=== PATIENT | female | born 1960 | race Caucasian/White ===

== ENCOUNTER 2017-12-14 13:51 | Emergency (ER) | payer BC, SELFPAY ==
--- NOTE | 2017-12-14 14:30 | XR_ITS ---
XR wrist RT min 3V, XR hand RT min 3V Ordering Physician: Zeus Gagnon Patient Age: 57 years: Female HISTORY: ITS.REASON: FALLhand and wrist pain TECHNIQUE: 3 views right wrist 3 views right hand COMPARISON :Right hand from June 2014 RIGHT WRIST 3 view: ====== No fracture nor dislocation. The distal radius appears intact. Distal ulna. Small tess of calcification along ulnar aspect of ulnar styloid.Most likely dystrophic minor calcification. The patient has a old healed fracture at the proximal fourth metacarpal. since 2013 at this site. Degenerative arthritic changes at first carpal metacarpal joint. Narrowing, sclerosis. Early hypertrophic features. There is also some dystrophic calcification along with a few modest sesamoids about this joint . These question early may be slight evident be more evident than previous study. RIGHT HAND 3 view======== Right hand is intact no fracture. No dislocation. Again the arthritic changes at first carpal-metacarpal joint noted. Narrowing sclerosis with scattered sesamoids about this area. Good healing at the proximal fourth metacarpal from the 2014 fracture. The fingers appear intact with only borderline narrowing at the DIP joints. IMPRESSION: ==== No acute fracture at right wrist or hand Old healed fracture with minor deformity proximal fourth metacarpal. Arthritic changes at first carpal-metacarpal joint.
[2017-12-14 14:44] VITALS: BP 136/67; PULSE 77; RESP 20; TEMP 36.2; O2SAT 97; BMI 22.9
--- NOTE | 2017-12-14 15:00 | HMH.EDUTC ---
[facility] [place] Clinical Impression: Right wrist sprain Qualifiers: Encounter type: initial encounter Qualified Code(s): S63.501A - Unspecified sprain of right wrist, initial encounter Disposition: Home, Self-Care Condition on Discharge: Good Instructions: How to Use a Sling, DI for Wrist Sprain, How To Perform RICE (Rest, Ice, Compress, Elevate), How to Take Care of Your Splint Additional Instructions: * Rest * ice 15-20 mins 3-4 times a day * splint and sling for support and swelling. until you follow up. Be sure not too tight but not too loose either by checking fingers like we discussed. * Elevate as discussed as much as possible to help reduce swelling and therefore, pain * Ibuprofen every 6 hours as needed for pain and inflammation. If you need something more, you can take tylenol every 4 hours as needed as long as your primary care provider has told you it is ok to take both. Referrals: Ryanne Reyna APRN [Primary Care Provider] - (Immediately for new or worsening symptoms that might indicate splint too tight like we discussed. Otherwise THURSDAY AT 10:45 IN [facility]S OFFICE) Time of Disposition: 15:58 Medical Decision Making Vital Signs: 12/14/17 14:44 12/14/17 15:58 Temperature 97.1 F L 98 F Temperature Source Temporal Artery Scan Pulse Rate 76 Pulse Rate [Right Radial] 77 Respiratory Rate 20 20 Blood Pressure 130/76 Blood Pressure [Right Arm] 136/67 Blood Pressure Mean [Right Arm] 90 Blood Pressure Source [Right Arm] Automatic Cuff Blood Pressure Position [Right Arm] Sitting 02 Sat by Pulse Oximetry 97 Oxygen Delivery Method Room Air - Radiology Data #1 Image(s): Wrist, Hand Image Reviewed: Yes I reviewed the patient's radiology image w/the ED provider Preliminary Findings: Normal/NAD Rvwd w/ MANASA Lerma. No acute findings. Multiple sesmoid bones. - Physician Consults Physician Consulted: Katie Reyna APRN Time: 15:30 Reason -: Pt condition Comment/Response: 1530 Called but with a pt, will return call. 1556: Katie returned call. Discussed HPI, xrays, exam and splinting. Would like to see pt in office at 10:45 before referring to ortho. - [place] Inquiry Pt receiving controlled substance: No [facility] [place] - General Stated complaint: fell 12/13/17 hurt right hand Time Seen by Provider: 12/14/17 15:00 Mode of Arrival: Family Vehicle Source of Information: Patient Limitations: No Limitations Description of Symptoms (Recalled from Triage Doc. by RN): PT STATES SHE FELL ON RIGHT HAND/WRIST YESTERDAY. HEENT Symptoms (Recalled from RN notes): No Resp Symptoms (Recalled from RN notes): No Skin Symptoms (Recalled from RN notes): No MS Symptoms (Recalled from RN notes): Yes (RIGHT HAND/WRIST PAIN) Functional Status (Recalled from RN notes): NA - History of Present Illness Provider Complaint: c/o right hand and wrist pain s/p fall yesterday. While trying to hand up a shower curtain, fell into the shower. isn't sure how she caught herself. Pain with wrist ROM primarily but some pain with movement of fingers as well. Ibuprofen hasn't helped. Hasn't taken or tried anything else. Denies N/T. No pain radiating into forearm. - Related Data Home Medications Medication Instructions Recorded Confirmed Aspirin [Aspir 81] 81 mg PO DAILY 12/14/17 12/14/17 Atorvastatin Calcium [Atorvastatin 40 mg PO DAILY 12/14/17 12/14/17 40mg Tab] Dorzolamide HCl/Timolol Maleat 0 ml OP DAILY 12/14/17 12/14/17 [Cosopt Ophth Soln 10mL Bottle] Latanoprost [Xalatan] 2.5 ml OP DAILY 12/14/17 12/14/17 Loteprednol Etabonate [Lotemax] 5 ml OP DAILY 12/14/17 12/14/17 Allergies Allergy/AdvReac Type Severity Reaction Status Date / Time No Known Allergies Allergy Verified 12/14/17 14:14 - Worker's Comp Is this a Worker's Comp case?: No [facility] History I have reviewed the patient's past medical history: Yes ([place], glaucoma) Medical History: Denies:: Diabetes Mellitus Type
[2017-12-14 15:58] VITALS: BP 130/76; PULSE 76; RESP 20; TEMP 36.6; O2SAT 99
== END 2017-12-14 15:59 | disposition home or self-care (01) ==
PROVIDERS: Emergency Provider Nurse Practitioner Family; Family Provider Nurse Practitioner Family; PCP Nurse Practitioner Family
DX: S63.501A Unspecified sprain of right wrist, initial encounter (principal); W01.0XXA Fall on same level from slipping, tripping and stumbling without subsequent striking against object, initial encounter; Y93.E9 Activity, other interior property and clothing maintenance; Y92.002 Bathroom of unspecified non-institutional (private) residence as the place of occurrence of the external cause; Z79.82 Long term (current) use of aspirin; Z79.899 Other long term (current) drug therapy
CPT/HCPCS: 73110; 73130; 99202

== ENCOUNTER → 2018-06-07 08:41 | Outpatient (CLI) | payer BC, SELFPAY ==
--- NOTE | 2018-06-07 08:45 | MM_ITS ---
MM Dig screening mamm BI w/CAD CAD Screening COMPARISON: Digital mammograms with CAD 04/30/2016 and 07/29/2010 INDICATION: There is no personal or family history of breast cancer TECHNIQUE: Standard CC and MLO images were obtained. R2 CAD reviewed. FINDINGS: Scattered fibro glandular densities are seen throughout both breasts. There is a possible developing asymmetric density central portion of the right breast best seen on the cc view. Suggest patient return for spot compression MLO and CC views of the area marked on the film and ultrasound may be necessary as well There is a mole marker right breast. There are no suspicious microcalcifications. IMPRESSION: Fibrofatty parenchyma with possible asymmetric density right breast BI-RADS Category: 0 Need Additional Imaging Evaluation RECOMMENDED FOLLOW-UP: IMM - IMMEDIATE FOLLOW-UP RECOMMENDED (A letter has been sent to the patient regarding results of the study.)
== END ==
PROVIDERS: Family Provider Nurse Practitioner Family; PCP Nurse Practitioner Family; Visit Provider Nurse Practitioner Family
DX: Z12.31 Encounter for screening mammogram for malignant neoplasm of breast (principal)
CPT/HCPCS: 77067

== ENCOUNTER → 2018-06-29 09:15 | Outpatient (CLI) | payer BC, SELFPAY ==
--- NOTE | 2018-06-29 09:18 | MM_ITS ---
MM Dig mamm DX unilat RT CAD, US breast RT complete INDICATION: Follow-up abnormal mammogram ORDERING PHYSICIAN: Ryanne Reyna PATIENT AGE: 58 years COMPARISON: 06/07/2018, 04/30/2016 TECHNIQUE: Problem-solving views of the right breast along with right breast ultrasound FINDINGS: There is average fibroglandular tissue. There is asymmetric density in the medial aspect of the right breast is less apparent on the spot compression views and not readily apparent on the rolled views. There was some asymmetry here dating back to 04/30/2016 likely due to asymmetric fibroglandular tissue. No malignant appearing mass or malignant appearing microcalcification evident. Right breast ultrasound: No suspicious nodules. No cyst or solid lesions evident. IMPRESSION: Probably benign findings. Asymmetric density in the upper and inner aspect of the right wrist probably related to overlapping fibroglandular tissue. Recommend 6 month mammographic follow-up BI-RADS Category: 3 Probably Benign Finding Short Term Follow-up RECOMMENDED FOLLOW-UP: 6M - 6 MONTH FOLLOW-UP (A letter has been sent to the patient regarding results of the study.)
== END ==
PROVIDERS: PCP Nurse Practitioner Family; Visit Provider Nurse Practitioner Family
DX: R92.8 Other abnormal and inconclusive findings on diagnostic imaging of breast (principal)
CPT/HCPCS: 76641; 77065

== ENCOUNTER → 2019-03-11 13:32 | Outpatient (CLI) | payer BC, SELFPAY ==
--- NOTE | 2019-03-11 13:40 | MM_ITS ---
MM Dig mamm DX unilat RT CAD Ordering Physician: Emanuel Purvis MD Patient Age: 58 years Female COMPARISON: July, bilateral mammogram studies. Right breast ultrasound June 2018 INDICATION: Asymmetric density right breast. Follow-up TECHNIQUE: 1. Right Diagnostic Mammogram:Full CC and MLO view Along with CC and MLO and 90 degrees spot views along 2. Right Breast Ultrasound.: Entire breast surgery including axillary survey. Findings: DIAGNOSTIC RIGHT MAMMOGRAM WITH SPOT VIEWS: The density superior right breast again seen but seems to compress out on the lateral 90 degree spot view & dissipates on the initial cc view. . Also note that old studies from 2009 and August 2016 demonstrated a similar area of density However would again recommend 6 month follow-up to further confirm stability and to resume annual schedule. ========= RIGHT BREAST ULTRASOUND including axillary survey No focal areas of concern are identified;. Technologist stated there was particular attention to the superior breast and 12:00 region/(cc) .No cyst nor solid nodule evident Axillary survey. Scattered benign appearing nodes ......... IMPRESSION: ... 1. Right Diagnostic Mammogram:-No Significant Change. The asymmetric density at the 12 o'clock position right breast again noted but seems to compress out; and seems to be fairly stable compared to old studies from 2009 2015 2. Right Breast Ultrasound:. Unremarkable. No areas of concern Patient may resume annual schedule Bilateral mammogram 6-8 months recommended for follow-up & to resume annual scheduled BI-RADS Category: 2 stable appearing Benign Finding(s) RECOMMENDED FOLLOW-UP: 6M -8 MONTH FOLLOW-UP Bilateral mammogram 6-8 months recommended for follow-up & to resume annual scheduled A letter has been sent to the patient regarding results of the study.)
--- NOTE | 2019-03-11 13:41 | US_ITS ---
US breast RT complete INDICATION: Abnormal mammogram ORDERING PHYSICIAN: Emanuel Purvis MD PATIENT AGE: 58 years COMPARISON: 03/11/2019 TECHNIQUE: Right breast ultrasound performed along with axilla FINDINGS: [place]ch[place] fibroglandular tissue. No discrete mass. No cystic or solid lesions IMPRESSION: Negative BI-RADS Category: 2 Benign Finding(s) RECOMMENDED FOLLOW-UP: 6M - 6 MONTH FOLLOW-UP (A letter has been sent to the patient regarding results of the study.)
== END ==
PROVIDERS: PCP Internal Medicine Adolescent Medicine; Visit Provider Internal Medicine Adolescent Medicine
DX: R92.8 Other abnormal and inconclusive findings on diagnostic imaging of breast (principal)
CPT/HCPCS: 76641; 77065

== ENCOUNTER 2019-04-06 11:48 | Emergency (ER) | payer BC, SELFPAY ==
[2019-04-06 11:57] VITALS: BP 169/76; PULSE 80; RESP 18; TEMP 36.6; O2SAT 99; BMI 24.2
--- NOTE | 2019-04-06 11:57 | XR_ITS ---
XR foot RT min 3V HISTORY: Pain following injury ITS.REASON: PAIN] ORDERING PHYSICIAN: Analy Leon APRN PATIENT AGE: 58 years COMPARISON: None FINDINGS: There are mild osteoarthritic changes at the first MTP joint with a small well-circumscribed calcific density medial to the distal aspect of the first metatarsal. No fracture or dislocation. IMPRESSION: No acute finding
--- NOTE | 2019-04-06 11:57 | XR_ITS ---
XR ankle RT min 3V HISTORY: Right lower ankle pain after injury ITS.REASON: PAIN ORDERING PHYSICIAN: Analy Leon APRN PATIENT AGE: 58 years Comparison: None FINDINGS: No fracture or dislocation. No lytic or blastic change. There is normal mineralization.. The joint spaces are well-preserved. No significant degenerative/arthritic changes. No erosive changes evident. There is a prominent calcaneal spur at 8 mm. IMPRESSION: No acute finding
[2019-04-06 11:59] VITALS: BP 169/76; PULSE 80; RESP 18; TEMP 36.6; O2SAT 99; BMI 25.0
--- NOTE | 2019-04-06 12:03 | PC.NURSE ---
NOTIFIED RAD OF XRAY
--- NOTE | 2019-04-06 12:32 | HMH.EDUTC ---
[facility] [place] Clinical Impression: Ankle sprain Qualifiers: Encounter type: initial encounter Involved ligament of ankle: other ligament Laterality: right Qualified Code(s): S93.491A - Sprain of other ligament of right ankle, initial encounter Foot sprain Qualifiers: Encounter type: initial encounter Laterality: right Qualified Code(s): S93.601A - Unspecified sprain of right foot, initial encounter Disposition: Home, Self-Care Condition on Discharge: Good Instructions: How to Use a Walking Boot, How to Use Crutches, How To Perform RICE (Rest, Ice, Compress, Elevate) Additional Instructions: *RICE, Rest the extremity, Ice 15-20 minutes 3-4 times daily, Compress- wear the mckay wrap as discussed as much as possible to help reduce swelling and pain, Elevate the extremity when at rest *Mckay wrap/walking boot is for support and help control swelling, use it except in the shower. Be sure that is not to tight but not to loose either *Elevate when resting *Ibuprofen every 6-8 hours as needed for pain an inflammation. If need something more can take Tylenol in between doses of Ibuprofen to help Immediately follow up with your family doctor for new or worsening of symptoms, or no noticeable improvement over the next 3-[address] Canseco office and make appointment Inform them you was seen in [facility] and recommended follow up with Dr Canseco Return if needed Straight to ER if any life threatening symptoms Call back to [facility] later today for official reading of your xray results Referrals: Ryanne Reyna APRN [Primary Care Provider] - As needed Jessica Canseco DPM [Staff Physician] - As needed (Call and make appointment) Time of Disposition: 12:42 Medical Decision Making - [place]ville Inquiry Pt receiving controlled substance: No [place] was queried for this patient: No Vital Signs: 04/06/19 11:57 04/06/19 11:59 Temperature 98 F 98 F Temperature Source Oral Oral Pulse Rate [Right Apical] 80 80 Respiratory Rate 18 18 Blood Pressure [Right Arm] 169/76 H 169/76 H Blood Pressure Mean [Right Arm] 107 107 02 Sat by Pulse Oximetry 99 99 Oxygen Delivery Method Room Air Orders (Tests/Meds): ORDERS Category Date Time Status XR ankle RT min 3V Stat Exams 04/06/19 11:57 Taken XR foot RT min 3V Stat Exams 04/06/19 11:57 Taken - Radiology Data #1 Image(s): Ankle, Foot/Toes Image Reviewed: Yes I reviewed the patient's radiology image Ankle- no acute finding Foot - Heel spur noted no acute fracture WIll place in walking boot and have patient follow up with Dr Canseco [facility] [place] HPI - General Stated complaint: AO [id number] Right ankle/foot Time Seen by Provider: 04/06/19 12:33 Mode of Arrival: Wheelchair Source of Information: Patient Limitations: No Limitations Description of Symptoms (Recalled from Triage Doc. by RN): PT C/O RT ANKLE PAIN AFTER TRIPPING WHILE GETTING IN TRUCK. PT DENIES HITTING HEAD OR ANY OTHER INJURIES. HEENT Symptoms (Recalled from RN notes): No Resp Symptoms (Recalled from RN notes): No Skin Symptoms (Recalled from RN notes): No MS Symptoms (Recalled from RN notes): Yes (RT ANKLE AND FOOT PAIN) Functional Status (Recalled from RN notes): N/A - History of Present Illness Provider Complaint: Patient states that last night she was getting into her truck when she tripped and ever since she has been having pain in her right ankle and foot State that pain is worse in the top of the foot and wraps around her ankle and shoots down into her foot State that she has been hopping around but pain is worse when she puts weight on it. Patient reports being hearing impaired but able to understand and read lips - Related Data Home Medications Medication Instructions Recorded Confirmed Aspirin [Aspir 81] 81 mg PO DAILY 12/14/17 12/14/17 Atorvastatin Calcium [Atorvastatin 40 mg PO DAILY 12/14/17 12/14/17 40mg Tab] Dorzolamide HCl/Timolol Maleat 0 ml OP DAILY 12/14/17 12/14/17 [Cosopt Ophth Soln 10mL Bottle]
--- NOTE | 2019-04-06 12:36 | ED_ITS ---
[facility] [place] Clinical Impression: Ankle sprain Qualifiers: Encounter type: initial encounter Involved ligament of ankle: other ligament Laterality: right Qualified Code(s): S93.491A - Sprain of other ligament of right ankle, initial encounter Foot sprain Qualifiers: Encounter type: initial encounter Laterality: right Qualified Code(s): S93.601A - Unspecified sprain of right foot, initial encounter Disposition: Home, Self-Care Condition on Discharge: Good Instructions: How to Use a Walking Boot, How to Use Crutches, How To Perform RICE (Rest, Ice, Compress, Elevate) Additional Instructions: *RICE, Rest the extremity, Ice 15-20 minutes 3-4 times daily, Compress- wear the mckay wrap as discussed as much as possible to help reduce swelling and pain, Elevate the extremity when at rest *Mckay wrap/walking boot is for support and help control swelling, use it except in the shower. Be sure that is not to tight but not to loose either *Elevate when resting *Ibuprofen every 6-8 hours as needed for pain an inflammation. If need something more can take Tylenol in between doses of Ibuprofen to help Immediately follow up with your family doctor for new or worsening of symptoms, or no noticeable improvement over the next 3-[address] Canseco office and make appointment Inform them you was seen in [facility] and recommended follow up with Dr Canseco Return if needed Straight to ER if any life threatening symptoms Call back to [facility] later today for official reading of your xray results Referrals: Ryanne Reyna APRN [Primary Care Provider] - As needed Jessica Canseco DPM [Staff Physician] - As needed (Call and make appointment) Time of Disposition: 12:42 Medical Decision Making - [place]ville Inquiry Pt receiving controlled substance: No [place] was queried for this patient: No Vital Signs: 04/06/19 11:57 04/06/19 11:59 Temperature 98 F 98 F Temperature Source Oral Oral Pulse Rate [Right Apical] 80 80 Respiratory Rate 18 18 Blood Pressure [Right Arm] 169/76 H 169/76 H Blood Pressure Mean [Right Arm] 107 107 02 Sat by Pulse Oximetry 99 99 Oxygen Delivery Method Room Air Orders (Tests/Meds): ORDERS Category Date Time Status XR ankle RT min 3V Stat Exams 04/06/19 11:57 Taken XR foot RT min 3V Stat Exams 04/06/19 11:57 Taken - Radiology Data #1 Image(s): Ankle, Foot/Toes Image Reviewed: Yes I reviewed the patient's radiology image Ankle- no acute finding Foot - Heel spur noted no acute fracture WIll place in walking boot and have patient follow up with Dr Canseco [facility] [place] HPI - General Stated complaint: AO [id number] Right ankle/foot Time Seen by Provider: 04/06/19 12:33 Mode of Arrival: Wheelchair Source of Information: Patient Limitations: No Limitations Description of Symptoms (Recalled from Triage Doc. by RN): PT C/O RT ANKLE PAIN AFTER TRIPPING WHILE GETTING IN TRUCK. PT DENIES HITTING HEAD OR ANY OTHER INJURIES. HEENT Symptoms (Recalled from RN notes): No Resp Symptoms (Recalled from RN notes): No Skin Symptoms (Recalled from RN notes): No MS Symptoms (Recalled from RN notes): Yes (RT ANKLE AND FOOT PAIN) Functional Status (Recalled from RN notes): N/A - History of Present Illness Provider Complaint: Patient states that last night she was getting into her truck when she tripped and ever since she has been having pain in her right ankle and
[2019-04-06 12:55] VITALS: BP 169/76; PULSE 80; RESP 18; TEMP 36.6; O2SAT 99
== END 2019-04-06 12:56 | disposition home or self-care (01) ==
PROVIDERS: Emergency Provider Nurse Practitioner; PCP Nurse Practitioner Family
DX: S93.491A Sprain of other ligament of right ankle, initial encounter (principal); S93.601A Unspecified sprain of right foot, initial encounter; W17.89XA Other fall from one level to another, initial encounter
CPT/HCPCS: 29515; 73610; 73630; 99202

== ENCOUNTER → 2020-05-17 09:39 | Outpatient (CLI) | payer BC, SELFPAY ==
[2020-05-17 11:12] LABS: Basophils # 0.1 K/mm3 (0-0.2); Basophils % 0.9 % (0.1-2.0); Eosinophils # 0.4 K/mm3 (0.0-0.4); Hematocrit 44.1 % (37.0-47.0); Hemoglobin 15.4 g/dL (12.2-16.2); Lymphocytes # 2.5 K/mm3 (0.7-4.5); Lymphocytes % 37.4 % (10-50); Mean Corpuscular HGB Conc 34.9 g/dL (31.8-35.4); Mean Corpuscular Hemoglobin 30.3 pg (27.0-31.2); Mean Corpuscular Volume 86.8 fl (81-99); Mean Platelet Volume 8.4 fl (7.4-10.4); Monocytes # 0.3 K/mm3 (0.1-1.0); Monocytes % 4.7 % (1.7-9.3); Neutrophils # 3.4 K/mm3 (1.8-7.8); Platelet Count 213 K/mm3 (142-424); Red Blood Count 5.08 M/mm3 (4.20-5.40); Red Cell Distribution Width 14.1 % (11.5-17.5); White Blood Count 6.6 K/mm3 (4.8-10.8)
[2020-05-17 12:33] LABS: Chol/HDL Ratio 4.1 (1-3.5); Cholesterol 188 mg/dl (140-200); HDL Cholesterol 46 mg/dl (40-60); Triglycerides 222 mg/dl (30-150); VLDL Cholesterol 44 mg/dL (0-40)
[2020-05-17 12:50] LABS: Anion Gap 16.1 mEq/L (5-15); Aspartate Amino Transferase 29 U/L (14-36); Bilirubin,Total 1.1 mg/dl (0.2-1.3); Blood Urea Nitrogen 10 mg/dl (7-17); Calcium 9.3 mg/dl (8.4-10.2); Carbon Dioxide 26 mmol/L (22.0-30.0); Chloride 104 mmol/L (98-107); Estimated Glomerular Filt Rate 127 ml/min (>60); GFR (African American) 153 ML/MIN (>60); Glucose 99 mg/dl (74-100); Potassium 4.1 mmoL/L (3.5-5.1); Sodium 142 mmol/L (136-145); Total Protein,Serum 7.2 g/dl (6.3-8.2)
[2020-05-17 12:51] LABS: Albumin Level 4.5 g/dl (3.5-5.0); Albumin/Globulin Ratio 1.7 (1.1-1.8); Alkaline Phosphatase 70 U/L (38-126); Globulin 2.7 g/dL (1.3-3.2)
[2020-05-18 18:02] LABS: RA Latex Turbid. 11.7 IU/mL (0.0-13.9)
== END ==
PROVIDERS: Visit Provider Nurse Practitioner Family
DX: Z01.419 Encounter for gynecological examination (general) (routine) without abnormal findings (principal); E78.5 Hyperlipidemia, unspecified; M12.9 Arthropathy, unspecified; Z86.2 Personal history of diseases of the blood and blood-forming organs and certain disorders involving the immune mechanism
CPT/HCPCS: 36415; 80053; 80061; 85025; 86431

== ENCOUNTER → 2020-05-24 10:19 | Outpatient (CLI) | payer BC, SELFPAY ==
--- NOTE | 2020-05-24 10:22 | MM_ITS ---
PROCEDURE: MM DIG SCREENING MAMM BI W/CAD Digital Breast Tomosynthesis Included CLINICAL INDICATION: SCREENING There is no personal or family history of breast cancer. COMPARISON: MG SCBI MM Dig screening mamm BI w/CAD from 06/07/2018 MG DXRT MM Dig mamm DX unilat RT CAD from 06/29/2018 MG DIG MAMM-DX UNI-RT from 03/11/2019 TECHNIQUE: Standard CC and MLO images and 3D Tomosynthesis was obtained. R2 CAD reviewed. FINDINGS: Scattered diffuse fibroglandular densities are seen throughout both breasts and the findings are bilateral and symmetrical. The asymmetric density superior right breast seen on recent studies is less prominent on today's study. There is a stable tiny nodular density near the axillary tail left breast. IMPRESSION: Fibrofatty parenchyma with no suspicious lesions seen BI-RAD Category: 1 Negative FOLLOW-UP: 1YR 1 Year Follow-up (A letter has been sent to the patient regarding results of the study.) Dictated Dr. Jair Rivera MD 05/25/2020 13:39 Dr. Jair Whittaker MD in [place] 05/25/2020 13:39
== END ==
PROVIDERS: PCP Nurse Practitioner Family; Visit Provider Nurse Practitioner Family
DX: Z12.31 Encounter for screening mammogram for malignant neoplasm of breast (principal)
CPT/HCPCS: 77063; 77067

== ENCOUNTER → 2021-08-15 10:04 | Outpatient (CLI) | payer BC, SELFPAY ==
[2021-08-15 11:07] LABS: Basophils # 0.1 K/mm3 (0-0.2); Basophils % 1.3 % (0.1-2.0); Eosinophils # 0.3 K/mm3 (0.0-0.4); Eosinophils % 3.8 % (0.1-12.0); Hematocrit 44.6 % (37.0-47.0); Hemoglobin 14.9 g/dL (12.2-16.2); Lymphocytes # 2.6 K/mm3 (0.7-4.5); Lymphocytes % 35.9 % (10-50); Mean Corpuscular HGB Conc 33.3 g/dL (31.8-35.4); Mean Corpuscular Volume 87.2 fl (81-99); Monocytes # 0.5 K/mm3 (0.1-1.0); Monocytes % 6.2 % (1.7-9.3); Neutrophils # 3.9 K/mm3 (1.8-7.8); Neutrophils % 52.9 % (37.0-80.0); Platelet Count 222 K/mm3 (142-424); Red Blood Count 5.12 M/mm3 (4.20-5.40); White Blood Count 7.3 K/mm3 (4.8-10.8)
[2021-08-15 11:40] LABS: Alanine Aminotransferase 29 U/L (12-78); Albumin Level 4.4 g/dl (3.5-5.0); Albumin/Globulin Ratio 1.5 (1.1-1.8); Alkaline Phosphatase 68 U/L (38-126); Anion Gap 14.1 mEq/L (5-15); Aspartate Amino Transferase 40 U/L (14-36); Bilirubin,Total 1.4 mg/dl (0.2-1.3); Blood Urea Nitrogen 9 mg/dl (7-17); Calcium 9.4 mg/dl (8.4-10.2); Carbon Dioxide 26 mmol/L (22.0-30.0); Chloride 105 mmol/L (98-107); Chol/HDL Ratio 4.3 (1-3.5); Cholesterol 195 mg/dl (140-200); Estimated Glomerular Filt Rate 126 ml/min (>60); GFR (African American) 152 ML/MIN (>60); Globulin 2.9 g/dL (1.3-3.2); Glucose 106 mg/dl (74-100); HDL Cholesterol 45 mg/dl (40-60); Potassium 5.1 mmoL/L (3.5-5.1); Sodium 140 mmol/L (136-145); Total Protein,Serum 7.3 g/dl (6.3-8.2); Triglycerides 257 mg/dl (30-150); VLDL Cholesterol 51 mg/dL (0-40)
[2021-08-15 11:51] LABS: Direct LDL Cholesterol 103.69 mg/dL (100-129)
== END ==
PROVIDERS: Visit Provider Nurse Practitioner Family
DX: E78.5 Hyperlipidemia, unspecified (principal); Z86.2 Personal history of diseases of the blood and blood-forming organs and certain disorders involving the immune mechanism
CPT/HCPCS: 36415; 80053; 80061; 85025

== ENCOUNTER 2022-12-05 07:20 | Observation (INO) | payer BC, SELFPAY ==
[2022-12-05] VITALS (13 sets, daily range): BP systolic 127–218; BP diastolic 61–92; PULSE 81–100; RESP 16–20; TEMP 36.1–37.3; O2SAT 96–98; BMI 25.6; BMI 25.3
--- NOTE | 2022-12-05 08:01 | HMH.EDGENADL ---
Discharge Plan Disposition Patient Disposition: Admitted As Inpatient Condition: Good Prescriptions Prescriptions: New Eliquis 5 mg tablet 5 mg PO BID 97 Days Qty: 201 0RF Rx Instructions: Please take 10 mg twice daily for 7 days followed by 5 mg twice daily for 3 months quantity sufficient. No Action latanoprost [Xalatan] 2.5 ML drops 2.5 ml ophthalmic (eye) DAILY atorvastatin 40 MG tablet 40 mg PO DAILY aspirin [Aspir-81] 81 MG tablet,delayed release (DR/EC) 81 mg PO DAILY dorzolamide-timolol 10 ML drops 0 ml ophthalmic (eye) DAILY loteprednol etabonate [Lotemax] 5 ML drops,suspension 5 ml ophthalmic (eye) DAILY Referrals Follow up/Referrals: Ryanne Reyna APRN [Primary Care Provider] - See instructions Clinical Impressions Clinical Impression: DVT (deep venous thrombosis) Discharge ED Provider: Sam (ED)[facility] Adult HPI General Chief complaint: PAIN Stated complaint: pain in Lt leg, swollen Time Seen by Provider: 12/05/22 08:02 Mode of Arrival: Ambulatory Source of Information: Patient Limitations: No Limitations Description of Symptoms (Recalled from ER Triage Doc. by RN): Presents via POV d/t LLE pain/edema that started Thu. Denies hx of DVT. +asa 81mg. History of Present Illness HPI narrative: Patient is a 62-year-old female with a history of remote uterine cancer that was cured by hysterectomy presents today with left lower extremity swelling that is nontraumatic in nature. States this been ongoing for 3 days. She did have a fall earlier this month but denies any specific injury to her left lower extremity. Swelling has been circumferential and asymmetric in relation to her contralateral leg. She denies any coolness or decree sensation or motor function of the left lower extremity. Denies any history of DVT or PTE. Is not on anticoagulation. Does not have any ongoing or active cancer to her knowledge. Has not had any prolonged immobilizations. Pain is mild at the moment. Patient denies any chest pain or shortness of breath. Related Data Home Medications Medication Instructions Recorded Confirmed aspirin 81 mg tablet,delayed 81 mg PO DAILY Heart disease 12/14/17 12/14/17 release (Aspir-) atorvastatin 40 mg tablet 40 mg PO DAILY Cholesterol 12/14/17 12/14/17 dorzolamide 22.3 mg-timolol 6.8 0 ml ophthalmic (eye) DAILY EYES 12/14/17 12/14/17 mg/mL eye drops latanoprost 0.005 % eye drops 2.5 ml ophthalmic (eye) DAILY EYES 12/14/17 12/14/17 (Xalatan) loteprednol etabonate 0.5 % eye 5 ml ophthalmic (eye) DAILY EYES 12/14/17 12/14/17 drops,suspension (Lotemax) Previous Rx's Medication Instructions Recorded apixaban 5 mg tablet (Eliquis) 5 mg PO BID 97 days #201 tabs 12/05/22 Allergies Allergy/AdvReac Type Severity Reaction Status Date / Time No Known Allergies Allergy Verified 12/14/17 14:14 [facility] Disclaimer: The information contained in this section may have been updated after the patient was seen, as this information can be updated by other users. Social History Smoking Status: Never smoker alcohol intake: never current occupational status: unemployed Travel in the last 8 weeks: None ROS Obtained: Yes All systems reviewed & no additional complaints except as documented Physical Exam General General appearance: alert and in no apparent distress Head Head exam: atraumatic and normocephalic Eye Eye exam: Present normal appearance, PERRL and EOMI ENT ENT exam: Present normal exam and normal oropharynx Respiratory Respiratory exam: Present normal lung sounds bilaterally; Absent respiratory distress, wheezes or stridor Cardiovascular Cardiovascular exam: Present regular rate; Absent tachycardia or irregular rhythm Abdominal Exam Abdominal exam: Present soft; Absent distention, tenderness or guarding Extremities Exam Extremities exam: Present other (Left lower extremity is circumferentia
--- NOTE | 2022-12-05 08:07 | CA_ITS ---
FINAL REPORT CLINICAL HISTORY: LLE swelling, REDNESS LLE,PT FELL 2/1 AND BROKE LT ARM,PT ON ASA,HX UTERINE CA FINDINGS: DUPLEX VENOUS SONOGRAPHY OF THE LEFT LOWER EXTREMITY Multiple transverse and longitudinal scans were performed of the femoropopliteal deep venous system, with augmentation and compression maneuvers. There is thrombus within the femoral, popliteal and proximal calf veins. The common femoral vein is patent. IMPRESSION: Extensive left lower extremity DVT. These results were reported to the patient's nurse by the instrument technologist. Reviewed, Interpreted and Dictated by Saida Godwin MD Transcribed by Delilah Lino Authenticated and [facility]
[2022-12-05 08:18] LABS: Chloride 108 mmol/L (98-107)
[2022-12-05 08:19] LABS: Sodium 141 mmol/L (136-145)
[2022-12-05 08:21] LABS: Alanine Aminotransferase 31 U/L (12-78); Alkaline Phosphatase 100 U/L (38-126); Aspartate Amino Transferase 36 U/L (14-36); Bilirubin,Total 1.8 mg/dl (0.2-1.3); Blood Urea Nitrogen 14 mg/dl (7-17); Creatinine Clearance Estimated 65 mL/min (50-200); Estimated Glomerular Filt Rate 102 ml/min (>60); GFR (African American) 123 ML/MIN (>60)
[2022-12-05 08:22] LABS: Albumin Level 4.7 g/dl (3.5-5.0); Albumin/Globulin Ratio 1.5 (1.1-1.8); Calcium 8.9 mg/dl (8.4-10.2); Carbon Dioxide 23 mmol/L (22.0-30.0); Globulin 3.2 g/dL (1.3-3.2); Glucose 126 mg/dl (74-100); Total Protein,Serum 7.9 g/dl (6.3-8.2)
[2022-12-05 08:25] LABS: Activated Partial Thrombo Time 28.6 seconds (22.8-30.6); INR 1.23 (0.9-1.1); Prothrombin Time 13.1 seconds (10.1-12.5)
[2022-12-05 08:28] LABS: Basophils # 0.1 K/mm3 (0-0.2); Eosinophils # 0.2 K/mm3 (0.0-0.4); Eosinophils % 2.3 % (0.1-12.0); Hematocrit 39.8 % (37.0-47.0); Hemoglobin 13.6 g/dL (12.2-16.2); Lymphocytes # 1.9 K/mm3 (0.7-4.5); Lymphocytes % 19.9 % (10-50); Mean Corpuscular HGB Conc 34.1 g/dL (31.8-35.4); Mean Corpuscular Hemoglobin 28.7 pg (27.0-31.2); Mean Corpuscular Volume 84.3 fl (81-99); Monocytes # 0.6 K/mm3 (0.1-1.0); Monocytes % 6.1 % (1.7-9.3); Neutrophils # 6.7 K/mm3 (1.8-7.8); Neutrophils % 70.7 % (37.0-80.0); Platelet Count 62 K/mm3 (142-424); Red Blood Count 4.72 M/mm3 (4.20-5.40); Red Cell Distribution Width 14.6 % (11.5-17.5); White Blood Count 9.4 K/mm3 (4.8-10.8)
--- NOTE | 2022-12-05 08:30 | PC.NURSE ---
welder tech in room for doppler studies
[2022-12-05 08:34] LABS: D-Dimer > 8.10 ug/mL (0.0-0.5)
--- NOTE | 2022-12-05 09:07 | PC.NURSE ---
Pt updated on plan of care. Awaiting Ultrasound results. No complaints at this time.
--- NOTE | 2022-12-05 11:06 | PC.NURSE ---
spoke with neptali from [facility] for admission
[2022-12-05 11:14] LABS: Coronavirus 19, PCR Not Detected (NotDetected); Influenza A, PCR Not Detected (NotDetected); Influenza B, PCR Not Detected (NotDetected)
--- NOTE | 2022-12-05 11:30 | HMH.PHAINT1 ---
Pharmacy Intervention Comments: MEDICATION RECONCILIATION COMPLETED ON PATIENT USING EXTERNAL FILL HISTORY FROM PHARMACY AND PRESCRIPTION THAT WAS SENT BY ED. -ROCHELLE RAMIREZD
--- NOTE | 2022-12-05 11:55 | PC.NURSE ---
Report called to MARYURI Marsh. #[id number]
--- NOTE | 2022-12-05 12:19 | PC.NURSE ---
arrived to floor by wheelchair from ED
--- NOTE | 2022-12-05 12:20 | PC.NURSE ---
PT BEING TRANSPORTED TO FOR ADMISSION
--- NOTE | 2022-12-05 13:15 | CT_ITS ---
FINAL REPORT TECHNIQUE: Thin section axial images were obtained through the abdomen after intravenous contrast. Reconstruction images were obtained from the axial data. Exam was performed using dose reduction techniques. CLINICAL HISTORY: Extensive LLE DVT, Low Platelets, Hx Uterine CA, spleen values 62,000, liver b/c INR 1.23, liver test normal FINDINGS: There is a subcentimeter hypoechoic lesion in the left lobe of the liver which may be a cyst. The liver is otherwise homogeneous. The gallbladder is present. The spleen, adrenal glands, and pancreas are unremarkable. There are bilateral renal cysts. Largest cyst in the upper pole of the left kidney measures 8.3 cm. Abdominal GI tract is without acute abnormality. There is no abdominal lymphadenopathy or ascites. The patient is status post hysterectomy. The appendix is not visualized but there are no secondary signs to suggest appendicitis. There is no pelvic lymphadenopathy or ascites. No acute osseous abnormalities identified. IMPRESSION: Hepatic and renal cysts as detailed above. Reviewed, Interpreted and Dictated by Saida Godwin MD Transcribed by Blanquita Schmitt Authenticated and [facility]
--- NOTE | 2022-12-05 13:15 | CT_ITS ---
FINAL REPORT TECHNIQUE: Axial imaging of the chest is obtained after the administration of contrast. 3-D MIP reformatted images were also obtained and reviewed per PE protocol. CLINICAL HISTORY: Extensive Left DVT, Low Platelets, Hx Uterine CA, spleen values 62,000, liver b/c INR 1.23, liver test normal FINDINGS: There is a filling defect in the right main pulmonary artery and right lower lobe pulmonary artery consistent with pulmonary embolus. There is no pulmonary embolus on the left. There is no evidence of right heart strain. There is no aortic dissection or intimal flap. There is no mediastinal, hilar, or axillary lymphadenopathy. There is a 5 mm left lower lobe nodule well seen on image number 33. There is a 6 mm right lower lobe nodule well seen on image number 34. There is no pleural or pericardial effusion. There is no acute osseous abnormality. IMPRESSION: Pulmonary emboli in the right main and right lower lobe pulmonary arteries. No evidence of right heart strain. Bilateral subcentimeter pulmonary nodules. Recommend chest CT follow-up in 3 months. Reviewed, Interpreted and Dictated by Saida Godwin MD Transcribed by Blanquita Schmitt Authenticated and [facility]
--- NOTE | 2022-12-05 13:23 | EXP.HP ---
History of Present Illness *Admission Date: 12/05/22 *Reason for visit:: Chief complaint: Left lower extremity pain *History of present illness: This is a 62-year-old female that presents to [facility] emergency department with left lower extremity pain and swelling. She is accompanied by her . Her past medical history is significant for glaucoma and uterine cancer diagnosed in 2015 status post hysterectomy. Over the last 3 days she has identified increasing pain to the calf area of her left lower extremity with associated edema but no associated erythema. She has identified no acute dyspnea, hemoptysis or loss of ambulation. She denies easy bruising, gross hematuria, melena or hematochezia. She reports that on November 19 she was outside with her dogs and slipped on the ice and broke her left arm. [facility] and conservative care was recommended. She has been taking 800 mg of ibuprofen daily for the last 2 weeks. She reports decreased daily activity with her left upper extremity fracture. She reports that prior to her left arm history fracture she was very active with her dogs and responsibilities at home. She identified no weakness, easy fatigability, jaundice or generalized symptomatology. She reports no history of splenomegaly or routine hnmd-wuy-wquixpe use of Pepcid or H2 blockers. She reports a hysterectomy in 2014 for precancerous lesions to her cervix. Subsequent follow-up identified no further concerns. She reports her last annual blood work was 2 years ago which she characterizes as normal. In the ED her lab evaluation identified an INR of 1.2, elevated D-dimer 8.1, CBC with a normal white blood cell count 9.4, hemoglobin 13.6, hematocrit 39.8 and platelet count 62,000. Her electrolytes and glucose were within normal limits. Her LFTs including AST, ALT and alk phos were normal. Her total bilirubin was 1.8. In 2020 her bilirubin was 1.4. A left lower extremity Doppler identified an extensive left DVT. [facility] Medical History (Updated 12/05/22 @ 13:52 by Hector Yeager MD) Glaucoma History of uterine cancer Hyperlipidemia Left humeral fracture Uses cochlear implant Surgical History (Updated 12/05/22 @ 13:47 by Hector Yeager MD) Cochlear implant in place Corneal transplant status History of appendectomy History of hysterectomy Family History (Updated 12/05/22 @ 13:47 by Hector Yeager MD) Mother Heart attack Coronary artery disease Father Motor vehicle accident Other Family history of myocardial infarction Stroke Social History Smoking Status: Never smoker alcohol intake: never current occupational status: unemployed Travel in the last 8 weeks: None [place]/hinduism: Sabianist Review of Systems Review of Systems Review of systems:: pertinent systems reviewed and negative unless documented below Constitutional Constitutional: Denies lethargy *Cardiovascular Cardiovascular: Denies chest pain, Denies chest pain at rest, Denies chest pain with activity, Reports claudication, Denies dyspnea, Denies dyspnea on exertion, Denies orthopnea, Denies palpitations, Denies paroxysmal nocturnal dyspnea and Denies rapid heart rate *Respiratory Respiratory: Denies dyspnea, Denies dyspnea on exertion and Denies hemoptysis Endocrine Endocrine: Denies palpitations Meds Home Medications and Allergies Home Medications Medication Instructions Recorded Confirmed Type dorzolamide 22.3 mg-timolol 6.8 1 drp ophthalmic (eye) BID 12/14/17 12/05/22 History mg/mL eye drops ELEVATED EYE PRESSURE latanoprost 0.005 % eye drops 1 drp ophthalmic (eye) HS ELEVATED 12/14/17 12/05/22 History (Xalatan) EYE PRESSURE loteprednol etabonate 0.5 % eye 1 drp ophthalmic (eye) QID EYE 12/14/17 12/05/22 History drops,suspension (Lotemax) INFLAMMATION apixaban 5 mg
--- NOTE | 2022-12-05 18:02 | PC.NURSE ---
Patient ate late lunch and did not feel like eating much for dinner. Notified of snack options.
[2022-12-06] VITALS: PULSE 90
[2022-12-06 04:00] VITALS: BP 151/76; PULSE 70; PULSE 80; RESP 18; TEMP 36.8; O2SAT 98; BMI 27.1
--- NOTE | 2022-12-06 06:07 | PC.NURSE ---
Pt. aox 4 with assist to the restroom times one related to poor vision.
[2022-12-06 07:56] VITALS: BP 142/63; PULSE 87; RESP 18; TEMP 36.6; O2SAT 100
[2022-12-06 08:00] VITALS: PULSE 87; O2SAT 97
--- NOTE | 2022-12-06 08:40 | EXP.DC.SUM ---
General Admission date:: 12/05/22 Discharge date: 12/06/22 HPI HPI HPI: This is a 62-year-old female that presents to [facility] emergency department with left lower extremity pain and swelling. She is accompanied by her . Her past medical history is significant for glaucoma and uterine cancer diagnosed in 2015 status post hysterectomy. Over the last 3 days she has identified increasing pain to the calf area of her left lower extremity with associated edema but no associated erythema. She has identified no acute dyspnea, hemoptysis or loss of ambulation. She denies easy bruising, gross hematuria, melena or hematochezia. She reports that on November 19 she was outside with her dogs and slipped on the ice and broke her left arm. She went to see Dr. Sameer Chang at [facility] for her left humeral fracture and conservative care was recommended. She has been taking 800 mg of ibuprofen daily for the last 2 weeks. She reports decreased daily activity with her left upper extremity fracture. She reports that prior to her left arm history fracture she was very active with her dogs and responsibilities at home. She identified no weakness, easy fatigability, jaundice or generalized symptomatology. She reports no history of splenomegaly or routine ukal-vbu-scpuwyw use of Pepcid or H2 blockers. She reports a hysterectomy in 2014 for precancerous lesions to her cervix. Subsequent follow-up identified no further concerns. She reports her last annual blood work was 2 years ago which she characterizes as normal. In the ED her lab evaluation identified an INR of 1.2, elevated D-dimer 8.1, CBC with a normal white blood cell count 9.4, hemoglobin 13.6, hematocrit 39.8 and platelet count 62,000. Her electrolytes and glucose were within normal limits. Her LFTs including AST, ALT and alk phos were normal. Her total bilirubin was 1.8. In 2020 her bilirubin was 1.4. A left lower extremity Doppler identified an extensive left DVT. Hospital Course Hospital Course Hospital Course: This is a 62-year-old female that presents to [facility] emergency department with left lower extremity concerns and identified extensive left lower extremity DVT with subsegmental right lung PEs. No identified heart strain on CT.? Her ED evaluation was concerning for thrombocytopenia and elevated INR.? Problems addressed are as follows: Extensive left lower extremity DVT Right pulmonary artery PE Most likely provoked by decreased level of activity with LUE fracture. No prior history of DVT or clotting disorder. Initiated on Eliquis 10 mg orally twice a day. Plan to complete 10 mg twice daily for 7 days and transition to 5 mg twice daily thereafter to complete 3 months of therapy. CTA of chest obtained showing PEs on right side. No right heart strain on CT of chest. Stable on room air during hospitalization. Patient would benefit from echocardiogram as an outpatient if develops any worsening respiratory symptoms. Hemodynamically stable throughout admission. Given clinical stability, plan to discharge home with close follow-up with her PCP in 3 days for further management and evaluation. Thrombocytopenia Likely secondary to NSAID therapy versus consumption from clot formation. Improving on day of discharge after initiating treatment for thrombosis. Would benefit from repeat labs at follow-up to assess for normalization. Elevated total bilirubin Most likely Gilbert's with past history of mildly elevated total bilirubin. Differential diagnosis broad however including Wilfred's, alpha-1 antitrypsin deficiency, thyroid disorder, or hepatitis. Labs obtained that are send outs including GGT, hepatitis panel, iron studies, ceruloplasmin, alpha-1 anti-trypsin. Still pending at time of discharge. Recommend follow-up as an outpatient. Liver enzymes normal on repeat labs. Iron studies show iron deficiency. Will defer iron supplementation to PCP. Me
--- NOTE | 2022-12-06 08:55 | PC.NURSE ---
pt refused lab work this am. pt was educated on reasoning for lab work to monitor effectiveness of treatment and voiced her understanding.
[2022-12-06 11:31] LABS: Basophils # 0.1 K/mm3 (0-0.2); Basophils % 0.8 % (0.1-2.0); Eosinophils # 0.2 K/mm3 (0.0-0.4); Eosinophils % 3.3 % (0.1-12.0); Hematocrit 34.8 % (37.0-47.0); Hemoglobin 12.1 g/dL (12.2-16.2); Lymphocytes # 1.7 K/mm3 (0.7-4.5); Lymphocytes % 24.4 % (10-50); Mean Corpuscular HGB Conc 34.7 g/dL (31.8-35.4); Mean Corpuscular Hemoglobin 29.4 pg (27.0-31.2); Mean Corpuscular Volume 84.8 fl (81-99); Monocytes # 0.4 K/mm3 (0.1-1.0); Monocytes % 4.8 % (1.7-9.3); Neutrophils # 4.8 K/mm3 (1.8-7.8); Neutrophils % 66.7 % (37.0-80.0); Platelet Count 79 K/mm3 (142-424); Red Blood Count 4.11 M/mm3 (4.20-5.40); Red Cell Distribution Width 14.8 % (11.5-17.5); White Blood Count 7.1 K/mm3 (4.8-10.8)
[2022-12-06 12:28] LABS: Gamma Glutamyl Transpeptidase 29 U/L (12-43); Lactate Dehydrogenase 258 U/L (313-618)
[2022-12-06 12:58] LABS: Thyroid Stimulating Hormone 3.53 uIU/mL (0.465-4.68)
[2022-12-06 13:15] LABS: Chloride 112 mmol/L (98-107); Potassium 4.1 mmoL/L (3.5-5.1); Sodium 142 mmol/L (136-145)
[2022-12-06 13:18] LABS: Alanine Aminotransferase 23 U/L (12-78); Albumin Level 4.1 g/dl (3.5-5.0); Albumin/Globulin Ratio 1.6 (1.1-1.8); Alkaline Phosphatase 80 U/L (38-126); Anion Gap 12.1 mEq/L (5-15); Aspartate Amino Transferase 30 U/L (14-36); Bilirubin,Total 1.4 mg/dl (0.2-1.3); Blood Urea Nitrogen 10 mg/dl (7-17); Calcium 8.2 mg/dl (8.4-10.2); Carbon Dioxide 22 mmol/L (22.0-30.0); Creatinine Clearance Estimated 69 mL/min (50-200); Estimated Glomerular Filt Rate 102 ml/min (>60); GFR (African American) 123 ML/MIN (>60); Globulin 2.6 g/dL (1.3-3.2); Glucose 117 mg/dl (74-100); Iron 51 ug/dL (37-170); Total Protein,Serum 6.7 g/dl (6.3-8.2)
[2022-12-06 13:24] LABS: INR 1.28 (0.9-1.1); Prothrombin Time 13.6 seconds (10.1-12.5)
[2022-12-06 13:27] LABS: Total Iron Binding Capacity 373 ug/dL (265-497)
[2022-12-06 13:53] LABS: Ferritin 76.8 ng/ml (11.1-264)
[2022-12-07 12:09] LABS: Alpha-1-Antitrypsin 207 mg/dL (101-187); Ceruloplasmin 29.6 mg/dL (19.0-39.0)
[2022-12-07 16:51] LABS: Hep A Ab, IgM NEGATIVE; Hepatitis B Core Antibody IgM NEGATIVE; Hepatitis B Surface Antigen NEGATIVE; Hepatitis C Antibody NON REACTIVE
--- NOTE | 2022-12-08 14:47 | CARE MANAGER ---
Spoke with patient's . He states she is doing better. She came to ER yesterday as had a period of confusion. Nothing revealed on CT. She has follow up appointment tomorrow. Denies questions or concerns. MARYURI Stringer
== END 2022-12-06 13:16 | disposition home or self-care (01) ==
LOC: ER 10:42 → 2ND 11:24
PROVIDERS: Student in an Organized Health Care Education/Training Program; Admitting Provider Family Medicine; Emergency Provider Emergency Medicine; PCP Nurse Practitioner Family; Visit Provider Family Medicine
DX: D69.6 Thrombocytopenia, unspecified (principal); I82.412 Acute embolism and thrombosis of left femoral vein; I82.432 Acute embolism and thrombosis of left popliteal vein; I82.462 Acute embolism and thrombosis of left calf muscular vein; R17 Unspecified jaundice; I26.94 Multiple subsegmental thrombotic pulmonary emboli without acute cor pulmonale
CPT/HCPCS: 36415; 71275; 74177; 80053; 80074; 82103; 82390; 82728; 82977; 83540; 83550; 83615; 84443; 85025; 85378; 85610; 85730; 93971; 99285; C9803; G0378; Q9967; U0003; U0005

== ENCOUNTER 2022-12-07 20:50 | Emergency (ER) | payer BC, SELFPAY ==
[2022-12-07 20:53] VITALS: BP 156/86; PULSE 69; RESP 17; TEMP 36.9; O2SAT 98; BMI 25.3
--- NOTE | 2022-12-07 21:05 | CT_ITS ---
PROCEDURE INFORMATION: Exam: CTA Head With Contrast, Arteriography Exam date and time: 12/07/2022 9:35 PM Age: 62 years old Clinical indication: Stroke-like symptoms; Altered mental status/memory loss; Additional info: Possible stroke/tia TECHNIQUE: Imaging protocol: Computed tomographic angiography of the head with contrast. Exam focused on the arteries. 3D rendering (Not supervised by radiologist): MIP and/or 3D reconstructed images were created by the technologist. Radiation optimization: All CT scans at this facility use at least one of these dose optimization techniques: automated exposure control; mA and/or kV adjustment per patient size (includes targeted exams where dose is matched to clinical indication); or iterative reconstruction. Contrast material: ISOVUE; Contrast volume: 75 ml; Contrast route: INTRAVENOUS (IV); Other protocol: This patient has received 5 known CTs and 0 known cardiac nuclear medicine studies in the 12 months prior to the current study. COMPARISON: CT HEAD/BRAIN WO CON 12/07/2022 9:18 PM FINDINGS: ANTERIOR CIRCULATION: Right internal carotid artery: Intracranial segment is patent with no significant stenosis. No aneurysm. Right middle cerebral artery: No occlusion or significant stenosis. No aneurysm. Right anterior cerebral artery: No occlusion or significant stenosis. No aneurysm. Left internal carotid artery: Intracranial segment is patent with no significant stenosis. No aneurysm. Left middle cerebral artery: No occlusion or significant stenosis. No aneurysm. Left anterior cerebral artery: No occlusion or significant stenosis. No aneurysm. POSTERIOR CIRCULATION: Right vertebral artery: No occlusion or significant stenosis. No aneurysm. Left vertebral artery: No occlusion or significant stenosis. No aneurysm. Basilar artery: No occlusion or significant stenosis. No aneurysm. Right posterior cerebral artery: No occlusion or significant stenosis. No aneurysm. Left posterior cerebral artery: No occlusion or significant stenosis. No aneurysm. Brain: No definite mass, mass effect, or midline shift. Cerebral ventricles: There is mild ventriculomegaly. Bones/joints: Unremarkable. No acute fracture. Soft tissues: Unremarkable. IMPRESSION: 1. No large vessel stenosis or occlusion. 2. Mild ventriculomegaly which could represent normal pressure hydrocephalus in the appropriate setting.
--- NOTE | 2022-12-07 21:05 | CT_ITS ---
PROCEDURE INFORMATION: Exam: CTA Chest With Contrast Exam date and time: 12/07/2022 9:50 PM Age: 62 years old Clinical indication: Pain; Chest pressure; Additional info: Possible stroke/tia TECHNIQUE: Imaging protocol: Computed tomographic angiography of the chest with contrast. 3D rendering (Not supervised by radiologist): MIP and/or 3D reconstructed images were created by the technologist. Radiation optimization: All CT scans at this facility use at least one of these dose optimization techniques: automated exposure control; mA and/or kV adjustment per patient size (includes targeted exams where dose is matched to clinical indication); or iterative reconstruction. Contrast material: ISOVUE; Contrast volume: 70 ml; Contrast route: INTRAVENOUS (IV); Other protocol: This patient has received 5 known CTs and 0 known cardiac nuclear medicine studies in the 12 months prior to the current study. COMPARISON: CT ANGIO CHEST PE PROTOCOL 12/05/2022 2:10 PM FINDINGS: Pulmonary arteries: Suboptimal study due to extensive respiratory/cardiac motion and streak artifact from patient's arm within the scanning field. Unchanged occlusive and subocclusive filling defects within the segmental/subsegmental pulmonary arteries of predominately the RIGHT lower lobe. Aorta: Atherosclerotic disease of the aorta without aortic aneurysm or dissection. Lungs: Dependent atelectasis in the lung bases, groundglass opacities, scarring and peribronchial thickening with narrowing of the distal airways. No evidence of consolidation or central obstructive endobronchial mass or abnormality. Pleural spaces: Small LEFT pleural effusion without evidence of pneumothorax. Heart: Marked cardiomegaly with dilatation of all cardiac chambers without pericardial effusion. Moderate/severe coronary arterial calcification. Lymph nodes: No bulky mediastinal or hilar lymph node enlargement. Bones/joints: Osteopenia with chronic degenerative changes in the visualized spine and shoulder joint(s). Acute comminuted, mildly displaced LEFT proximal humeral shaft, neck and greater tuberosity fracture. Adjacent soft tissue swelling/hematoma. Soft tissues: Mild wall thickening of the thoracic esophagus suggestive of esophagitis/reflux. IMPRESSION: 1. POSITIVE study for acute pulmonary thromboembolism with unchanged clot burden. 2. Acute comminuted, displaced proximal LEFT humeral fracture similar to prior study. 3. Nonspecific cardiopulmonary changes as described with small LEFT pleural effusion. 4. Coronary arterial calcification suggestive of CAD. 5. Other nonemergent/incidental findings as described. COMMENTS: Suboptimal study due to extensive streak artifact from patient's arms within the scanning field and due to motion artifact.
--- NOTE | 2022-12-07 21:05 | CT_ITS ---
PROCEDURE INFORMATION: Exam: CTA Neck With Contrast Exam date and time: 12/07/2022 9:35 PM Age: 62 years old Clinical indication: Stroke-like symptoms; Altered mental status/memory loss; Additional info: Possible stroke/tia TECHNIQUE: Imaging protocol: Computed tomographic angiography of the neck with contrast. 3D rendering (Not supervised by radiologist): MIP and/or 3D reconstructed images were created by the technologist. Radiation optimization: All CT scans at this facility use at least one of these dose optimization techniques: automated exposure control; mA and/or kV adjustment per patient size (includes targeted exams where dose is matched to clinical indication); or iterative reconstruction. Contrast material: ISOVUE; Contrast volume: 75 ml; Contrast route: INTRAVENOUS (IV); Other protocol: This patient has received 5 known CTs and 0 known cardiac nuclear medicine studies in the 12 months prior to the current study. COMPARISON: CT ANGIO CHEST PE PROTOCOL 12/05/2022 2:10 PM FINDINGS: Right common carotid artery: No stenosis. No dissection or occlusion. Right internal carotid artery: There is mild soft and calcified plaque seen along the proximal right internal carotid artery which causes stenosis measuring less than 50%. Right external carotid artery: No occlusion or stenosis of the origin. Left common carotid artery: There is mild to moderate plaque at the left carotid bulb and bifurcation. Left internal carotid artery: There is stenosis at the origin of the left internal carotid artery measuring less than 50%. The remainder of the left internal carotid artery is patent. Left external carotid artery: No occlusion or stenosis of the origin. Right vertebral artery: No stenosis. No dissection or occlusion. Left vertebral artery: No stenosis. No dissection or occlusion. Soft tissues: Normal. No significant soft tissue swelling. 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 IMPRESSION: 1. Mild stenosis of the proximal right internal carotid artery. 2. Mild stenosis at the origin of the left internal carotid artery. REFERENCES: NASCET CRITERIA. The degree of stenosis in the cervical segment of the internal carotid artery is based on NASCET criteria. Normal is no stenosis. Mild is less than 50% stenosis. Moderate is 50-69% stenosis. Severe is 70% to 99% stenosis. Total occlusion is no detectable patent lumen.
--- NOTE | 2022-12-07 21:05 | CT_ITS ---
PROCEDURE INFORMATION: Exam: CT Head Without Contrast Exam date and time: 12/07/2022 9:18 PM Age: 62 years old Clinical indication: Stroke-like symptoms; Altered mental status/memory loss; Additional info: Possible stroke/tia TECHNIQUE: Imaging protocol: Computed tomography of the head without contrast. Radiation optimization: All CT scans at this facility use at least one of these dose optimization techniques: automated exposure control; mA and/or kV adjustment per patient size (includes targeted exams where dose is matched to clinical indication); or iterative reconstruction. Other protocol: This patient has received 2 known CTs and 0 known cardiac nuclear medicine studies in the 12 months prior to the current study. Other technique: STROKE PROTOCOL was implemented. COMPARISON: No relevant prior studies available. FINDINGS: Brain: Chronic microvascular ischemic disease without acute intraparenchymal hemorrhage and no obvious acute ischemic stroke. No intra-or extra-axial fluid collection, no supra-or infratentorial mass, no mass effect or midline shift. Cerebral ventricles: Ventriculomegaly with mildly dilated/prominent sulci and basal cisterns suspicious for chronic communicating/normal pressure hydrocephalus. Paranasal sinuses: No significant mucoperiosteal thickening in the visualized paranasal sinuses. Mastoid air cells: Bilateral mastoidectomy with effusion in mastoid air cells. Bones/joints: Visualized skull bones are grossly normal. Soft tissues: Extensive streak artifact from bilateral bone anchored hearing aid implant (Baha implant). IMPRESSION: 1. Chronic microvascular disease and generalized atrophy without acute intracranial abnormality. 2. No evidence of acute hemorrhage, mass lesion or obvious acute ischemic infarction. ASSESSMENT: ASPECTS ([place] Stroke Program Early CT Score) is 10.
--- NOTE | 2022-12-07 21:08 | PC.NURSE ---
rad notified of CT order
[2022-12-07 21:10] LABS: POC Glucose,Bedside 119 (70-110)
[2022-12-07 21:12] LABS: Microscopic, Urine URINE MICROSCOPIC (MICROSCOPIC)
--- NOTE | 2022-12-07 21:13 | PC.NURSE ---
pt tot CT
[2022-12-07 21:16] LABS: Appearance,Urine CLEAR (Clear); Bilirubin,Urine Negative (Negative); Blood, Urine 1+ (Negative); Color,Urine YELLOW (Yellow); Glucose,Urine (UA) Negative (Negative); Ketones,Urine Negative (Negative); Leukocyte Esterase,Urine 3+ (Negative); Nitrate,Urine Negative (Negative); PH,Urine 6.5 (5.0-8.5); Protein,Urine TRACE (Negative); Urobilinogen,Urine 0.2 EU/dl (0.2)
[2022-12-07 21:19] LABS: Basophils # 0.1 K/mm3 (0-0.2); Basophils % 0.8 % (0.1-2.0); Eosinophils # 0.3 K/mm3 (0.0-0.4); Eosinophils % 2.9 % (0.1-12.0); Hematocrit 38.8 % (37.0-47.0); Hemoglobin 13.4 g/dL (12.2-16.2); Lymphocytes # 2.4 K/mm3 (0.7-4.5); Lymphocytes % 22.7 % (10-50); Mean Corpuscular HGB Conc 34.4 g/dL (31.8-35.4); Mean Corpuscular Hemoglobin 29.1 pg (27.0-31.2); Mean Corpuscular Volume 84.4 fl (81-99); Mean Platelet Volume 8.3 fl (7.4-10.4); Monocytes # 0.5 K/mm3 (0.1-1.0); Monocytes % 4.3 % (1.7-9.3); Neutrophils # 7.4 K/mm3 (1.8-7.8); Neutrophils % 69.3 % (37.0-80.0); Platelet Count 118 K/mm3 (142-424); Red Cell Distribution Width 14.8 % (11.5-17.5); White Blood Count 10.6 K/mm3 (4.8-10.8)
[2022-12-07 21:20] LABS: Chloride 106 mmol/L (98-107); Potassium 3.7 mmoL/L (3.5-5.1); Sodium 143 mmol/L (136-145)
[2022-12-07 21:20] LABS: Bacteria,Urine 1+ /lpf; RBC,Urine Occasional #/hpf (0-3); WBC,Urine 20-50 #/hpf (0-3)
[2022-12-07 21:23] LABS: Anion Gap 13.7 mEq/L (5-15); Blood Urea Nitrogen 13 mg/dl (7-17); Calcium 9.1 mg/dl (8.4-10.2); Carbon Dioxide 27 mmol/L (22.0-30.0); Creatinine Clearance Estimated 65 mL/min (50-200); Estimated Glomerular Filt Rate 85 ml/min (>60); GFR (African American) 103 ML/MIN (>60); Glucose 121 mg/dl (74-100)
[2022-12-07 21:26] LABS: Activated Partial Thrombo Time 31.5 seconds (22.8-30.6); INR 1.23 (0.9-1.1); Prothrombin Time 13.1 seconds (10.1-12.5)
[2022-12-07 21:35] LABS: Troponin I 0.05 ng/ml (0.00-0.034)
--- NOTE | 2022-12-07 21:53 | PC.NURSE ---
MARY VALENTIN spoke with CLYDE at this time, report received via fax machine
--- NOTE | 2022-12-07 22:00 | PC.NURSE ---
Patient back from CT
--- NOTE | 2022-12-07 22:03 | HMH.EDNEU ---
Discharge Plan Disposition Patient Disposition: Home, Self-Care Chief Complaint: Neuro Symptoms/Deficit Prescriptions Prescriptions: No Action pantoprazole 40 mg tablet,delayed release (DR/EC) 40 mg PO DAILY Eliquis 5 mg tablet 5 mg PO BID Rx Instructions: Please take 10 mg twice daily for 7 days followed by 5 mg twice daily for 3 months quantity sufficient. latanoprost [Xalatan] 2.5 ML drops 1 drp ophthalmic (eye) HS dorzolamide-timolol 10 ML drops 1 drp ophthalmic (eye) BID loteprednol etabonate [Lotemax] 5 ML drops,suspension 1 drp ophthalmic (eye) QID Referrals Follow up/Referrals: Ryanne Reyna APRN [Primary Care Provider] - See instructions Clinical Impressions Clinical Impression: Brain TIA, Pulmonary embolism Discharge ED Provider: Sam (ED),Omkar Hale Neuro HPI General Chief Complaint: Neuro Symptoms/Deficit Stated Complaint: has been disorientated today,nausea Time Seen by Provider: 12/07/22 22:04 Mode of Arrival: Wheelchair Source of Information: Patient, Spouse and Medical Record Limitations: No Limitations Description of Symptoms (Recalled from ER Triage Doc. by RN): 62 F presents with for possible stroke. reports at 2044 his had a sudden onset of confusion. She had been her baseline up until then. She was unsure why she was in an arm sling, what the day was, and wasn't aware they had eaten dinner. Patient arrives NAD. VSS. NIH 0. Attending notified of stroke alert. History of Present Illness HPI Narrative: pt with acute episode of confusion for about 45 min and no loc or chest pain - recent dx of dvt/pul emboli after fx lt humerus - has been on eliquis - pt at baseline now Onset (ago): hour(s) History of same: No Severity: moderate Context: sudden onset On Anticoagulants: Yes Related Data Home Medications Medication Instructions Recorded Confirmed dorzolamide 22.3 mg-timolol 6.8 1 drp ophthalmic (eye) BID 12/14/17 12/07/22 mg/mL eye drops ELEVATED EYE PRESSURE latanoprost 0.005 % eye drops 1 drp ophthalmic (eye) HS ELEVATED 12/14/17 12/07/22 (Xalatan) EYE PRESSURE loteprednol etabonate 0.5 % eye 1 drp ophthalmic (eye) QID EYE 12/14/17 12/07/22 drops,suspension (Lotemax) INFLAMMATION apixaban 5 mg tablet (Eliquis) 5 mg PO BID Blood thinner 12/07/22 12/07/22 pantoprazole 40 mg tablet,delayed 40 mg PO DAILY GERD 12/07/22 12/07/22 release Allergies Allergy/AdvReac Type Severity Reaction Status Date / Time No Known Allergies Allergy Verified 12/14/17 14:14 Stroke Alert/NIH Score LOC Stroke Alert: Yes Stroke Alert date: 12/07/22 Stroke Alert time of activation: 20:53 Location of Alert: Emergency Department Level of Consciousness: Alert LOC Questions: Answers both correctly LOC Commands: Obeys both correctly Facial/Visual Best Gaze: Normal (at baseline ) Visual: No visual loss Facial Palsy: Normal Motor Motor Response, Left Arm: No drift/Amputation/Fused Motor Response, Right Arm: No drift/Amputation/Fused Motor Response, Left Leg: No drift/Amputation/Fused Motor Response, Right Leg: No drift/Amputation/Fused Sensory/Language Limb Ataxia: Absent Sensory: Normal Best Language: No aphasia Dysarthria: Normal speech, Intubated or Barrier present NIH Score Stroke Risk Score: 0 PFSH PFSH Disclaimer: The information contained in this section may have been updated after the patient was seen, as this information can be updated by other users. Medical History (Updated 12/08/22 @ 00:24 by Omkar Vargas MD (ED)) Glaucoma History of uterine cancer Hyperlipidemia Left humeral fracture Uses cochlear implant Surgical History (Updated 12/05/22 @ 13:47 by Hector Yeager MD) Cochlear implant in place Corneal transplant status History of appendectomy History of hysterectomy Family History (Updated 12/05/22 @ 13:47 by Hector Yeager MD) Mother Heart attack Coronary artery disease Father Mot
--- NOTE | 2022-12-07 22:25 | PC.NURSE ---
speaking with CLYDE
[2022-12-07 22:30] VITALS: BP 175/93; PULSE 105; RESP 16; O2SAT 98
--- NOTE | 2022-12-07 22:37 | PC.NURSE ---
Rounded on patient, no needs at this time.
--- NOTE | 2022-12-07 22:42 | PC.NURSE ---
MARY VALENTIN speaking with dixon
[2022-12-07 23:00] VITALS: BP 191/87; PULSE 103; RESP 16; O2SAT 98
[2022-12-07 23:30] VITALS: BP 174/87; PULSE 99; RESP 16; O2SAT 98
--- NOTE | 2022-12-07 23:56 | PC.NURSE ---
Rounded on patient; patient's daughter was upset. Asked what they were waiting on. Informed patient and daughter I would ask the nurse.
--- NOTE | 2022-12-07 23:57 | PC.NURSE ---
Sam speaking to MD Rebecca at this time
[2022-12-08] VITALS: BP 167/89; PULSE 103; O2SAT 97
--- NOTE | 2022-12-08 00:05 | PC.NURSE ---
on room with patient at this time.
--- NOTE | 2022-12-08 00:06 | PC.NURSE ---
Rounded on patient. Patient helped with needs at this time.
[2022-12-08 00:29] VITALS: BP 167/89; PULSE 99; RESP 18; TEMP 36.6; O2SAT 98
== END 2022-12-08 00:37 | disposition home or self-care (01) ==
PROVIDERS: Emergency Provider Emergency Medicine; PCP Nurse Practitioner Family
DX: G45.9 Transient cerebral ischemic attack, unspecified (principal); I26.99 Other pulmonary embolism without acute cor pulmonale; E78.5 Hyperlipidemia, unspecified; H40.9 Unspecified glaucoma; Z90.49 Acquired absence of other specified parts of digestive tract; Z90.710 Acquired absence of both cervix and uterus; Z82.3 Family history of stroke; Z82.49 Family history of ischemic heart disease and other diseases of the circulatory system
CPT/HCPCS: 70450; 70496; 70498; 71275; 80048; 81001; 82962; 84484; 85025; 85610; 85730; 87086; 99285; Q9967

== ENCOUNTER 2022-12-10 08:28 | Emergency (ER) | payer BC, SELFPAY ==
--- NOTE | 2022-12-10 08:27 | ECG_ITS ---
APPROVED REPORT Exam: Resting ECG HR:78 bpm ECG Measurements Heart Rate 78 AXES NH 195 P 48 QRSd 101 QRS 28 QT 379 T 66 QTc 412 Conclusion SINUS RHYTHM NORMAL ECG UNCONFIRMED REPORT Electronically signed by : Emanuel Purvis MD 12/10/2022 14:12:29
[2022-12-10 08:29] VITALS: BP 161/91; PULSE 85; RESP 16; TEMP 36.8; O2SAT 96; BMI 25.2
[2022-12-10 08:48] LABS: Basophils # 0.1 K/mm3 (0-0.2); Basophils % 0.9 % (0.1-2.0); Eosinophils # 0.4 K/mm3 (0.0-0.4); Eosinophils % 5.2 % (0.1-12.0); Hematocrit 37.2 % (37.0-47.0); Hemoglobin 12.6 g/dL (12.2-16.2); Lymphocytes # 1.7 K/mm3 (0.7-4.5); Lymphocytes % 20.4 % (10-50); Mean Corpuscular HGB Conc 33.8 g/dL (31.8-35.4); Mean Corpuscular Hemoglobin 28.7 pg (27.0-31.2); Mean Corpuscular Volume 84.8 fl (81-99); Mean Platelet Volume 8.7 fl (7.4-10.4); Monocytes # 0.5 K/mm3 (0.1-1.0); Monocytes % 5.6 % (1.7-9.3); Neutrophils # 5.6 K/mm3 (1.8-7.8); Platelet Count 122 K/mm3 (142-424); Red Blood Count 4.39 M/mm3 (4.20-5.40); Red Cell Distribution Width 14.7 % (11.5-17.5); White Blood Count 8.2 K/mm3 (4.8-10.8)
[2022-12-10 08:53] LABS: Chloride 108 mmol/L (98-107); Sodium 140 mmol/L (136-145)
[2022-12-10 08:56] LABS: Alanine Aminotransferase 25 U/L (12-78); Albumin Level 4.3 g/dl (3.5-5.0); Albumin/Globulin Ratio 1.4 (1.1-1.8); Alkaline Phosphatase 98 U/L (38-126); Aspartate Amino Transferase 29 U/L (14-36); Bilirubin,Total 1.6 mg/dl (0.2-1.3); Blood Urea Nitrogen 13 mg/dl (7-17); Carbon Dioxide 24 mmol/L (22.0-30.0); Creatinine Clearance Estimated 64 mL/min (50-200); Estimated Glomerular Filt Rate 102 ml/min (>60); GFR (African American) 123 ML/MIN (>60); Total Protein,Serum 7.3 g/dl (6.3-8.2)
[2022-12-10 08:57] LABS: Calcium 8.7 mg/dl (8.4-10.2); Glucose 115 mg/dl (74-100)
[2022-12-10 09:00] VITALS: BP 139/65; PULSE 81; RESP 16; O2SAT 98
[2022-12-10 09:09] LABS: Troponin I 0.04 ng/ml (0.00-0.034)
[2022-12-10 09:30] VITALS: BP 144/72; PULSE 79; RESP 15; O2SAT 97
--- NOTE | 2022-12-10 09:49 | HMH.EDGENADL ---
Discharge Plan Disposition Patient Disposition: Home, Self-Care Condition: Good Prescriptions Prescriptions: No Action pantoprazole 40 mg tablet,delayed release (DR/EC) 40 mg PO DAILY Eliquis 5 mg tablet 5 mg PO BID Rx Instructions: Please take 10 mg twice daily for 7 days followed by 5 mg twice daily for 3 months quantity sufficient. latanoprost [Xalatan] 2.5 ML drops 1 drp ophthalmic (eye) HS dorzolamide-timolol 10 ML drops 1 drp ophthalmic (eye) BID loteprednol etabonate [Lotemax] 5 ML drops,suspension 1 drp ophthalmic (eye) QID Activity Restrictions/Add. Instructions Additional Instructions/Restrictions: Continue all current treatment. Follow-up with Dr. Purvis in his office. Return to the emergency room if coughing large amounts of blood or worsening shortness of breath. Clinical Impressions Clinical Impression: Hemoptysis, Pulmonary embolism Instructions Patient Instructions: DI for Pulmonary Embolism, DI for Hemoptysis Discharge ED Provider: Xavi England General Adult [facility] General Chief complaint: Shortness of Breath/Dyspnea Stated complaint: chest pain Time Seen by Provider: 12/10/22 09:49 Mode of Arrival: Ambulatory Source of Information: Patient Limitations: No Limitations Description of Symptoms (Recalled from ER Triage Doc. by RN): Pt reports has productive cough this morning when woke up that was blood tinge. Pt reports only one episode of this. Pt also reports SOA this morning upon waking up. Pt is currently on blood thinners r/t PE and DVT. NO distress noted. History of Present Illness HPI narrative: Patient complains of dyspnea and hemoptysis. States that she woke up this morning and had a sensation of dyspnea. She says that she felt like there was something in her chest that she needed to clear out and when she coughed she got a tiny amount of blood on Kleenex. She brings in with her. There is a small stain of blood 1 cm x 0.5 cm on the Kleenex without clot present. She was diagnosed with pulmonary embolism on 12/05/2022 and has been on Eliquis. She was also seen in this emergency department on 12/07/2022 for TIA. She had a CTA of her chest at that time which showed no change in her clot burden. She Followed up with Dr. Purvis in the office yesterday and states that an MRI and an echocardiogram were ordered and she was started on a low-dose blood pressure medication. Related Data Home Medications Medication Instructions Recorded Confirmed dorzolamide 22.3 mg-timolol 6.8 1 drp ophthalmic (eye) BID 12/14/17 12/07/22 mg/mL eye drops ELEVATED EYE PRESSURE latanoprost 0.005 % eye drops 1 drp ophthalmic (eye) HS ELEVATED 12/14/17 12/07/22 (Xalatan) EYE PRESSURE loteprednol etabonate 0.5 % eye 1 drp ophthalmic (eye) QID EYE 12/14/17 12/07/22 drops,suspension (Lotemax) INFLAMMATION apixaban 5 mg tablet (Eliquis) 5 mg PO BID Blood thinner 12/07/22 12/10/22 pantoprazole 40 mg tablet,delayed 40 mg PO DAILY GERD 12/07/22 12/07/22 release Allergies Allergy/AdvReac Type Severity Reaction Status Date / Time No Known Allergies Allergy Verified 12/14/17 14:14 [facility] Disclaimer: The information contained in this section may have been updated after the patient was seen, as this information can be updated by other users. Medical History (Updated 12/10/22 @ 11:02 by Xavi England MD) Glaucoma History of uterine cancer Hyperlipidemia Left humeral fracture Uses cochlear implant Surgical History (Updated 12/05/22 @ 13:47 by Hector Yeager MD) Cochlear implant in place Corneal transplant status History of appendectomy History of hysterectomy Family History (Updated 12/05/22 @ 13:47 by Hector Yeager MD) Mother Heart attack Coronary artery disease Father Motor vehicle accident Other Family history of myocardial infarction Stroke Social History Smoking Status
--- NOTE | 2022-12-10 09:54 | XR_ITS ---
FINAL REPORT CLINICAL HISTORY: soa HX OF BLOOD CLOTS IN LUNGS AND LEGS COUGHING UP BLOOD THIS MORNING COMPARISON: none FINDINGS: A single portable view of the chest was obtained. The heart size and pulmonary vascularity are within normal limits. The mediastinum is within normal limits. There are mild left lung base opacities which may represent atelectasis or pneumonia. The right lung is clear. The bony thorax is intact. IMPRESSION: Mild left lung base opacities. Reviewed, Interpreted and Dictated by Edward Verde III, MD Transcribed by Ailyn Che Authenticated and [facility]
--- NOTE | 2022-12-10 09:57 | PC.NURSE ---
MARY VALENTIN at
[2022-12-10 10:00] VITALS: BP 147/72; PULSE 74; O2SAT 98
[2022-12-10 10:31] VITALS: BP 130/67; PULSE 63; O2SAT 98
--- NOTE | 2022-12-10 10:38 | PC.NURSE ---
waiting technical solutions consultant back from dr. stephen
--- NOTE | 2022-12-10 10:52 | PC.NURSE ---
MARY VALENTIN speaking with Dr. Purvis
--- NOTE | 2022-12-10 10:55 | PC.NURSE ---
checked on pt at this time, pt states no needs
--- NOTE | 2022-12-10 10:58 | PC.NURSE ---
ER at discussing POC with pt
[2022-12-10 11:41] VITALS: BP 146/70; PULSE 72; RESP 17; TEMP 36.8; O2SAT 98
== END 2022-12-10 11:43 | disposition home or self-care (01) ==
PROVIDERS: Emergency Provider Emergency Medicine; PCP Internal Medicine Adolescent Medicine
DX: I26.99 Other pulmonary embolism without acute cor pulmonale (principal); R04.2 Hemoptysis; Z86.711 Personal history of pulmonary embolism; Z86.718 Personal history of other venous thrombosis and embolism; Z79.01 Long term (current) use of anticoagulants; H40.9 Unspecified glaucoma; E78.5 Hyperlipidemia, unspecified; Z85.42 Personal history of malignant neoplasm of other parts of uterus; Z90.49 Acquired absence of other specified parts of digestive tract; Z90.710 Acquired absence of both cervix and uterus; Z82.3 Family history of stroke; Z82.49 Family history of ischemic heart disease and other diseases of the circulatory system
CPT/HCPCS: 71045; 80053; 84484; 85025; 93005; 99285

== ENCOUNTER 2023-05-13 13:33 | Observation (INO) | payer BC, SELFPAY ==
[2023-05-13] VITALS (17 sets, daily range): BP systolic 106–145; BP diastolic 52–85; PULSE 54–66; RESP 15–20; TEMP 36.5–36.9; O2SAT 96–100; BMI 24.3
--- NOTE | 2023-05-13 13:40 | IR_ITS ---
APPROVED REPORT Patient Location: Inpatient Avionics Systems Engineer: YURI Sharma RT (R) PROCEDURES Left heart catheterization Left ventriculogram Selective coronary angiogram INDICATION Aborted ST elevation myocardial infarction, Coronary artery disease Informed consent was obtained prior to the procedure. COMPLICATIONS NONE Estimated Blood Loss: LESS THAN 10 ML TECHNIQUE One percent lidocaine used to anesthetize the right anterior aspect of the wrist. The right radial artery was accessed via the Seldinger technique. A 6 Wolof sheath was placed in the right radial artery. 150 mg magnesium sulfate, 800 mcg of nitroglycerin, 1mg Lidocaine and 5000 U Heparin were given through the arterial sheath. The papa catheter was also used to perform left heart catheterization, left ventriculogram and selective coronary angiogram. At the end of the procedure the sheath was removed good hemostasis was achieved using Traclet band, patient was transferred to the postop holding area in stable condition. ANGIOGRAPHIC RESULTS The left main artery Has distal heavily calcified eccentric 90% stenosis The left anterior descending artery Has an ostial proximal concentric 80% stenosis with mid vessel 30% stenosis The circumflex artery Is dominant and has a critical highly calcified eccentric 90% stenosis with diffuse mid vessel 30% stenoses and an additional mid vessel concentric 60 to 70% stenosis which is proximal to 2 obtuse marginal arteries The right coronary artery Is probably codominant and has mid vessel 40% stenosis with a distal calcified 60 and 70% stenosis The AHUMADA ventriculogram reveals Normal 65% The left ventricular end-diastolic pressure 10 mmHg IMPRESSION Severe to critical distal left main disease Three-vessel coronary artery disease as described above Normal ejection fraction Normal left ventricular end-diastolic pressure PLAN 1. Discontinue P2 Y12 inhibitors 2. Continue aspirin 81 mg daily 3. Start high intensity statin preoperatively 4. I have already made contact with [facility] CT surgery and arrangements are being made to transfer patient to [facility] for CABG 5. Start heparin and continue IV drip until CABG occurs Electronically signed by : Juan Hensley MD 05/13/2023 17:28:14
--- NOTE | 2023-05-13 13:40 | PC.NURSE ---
arrived by stretcher from [facility]
--- NOTE | 2023-05-13 14:06 | ECG_ITS ---
APPROVED REPORT Exam: Resting ECG HR:59 bpm ECG Measurements Heart Rate 59 AXES NM 193 P 38 QRSd 104 QRS -10 QT 418 T 35 QTc 418 Conclusion SINUS BRADYCARDIA BORDERLINE ECG UNCONFIRMED REPORT Electronically signed by : Emanuel Purvis MD 05/13/2023 20:44:01
--- NOTE | 2023-05-13 14:21 | EXP.HP ---
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 She was having this test done at the [facility] today, when during the test she began to have significant chest pain with arm radiation, test was stopped but preliminary EKG readings were concerning and she was transferred to the ER there. Troponin levels there were equivocal, but given her abnormal stress test it was recommended that she be transferred to Center where invasive cardiology was available. She was transferred here today. On exam currently she denies pain, is feeling good, no dyspnea or pain or abdominal complaints. [facility] Disclaimer: The information contained in this section may have been updated after the patient was seen, as this information can be updated by other users. Medical History (Updated 05/13/23 @ 14:23 by Emanuel Purvis MD) Glaucoma History of uterine cancer Hyperlipidemia Left humeral fracture Uses cochlear implant Surgical History Cochlear implant in place Corneal transplant status History of appendectomy History of hysterectomy Family History Father Motor vehicle accident Father Coronary artery disease Mother Heart attack Mother Family history of myocardial infarction Stroke Social History (Updated 05/13/23 @ 14:05 by Anita Dodge RN) Smoking Status: Never smoker alcohol intake: never current occupational status: unemployed Travel in the last 8 weeks: None [place]ew: Che[place]ism Review of Systems Review of Systems Review of systems:: pertinent systems reviewed and negative unless documented below Meds Home Medications and Allergies Home Medications Medication Instructions Recorded Confirmed Type dorzolamide 22.3 mg-timolol 6.8 1 drp ophthalmic (eye) BID 12/14/17 12/07/22 History mg/mL eye drops ELEVATED EYE PRESSURE latanoprost 0.005 % eye drops 1 drp ophthalmic (eye) HS ELEVATED 12/14/17 12/07/22 History (Xalatan) EYE PRESSURE loteprednol etabonate 0.5 % eye 1 drp ophthalmic (eye) QID EYE 12/14/17 12/07/22 History drops,suspension (Lotemax) INFLAMMATION aspirin 81 mg chewable tablet 81 mg PO DAILY preventative 05/13/23 05/13/23 History lisinopril 5 mg tablet 5 mg PO DAILY bp 05/13/23 05/13/23 History nitroglycerin 0.4 mg sublingual 0.4 mg sublingual NEEDED PRN 05/13/23 05/13/23 History tablet Chest Pain New Prescriptions to Start Prescriptions: Allergies Allergy/AdvReac Type Severity Reaction Status Date / Time No Known Allergies Allergy Verified 05/13/23 14:07 Exam Data for Last 24 hours Vital signs and Labs for Last 24 Hours: Temp Pulse Resp BP Pulse Ox O2 Del Method 97.7 F 65 18 134/85 96 Room Air 05/13/23 14:00 05/13/23 14:00 05/13/23 14:00 05/13/23 14:00 05/13/23 14:00 05/13/23 14:00 I & O for Last 24 hours: Intake & Output 05/11/23 05/12/23 05/13/23 05/14/23 11:59 11:59 11:59 11:59 Weight 146 lb 4 oz Constitutional Constitutional: no acute distress and cooperative *Routine HEENT Exam Head: Present normocephalic Eye: Present other ENT: Present mucous membranes moist Comments: Corneal changes to both eyes *Routine Neck Exam Neck: Present supple and trachea midline; Absent lymphadenopathy *Routine Respiratory Exam Respiratory: Present CTA bilaterally, normal respiratory effort and symmetric chest movement; Absent respiratory distress or wheezes *Routine Cardiovascular Exam Cardiovascular: Present RRR; Absent murmur *Routine Abdominal Exam Abdominal: Present soft and normoactive bowel sounds; Absen
[2023-05-13 14:26] LABS: Basophils # 0.1 K/mm3 (0-0.2); Basophils % 0.8 % (0.1-2.0); Eosinophils # 0.3 K/mm3 (0.0-0.4); Eosinophils % 3.8 % (0.1-12.0); Hematocrit 40.2 % (37.0-47.0); Hemoglobin 13.5 g/dL (12.2-16.2); Lymphocytes # 2.6 K/mm3 (0.7-4.5); Lymphocytes % 35.1 % (10-50); Mean Corpuscular HGB Conc 33.6 g/dL (31.8-35.4); Mean Corpuscular Hemoglobin 28.7 pg (27.0-31.2); Mean Corpuscular Volume 85.4 fl (81-99); Mean Platelet Volume 8.1 fl (7.4-10.4); Monocytes # 0.3 K/mm3 (0.1-1.0); Monocytes % 3.8 % (1.7-9.3); Neutrophils # 4.2 K/mm3 (1.8-7.8); Neutrophils % 56.4 % (37.0-80.0); Platelet Count 233 K/mm3 (142-424); Red Blood Count 4.71 M/mm3 (4.20-5.40); Red Cell Distribution Width 13.9 % (11.5-17.5); White Blood Count 7.4 K/mm3 (4.8-10.8)
[2023-05-13 14:33] LABS: Chloride 104 mmol/L (98-107); Potassium 3.6 mmoL/L (3.5-5.1); Sodium 140 mmol/L (136-145)
[2023-05-13 14:36] LABS: Anion Gap 10.6 mEq/L (5-15); Blood Urea Nitrogen 16 mg/dl (7-17); Calcium 9.3 mg/dl (8.4-10.2); Carbon Dioxide 29 mmol/L (22.0-30.0); Creatinine Clearance Estimated 62 mL/min (50-200); Estimated Glomerular Filt Rate 102 ml/min (>60); GFR (African American) 123 ML/MIN (>60); Glucose 88 mg/dl (74-100)
[2023-05-13 14:37] LABS: Magnesium 1.8 mg/dl (1.6-2.3)
[2023-05-13 14:39] LABS: Chol/HDL Ratio 3.5 (1-3.5); Cholesterol 156 mg/dl (140-200); HDL Cholesterol 44 mg/dl (40-60); Triglycerides 140 mg/dl (30-150); VLDL Cholesterol 28 mg/dL (0-40)
--- NOTE | 2023-05-13 14:42 | CA_ITS ---
APPROVED REPORT EXAM: Comprehensive 2D, Doppler, and color-flow Echocardiogram Medical Reception Specialist: [place] Ross RVT Ht: 5 ft 5 in Wt: 146lbs BSA: 1.73 BP: 134/85 mmHg Indications: ANGINA,ABN STRESS TEST,HLD,SOA TDS-LIMITED WINDOWS 2D Dimensions LVOT 1.94 cm (M/F) 1.5-2.5 LA Volume 28.60 mL LA Volume Index 16.53 mL/m2 (M/F) 16-34 M-Mode Dimensions RVDd 3.05 cm (0.9-2.6) LA Diam 3.31 cm (1.9-4.0) LVDd 4.18 cm (3.5-5.7) Ao Diam 2.65 cm (2.0-3.7) LVDs 2.89 cm (3.5-5.7) IVSd 0.91 cm (0.6-1.1) PWd 0.62 cm (0.6-1.1) EF (Teich) 58.90% FS 30.90% EDV (Teich) 77.70 mL TAPSE 2.46 (<1.7) ESV (Teich) 31.90 mL LV Diastology E Decel Time 150.00 (160-240 msec) E/A Ratio 1.7 MED E' 7.10 (< 7 cm/sec) E'/MED E' Ratio 11.37 (>14) LAT E' 11.50 (<10 cm/sec) E/LAT E' Ratio 7.02 (>14) Aortic Valve AO Peak GR. 1.90 mmHg Mitral Valve MV E Max Gary. 81.00 (40-130 cm/s) MV A Velocity 49.00 (40-130 cm/s) E/A Ratio 1.64 MV Decel. Time 150.00 (160-240 ms) MV PHT 44.00 ms Pulmonary Valve PV Peak Velocity 82.00 (50-150 cm/s) Tricuspid Valve TR P. Velocity 262.00 cm/s RAP Estimate 10.00 mmHg RVSP 37.40 mmHg Left Ventricle The left ventricle is normal size. The left ventricular systolic function is normal. The left ventricular ejection fraction is within the normal range. There is normal left ventricular wall thickness. There is normal LV segmental wall motion. There is septal flattening suggestive of increased RV pressure. The left ventricular diastolic function is normal. LVEF is 60%. Right Ventricle Right ventricle is moderately dilated. The right ventricular systolic function is normal. Atria The left atrium size is normal. The right atrium size is normal. There is no Doppler evidence of interatrial shunt. Aortic Valve The aortic valve is mildly thickened. There is no aortic valvular stenosis. No aortic regurgitation is present. Mitral Valve The mitral valve is normal in structure. There is mild mitral regurgitation. Tricuspid Valve The tricuspid valve leaflets are thin and pliable. Mild tricuspid regurgitation. RVSP= 30-35 mmHg. Pulmonic Valve The pulmonary valve is normal in structure. Trace pulmonic regurgitation. Great Vessels The aortic root is normal in size. Pericardium There is no pericardial effusion. Conclusion Normal biventricular systolic function. Moderately dilated RV. Septal flattening suggestive of increased RV pressure No significant valvular disease. Elevated RVSP 30-35 mmHg. Electronically signed by : Soraida Bellamy, 05/13/2023 17:26:07
[2023-05-13 14:46] LABS: NT Pro Brain Natriuretic Pep. 141 pg/mL (0-125)
[2023-05-13 14:51] LABS: Direct LDL Cholesterol 82.24 mg/dL (100-129)
--- NOTE | 2023-05-13 14:52 | EXP.CARD.CON ---
History of Present Illness History of Present Illness Consult date: 05/13/23 Requesting physician: Emanuel Purvis Consult reason: chest pain Chief complaint: chest pain History of present illness: This is a 62-year-old white female who was admitted to the hospital for unstable angina and an abnormal stress test. The patient reports a history of hyperlipidemia, hypertension, history of a TIA and a history of a DVT and pulmonary embolism earlier this year. The patient reports that she has been having chest pain with exertion. She states the pain is in the center of her chest. She states that she is really unable to describe the pain it just hurts. It radiates to the bilateral arms and causes numbness. She states that this occurs with any exertion. It improves with rest. It is associated with shortness of breath, nausea and at times diaphoresis as well. She states that she has had episodes where she feels like she is going to pass out with the chest pain but she never has had a syncopal episode. The patient was set up for a nuclear stress test by her primary care provider. She was at [facility] today having the nuclear stress test completed. After the Lexiscan infusion during recovery the patient had EKG changes that show diffuse ST depression and some ST elevation in aVR. Dr. Padilla, who is the flat knitter helper for [facility] was notified and the patient was sent to the emergency department. Once the patient got to the emergency department at [facility] her EKG normalized. She had a positive high-sensitivity troponin at [facility] and was transferred here to [facility]. The patient states that her chest pain has resolved at this time. She denies any lower extremity edema. She denies any fever, chills, vomiting, diarrhea, PND or orthopnea. [facility] Disclaimer: The information contained in this section may have been updated after the patient was seen, as this information can be updated by other users. Medical History (Updated 05/13/23 @ 14:59 by Suze Ron APRN) Abnormal cardiovascular stress test Brain TIA Deep vein thrombosis, lower left extremity Glaucoma History of uterine cancer Hyperlipidemia Hypertension Left humeral fracture Pulmonary embolism Unstable angina Uses cochlear implant Surgical History Cochlear implant in place Corneal transplant status History of appendectomy History of hysterectomy Family History Mother Heart attack Coronary artery disease Father Motor vehicle accident Other Family history of myocardial infarction Stroke Social History (Updated 05/13/23 @ 14:05 by Anita Dodge RN) Smoking Status: Never smoker alcohol intake: never current occupational status: unemployed Travel in the last 8 weeks: None [place]/mormon: Mosque Review of Systems Review of Systems Review of systems:: pertinent systems reviewed and negative unless documented below Constitutional Constitutional: Reports system reviewed and no additional complaints, except as documented Eyes Eyes: Reports system reviewed and no additional complaints, except as documented ENT Ears, Nose, Mouth, and Throat: Reports system reviewed and no additional complaints, except as documented *Cardiovascular Cardiovascular: Reports system reviewed and no additional complaints, except as documented, Reports chest pain, Reports chest pain with activity, Reports diaphoresis, Reports dyspnea, Reports dyspnea on exertion and Reports radiating jaw, neck or arm pain *Respiratory Respiratory: Reports system reviewed and no additional complaints, except as documented, Reports dyspnea and Reports dyspnea on exertion *Gastrointestinal Gastrointestinal: Reports system reviewed and no additional complaints, except as documented and Reports nausea *Genitourinary Genitourinary: Re
--- NOTE | 2023-05-13 15:04 | HMH.PHAINT1 ---
Pharmacy Intervention Comments: Patient's home medications reviewed and verified with patient and external pharmacy. -Darshan Wood, Pharm Student
[2023-05-13 15:05] LABS: Troponin I 0.02 ng/ml (0.00-0.034)
[2023-05-13 15:11] LABS: Thyroid Stimulating Hormone 0.95 uIU/mL (0.465-4.68)
[2023-05-13 15:14] LABS: Free T4 (Free Thyroxine) 1.27 ng/dl (0.78-2.19)
[2023-05-13 15:23] LABS: PTT Heparin (inpatient only) 36.7 Seconds (23.6-34.0)
--- NOTE | 2023-05-13 15:53 | PC.NURSE ---
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
--- NOTE | 2023-05-13 18:01 | PC.NURSE ---
SPOKE WITH [facility]. 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 SHE STATED TO START PT ON 20ML AND CHECK PTT AT MIDNIGHT.
--- NOTE | 2023-05-13 20:25 | PC.NURSE ---
Radial compression band removed after successful titration of air. NAD
[2023-05-14] VITALS: PULSE 50
[2023-05-14 00:25] VITALS: BP 113/69; PULSE 60; RESP 15; TEMP 36.9; O2SAT 98
[2023-05-14 01:09] LABS: PTT Heparin (inpatient only) 108.6 Seconds (23.6-34.0)
--- NOTE | 2023-05-14 01:26 | PC.NURSE ---
Spoke to Rajesh for updated aPTT of 106.8. Changing Heparin gtt to 16mL/hr or 800u/hr
[2023-05-14 04:00] VITALS: BP 135/60; PULSE 60; RESP 18; TEMP 36.6; O2SAT 98; BMI 25.2
[2023-05-14 06:30] LABS: Basophils % 0.6 % (0.1-2.0); Eosinophils # 0.3 K/mm3 (0.0-0.4); Hematocrit 36.8 % (37.0-47.0); Hemoglobin 12.5 g/dL (12.2-16.2); Lymphocytes # 2.6 K/mm3 (0.7-4.5); Lymphocytes % 38.3 % (10-50); Mean Corpuscular Volume 85.2 fl (81-99); Mean Platelet Volume 7.8 fl (7.4-10.4); Monocytes # 0.4 K/mm3 (0.1-1.0); Monocytes % 6.1 % (1.7-9.3); Neutrophils # 3.4 K/mm3 (1.8-7.8); Neutrophils % 49.9 % (37.0-80.0); Platelet Count 218 K/mm3 (142-424); Red Blood Count 4.33 M/mm3 (4.20-5.40); Red Cell Distribution Width 13.8 % (11.5-17.5); White Blood Count 6.7 K/mm3 (4.8-10.8)
[2023-05-14 06:34] LABS: Anion Gap 9.7 mEq/L (5-15); Blood Urea Nitrogen 14 mg/dl (7-17); Calcium 8.2 mg/dl (8.4-10.2); Carbon Dioxide 26 mmol/L (22.0-30.0); Chloride 109 mmol/L (98-107); Chol/HDL Ratio 3.3 (1-3.5); Cholesterol 127 mg/dl (140-200); Creatinine Clearance Estimated 64 mL/min (50-200); Estimated Glomerular Filt Rate 102 ml/min (>60); GFR (African American) 123 ML/MIN (>60); Glucose 101 mg/dl (74-100); HDL Cholesterol 39 mg/dl (40-60); Potassium 3.7 mmoL/L (3.5-5.1); Sodium 141 mmol/L (136-145); Triglycerides 113 mg/dl (30-150); VLDL Cholesterol 23 mg/dL (0-40)
[2023-05-14 06:57] LABS: PTT Heparin (inpatient only) 65.7 Seconds (23.6-34.0)
[2023-05-14 06:58] LABS: Direct LDL Cholesterol 65.68 mg/dL (100-129)
--- NOTE | 2023-05-14 07:18 | EXP.DC.SUM ---
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 She was having this test done at the [facility] today, when during the test she began to have significant chest pain with arm radiation, test was stopped but preliminary EKG readings were concerning and she was transferred to the ER there. Troponin levels there were equivocal, but given her abnormal stress test it was recommended that she be transferred to Center where invasive cardiology was available. She was transferred here today. On exam currently she denies pain, is feeling good, no dyspnea or pain or abdominal complaints. Hospital Course Hospital Course Hospital Course: Patient was admitted. Significant abnormalities of stress test from outside hospital noted. patient taken to [facility]. Catheterization showed critical disease as noted in the copied note from cardiology in the following narrative: [address] [facility] [address] [place] [address] Interventional Radiology Rpt Signed Patient: Giovana Iglesias MR#: [id number] : 1960 Acct:[id number] Age/Sex: 62 / F ADM Date: 05/13/23 Loc: I- Attending Dr: Emanuel Purvis MD Ordering Physician: Juan Hensley MD Date of Service: 05/13/23 Procedure(s): CL lhc w ventricle Accession Number(s): [id number] cc: Emanuel Purvis MD; Juan Hensley MD~ APPROVED REPORT Patient Location: Inpatient Ultra Sound Technician: YURI Sharma RT (R) PROCEDURES Left heart catheterization Left ventriculogram Selective coronary angiogram INDICATION Aborted ST elevation myocardial infarction, Coronary artery disease Informed consent was obtained prior to the procedure. COMPLICATIONS NONE Estimated Blood Loss: LESS THAN 10 ML TECHNIQUE One percent lidocaine used to anesthetize the right anterior aspect of the wrist. The right radial artery was accessed via the Seldinger technique. A 6 [place] sheath was placed in the right radial artery. 150 mg magnesium sulfate, 800 mcg of nitroglycerin, 1mg Lidocaine and 5000 U Heparin were given through the arterial sheath. The papa catheter was also used to perform left heart catheterization, left ventriculogram and selective coronary angiogram. At the end of the procedure the sheath was removed good hemostasis was achieved using Traclet band, patient was transferred to the postop holding area in stable condition. ANGIOGRAPHIC RESULTS The left main artery Has distal heavily calcified eccentric 90% stenosis The left anterior descending artery Has an ostial proximal concentric 80% stenosis with mid vessel 30% stenosis The circumflex artery Is dominant and has a critical highly calcified eccentric 90% stenosis with diffuse mid vessel 30% stenoses and an additional mid vessel concentric 60 to 70% stenosis which is proximal to 2 obtuse marginal arteries The right coronary artery Is probably codominant and has mid vessel 40% stenosis with a distal calcified 60 and 70% stenosis The AHUMADA ventriculogram reveals Normal 65% The left ventricular end-diastolic pressure 10 mmHg IMPRESSION Severe to critical distal left main disease Three-vessel coronary artery disease as described above Normal ejection fraction Normal left ventricular end-diastolic pressure PLAN 1. Discontinue P2 Y12 inhibitors 2. Continue aspirin 81 mg daily 3. Start high intensity statin preoperatively 4. I have already made contact with [facility] CT surgery and arrangements are being made to [facility] 5. Start heparin and contin
[2023-05-14 07:29] LABS: Alanine Aminotransferase 21 U/L (12-78); Albumin Level 3.7 g/dl (3.5-5.0); Alkaline Phosphatase 66 U/L (38-126); Aspartate Amino Transferase 25 U/L (14-36); Bilirubin,Indirect 1.2 mg/dL (0.0-0.9); Bilirubin,Total 1.2 mg/dl (0.2-1.3); Bilirubin,Unconjugated 1.4 mg/dL (0.0-1.1); Total Protein,Serum 6.1 g/dl (6.3-8.2)
[2023-05-14 08:00] VITALS: BP 133/66; PULSE 60; PULSE 67; RESP 18; TEMP 36.6; O2SAT 98; O2SAT 99
--- NOTE | 2023-05-14 08:05 | HMH.PHAHEP ---
[facility] Pharmacy Heparin Dosing Demographic Data Admission date:: 05/13/23 Date: 05/14/23 Time: 08:05 Allergies Allergy/AdvReac Type Severity Reaction Status Date / Time No Known Allergies Allergy Verified 05/13/23 14:07 Height: 1.65 m Weight: 68.577 kg Indication Medication therapy:: Heparin Current Indications:: MEDIUM (PER CINDA NOTE) - UNSTABLE ANGINA/AWAITING CABG AT Current Active Problems (Updated 05/18/23 @ 00:00 by Background Dabill) Hyperlipidemia (Acute) Hypertension (Acute) Brain TIA (Acute) Unstable angina (Acute) Abnormal cardiovascular stress test (Acute) CVA?: Yes Bleeding problem?: No Kidney disease?: No VT?: Yes Additional History:: HYPERLIPIDEMIA, HYPERTENSION, DVT/PE, TIA Desired PTT range:: 50-75 seconds Labs Anticoagulation Lab Results:: 05/13/23 05/14/23 14:17 06:11 Hgb 13.5 12.5 Hct 40.2 36.8 L Plt Count 233 218 Monitoring Dose Monitor 1: Date: 05/13/23 Time: 18:05 PTT Result:: 36.7 SECONDS Infusion Rate:: CINDA ECARE INITIATED HEPARIN DRIP AT 1000 UNITS/HOUR = 20 ML/HOUR, PATIENT RECEIVED TWO BOLUSES OF HEPARIN IN THE WEBSITE DESIGNER (3000 UNITS AND 5000 UNITS) Dose Monitor 2: Date: 05/14/23 Time: 00:00 PTT Result:: 108.6 SECONDS Infusion Rate:: DECREASED HEPARIN DRIP TO 800 UNITS/HOUR = 16 ML/HOUR Dose Monitor 3: Date: 05/14/23 Time: 06:00 PTT Result:: 65.7 SECONDS Infusion Rate:: CONTINUED CURRENT HEPARIN DRIP RATE OF 800 UNITS/HOUR = 16 ML/HOUR Comment:: PLATELET COUNT THIS MORNING 218K Dose Monitor 4: Date: 05/14/23 Time: 12:00 PTT Result:: 55.2 SECONDS Infusion Rate:: INCREASED HEPARIN DRIP TO 850 UNITS/HOUR = 17 ML/HOUR Dose Monitor 5: Date: 05/14/23 Time: 18:00 PTT Result:: 64.1 SECONDS Infusion Rate:: CONTINUED CURRENT RATE OF 850 UNITS/HOUR = 17 ML/HOUR Comment:: PATIENT TRANSFERRED TO . Core Measures Is INR > or = 2 at discharge?: No Most Recent Labs:: Laboratory Results - last 24 hr 05/13/23 14:17: WBC 7.4, RBC 4.71, Hgb 13.5, Hct 40.2, MCV 85.4, MCH 28.7, MCHC 33.6, RDW 13.9, Plt Count 233, MPV 8.1, Neut % (Auto) 56.4, Lymph % (Auto) 35.1, [place] % (Auto) 3.8, Eos % (Auto) 3.8, Baso % (Auto) 0.8, Neut # (Auto) 4.2, Lymph # (Auto) 2.6, [place] # (Auto) 0.3, Eos # (Auto) 0.3, Baso # (Auto) 0.1, APTT 36.7 H, Sodium 140, Potassium 3.6, Chloride 104, Carbon Dioxide 29, Anion Gap 10.6, BUN 16, Creatinine 0.60, Estimated Creat Clear 62, Estimated GFR 102, Est GFR ( Amer) 123, Glucose 88, Calcium 9.3, Magnesium 1.8, Troponin I 0.02, NT-Pro-B Natriuret Pep 141 H, Triglycerides 140, Cholesterol 156, LDL Cholesterol Direct 82.24 L, VLDL Cholesterol 28, HDL Cholesterol 44, Cholesterol/HDL Ratio 3.5, TSH 0.95, Free T4 1.27 05/14/23 00:20: APTT 108.6 H* 05/14/23 05:52: APTT 65.7 H* 05/14/23 06:11: WBC 6.7, RBC 4.33, Hgb 12.5, Hct 36.8 L, MCV 85.2, MCH 29.0, MCHC 34.0, RDW 13.8, Plt Count 218, MPV 7.8, Neut % (Auto) 49.9, Lymph % (Auto) 38.3, [place] % (Auto) 6.1, Eos % (Auto) 5.0, Baso % (Auto) 0.6, Neut # (Auto) 3.4, Lymph # (Auto) 2.6, [place] # (Auto) 0.4, Eos # (Auto) 0.3, Baso # (Auto) 0.0, Sodium 141, Potassium 3.7, Chloride 109 H, Carbon Dioxide 26, Anion Gap 9.7, BUN 14, Creatinine 0.60, Estimated Creat Clear 64, Estimated GFR 102, Est GFR ( Amer) 123, Glucose 101 H, Calcium 8.2 L, Total Bilirubin 1.2, Direct Bilirubin 0.0, Conjugated Bilirubin 0.0, Indirect Bilirubin 1.2 H, Unconjugated Bilirubin 1.4 H, AST 25, ALT 21, Alkaline Phosphatase 66, Total Protein 6.1 L, Albumin 3.7, Triglycerides 113, Cholesterol 127 L, LDL Cholesterol Direct 65.68 L, VLDL Cholesterol 23, HDL Cholesterol 39 L, Cholesterol/HDL Ratio 3.3 If INR was < than 2.0 why was therapy stopped?: PATIENT TRANSFERRED TO [facility] Were Heparin and Warfarin started on the same day?: No If not, why?: PATIENT TRANSFERRED TO
--- NOTE | 2023-05-14 11:49 | EXP.CARD.PN ---
Subjective Subjective Date: 05/14/23 Time: 08:40 Principal diagnosis: [place], CAD Interval history: This is a 62-year-old white female who was admitted to the hospital with unstable angina and an abnormal stress test. The patient had a stress test at [facility] yesterday and following her nuclear stress test postinfusion she had EKG changes with diffuse ST depression and ST elevation in aVR. The patient was evaluated in [facility] emergency department and had an abnormal high-sensitivity troponin. The patient was transferred here to [facility]. She was taken to the [facility] yesterday secondary to her unstable angina and abnormal EKG. The patient was found to have severe left main disease and three-vessel coronary artery disease. The patient will be transferred to [facility] to undergo coronary artery bypass grafting. Plavix has been stopped and she is now on a heparin drip. This morning she denies any chest pain or pressure. She denies any shortness of breath or edema. She denies any fever, chills, nausea, vomiting, diarrhea, PND or orthopnea. She states that her chest pain is typically just with exertion. She has not been exerting herself since she has been in the hospital. Left heart cath shows: The left main artery Has distal heavily calcified eccentric 90% stenosis The left anterior descending artery Has an ostial proximal concentric 80% stenosis with mid vessel 30% stenosis The circumflex artery Is dominant and has a critical highly calcified eccentric 90% stenosis with diffuse mid vessel 30% stenoses and an additional mid vessel concentric 60 to 70% stenosis which is proximal to 2 obtuse marginal arteries The right coronary artery Is probably codominant and has mid vessel 40% stenosis with a distal calcified 60 and 70% stenosis The AHUMADA ventriculogram reveals Normal 65% The left ventricular end-diastolic pressure 10 mmHg IMPRESSION Severe to critical distal left main disease Three-vessel coronary artery disease as described above Normal ejection fraction Normal left ventricular end-diastolic pressure PLAN 1. Discontinue P2 Y12 inhibitors 2. Continue aspirin 81 mg daily 3. Start high intensity statin preoperatively 4. I have already made contact with [facility] CT surgery and arrangements are being made to transfer patient to [facility] for CABG 5. Start heparin and continue IV drip until CABG occurs Exam Data for Last 24 hours Vital signs and Labs for Last 24 Hours: Temp Pulse Resp BP Pulse Ox O2 Del Method O2 Flow Rate 97.8 F 67 18 133/66 98 Room Air 98 05/14/23 08:00 05/14/23 08:00 05/14/23 08:00 05/14/23 08:00 05/14/23 08:00 05/14/23 09:42 05/14/23 08:41 Laboratory Results - last 24 hr 05/13/23 14:17: WBC 7.4, RBC 4.71, Hgb 13.5, Hct 40.2, MCV 85.4, MCH 28.7, MCHC 33.6, RDW 13.9, Plt Count 233, MPV 8.1, Neut % (Auto) 56.4, Lymph % (Auto) 35.1, [place] % (Auto) 3.8, Eos % (Auto) 3.8, Baso % (Auto) 0.8, Neut # (Auto) 4.2, Lymph # (Auto) 2.6, [place] # (Auto) 0.3, Eos # (Auto) 0.3, Baso # (Auto) 0.1, APTT 36.7 H, Sodium 140, Potassium 3.6, Chloride 104, Carbon Dioxide 29, Anion Gap 10.6, BUN 16, Creatinine 0.60, Estimated Creat Clear 62, Estimated GFR 102, Est GFR ( Amer) 123, Glucose 88, Calcium 9.3, Magnesium 1.8, Troponin I 0.02, NT-Pro-B Natriuret Pep 141 H, Triglycerides 140, Cholesterol 156, LDL Cholesterol Direct 82.24 L, VLDL Cholesterol 28, HDL Cholesterol 44, Cholesterol/HDL Ratio 3.5, TSH 0.95, Free T4 1.27 05/14/23 00:20: APTT 108.6 H* 05/14/23 05:52: APTT 65.7 H* 05/14/23 06:11: WBC 6.7, RBC 4.33, Hgb 12.5, Hct 36.8 L, MCV 85.2, MCH 29.0, MCHC 34.0, RDW 13.8, Plt Count 218, MPV 7.8, Neut % (Auto) 49.9, Lymph % (Auto) 38.3, [place] % (Auto) 6.1, Eos % (Auto) 5.0, Baso % (Auto) 0.6, Neut # (Auto) 3.4, Lymph # (Auto) 2.6, [place] # (Auto) 0.4, Eos # (Auto) 0.3, Baso # (Auto) 0.0, Sodium 141, Potassium 3.7, Chloride 109 H, Car
[2023-05-14 12:00] VITALS: BP 138/62; PULSE 60; PULSE 61; RESP 16; TEMP 36.7; O2SAT 98
[2023-05-14 12:36] LABS: PTT Heparin (inpatient only) 55.2 Seconds (23.6-34.0)
--- NOTE | 2023-05-14 13:07 | PC.NURSE ---
Pharmacy called about pt's INR of 55.2. Told to leave heparin right where its at.
--- NOTE | 2023-05-14 13:16 | PC.NURSE ---
Pharmacy called back and said to change the 16 ml/hr heparin gtt to 17 ml/hr. Changed with [facility].
[2023-05-14 16:00] VITALS: BP 135/62; PULSE 60; PULSE 61; RESP 18; TEMP 36.6; O2SAT 99
--- NOTE | 2023-05-14 18:07 | PC.NURSE ---
[facility] called and no answer.
--- NOTE | 2023-05-14 18:16 | PC.NURSE ---
Report called to Semaj Gutierres RN at [facility].
[2023-05-14 18:18] LABS: PTT Heparin (inpatient only) 64.1 Seconds (23.6-34.0)
--- NOTE | 2023-05-14 19:23 | PC.NURSE ---
pt left floor with ems at this time
== END 2023-05-14 19:23 | disposition short-term general hospital (02) ==
PROVIDERS: Internal Medicine; Nurse Practitioner Family; Admitting Provider Internal Medicine Adolescent Medicine; PCP Internal Medicine Adolescent Medicine; Visit Provider Internal Medicine Adolescent Medicine
DX: I25.110 Atherosclerotic heart disease of native coronary artery with unstable angina pectoris (principal); I82.402 Acute embolism and thrombosis of unspecified deep veins of left lower extremity; I10 Essential (primary) hypertension; E78.5 Hyperlipidemia, unspecified; I21.3 ST elevation (STEMI) myocardial infarction of unspecified site
CPT/HCPCS: 80048; 80061; 80076; 83735; 83880; 84439; 84443; 84484; 85025; 85730; 93005; 93306; 93458; 99152; C1725; C1769; G0378; J1644; Q9967

== ENCOUNTER → 2023-10-15 11:45 | Outpatient (CLI) | payer BC, SELFPAY ==
[2023-10-15 12:03] LABS: Basophils # 0.1 K/mm3 (0-0.2); Basophils % 0.7 % (0.1-2.0); Eosinophils # 0.4 K/mm3 (0.0-0.4); Eosinophils % 4.6 % (0.1-12.0); Hematocrit 40.3 % (37.0-47.0); Hemoglobin 14.2 g/dL (12.2-16.2); Lymphocytes # 2.3 K/mm3 (0.7-4.5); Lymphocytes % 29.6 % (10-50); Mean Corpuscular HGB Conc 35.2 g/dL (31.8-35.4); Mean Corpuscular Volume 85.2 fl (81-99); Mean Platelet Volume 7.8 fl (7.4-10.4); Monocytes # 0.4 K/mm3 (0.1-1.0); Monocytes % 4.9 % (1.7-9.3); Neutrophils # 4.6 K/mm3 (1.8-7.8); Neutrophils % 60.2 % (37.0-80.0); Platelet Count 260 K/mm3 (142-424); Red Blood Count 4.73 M/mm3 (4.20-5.40); Red Cell Distribution Width 15.3 % (11.5-17.5); White Blood Count 7.6 K/mm3 (4.8-10.8)
[2023-10-15 12:55] LABS: Chloride 106 mmol/L (98-107); Sodium 140 mmol/L (136-145)
[2023-10-15 12:56] LABS: Potassium 4.6 mmoL/L (3.5-5.1)
[2023-10-15 12:58] LABS: Alanine Aminotransferase 26 U/L (12-78); Albumin Level 4.6 g/dl (3.5-5.0); Alkaline Phosphatase 67 U/L (38-126); Anion Gap 13.6 mEq/L (5-15); Aspartate Amino Transferase 33 U/L (14-36); Bilirubin,Indirect 1.2 mg/dL (0.0-0.9); Bilirubin,Total 1.2 mg/dl (0.2-1.3); Bilirubin,Unconjugated 1.2 mg/dL (0.0-1.1); Blood Urea Nitrogen 12 mg/dl (7-17); Calcium 9.3 mg/dl (8.4-10.2); Carbon Dioxide 25 mmol/L (22.0-30.0); Cholesterol 166 mg/dl (140-200); Estimated Glomerular Filt Rate 85 ml/min (>60); GFR (African American) 103 ML/MIN (>60); Glucose 84 mg/dl (74-100); Total Protein,Serum 7.4 g/dl (6.3-8.2); Triglycerides 224 mg/dl (30-150); VLDL Cholesterol 45 mg/dL (0-40)
[2023-10-15 12:59] LABS: Chol/HDL Ratio 3.8 (1-3.5); HDL Cholesterol 44 mg/dl (40-60); Magnesium 1.8 mg/dl (1.6-2.3)
[2023-10-15 13:09] LABS: Direct LDL Cholesterol 86.48 mg/dL (100-129)
[2023-10-15 13:29] LABS: Thyroid Stimulating Hormone 2.23 uIU/mL (0.465-4.68)
[2023-10-15 14:24] LABS: Free T4 (Free Thyroxine) 1.05 ng/dl (0.78-2.19)
== END ==
LOC: LAB 11:46
PROVIDERS: PCP Internal Medicine Adolescent Medicine; Visit Provider Internal Medicine
DX: E78.5 Hyperlipidemia, unspecified (principal); I11.9 Hypertensive heart disease without heart failure; I25.10 Atherosclerotic heart disease of native coronary artery without angina pectoris; R94.31 Abnormal electrocardiogram [ECG] [EKG]; Z95.1 Presence of aortocoronary bypass graft
CPT/HCPCS: 36415; 80048; 80061; 80076; 83735; 84439; 84443; 85025

== ENCOUNTER 2024-04-11 07:56 | Outpatient (CLI) | payer BC, SELFPAY ==
--- NOTE | 2024-04-11 08:00 | MM_ITS ---
PROCEDURE INFORMATION: Exam: MG Bilateral Screening 3D Mammography Exam date and time: 04/11/2024 8:06 AM Age: 63 years old Clinical indication: Screening examination; Family history of breast cancer in daughter; Daughter's age: 40 years. TECHNIQUE: Imaging protocol: Bilateral Screening tomosynthesis and 2D mammography including computer-aided detection (CAD) when performed. COMPARISON: 1. MG MM DIG SCREENING MAMM BI W/CAD 05/24/2020 10:38 AM 2. MG DIG MAMM-DX UNI-RT 03/11/2019 1:54 PM 3. MG DXRT MM Dig mamm DX unilat RT CAD 06/29/2018 9:41 AM 4. MG SCBI MM Dig screening mamm BI w/CAD 06/07/2018 9:01 AM FINDINGS: MAMMOGRAPHY: Breast composition: The breasts are heterogeneously dense, which may obscure small masses. Mass: No suspicious mass. Architectural distortion: None. Calcifications: No suspicious calcifications. Asymmetric density: No developing asymmetry. Skin thickening: None. Axillary adenopathy: None. IMPRESSION: No mammographic evidence of malignancy. Annual screening is recommended unless otherwise clinically indicated. ASSESSMENT: BI-RADS Category 1: Negative
--- NOTE | 2024-04-11 08:01 | XR_ITS ---
FINAL REPORT TECHNIQUE: Bone densitometry calculations of the lumbar spine and left hip were obtained. CLINICAL HISTORY: POST MENOPAUSAL FINDINGS: Using L1-4, the bone mineral density of the spine is 0.90 g/cm2, corresponding to T-score of -1.3. Using the left hip, the bone mineral density of the femoral neck is 0.5 g/cm2, corresponding to a T-score of -3.5. Using the right hip, the bone mineral density of the femoral neck is 0.6 g/cm2, corresponding to a T-score of -2.7. NOTE: T-score: Standard deviation compared with peak bone mass of young adult mean. *Following the recommendations of the International Society of Bone densitometry, classification of hip BMD is based on the lower of two T-scores; total hip or femoral neck. IMPRESSION: Diminished bone mineral density of the lumbar spine consistent with osteopenia. Osteoporosis of the hips. Reviewed, Interpreted and Dictated by Archie Bynum MD Transcribed by Yuko Hollis Authenticated and . [facility]
== END 2024-04-11 23:59 | disposition home or self-care (01) ==
LOC: RAD 07:57
PROVIDERS: PCP Internal Medicine Adolescent Medicine; Visit Provider Nurse Practitioner Family
DX: Z12.31 Encounter for screening mammogram for malignant neoplasm of breast (principal); Z78.0 Asymptomatic menopausal state
CPT/HCPCS: 77063; 77067; 77080

== ENCOUNTER 2024-11-23 07:46 | Emergency (ER) | payer BC, SELFPAY ==
--- NOTE | 2024-11-23 07:56 | ECG_ITS ---
APPROVED REPORT Exam: Resting ECG HR:66 bpm ECG Measurements Heart Rate 66 AXES QRSd 100 QRS 54 QT 401 T 70 QTc 414 Conclusion Normal sinus rhythm. No acute STEMI. Normal intervals. Electronically signed by : OSCAR FARRIS, 11/23/2024 13:27:02
[2024-11-23 08:01] VITALS: BP 157/75; PULSE 70; RESP 21; O2SAT 98
--- NOTE | 2024-11-23 08:03 | XR_ITS ---
FINAL REPORT CLINICAL HISTORY: fall, head injury, pain FINDINGS: Left hand Three views were obtained. There are moderate hypertrophic changes of osteoarthritis of the DIP, PIP, and basilar joints. There are oblique, mildly displaced fractures of the distal fourth and fifth metacarpals. There is no definite intra-articular extension. IMPRESSION: Fractures as above. Reviewed, Interpreted and Dictated by Jovanny Darnell MD Transcribed by Blanquita Schmitt Authenticated and [facility]
--- NOTE | 2024-11-23 08:03 | CT_ITS ---
FINAL REPORT TECHNIQUE: Axial images were obtained of the cervical spine by computed tomography. Coronal and sagittal reconstruction process performed. This study was performed with techniques to keep radiation doses as low as reasonably achievable (ALARA). Individualized dose reduction techniques using automated exposure control or adjustment of mA and/or kV according to the patient''s size were employed. 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 There are moderate hypertrophic changes of degenerative disc disease of C2-3 with associated left facet hypertrophy and high-grade left neuroforaminal narrowing. There is marked facet hypertrophy in the mid and lower cervical spine. No acute fracture is identified. IMPRESSION: Can notable anomalies of C3 and C4. Degenerative disc disease without acute bony abnormality. Reviewed, Interpreted and Dictated by Jovanny Darnell MD Transcribed by Blanquita Schmitt Authenticated and [facility]
--- NOTE | 2024-11-23 08:03 | CT_ITS ---
FINAL REPORT TECHNIQUE: Axial CT images were performed through the head. Coronal reformatted images were submitted. This study was performed with techniques to keep radiation doses as low as reasonably achievable (ALARA). Individualized dose reduction techniques using automated exposure control or adjustment of mA and/or kV according to the patient's size were employed. CLINICAL HISTORY: fall, head injury, pain FINDINGS: There is streak artifact from bilateral cochlear implants. There is abnormal decreased attenuation in the deep white matter of the left parietal lobe, probably due to encephalomalacia. The ventricles are normal in size. There is no evidence of hemorrhage. There is no mass or edema identified. There is no abnormal extra-axial fluid seen. The sinuses are well aerated. There is soft tissue swelling in the right periorbital region. Small subcutaneous hematoma is identified measuring 1.1 cm. IMPRESSION: Soft tissue swelling in the right periorbital region with small hematoma. No acute fracture identified. No acute intracranial abnormality. Reviewed, Interpreted and Dictated by Jovanny Darnell MD Transcribed by Blanquita Schmitt Authenticated and [facility]
--- NOTE | 2024-11-23 08:03 | XR_ITS ---
FINAL REPORT CLINICAL HISTORY: fall, head injury, pain FINDINGS: Left wrist Three views were obtained. There is moderate narrowing of the radiocarpal joint space. There are moderate hypertrophic changes of the basilar joint. There are oblique, mildly displaced fractures of the distal fourth and fifth metacarpals. There is no definite intra-articular extension. IMPRESSION: Fractures as above. Reviewed, Interpreted and Dictated by Jovanny Darnell MD Transcribed by Blanquita Schmitt Authenticated and [facility]
[2024-11-23 08:04] VITALS: BP 149/56; PULSE 65; RESP 14; TEMP 36.7; O2SAT 99; BMI 23.3
--- NOTE | 2024-11-23 08:05 | HMH.EDGENADL ---
Discharge Plan Disposition Patient Disposition: Home, Self-Care Prescriptions Prescriptions: New hydrocodone-acetaminophen 5-325 mg tablet 1 tab PO Q8H PRN (Reason: pain) Qty: 10 0RF No Action metoprolol tartrate 25 mg tablet 12.5 mg PO BID Qty: 180 3RF alendronate 70 mg tablet 70 mg PO QWEEK Qty: 12 3RF valsartan 80 mg tablet 80 mg PO DAILY Qty: 90 3RF nitroglycerin 0.4 mg tablet, sublingual 0.4 mg sublingual Q5MINP MDD 1.2mg PRN (Reason: Chest Pain) aspirin 81 mg tablet,chewable 81 mg PO HS latanoprost [Xalatan] 2.5 ML drops 1 drp ophthalmic (eye) HS dorzolamide-timolol 10 ML drops 1 drp ophthalmic (eye) BID loteprednol etabonate [Lotemax] 5 ML drops,suspension 1 drp Eye-Left DAILY Referrals Follow up/Referrals: Yg Wilde DO [Staff Physician] - See instructions Emanuel Purvis MD [Primary Care Provider] - See instructions Activity Restrictions/Add. Instructions Additional Instructions/Restrictions: You were evaluated in the emergency department today. You were found to have fractures of the fourth and fifth metacarpals of your left hand. You also do have some degeneration noted in your cervical spine but no obvious acute fracture. Please keep your splint on, clean, and dry. Do not submerge under any water. Keep your hand elevated to help reduce pain and swelling. Take Tylenol and ibuprofen every 4-6 hours as needed for pain. Alternatively, I have prescribed you with some narcotic pain medications if you have severe breakthrough pain. Expect that the hematoma to your forehead may settle and cause bruising or black eye. Follow-up closely with your primary care provider for reassessment. Return to the emergency department for new or worsening symptoms. Clinical Impressions Clinical Impression: Fracture, metacarpal shaft, Fall, Traumatic hematoma of forehead, Cervical spine degeneration Instructions Patient Instructions: DI for a Hand Fracture, DI for Hematoma (Bruise), DI for Closed Head Injury, How to Take Care of Your Splint Print Language Print Language: Cape Verdean Discharge ED Provider: Traci Saavedra General Adult HPI General Chief complaint: Fall Stated complaint: AO Fall 10/23 0645 hit head left arm pain Time Seen by Provider: 11/23/24 07:55 History of Present Illness HPI narrative: This patient is a 64-year-old female with a history of CAD status post CABG, CVA, DVT and PE not on anticoagulation presenting to the emergency department for evaluation with concern for fall with head injury. 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 Her believes that she lost consciousness briefly. She currently complains of head pain on the right side of her head where she hit her forehead on the ground, neck pain, and left hand pain mostly around her ring finger. She was well prior to the fall with no other concerns noted. No numbness, tingling, or other issues. Related Data Home Medications ?Medication ?Instructions ?Recorded ?Confirmed dorzolamide 22.3 mg-timolol 6.8 1 drp ophthalmic (eye) BID 12/14/17 11/23/24 mg/mL eye drops ELEVATED EYE PRESSURE latanoprost 0.005 % eye drops 1 drp ophthalmic (eye) HS ELEVATED 12/14/17 11/23/24 (Xalatan) EYE PRESSURE loteprednol etabonate 0.5 % eye 1 drp Eye-Left DAILY EYE 12/14/17 11/23/24 drops,suspension (Lotemax) INFLAMMATION aspirin 81 mg chewable tablet 81 mg PO Heart Health 05/13/23 11/23/24 nitroglycerin 0.4 mg sublingual 0.4 mg sublingual Q5MINP PRN Chest 05/13/23 11/23/24 tablet Pain Previous Rx's ?Medication ?Instructions ?Recorded metoprolol tartrate 25 mg tablet 12.5 mg (1/2 x 25 mg) PO BID #180 04/18/24 tabs alendronate 70 mg tablet 70 mg PO QWEEK #12 tabs 11/22/24 valsartan 80 mg tablet 80 mg PO DAILY #90 tabs 11/22/24 hydrocodone 5 mg-acetaminophen 325 1 tab PO Q8H PRN pain #10 tabs 11/23/24 mg tablet Allergies Allergy/AdvReac Type Severity Reaction Status Date / Time No Known Allergies Allergy Verified 11/23/24 08:21 [facility] Disclaimer: The information contained in this section may have been updated after the patient was seen, as this information can be updated by other users. Medical History Bradycardia CVA (cerebral vascular accident) Osteoporosis Coronary artery disease Hypertension Abnormal cardiovascular stress test Unstable angina Pulmonary embolism Brain TIA Hyperlipidemia History of uterine cancer Left humeral fracture Deep vein thrombosis, lower left extremity Glaucoma Uses cochlear implant Surgical History S/P CABG x 3 Corneal transplant status History of appendectomy Cochlear implant in place History of hysterectomy Family History Mother Heart attack Coronary artery disease Father Motor vehicle accident Other Family history of myocardial infarction Stroke Social History Smoking Status: Never smoker alcohol intake: never current occupational status: unemployed Travel in the last 8 weeks: None aust[place]/evangelical: Bahai Have you lived/traveled outside US in past 30 days?: No Contact w/someone who lives/traveled outside US past 30 days?: No Exposure to someone with infectious disease in past 14 days?: No Do you have a fever (greater than 100.4 F or 38 C)?: No Have you tested positive for COVID-19: No Exposed to someone with COVID-19 in past 14 days?: No Do you have a sore throat?: No Do you have a cough?: No Do you have any weakness?: No Do you have any diarrhea?: No Are you experiencing any unusual bleeding?: No Do you have any muscle aches/pain?: No Do you have any abdominal pain?: No Are you experiencing loss of taste or smell?: No Other Medical History Have you received the Flu Vaccine for this season: No Have you received the Pneumonia Vaccine: No ROS Obtained: Yes All systems reviewed & no additional complaints except as documented Physical Exam General General appearance: alert and in no apparent distress Head Head exam: normocephalic Expanded Head Exam Head exam physical: Present hematoma Head image: 1. Traumatic hematoma Eye Eye exam: Present normal appearance, PERRL and EOMI ENT ENT exam: Present normal exam, normal oropharynx, mucous membranes moist and normal external ear exam Neck Neck exam: Present full ROM, trachea midline and tenderness (R paraspinal TTP, no significant midline TTP) Chest Chest inspection: Present normal inspection and symmetric chest wall rise; Absent tenderness Respiratory Respiratory exam: Present normal lung sounds bilaterally; Absent respiratory distress, wheezes, stridor or accessory muscle use Cardiovascular Cardiovascular exam: Present regular rate and normal rhythm Abdominal Exam Abdominal exam: Present soft; Absent distention, tenderness or guarding Extremities Exam Extremities exam: Present tenderness and normal capillary refill; Absent edema Expanded Upper Extremity Exam Left: Hand L/R back image: 1. TTP, no obvious stepoff/deformity. neurovascularly intact distally Back Exam Back exam: Present normal inspection and full ROM; Absent tenderness Neurological Exam Neurological exam: Present alert, oriented X3, CN II-XII intact and normal gait; Absent motor sensory deficit Psychiatric Psychiatric exam: Present normal affect and normal mood Skin Skin exam: Present warm and dry Medical Decision Making Medical Records Medical records reviewed: Yes I reviewed the patient's medical records. Screening: Per USPSTF and CDC recommendations, given the prevalence of disease in our region, it is our hospital?s policy to screen for HIV and viral Hepatitis for all patients aged 18 and over and those with ongoing risk factors. [place] Inquiry Pt receiving controlled substance: Yes [place] was queried for this patient: Yes Risks and benefits of using a controlled substance: were discussed with pt by me Vital Signs: 11/23/24 08:01 11/23/24 08:04 11/23/24 08:33 Temperature 98.1 F Temperature Source Oral Pulse Rate 70 68 Pulse Rate [Left] 65 Respiratory Rate 21 14 13 Blood Pressure 157/75 H Blood Pressure [Right Arm] 149/56 H Blood Pressure Mean [Right Arm] 87 Blood Pressure Source Blood Pressure Source [Right Arm] Automatic Cuff Blood Pressure Position [Right Arm] Sitting 02 Sat by Pulse Oximetry 98 99 97 Oxygen Delivery Method Room Air Room Air Room Air 11/23/24 09:01 11/23/24 09:31 11/23/24 09:41 Temperature 98.1 F Temperature Source Oral Pulse Rate 60 60 58 L Pulse Rate [Left] Respiratory Rate 13 19 15 Blood Pressure 125/69 119/56 L 119/56 L Blood Pressure [Right Arm] Blood Pressure Mean [Right Arm] Blood Pressure Source Automatic Cuff Blood Pressure Source [Right Arm] Blood Pressure Position [Right Arm] 02 Sat by Pulse Oximetry 97 96 Oxygen Delivery Method Room Air Room Air Room Air Lab Data Lab results reviewed: Yes I reviewed the patient's lab results. Lab Results 11/23/24 07:55: HCV Ab JANNET w/Rflx PCR Qn Negative, HIV Ag/Ab Combo Qual Negative Orders (Tests/Meds): ED MEDICATIONS Discontinued Medications Generic Name Dose Route Start Last Admin Trade Name Jose Luisq PRN Reason Stop Dose Admin Acetaminophen 1,000 mg 11/23/24 08:03 11/23/24 08:09 Acetaminophen 500mg Tab PO 11/23/24 08:04 1,000 mg ONCE ONE Administration ORDERS Category Date Time Status CT cervical spine wo con Stat Cat Scan 11/23/24 08:[address] facial bones wo con Stat Cat Scan 11/23/24 08:[address] head/brain wo con Stat Cat Scan 11/23/24 08:03 Completed Hand XR left minimum 3 views [XR hand LT min 3V] Stat Exams 11/23/24 08:03 Completed Wrist XR left minimum 3 views [XR wrist LT min 3V] Stat Exams 11/23/24 08:03 Completed HIV Combo Stat Lab 11/23/24 07:55 Completed Hepatitis C Ab Qual. W/ RFX Stat Lab 11/23/24 07:55 Completed ECG Data Tracing #1: I reviewed this ECG and interpreted as documented below: Normal sinus rhythm with a ventricular rate of [address] changes concerning for ischemia. Normal axis and intervals. ECG initial impression date: 11/23/24 ECG initial impression time: 07:58 Medical Decision Narrative: In summary, this patient is a 64-year-old female presenting to the Emergency Department for evaluation of traumatic injuries after a fall. Differential diagnoses considered include but are not limited to facial fracture, skull fracture, intracranial hemorrhage, concussion, C-spine fracture, hand fracture, polytrauma. Ruling out the most morbid conditions drove assessment. It should be noted patient's history includes CAD status post CABG on aspirin and prior CVA which may or may not be at goal therapy. This complicates all aspects of care by increasing patient's risk for morbidity. On exam, the patient is lying in bed in no acute distress. She has a traumatic hematoma to the right forehead, tenderness palpation of the left hand but is neurovascularly intact distally, superficial abrasion to the left knee. Otherwise, exam is very reassuring. She is completely neurologically intact. Workup included CT head, CT face, CT C-spine, and x-rays of the left hand and wrist. She was given oral Tylenol for symptomatic improvement. I independently interpreted CT scans and x-rays prior to the radiologist read and noted no obvious intracranial hemorrhage, but patient does have fractures of the left fourth and fifth metacarpals. Please see their read for final interpretation. On reassessment, patient remains neurologically intact and neurovascularly intact in the left upper extremity. Given fractures, she was placed in an ulnar gutter Ortho-Glass splint by misbah, which was assessed by myself. Patient remained neurovascularly intact after splinting. At this time, I feel she is appropriate for discharge home with close follow-up with orthopedics and strict return precautions. She is given prescription for [place] to take as needed for severe breakthrough pain as well as strict return precautions. Patient was discharged after all questions were answered. Procedures Orthopedic Splinting/Casting Injury #1: Side: left Upper Extremity Injury Location: hand Upper Extremity Immobilizer: ulnar gutter and applied by nurse/dr wyman Post Cast/Splinting Neuro Status: intact and no change Post Cast/Splinting Vasc Status: intact and no change Critical Care Critical Care Time Critical Care Time: No
[2024-11-23] MEDS: ACETAMINOPHEN 500MG TAB 1000 MG PO (08:09)
--- NOTE | 2024-11-23 08:10 | PC.NURSE ---
pt medicated per emar, call light within reach. at bedside. no needs at this time
--- NOTE | 2024-11-23 08:11 | CT_ITS ---
FINAL REPORT TECHNIQUE: Multiple axial CT sections were performed through the face without IV contrast. Coronal reconstruction images were performed. This study was performed with techniques to keep radiation doses as low as reasonably achievable (ALARA). Individualized dose reduction techniques using automated exposure control or adjustment of mA and/or kV according to the patient's size were employed. CLINICAL HISTORY: fall, facial/head injury FINDINGS: There is marked deviation of the nasal septum to the left. The paranasal sinuses are well aerated. No air-fluid levels identified. There is mild artifact from cochlear implant leads. No fracture is identified. IMPRESSION: No acute facial bone fractures. Reviewed, Interpreted and Dictated by Jovanny Darnell MD Transcribed by Blanquita Schmitt Authenticated and [facility]
--- NOTE | 2024-11-23 08:19 | PC.NURSE ---
I rounded on the pt. no new complaints at this time. no needs voiced. She is visiting with her at this time. call tania in reach.
--- NOTE | 2024-11-23 08:20 | PC.NURSE ---
pt to radiology
[2024-11-23 08:33] VITALS: PULSE 68; RESP 13; O2SAT 97
--- NOTE | 2024-11-23 08:55 | PC.NURSE ---
left ulnar gutter orthoglass splint applied on patient with no complications.
[2024-11-23 09:01] VITALS: BP 125/69; PULSE 60; RESP 13; O2SAT 97
[2024-11-23 09:09] LABS: HIV Combo NEGATIVE (Negative)
--- NOTE | 2024-11-23 09:16 | PC.NURSE ---
ROUNDED ON THE PT. THE PT VOICES THAT SHE DOES NOT NEED ANYTHING AT THIS TIME. CALL LIGHT IS WITHIN REACH OF THE PT. IS PRESENT AT THE BEDSIDE.
[2024-11-23 09:17] LABS: Hepatitis C Ab Qual. W/ RFX NEGATIVE (Negative)
[2024-11-23 09:31] VITALS: BP 119/56; PULSE 60; RESP 19; O2SAT 96
[2024-11-23 09:41] VITALS: BP 119/56; PULSE 58; RESP 15; TEMP 36.7; O2SAT 100
== END 2024-11-23 09:44 | disposition home or self-care (01) ==
PROVIDERS: Emergency Provider Emergency Medicine; PCP Internal Medicine Adolescent Medicine
DX: M47.812 Spondylosis without myelopathy or radiculopathy, cervical region (principal); S00.83XA Contusion of other part of head, initial encounter; S62.325A Displaced fracture of shaft of fourth metacarpal bone, left hand, initial encounter for closed fracture; S62.327A Displaced fracture of shaft of fifth metacarpal bone, left hand, initial encounter for closed fracture; W01.0XXA Fall on same level from slipping, tripping and stumbling without subsequent striking against object, initial encounter; S09.90XA Unspecified injury of head, initial encounter; M79.602 Pain in left arm
CPT/HCPCS: 29125; 70450; 70486; 72125; 73110; 73130; 86803; 87389; 93005; 99285

== ENCOUNTER 2024-12-07 08:36 | Outpatient (CLI) | payer BC, SELFPAY ==
--- NOTE | 2024-12-07 08:39 | XR_ITS ---
FINAL REPORT TECHNIQUE: Left hand, 3 views CLINICAL HISTORY: Left hand fx COMPARISON: 11/23/2024 FINDINGS: AP, lateral and oblique views of the left hand were obtained. There is a cast overlying a portion of the left hand that obscures bony detail. There is no significant change in the appearance of the slightly displaced fourth metacarpal fracture, without significant callus formation. There is a nondisplaced fracture of the distal fifth metacarpal, also stable in appearance. No new osseous abnormalities are noted. The joint spaces are preserved. The soft tissues are normal. IMPRESSION: Mildly displaced fourth metacarpal fracture, stable in appearance. Nondisplaced fifth metacarpal fracture, also stable in appearance. Reviewed, Interpreted and Dictated by Saida Godwin MD Transcribed by Katey Natarajan Authenticated and [facility]
== END 2024-12-07 23:59 | disposition home or self-care (01) ==
LOC: RAD 08:37
PROVIDERS: PCP Internal Medicine Adolescent Medicine; Visit Provider Physician Assistant
DX: M79.642 Pain in left hand (principal); S62.325A Displaced fracture of shaft of fourth metacarpal bone, left hand, initial encounter for closed fracture
CPT/HCPCS: 73130

== ENCOUNTER 2025-01-03 07:54 | Outpatient (CLI) | payer BC, SELFPAY ==
--- NOTE | 2025-01-03 07:58 | XR_ITS ---
FINAL REPORT CLINICAL HISTORY: Left hand fx feb 5 no surgery COMPARISON: 12/07/2024 FINDINGS: LEFT HAND Three views demonstrate no acute fracture or dislocation. There are stable, oblique fractures of the distal fourth and fifth metacarpals. Fourth metacarpal fracture is mildly displaced. There is generalized osteopenia. Diffuse arthritic changes are seen. IMPRESSION: No significant change in fourth and fifth metacarpal fractures. No callus formation or periosteal reaction seen. Reviewed, Interpreted and Dictated by Archie Bynum MD Transcribed by Yuko Hollis Authenticated and [facility]
== END 2025-01-03 23:59 | disposition home or self-care (01) ==
LOC: RAD 07:56
PROVIDERS: PCP Internal Medicine Adolescent Medicine; Visit Provider Physician Assistant
DX: M79.642 Pain in left hand (principal); S62.308A Unspecified fracture of other metacarpal bone, initial encounter for closed fracture
CPT/HCPCS: 73130

== ENCOUNTER 2025-01-03 09:59 | Outpatient (RCR) | payer BC, SELFPAY | END 2025-01-03 23:59 | disposition home or self-care (01) | LOC: OT 09:59 | PROVIDERS: Visit Provider Physician Assistant | DX: S62.308A Unspecified fracture of other metacarpal bone, initial encounter for closed fracture (principal); X58.XXXA Exposure to other specified factors, initial encounter ==

== ENCOUNTER 2025-01-24 07:48 | Outpatient (CLI) | payer BC, SELFPAY ==
--- NOTE | 2025-01-24 07:55 | XR_ITS ---
FINAL REPORT CLINICAL HISTORY: Left Hand Fx COMPARISON: 01/03/2025 FINDINGS: LEFT HAND Three views were obtained. There are oblique fractures of the fourth and fifth metacarpals with mild displacement of the fourth metacarpal. There is no displacement of the fifth metacarpal fracture. Displacement is stable. There is some fracture healing. Severe osteopenia is identified. There are scattered degenerative changes. IMPRESSION: Healing fractures as above. Reviewed, Interpreted and Dictated by Archie Bynum MD Transcribed by Blanquita Schmitt Authenticated and . [facility]
== END 2025-01-24 23:59 | disposition home or self-care (01) ==
LOC: RAD 07:49
PROVIDERS: PCP Internal Medicine Adolescent Medicine; Visit Provider Physician Assistant
DX: M79.642 Pain in left hand (principal); S62.308A Unspecified fracture of other metacarpal bone, initial encounter for closed fracture
CPT/HCPCS: 73130

== ENCOUNTER 2025-06-20 07:35 | Outpatient (CLI) | payer BC, SELFPAY ==
--- OUTSIDE RECORDS SUMMARY | 2025-01-21 17:30 | XMS_ITS ---
Author Organization [facility] JACKIE Baker CON[place] Address [address] [facility] [address] [place] [address] Care Team Providers Care Fisheries Management Biologist Name Role Phone Emanuel Purvis Primary Care Provider [phone] Ryanne Reyna [phone] Emanuel Purvis Unavailable Unavailable Migration, Provider Unavailable Unavailable REASON FOR VISIT [facility] To [facility] Conversion Encounter Medications Medication SIG (Take, Route, [...] orally once a day Active Vitamin A 23802 INTL UNITS DIRECTED ORALLY ONCE A DAY *Please review and pick correct strength-formulati on from Medispan options. If intended option is not shown, discontinue and re-order from Quick Search* Active Red Yeast Rice 600 MG 1 cap orally once a day Active Encounters Encounter Location Date Provider Diagnosis [facility] [address] [place] [address] 01/21/2025 Provider Migration Boil L02.92 Assessments Encounter [...] Notes * Praful IGLESIASiDOB:1960 (65 yo F)Acc No.[id number]:01/21/2025 Patient: Giovana MALDONADO Provider: Joshua shore Migration :1960 A ge:64 Y S ex:Female Date:01/21/2025 Address:[address] [place] [id number] Pcp:Emanuel Purvis Subjective: * Chief Complaints: * [facility] * Medical History: * Medications: T aking Red Yeast Rice 600 MG Capsule 1 cap orally once a day , Taking Vitamin A 59092 INTL UNITS CAPSULE DIRECTED ORALLY ONCE A DAY , Notes to Pharmacist: *Please review and pick correct strength-formulation from Dr. Zan options. If intended option is not shown, [...] *Please review and pick correct strength-formulation from Dr. Zan options. If intended option is not shown, [...] Treatment: * * Electronic signature of Prov bettie Migration on 06/20/2025 at 07:40 AM EDT Sign off status: Pending * Provider: Joshua shore Migration Date: 01/21/2025 Generated for Gustavo christianson/Clau/Marla on: 0 06/20/2025 07:40 AM EDT
--- OUTSIDE RECORDS SUMMARY | 2025-05-12 15:39 | XMS_ITS | Encounter Summary ---
Author Organization Healthcare Address [address] [place] [address] Care Team Providers Care Guide Dog Mobility Instructor Name Role Phone Ryanne Reyna APRN Primary Care Provider [phone] Juan Hensley MD Unavailable [phone] Encounter Details Date Type Department Care Team (Latest Contact Info) Description 05/12/2025 3:39 PM EDT - 05/12/2025 11:59 PM EDT Hospital Encounter Cardiac Imaging [address] [place] [address] Encounter for loop recorder check Discharge Disposition: Home or Self Care Social History Tobacco Use Types Packs/Day Years Used Date Smoking Tobacco: Never Passive Smoke Exposure: Never Smokeless Tobacco: Never Alcohol Use Standard Drinks/Week Comments No 0 (1 standard drink = 0.6 oz pur e alcohol) Comments No Sex and Gender Information Value Date Recorded Sex Assigned at Not on file Legal Sex Female 8:07 PM EDT Gender Identity Not on file Sexual Orientation Not on file 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 100 tablet 05/24/2023 ascorbic acid (Vitamin C) 500 MG tablet Take 1 tablet (500 mg) by mouth 1 (one) time each day. ASPIRIN 81 MG chewable tablet Chew 1 tablet (81 mg) 1 (one) time each day. cholecalciferol (Vitamin D3) 25 MCG (1000 UT) tablet Take 1 tablet (1,000 Units) by mouth 1 (one) time each day. dorzolamide-hussein lol (Cosopt) 2-0.5 % ophthalmic solution Administer 1 drop into both eyes in the morning and 1 drop before bedtime. 30 mL 3 12/30/2024 Fosamax 70 MG tablet Take 1 tablet (70 mg) by mouth every 7 (seven) days. 04/13/2024 latanoprost (Xalatan) 0.005 % ophthalmic solution Administer 1 drop into both eyes nightly. 7.5 mL 3 12/30/2024 lisinopril 5 MG tablet 07/15/2023 loratadine (Claritin) 10 MG tablet 04/17/2017 loteprednol (Lotemax) 0.5 % ophthalmic suspension Administer 1 drop into the left eye 2 (two) times a day. 10 mL 2 09/24/2023 nitroglycerin (Nitrostat) 0.[address] 1 tablet (0.4 mg) under the tongue every 5 (five) minutes if needed for chest pain. Probiotic Product (acidophilus probiotic blend) capsule Take 1 capsule by mouth 1 (one) time each day. Red Yeast Rice Extract 600 MG capsule 1 (one) time each day at the same time. Turmeric 500 MG capsule Take 1 capsule by mouth Daily. Vitamin A 7.5 MG (24454 UT) capsule 1 (one) time each day at the same time. documented as of this encounter Plan of Treatment Upcoming Encounters Date Type Department Care Team (Late st Contact Info) Description 08/16/2025 12:30 PM EDT Office Visit [facility] Audiology [address] [place] [phone] Marilee Haynes B, AuD [address] [place] [phone] 10/23/2025 8:00 AM EST Office Visit [facility] [place] [address] [place] [phone] Kevin Vargas MD [address] [place] [address] documented as of this encounter Procedures Procedure Name Priority Date/Time Associated Diagnosis Comments CARDIAC DEVICE CHECK - REMOTE - LOOP RECORDER (ILR) Routine 05/12/2025 3:53 PM EDT Encounter for loop recorder check documented in this encounter Results * CARDIAC DEVICE CHECK - REMOTE - LOOP RECORDER (ILR) (05/12/2025 3:53 PM EDT) Anatomical Region Laterality Modality Other Narrative 05/12/2025 4:29 PM EDT Implantable loop recorder (ILR) interrogation. Battery remaining in service adequate. EGM's reviewed against indication for implant and diagnosis, found to be unremarkable. No new events since last interrogation and reset. Presenting rhythm is sinus Analy Cummings APRN CV IMPLANTABLE CARDIAC DEV ICE PROCEDURES Final Result documented in this encounter Visit Diagnoses Diagnosis Encounter for loop recorder check documented in this encounter Additional Health Concerns Assessment Noted Time A fall risk assessment has been complete d for the patient 02/14/2025 2:11 PM EDT A Body Mass Index follow-up plan has been documented for the patient 02/14/2025 3:02 PM EDT documented as of this encounter Care Teams Guide Dog Mobility Instructor Relationship Specialty Start Date End Date Ryanne Reyna APRN [address] [address] PCP - General 03/01/21 Juan Hensley MD [address] [facility] [address] [place] [address] Referring Physician Cardiology 05/18/23 documented as of this encounter
--- OUTSIDE RECORDS SUMMARY | 2025-06-12 12:05 | XMS_ITS | Encounter Summary ---
Author Organization Healthcare Address [address] [place] [address] Care Team Providers Care Marine Meteorologist Name Role Phone Ryanne Reyna APRN Primary Care Provider [phone] Juan Hensley MD Unavailable [phone] Encounter Details Date Type Department Care Team (Latest Contact Info) Description 06/12/2025 12:05 PM EDT - 06/12/2025 11:59 PM EDT Hospital Encounter Cardiac Imaging [address] [place] [address] Encounter for loop recorder check Discharge Disposition: [...] by mouth Daily. Vitamin A 7.5 MG (95122 UT) capsule 1 (one) time each day at the same time. documented as of this encounter Plan of Treatment Upcoming Encounters Date Type Department Care Team (Late st Contact Info) Description 08/16/2025 12:30 PM EDT Office Visit [facility] Audiology [address] [place] [phone] Marilee Haynes B, AuD [address] [place] [phone] 10/23/2025 8:00 AM EST Office Visit [facility] [place] [address] [place] [phone] Kevin Vargas MD [address] [place] [address] documented as of this encounter Procedures Procedure Name Priority Date/Time Associated Diagnosis Comments CARDIAC DEVICE CHECK - REMOTE - LOOP RECORDER (ILR) Routine 06/12/2025 12:20 PM EDT Encounter for loop recorder check documented in this encounter Results * CARDIAC DEVICE CHECK - REMOTE - LOOP RECORDER (ILR) (06/12/2025 12:20 PM EDT) Anatomical Region Laterality Modality Other Narrative 06/12/2025 12:34 PM EDT Implantable loop recorder (ILR) interrogation. Battery remaining in service adequate. EGM's reviewed against indication for implant and diagnosis, found to be unremarkable. No new events since last interrogation and reset. Presenting rhythm is sinus Provider Note: Clay Molder Tree Adames notified to schedule patient for routine follow up as one is not currently scheduled. Zuri Velasquez PA-C Electrophysiology Analy Gonzalez Emiliano SOLOMON CV IMPLANTABLE CARDIAC DEV ICE PROCEDURES Final [...] documented as of this encounter Care Teams Marine Meteorologist Relationship Specialty Start Date End Date Ryanne Reyna APRN [facility] [address] [id number] PCP - General 03/01/21 Juan Hensley MD [address] [place] [address] [address] [place] [address] Referring Physician Cardiology 05/18/23 documented as of this encounter
--- OUTSIDE RECORDS SUMMARY | 2025-06-14 05:00 | XMS_ITS ---
Author Organization [facility] Address [address] [place] [address] Care Team Providers Care Exchange Trouble Shooter Name Role Phone Emanuel Purvis Primary Care Provider [phone] Ryanne Reyna Unavailable [phone] Emanuel Purvis Unavailable Unavailable Allergies No Known Allergies Results Component Value Reference Range Notes LIPID PANEL, STANDARD (7600) (Not yet reviewed by provider) Interpretation: Performing Lab:KARLEY, [facility] [id number] [facility], Jb [id number] [place] [facility] Notes/Report: NON-FASTING; NON-FASTING; NON-FASTING; NON-FASTING; NON-FAST FASTING:YES FASTING: YES CHOLESTEROL, TOTAL 277 <200 mg/dL HDL CHOLESTEROL 49 > OR = 50 mg/dL TRIGLYCERIDES 194 <150 mg/dL LDL-CHOLESTEROL 191 LDL-C levels > or = 190 mg/dL may indicate familial hypercholesterolemia (FH). Clinical assessment and measurement of blood lipid levels should be considered for all first degree relatives of patients with an FH diagnosis. LDL Cholesterol (LDL-C) levels > or = 300 mg/dL may indicate homozygous familial hypercholesterolemia (HoFH). Untreated, these extremely high LDL-C levels can result in premature CV events and mortality. Patients should be identified early and provided appropriate interventions to reduce the cumulative LDL-C burden from . For questions about testing for familial hypercholesterolemia, please call [place] [facility] at [phone]. Kecia Willett, et al. J National Lipid Association Recommendations for Patient-Centered Management of Dyslipidemia: Part 1 Journal of Clinical Lipidology 2015;9(2), 129-169. Carlos Frazier. et al. (2014). Homozygous familial hypercholesterolaemia: new insights and guidance for clinicians to improve detection and clinical management. Heart Journal, 35(32), 3834-8993. Reference range: <100 Desirable range <100 mg/dL for primary prevention; <70 mg/dL for patients with CHD or diabetic patients with > or = 2 CHD risk factors. LDL-C is now calculated using the Oh-Fajardo calculation, which is a validated novel method providing better accuracy than the Friedewald equation in the estimation of LDL-C. Oh SS et al. KLAUS. 2013;310(19): 4245-1546 (http://education.[employer].com/faq/MCP587) CHOL/HDLC RATIO 5.7 <5.0 (calc) NON HDL CHOLESTEROL 228 <130 mg/dL (calc) Non-HDL level > or = 220 is very high and may indicate genetic familial hypercholesterolemia (FH). Clinical assessment and measurement of blood lipid levels should be considered for all first-degree relatives of patients with an FH diagnosis. For patients with diabetes plus 1 major ASCVD risk factor, treating to a non-HDL-C goal of <100 mg/dL (LDL-C of <70 mg/dL) is considered a therapeutic option. COMPREHENSIVE METABOLIC PANE L (99731) (Not yet reviewed by provider) Interpretation: Performing Lab:CB, [facility]-Jb [id number] [facility], Jb WahlRtpcUU[address] [place] [facility] Notes/Report: NON-FASTING; NON-FASTING; NON-FASTING; NON-FASTING; NON-FAST FASTING:YES FASTING: YES GLUCOSE 100 65-99 mg/dL Fasting reference interval For someone without known diabetes, a glucose value between 100 and 125 mg/dL is consistent with prediabetes and should be confirmed with a follow-up test. UREA NITROGEN (BUN) 16 7-25 mg/dL CREATININE 0.99 0.50-1.05 mg/dL EGFR 64 > OR = 60 mL/min/1.73m2 BUN/CREATININE RATIO SEE NOTE: 6-22 (calc) Not Reported: BUN and Creatinine are within reference range. SODIUM 138 135-146 mmol/L POTASSIUM 4.4 3.5-5.3 mmol/L CHLORIDE 104 98-110 mmol/L CARBON DIOXIDE 25 20-32 mmol/L CALCIUM 9.7 8.6-10.4 mg/dL PROTEIN, TOTAL 7.5 6.1-8.1 g/dL ALBUMIN 4.7 3.6-5.1 g/dL GLOBULIN 2.8 1.9-3.7 g/dL (calc) ALBUMIN/GLOBULIN RATIO 1.7 1.0-2.5 (calc) BILIRUBIN, TOTAL 0.9 0.2-1.2 mg/dL ALKALINE PHOSPHATASE 53 37-153 U/L AST 18 10-35 U/L ALT 14 6-29 U/L CBC (INCLUDES DIFF/PLT) (639 9) (Not yet reviewed by provider) Interpretation: Performing Lab:KARLEY, [facility], [facility]RtnvBS[address] [place] [facility] Notes/Report: NON-FASTING; NON-FASTING; NON-FASTING; NON-FASTING; NON-FAST FASTING:YES FASTING: YES WHITE BLOOD CELL COUNT 7.0 3.8-10.8 Thousand/ uL RED BLOOD CELL COUNT 5.10 3.80-5.10 Million/uL HEMOGLOBIN 15.2 11.7-15.5 g/dL HEMATOCRIT 47.0 35.0-45.0 % MCV 92.2 80.0-100.0 fL MCH 29.8 27.0-33.0 pg MCHC 32.3 32.0-36.0 g/dL For adults, a slight decrease in the calculated MCHC value (in the range of 30 to 32 g/dL) is most likely not clinically significant; however, it should be interpreted with caution in correlation with other red cell parameters and the patient's clinical condition. RDW 13.3 11.0-15.0 % PLATELET COUNT 251 140-400 Thousand/uL MPV 9.8 7.5-12.5 fL ABSOLUTE NEUTROPHILS 4200 4593-1193 cells/uL ABSOLUTE LYMPHOCYTES 2072 850-3900 cells/uL ABSOLUTE MONOCYTES 448 200-950 cells/uL ABSOLUTE EOSINOPHILS 217 15-500 cells/uL ABSOLUTE BASOPHILS 63 0-200 cells/uL NEUTROPHILS 60 LYMPHOCYTES 29.6 MONOCYTES 6.4 EOSINOPHILS 3.1 BASOPHILS 0.9 HEMOGLOBIN A1c (496) (Not ye t reviewed by provider) Interpretation: Performing Lab:CB, [facility]-[address], [place] RzrjOG[address] [place] [facility] Notes/Report: NON-FASTING; NON-FASTING; NON-FASTING; NON-FASTING; NON-FAST FASTING:YES FASTING: YES HEMOGLOBIN A1c 5.3 <5.7 % For the purpose of screening for the presence of diabetes: <5.7% Consistent with the absence of diabetes 5.7-6.4% Consistent with increased risk for diabetes (prediabetes) > or =6.5% Consistent with diabetes This assay result is consistent with a decreased risk of diabetes. Currently, no consensus exists regarding use of hemoglobin A1c for diagnosis of diabetes in children. According to [place] Diabetes Association (ADA) guidelines, hemoglobin A1c <7.0% represents optimal control in non- diabetic patients. Different metrics may apply to specific patient populations. Standards of Medical Care in Diabetes(ADA). VITAMIN B12 (927) (Not yet r eviewed by provider) Interpretation: Performing Lab:KARLEY [facility]-[address] [address], [place] [place] [facility] Notes/Report: NON-FASTING; NON-FASTING; NON-FASTING; NON-FASTING; NON-FAST FASTING:YES FASTING: YES VITAMIN B12 991 334-1992 pg/mL Please Note: Although the reference range for vitamin B12 is 200-1100 pg/mL, it has been reported that between 5 and 10% of patients with values between 200 and 400 pg/mL may experience neuropsychiatric and hematologic abnormalities due to occult B12 deficiency; less than 1% of patients with values above 400 pg/mL will have symptoms. FERRITIN (457) (Not yet revi ewed by provider) Interpretation: Performing Lab:KARLEY [facility] [address], [place] GybzIZ[address] [place] [facility] Notes/Report: NON-FASTING; NON-FASTING; NON-FASTING; NON-FASTING; NON-FAST FASTING:YES FASTING: YES FERRITIN 19 16-288 ng/mL TSH W/REFLEX TO FT4 (43350) (Not yet reviewed by provider) Interpretation: Performing Lab:KARLEY [facility] [address], [place]vvOO[address] [place] [facility] Notes/Report: NON-FASTING; NON-FASTING; NON-FASTING; NON-FASTING; NON-FAST FASTING:YES FASTING: YES TSH W/REFLEX TO FT4 2.52 0.40-4.50 mIU/L VITAMIN D,25-OH,TOTAL,IA (17 306) (Not yet reviewed by provider) Interpretation: Performing Lab:KARLEY, [facility]-[place] [address], [place] WahlTcxjWF[address] [place] [facility] Notes/Report: NON-FASTING; NON-FASTING; NON-FASTING; NON-FASTING; NON-FAST FASTING:YES FASTING: YES VITAMIN D,25-OH,TOTAL,IA 57 30-100 ng/mL Vitamin D Status 25-OH Vitamin D: Deficiency: <20 ng/mL Insufficiency: 20 - 29 ng/mL Optimal: > or = 30 ng/mL For 25-OH Vitamin D testing on patients on D2-supplementation and patients for whom quantitation of D2 and D3 fractions is required, the QuestAssureD(TM) 25-OH VIT D, (D2,D3), LC/MS/MS is recommended: order code [id number] (patients >2yrs). See Note 1 Note 1 For additional information, please refer to http://education.snagajob.com.com/faq/BFZ037 (This link is being provided for informational/ educational purposes only.) Reason For Referral Reason Mamm and DEXA at [facility] Diagnosis 1 Routine medical exam (Z00.00) Referral Organization [facility] Referring Provider First Name Ryanne Referring Provider Last Name Maribell Referring Provider Speciality [facility] Referred Organization [facility] Referred Address [address],[address], Referred Provider Specialty Diagnostic R adiology General Notes Rashel Edel 2024 10:37:27 AM >sent to [facility] Referral Priority Routine REASON FOR VISIT wellness, spot on abdomen still sore Medications Medication SIG (Take, Route, Frequency, Duration) Notes Start Date End Date Status Fiber Choice 1.5 GM 1 tab(s) chewed once daily at bedtime Active Probiotic Formula 1-250 BILLION-MG 1 gummie orally once a day Active Lisinopril 5 MG 1 tab(s) orally once a day; Duration: 90 days 12/09/2022 Active Aspirin 81 MG 1 tab(s) orally once a day; Duration: 90 days Active Vitamin A 00902 INTL UNITS DIRECTED ORALLY ONCE A DAY *Please review and pick correct strength-formulati on from [employer] options. If intended option is not shown, discontinue and re-order from Quick Search* Active Turmeric 500 MG 1 cap(s) orally once a day Active Metoprolol Tartrate 25 MG 1 tab(s) orally 2 times a day Active Latanoprost 0.005 % 1 gtt in each eye once a day (at bedtime) Active Dorzolamide HCl-Timolol Mal 2%-0.5% PRESERVATIVE-FREE 1 GTT IN EACH EYE EVERY MORNING *Please review and pick correct strength-formulati on from [employer] options. If intended option is not shown, discontinue and re-order from Quick Search* Active Zinc 50 MG 1 tablet Orally Once a day Active Vitamin D3 50 MCG (2000 UT) 1 tablet Orally Once a day Active Red Yeast Rice 600 MG 1 cap orally once a day Active Mupirocin 2 % 1 cathy applied topically 3 times a day; Duration: 5 days 01/04/2025 Active Bactrim DS 800-160 MG 1 tab(s) orally every 12 hours; Duration: 10 days 01/04/2025 Active Nitroglycerin 0.4 MG 1 tab(s) sublingually every 5 minutes; Duration: 30 days 04/28/2023 Active Fosamax 70 MG 1 tab(s) orally once a week; Duration: 90 days 04/13/2024 Active Problems Problem Type SNOMED Code ICD Code Onset Dates Problem Status W/U Status Risk Notes Problem Postmenopausal osteoporosis (300156829) Postmenopausal osteoporosis (M81.0) Active confirmed Vital Signs Temperature 97.9 degrees Fahrenheit 06/14/20 25 Heart Rate 74 /min 06/14/2025 Blood pressure systolic 122 mm Hg 06/14/20 25 Blood pressure diastolic 72 mm Hg 025 Height 5 ft 5 in in 06/14/2025 Weight 144 lbs 06/14/2025 BMI 23.96 kg/m2 06/14/2025 Encounters Encounter Location Date Provider Diagnosis [address] [address] 06/14/2025 Ryanne Reyna Routine medical exam Z00.00 ; Sensorineural hearing loss (SNHL) of both ears H90.3 ; Visual impairment H54.7 ; History of iron deficiency anemia Z86.2 ; Benign essential hypertension I10 ; Hyperlipidemia, unspecified E78.5 ; Coronary artery disease involving [place] coronary artery of [place] heart without angina pectoris I25.10 ; Arthritis involving multiple sites M12.9 ; Abscess L02.91 ; Postmenopausal osteoporosis M81.0 and BMI 23.0-23.9, adult Z68.23 Assessments Encounter Date Diagnosis (ICD Code) Assessment Notes Treatment Notes Treatment Clinical Notes Section Notes 06/14/2025 Routine medical exam (ICD-10 - Z00.00) Update mamm and obtain baseline DEXA as noted, encouraged vaccinations but declines 06/14/2025 Sensorineural hearing loss (SNHL) of both ears (ICD-10 - H90.3) cochlear implants as noted 06/14/2025 Visual impairment (ICD-10 - H54.7) following with specialty services 06/14/2025 History of iron deficiency anemia (ICD-10 - Z86.2) repeat labs today 06/14/2025 Benign essential hypertension (ICD-10 - I10) well controlled on current regimen 06/14/2025 Hyperlipidemia, unspecified (ICD-10 - E78.5) Discussed importance of management in the setting of bypass surgery. 06/14/2025 Coronary artery disease involving [place] coronary artery of [place] heart without angina pectoris (ICD-10 - I25.10) 06/14/2025 Arthritis involving multiple sites (ICD-10 - M12.9) continue tylenol as needed, declines additional intervention at this time 06/14/2025 Abscess (ICD-10 - L02.91) appears subacute but tender, repeat Bactrim as noted, resume warm compresses. We discussed possible need for surgical intervention which she declines at this time but return precautions reviewed. 06/14/2025 Postmenopausal osteoporosis (ICD-10 - M81.0) continue Fosamax, calcium with D and activity as much as tolerated 06/14/2025 BMI 23.0-23.9, adult (ICD-10 - Z68.23) Plan Of Treatment Medication Medication Name Sig Start Date Stop Date Notes Mupirocin 2 % 1 cathy applied topica lly 3 times a day; Duration: 5 days 01/04/2025 Bactrim DS 800-160 MG 1 tab(s) orally ev cathleen 12 hours; Duration: 10 days 01/04/2025 Treatment Notes Assessment Notes Routine medical exam Update mamm and obt ain baseline DEXA as noted, encouraged vaccinations but declines Sensorineural hearing loss ( SNHL) of both ears cochlear implants as noted Visual impairment following with speci alty services History of iron deficiency anemia repeat labs today Benign essential hypertension well contr olled on current regimen Hyperlipidemia, unspecified Discussed im portance of management in the setting of bypass surgery. Arthritis involving multiple sites antoine nue tylenol as needed, declines additional intervention at this time Pending Test Test Name Order Date LIPID PANEL, STANDARD (7600) 06/14/2025 COMPREHENSIVE METABOLIC PANEL (39720) CBC (INCLUDES DIFF/PLT) (6399) HEMOGLOBIN A1c (496) 06/14/2025 VITAMIN B12 (927) 06/14/2025 FERRITIN (457) 06/14/2025 TSH W/REFLEX TO FT4 (30247) 06/14/2025 VITAMIN D,25-OH,TOTAL,IA (14488) 025 Referrals Referral Date Details 06/14/2025 06/14/2025, Mamm and DEXA at [facility], [address] [place] [address], [address], Next Appt Details Follow Up: 1 Year,prn, Reaso n: Progress Notes * [place] IGLESIASB:1960 (65 yo F)Acc No.[id number]:06/14/2025 Progress notes Patient: Giovana MALDONADO Provider: JORDYN Dwyer :1960 A ge:65 Y S ex:Female Date:06/14/2025 Address: [place], [id number] Pcp:Emanuel Purvis Subjective: * Chief Complaints: * 1 . Wellness. 2. Spot on abdomen still sore. * HPI: G eneral HPI: 65-year-old female presents today accompanied by her for annual wellness exam. Continues to follow with cardiology, [facility], since undergoing triple bypass 05/2023. Has seen them recently and is set up for stress test next week due to reports of SOA and occasional chest discomfort. No edema. She stopped her statin therapy because of side effects, likes to eat grapefruit, and feels better off of it. Compliant with other medications. Still doing well s/p bilat cochlear implants, hearing markedly improved. 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 Mammogram is due, [facility]. Has had a hysterectomy in 2014. Colonoscopy last in 2021, 5 year repeat recommended. Hx of urge/stress incontinence, has not gotten any worse. She does continue to have a lot of joints pain, knees and hands but stable. She does have an abscess on her abdomen, 6+ months, has drained intermittently but sore again. Took Bactrim initially back in December. No fevers or recent drainage. * ROS: A LLERGY: Reviewed, No Symptoms Reported: Y es. F UNCTIONAL STATUS: ADLS I ndependent for all ADL/IADL. R ESPIRATORY: Shortness of breath y es. n o C hest congestion.?no C ough. C ARDIOLOGY: no D izziness. C hest pain y es. n o P alpitations. n o L eg edema. S hortness of breath y es. C ONSTITUTIONAL: no L oss of appetite. n o F ever. F atigue y es, f eels tired all day, sleeps well at night. D ERMATOLOGY: no R lora. G ASTROENTEROLOGY: no V omiting. n o D iarrhea. n o C onstipation. H EMATOLOGY/LYMPH: no S wollen glands. n o E asy bruising. ? M USCULOSKELETAL: Joint stiffness y es. J oint pain y es. n o?Joint swelling. N EUROLOGY: no H eadache. n o T ingling numbness. ? P SYCHOLOGY: Depression y es. H igh stress level y es. n o?Sleep disturbances. n o S uicidal ideation. n o A nxiety. U ROLOGY: no D ifficulty urinating. * Medical History: H yperlipidemia, Glaucoma, Hearing Impaired since teenage years, Arthritis, Colonoscopy and polypectomy 2017 with significant polyps, repeat April 2018 with polyps. Nov 2018, polyps, repeat again 3 years. 2021 normal, repeat 5 years, Cochlear implant, TIA 11/10... Echo with bubble normal 01/08, Left Shoulder Ball and Joint Fx, Normal mammogram 03/2024. * Surgical History: c ataract removal 2007, Left retinal detachment 2011, REMI/BSO for endometrial hyperplasia and menorrhagia with anemia 06/2015, left eye 05/2016, colonoscopy 04/2018, LEFT cochlear implant 03/2020, RIGHT cochlear implant 11/2020, Triple bypass 05/2023. * Hospitalization/Major Diagno stic Procedure: V ertigo 10/2011, hysterectomy @ [facility] 06/2015, [facility] 11/2022, Triple bypass 05/2023, CVA 05/2023. * Family History: F ather: , car accident. M other: alive, heart disease. P aternal Grand Father: . P aternal Grand Mother: . M aternal Grand Father: . M aternal Grand Mother: . M aternal aunt: , strokelung cancer. S iblings: alive.?Children: alive, daughter with endometriosis, diagnosed with Cancer. 2 sister(s) - healthy. 1 son(s) , 1 daughter(s) - healthy. . * Social History: S moking: no A re you a:: nonsmoker. R ecreational drug use: no. Exercise: yes, walks. Home smoke detector use: yes. Caffeine: yes, soda daily. Living Will: No. Alcohol: no. Sexually active: yes. Travel outside [place]: no. 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 * Medications: T aking Zinc 50 MG Tablet 1 tablet Orally Once a day , Taking Vitamin D3 50 MCG (2000 UT) Tablet 1 tablet Orally Once a day , Taking Red Yeast Rice 600 MG Capsule 1 cap orally once a day , Taking Vitamin A 69665 INTL UNITS CAPSULE DIRECTED ORALLY ONCE A DAY , Notes to Pharmacist: *Please review and pick correct strength- formulation from Medispan options. If intended option is [...] *Please review and pick correct strength-formulation from [employer] options. If intended option is not shown, discontinue and re-order from Quick Search*, Taking Fiber Choice 1.5 GM Tablet Chewable 1 tab(s) chewed once daily at bedtime , Taking Probiotic Formula 1-250 BILLION-MG Capsule 1 gummie orally once a day , Taking Lisinopril 5 MG Tablet 1 tab(s) orally once a day , Taking Aspirin 81 MG Tablet Chewable 1 tab(s) orally once a day , Taking Nitroglycerin 0.4 MG Tablet Sublingual 1 tab(s) sublingually every 5 minutes , Taking Fosamax 70 MG Tablet 1 tab(s) orally once a week , Taking Mupirocin 2 % Ointment 1 cathy applied topically 3 times a day , Discontinued Claritin 10 MG Tablet 1 tab(s) orally once a day , Notes to Pharmacist: prn, Discontinued Bactrim DS 800-160 MG Tablet 1 tab(s) orally every 12 hours , Medication List reviewed and reconciled with the patient * Allergies: N .K.D.A. Objective: * Vitals: N urse: dw, Pain: 8, Temp: 97.9, RR: 20, HR: 74, BP: 122/72, Ht: 5 ft 5 in, Wt: 144, BMI:23.96. * Examination: G eneral Examination: General P leasant and Cooperative, NAD on RA,. Heart: R RR, No m/r/g/h, Nl S1S2, No JVD, 2(+) symmetric pulses, No edema,. HEENT: cloudy eyes bilat, glasses, dentures. Lungs: L CTAB, No wheezes, crackles or rhonchi, Good air movement,. Abdomen: S oft, NTND, BSNA, No organomegaly or peritoneal signs.. Neurologic Exam: Alert and oriented x 3, + hearing and vision impaired. Skin: without acute rashes but with tender cystic lesion mid to upper abdomen, scab over part of the lesion, not fluctuant. Peripheral pulses: normal (2+) bilaterally. Extremities: no clubbing, no edema, crepitant right knee.? neck supple,, no thyromegaly,, no lymphadenopathy,. Psych N ormal Mood/Affect. Assessment: * Assessment: 1. R outine medical exam - Z00.00 (Primary) 2 . S ensorineural hearing loss (SNHL) of both ears - H90.3 3 . V isual impairment - H54.7 4 .?History of iron deficiency anemia - Z86.2 5 . B enign essential hypertension - I10 6 . H yperlipidemia, unspecified - E78.5 7 . C oronary artery disease involving [place] coronary artery of [place] heart without angina pectoris - I25.10? 8. A rthritis involving multiple sites - M12.9 9 . A bscess - L02.91 1 0. P ostmenopausal osteoporosis - M81.0 1 1. B VT 23.0-23.9, adult - Z68.23 Plan: * Treatment: 2. S ensorineural hearing loss (SNHL) of both ears Notes: cochlear implants as noted 3. V isual impairment Notes: following with specialty services 4. H istory of iron deficiency anemia L AB: FERRITIN (457) Notes: repeat labs today 5. B enign essential hypertension Notes: well controlled on current regimen 6. H yperlipidemia, unspecified Notes: Discussed importance of management in the setting of bypass surgery. 7. C oronary artery disease involving [place] coronary artery of [place] heart without angina pectoris L AB: LIPID PANEL, STANDARD (7600) 8. A rthritis involving multiple sites Notes: continue tylenol as needed, declines additional intervention at this time 9. A bscess Refill Mupirocin Ointment, 2 %, 1 cathy, applied topically, 3 times a day, 5 days, 1, Refills 0; R efill Bactrim DS Tablet, 800-160 MG, 1 tab(s), orally, every 12 hours, 10 days, 20, Refills 0.? Clinical Notes: appears subacute but tender, repeat Bactrim as noted, resume warm compresses. We discussed possible need for surgical intervention which she declines at this time but return precautions reviewed. 10. P ostmenopausal osteoporosis L AB: VITAMIN D,25-OH,TOTAL,IA (56497) Clinical Notes: continue Fosamax, calcium with D and activity as much as tolerated * Follow Up: 1 Year,prn * * Sign off status: Completed true * Provider: NICOLE DwyerP Date: 0 06/14/2025 Generated for Wendii sammy/Clau/eTransmitting on: 0 06/20/2025 07:39 AM EDT History and Physical Notes * HPI (History of Present Illness) Category Sub-Category Detail Notes Category Not es General HPI 65-year-old female presents today accompanied by her for annual wellness exam. Continues to follow with cardiology, [facility], since undergoing triple bypass 05/2023. Has seen them recently and is set up for stress test next week due to reports of SOA and occasional chest discomfort. No edema. She stopped her statin therapy because of side effects, likes to eat grapefruit, and feels better off of it. Compliant with other medications. Still doing well s/p bilat cochlear implants, hearing markedly improved. 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 Mammogram is due, [facility]. Has had a hysterectomy in 2014. Colonoscopy last in 2021, 5 year repeat recommended. Hx of urge/stress incontinence, has not gotten any worse. She does continue to have a lot of joints pain, knees and hands but stable. She does have an abscess on her abdomen, 6+ months, has drained intermittently but sore again. Took Bactrim initially back in December. No fevers or recent drainage. Examination Category Sub-Category Detail Notes Category Not es General Examination HEENT: cloudy eyes bilat, gl asses, dentures Heart: RRR, No m/r/g/h, Nl S1S2, No JVD, 2(+) symmetric pulses, No edema, Lungs: LCTAB, No wheezes, c rackles or rhonchi, Good air movement, Abdomen: Soft, NTND, BSNA, No organomegaly or peritoneal signs. Extremities: no clubbing, no amrit a, crepitant right knee Skin: without acute rashes but with tender cystic lesion mid to upper abdomen, scab over part of the lesion, not fluctuant Neurologic Exam: Alert and oriented x 3, + hearing and vision impaired Peripheral pulses: normal (2+) bilatera lly neck supple,, no thyromeg bobby,, no lymphadenopathy, General Pleasant and Coopera tive, NAD on RA, Psych Normal Mood/Affect Consultation Request Notes Referral Date Referring Provider Referred Provider Not shu 06/14/2025 Ryanne Reyna , Eric and DEX A at [facility]
--- OUTSIDE RECORDS SUMMARY | 2025-06-15 06:35 | XMS_ITS ---
Author Organization [facility] Address [address] [place] [address] Care Team Providers Care Land Conservation Specialist Name Role Phone Emanuel Purvis Primary Care Provider [phone] Ryanne Reyna Unavailable [phone] Emanuel Purvis Unavailable Unavailable Encounters Encounter Location Date Provider Diagnosis [facility] [address] [place] [address] 06/15/2025 Emanuel Purvis Visit for screening mammogram Z12.31 and Asymptomatic menopausal state Z78.0 Assessments Encounter Date Diagnosis (ICD Code) Assessment Notes Treatment Notes Treatment Clinical Notes Section Notes 06/15/2025 Visit for screening mammogram (ICD-10 - Z12.31) 06/15/2025 Asymptomatic menopausal state (ICD-10 - Z78.0) Plan Of Treatment Pending Test Test Name Order Date DEXA Hip and Spine - Screening Mammogram : Bilateral 06/15/2025 Progress Notes * Praful IGLESIASCarlosB:1960 (65 yo F)Acc No.[id number]:06/15/2025 Patient: Giovana MALDONADO :1960 A ge:65 Y S ex:Female Address:[address], [place], [address] Subjective: * Chief Complaints: * * Medical History: * Surgical History: * Hospitalization/Major Diagno stic Procedure: * Medications: Objective: * Vitals: * Physical Examination: Assessment: * Assessment: 1. V isit for screening mammogram - Z12.31 2 . A symptomatic menopausal state - Z78.0 Plan: * Treatment: 2.?Asymptomatic menopausal state?Imaging: DEXA Hip and Spine - Screening* * Procedure Codes: * true * Date: Generated for Gustavo christianson/Clau/Galloitting on: 0 06/20/2025 07:39 AM EDT
--- NOTE | 2025-06-20 | CA_ITS ---
APPROVED REPORT Exam: Pharmacologic Technologist: Milana Beavers Ht: 5 ft 5 in Wt: 141 lbs BSA: 1.71 m2 HR: 57 bpm BP: 156/62 mmHg Stress Test Details Test: Lexiscan HR Resting HR: 57 bpm Max Heart Rate (APMHR): 156.211902 bpm Max HR Achieved: 101 bpm Target HR (85% APMHR): 132.374760 bpm % of APMHR: 64.74 Recovery HR: 76 bpm BP Resting BP: 156.0/62.0 mmHg Max BP: 169.0/54.0 mmHg Recovery BP: 167.0/68.0 mmHg ECG Resting ECG: Sinus rhythm, PVC Stress ECG Conclusion Symptoms: None Arrhythmias/Ectopy: PVC ST-T Changes: Less than 0.[address] segment changes. Conclusion: Non-diagnostic ECG Lexiscan. Electronically signed by : Soraida Bellamy MD 06/21/2025 00:19:42
--- OUTSIDE RECORDS SUMMARY | 2025-06-20 07:39 | XMS_ITS | Clinical Summary ---
Author Organization [facility] ([place], [place], [place], [place]) Address [address] [place] [address] Care Team Providers Care Gunsmith Apprentice Name Role Phone Unavailable Primary Care Provider Unavailabl e Social History Tobacco Use Types Packs/Day Years Used Date Smoking Tobacco: Never Assessed Comments Unknown Sex and Gender Information Value Date Recorded Sex Assigned at Not on file Legal Sex Female 5:20 PM CDT Gender Identity Not on file Sexual Orientation Not on file Plan of Treatment Not on file
--- OUTSIDE RECORDS SUMMARY | 2025-06-20 07:40 | XMS_ITS | Patient Health Record ---
Author Organization [facility] Address [address] [facility] [place] [address] Care Team Providers Care It Audit Manager Name Role Phone Emanuel Purvis Primary Care Provider Ryanne Reyna Unavailable [phone] Emanuel Purvis Unavailable Unavailable Migration, Provider Unavailable Unavailable Allergies No Known Allergies Results Component Value Reference Range Notes LIPID PANEL, STANDARD (7600) (Not yet reviewed by provider) Interpretation: Performing Lab:[facility], [facility] [id number], [place] RamirezNgxtNM[address] [place] Notes/Report: NON-FASTING; NON-FASTING; NON-FASTING; NON-FASTING; [...] about testing for familial hypercholesterolemia, please call [employer] [facility] at [phone]. Kecia iWllett, et al. J National Lipid Association Recommendations for Patient-Centered Management of Dyslipidemia: Part 1 Journal of Clinical Lipidology 2015;9(2), 129-169. Carlos Frazier. et al. (2014). Homozygous familial hypercholesterolaemia: new insights and guidance for clinicians to improve detection and clinical management. Heart Journal, 35(32), 0909-3476. Reference range: <100 Desirable range <100 mg/dL for primary prevention; <70 mg/dL for patients with CHD or diabetic patients with > or = 2 CHD risk factors. LDL-C is now calculated using the Oh-Fajardo calculation, which is a validated novel method providing better accuracy than the Friedewald equation in the estimation of LDL-C. Oh SS et al. KLAUS. 2013;310(19): 3070-6866 (http://education.[employer].com/faq/GXJ362) CHOL/HDLC RATIO 5.7 <5.0 (calc) NON HDL [...] a therapeutic option. COMPREHENSIVE METABOLIC PANE L (41407) (Not yet reviewed by provider) Interpretation: Performing Lab:[facility], [facility] [address] [facility], [place] WahlNcppBQ[address] [place] Notes/Report: NON-FASTING; NON-FASTING; NON-FASTING; NON-FASTING; [...] yet reviewed by provider) Interpretation: Performing Lab:[facility], [facility]BkkyDC[address] [place] Notes/Report: NON-FASTING; NON-FASTING; NON-FASTING; NON-FASTING; [...] MPV 9.8 7.5-12.5 fL ABSOLUTE NEUTROPHILS 4200 1344-0613 cells/uL ABSOLUTE LYMPHOCYTES 2072 850-3900 cells/uL ABSOLUTE MONOCYTES 448 200-950 cells/uL ABSOLUTE EOSINOPHILS 217 15-500 cells/uL ABSOLUTE BASOPHILS 63 0-200 cells/uL NEUTROPHILS 60 LYMPHOCYTES 29.6 MONOCYTES 6.4 EOSINOPHILS 3.1 BASOPHILS 0.9 HEMOGLOBIN A1c (496) (Not ye t reviewed by provider) Interpretation: Performing Lab:CB, [facility] [address], [place] JryoYJ[address] [place] Notes/Report: NON-FASTING; NON-FASTING; NON-FASTING; NON-FASTING; [...] diagnosis of diabetes in children. According to [place] Diabetes Association (ADA) guidelines, hemoglobin A1c <7.0% represents optimal control in non- diabetic patients. Different metrics may apply to specific patient populations. Standards of Medical Care in Diabetes(ADA). VITAMIN B12 (927) (Not yet r eviewed by provider) Interpretation: Performing Lab:[facility], [place] KszgSQ[address] [place] Notes/Report: NON-FASTING; NON-FASTING; NON-FASTING; NON-FASTING; NON-FAST FASTING:YES FASTING: YES VITAMIN B12 667 795-3293 pg/mL Please Note: Although the reference range [...] revi ewed by provider) Interpretation: Performing Lab:[facility] [address], [place] LjcjQR[address] [place] Notes/Report: NON-FASTING; NON-FASTING; NON-FASTING; NON-FASTING; NON-FAST FASTING:YES FASTING: YES FERRITIN 19 16-288 ng/mL TSH W/REFLEX TO FT4 (69579) (Not yet reviewed by provider) Interpretation: Performing Lab:[facility], [place] SystemsRpxhRJ[address] [place] Notes/Report: NON-FASTING; NON-FASTING; NON-FASTING; NON-FASTING; NON-FAST FASTING:YES FASTING: YES TSH W/REFLEX TO FT4 2.52 0.40-4.50 mIU/L VITAMIN D,25-OH,TOTAL,IA (17 306) (Not yet reviewed by provider) Interpretation: Performing Lab:[facility], [facility], [place] WahlNribQS[address] [place] Notes/Report: NON-FASTING; NON-FASTING; NON-FASTING; NON-FASTING; [...] D, (D2,D3), LC/MS/MS is recommended: order code 41759 (patients >2yrs). See Note 1 Note 1 For additional information, please refer to http://education.[employer].com/faq/EYM611 (This link is being provided for informational/ educational purposes only.) Reason For Referral Reason Mamm and DEXA at [facility] Diagnosis 1 Routine medical exam (Z00.00) Referral Organization [facility] Referring Provider First Name Ryanne Referring Provider Last Name Mraibell Referring Provider Speciality [facility] Referred Organization [facility] Referred Address [address],[address], Referred Provider Specialty Diagnostic R adiology General Notes Rashel Edel 2024 10:37:27 AM >sent to [facility] Referral Priority Routine Medications Medication SIG (Take, Route, Frequency, Duration) Notes Start Date End Date Status Fiber Choice 1.5 GM 1 tab(s) chewed once daily at bedtime Active Probiotic Formula 1-250 BILLION-MG 1 gummie orally once a day Active Zinc 50 MG 1 tablet Orally Once a day Active Lisinopril 5 MG 1 tab(s) orally once a day; Duration: 90 days 12/09/2022 Active Vitamin D3 50 MCG (2000 UT) 1 tablet Orally Once a day Active Aspirin 81 MG 1 tab(s) orally once a day; Duration: 90 days Active Red Yeast Rice 600 MG 1 cap orally once a day Active Nitroglycerin 0.4 MG 1 tab(s) sublingually every 5 minutes; Duration: 30 days 04/28/2023 Active Vitamin A 28052 INTL UNITS DIRECTED ORALLY ONCE A DAY *Please review and pick correct strength-formulati on from [employer] options. If intended option is not shown, discontinue and re-order from Quick Search* Active Fosamax 70 MG 1 tab(s) orally once a week; Duration: 90 days 04/13/2024 Active Turmeric 500 MG 1 cap(s) orally once a day Active Metoprolol Tartrate 25 MG 1 tab(s) orally 2 times a day Active Mupirocin 2 % 1 cathy applied topically 3 times a day; Duration: 5 days 01/04/2025 Active Latanoprost 0.005 % 1 gtt in each eye once a day (at bedtime) Active Bactrim DS 800-160 MG 1 tab(s) orally every 12 hours; Duration: 10 days 01/04/2025 Active Dorzolamide HCl-Timolol Mal 2%-0.5% PRESERVATIVE-FREE 1 GTT IN EACH EYE EVERY MORNING *Please review and pick correct strength-formulati on from [employer] options. If intended option is not shown, discontinue and re-order from Quick Search* Active Immunizations Vaccine Route Administration Date Status Comme nts Prevnar PCV-13 (Pneumococcal conjugate 13) IM Intramuscular 05/17/2020 Administered Problems Problem Type SNOMED Code ICD Code Onset Dates Problem Status W/U Status Risk Notes Problem Chronic pain (53013915) Other chronic pain (G89.29) Active confirmed Problem Pain of right knee region (finding) (249579784932158) Pain in right knee (M25.561) Active confirmed Problem Pain of left knee joint (finding) (448779805588120) Pain in left knee (M25.562) Active confirmed Problem Hyperlipidaemia (67213864) HLD (hyperlipidemia) (E78.5) Active confirmed Problem Visual impairment (880222554) Visual impairment (H54.7) Active confirmed Problem Iron deficiency anemia (62321694) Iron deficiency anemia (D50.9) Active confirmed Problem Hyperlipidemia (72169595) Hyperlipidemia, unspecified (E78.5) Active confirmed Problem Urge incontinence of urine (98509669) Urge incontinence of urine (N39.41) Active confirmed Problem Benign essential hypertension (7298605) Benign essential hypertension (I10) Active confirmed Problem Arthropathy (895463487) Arthritis involving multiple sites (M12.9) Active confirmed Problem Atherosclerosis of coronary artery without angina pectoris (775125294834282) Atherosclerosis of [place] coronary artery of [place] heart without angina pectoris (I25.10) Active confirmed Problem Atherosclerotic hear t disease of [place] coronary artery without angina pectoris (925838393676957) Coronary artery disease involving [place] coronary artery of [place] heart without angina pectoris (I25.10) Active confirmed Problem Recurrent falls (913582610) Frequent falls (R29.6) Active confirmed Problem Abnormal mammogram (423516495) Abnormal mammogram (R92.8) Active confirmed Problem Ataxia (77709538) Ataxia (R27.0) Active confirm ed Problem Unstable angina co-occurrent and due to coronary arteriosclerosis (12541119527950038) Coronary artery disease involving [place] coronary artery of [place] heart with unstable angina pectoris (I25.110) Active confirmed Problem Body mass index 25-2 9 - overweight (893107859) BMI 26.0-26.9,adult (Z68.26) Active confirmed Problem Transient ischemic attack (864902783) TIA (transient ischemic attack) (G45.9) Active confirmed Problem Chronic constipation (763133095) Chronic constipation (K59.09) Active confirmed Problem STEMI - ST elevation myocardial infarction (025666755) ST elevation (STEMI) myocardial infarction (I21.3) Active confirmed Problem Arthritis of acromioclavicular joint (848903190) Acromioclavicular joint arthritis (M19.90) Active confirmed Problem Right anterior k nee pain (M25.561) Active confirmed Problem Stable angina (disorder) (523095275) Stable angina pectoris (I20.8) Active confirmed Problem History of iron deficiency anemia (017539205) History of iron deficiency anemia (Z86.2) Active confirmed Problem Postmenopausal osteoporosis (735367172) Postmenopausal osteoporosis (M81.0) Active confirmed Problem Sensorineural hearin g loss, bilateral (956486380) Sensorineural hearing loss (SNHL) of both ears (H90.3) Active confirmed Problem Multiple subsegm ental pulmonary emboli without acute cor pulmonale (I26.94) Active confirmed Problem Hyperlipoproteinemia (3879804) Acquired hyperlipoproteinemia (E78.5) Active confirmed Vital Signs Heart Rate 74 /min 06/14/2025 Temperature 97.9 degrees Fahrenheit 06/14/2025 Blood pressure diastolic 72 mm Hg 06/14/2025 Height 5 ft 5 in in 06/14/2025 Blood pressure systolic 122 mm Hg 06/14/2025 Weight 144 lbs 06/14/2025 BMI 23.96 kg/m2 06/14/2025 Encounters Encounter Location Date Provider Diagnosis [facility] [address] [facility] [address] [place] [address] 01/21/2025 Provider Migration Boil L02.92 [facility] [address] [address] 01/04/2025 [facility] Boil L02.92 [facility] [address] [address] [facility] medical exam Z00.00 ; Sensorineural hearing loss (SNHL) of both ears H90.3 ; Visual impairment H54.7 ; History of iron deficiency anemia Z86.2 ; Benign essential hypertension I10 ; Hyperlipidemia, unspecified E78.5 ; Coronary artery disease involving [place] coronary artery of [place] heart without angina pectoris I25.10 ; Arthritis involving multiple sites M12.9 ; Abscess L02.91 ; Postmenopausal osteoporosis M81.0 and BMI 23.0-23.9, adult Z68.23 [facility] [address] [place] [facility] [address] [place] [address] 06/15/2025 Emanuel Puvris Visit for screening mammogram Z12.31 and Asymptomatic menopausal state Z78.0 Assessments Encounter Date Diagnosis (ICD Code) Assessment Notes Treatment Notes Treatment Clinical Notes Section Notes 06/15/2025 Visit for screening mammogram (ICD-10 - Z12.31) 06/14/2025 Routine medical exam (ICD-10 - Z00.00) Update mamm and obtain baseline DEXA as noted, encouraged vaccinations but declines 06/14/2025 Sensorineural hearing loss (SNHL) of both ears (ICD-10 - H90.3) cochlear implants as noted 01/21/2025 Boil (ICD-10 - L02.92) 01/04/2025 Boil (ICD-10 - L02.92) The etiology and expected course of an abscess/boil was discussed with the patient as well as the treatment for such. Lesion is firm and not ready for I&D. The rationale for antibiotic use was discussed with the patient. Patient understands she is to complete all antibiotics as prescribed. Signs and symptoms of worsening condition and need for reassessment in clinic/ed were reviewed. Discussed possible need for I&D for complete resolution 06/15/2025 Asymptomatic menopausal state (ICD-10 - Z78.0) 06/14/2025 Visual impairment (ICD-10 - H54.7) following with specialty services 06/14/2025 History of iron deficiency anemia (ICD-10 - Z86.2) repeat labs today 06/14/2025 Benign essential hypertension (ICD-10 - I10) well controlled on current regimen 06/14/2025 Hyperlipidemia, unspecified (ICD-10 - E78.5) Discussed importance of management in the setting of bypass surgery. 06/14/2025 Coronary artery disease involving [place] coronary artery of [place] heart without angina pectoris (ICD-10 - I25.10) [...] adult (ICD-10 - Z68.23) Plan Of Treatment Pending Test Test Name Order Date X ray : Hip, Left 03/21/2011 DEXA Hip and Spine - Screening MRI : Head, Without Contrast 12/09/2022 Speech Therapy Eval and Treatment 2017 Mammogram : Bilateral 06/15/2025 Mammogram : Bilateral 05/13/2018 H-CBC with AUTO DIFF 04/13/2017 H-CBC with AUTO DIFF 07/22/2010 H-CMP 03/21/2011 H-CMP 07/22/2010 H-CMP 04/13/2017 H-LIPID PANEL 03/21/2011 H-LIPID PANEL 07/22/2010 H-LIPID PANEL 04/13/2017 H-TSH 07/22/2010 H-SED RATE 03/21/2011 Lexiscan Stress Test 04/28/2023 LIPID PANEL, STANDARD (7600) 06/14/2025 COMPREHENSIVE METABOLIC PANEL (57157) CBC (INCLUDES DIFF/PLT) (6399) HEMOGLOBIN A1c (496) 06/14/2025 VITAMIN B12 (927) 06/14/2025 FERRITIN (457) 06/14/2025 TSH W/REFLEX TO FT4 (12214) 06/14/2025 VITAMIN D,25-OH,TOTAL,IA [phone]) [phone] Insurance Providers Payer Name Payer Address Payer Phone Subscriber Number Group Number Insured Name Patient Relationship to Insured Coverage Start Date Coverage End Date [facility] [address] [place] [address] [id number] Giovana Iglesias Self - patient is the insured Medical (General) History Medical History History ICD Code Hyperlipidemia Glaucoma Hearing Impaired since teenage years arthritis Colonoscopy and polypectomy 2016 with significant polyps, repeat April 2018 with polyps. Nov 2018, polyps, repeat again 3 years. 2021 normal, repeat 5 years Cochlear implant TIA 11/10... Echo with bubble normal 01/08 Left Shoulder Ball and Joint Fx Normal mammogram 03/2024 Surgical History Surgery Date(Month/Year) cataract removal 2007 Left retinal detachment 2011 REMI/BSO for endometrial hyperplasia and menorrhagia with anemia 06/2015 left eye 05/2016 colonoscopy 04/2018 LEFT cochlear implant 03/2020 RIGHT cochlear implant 11/2020 Triple bypass 05/2023 Hospitalization History Reason Date(Month/Year) CVA 05/2023 Triple bypass 05/2023 [facility] 11/2022 hysterectomy @ [facility] 06/2015 Vertigo 10/2011
--- OUTSIDE RECORDS SUMMARY | 2025-06-20 07:40 | XMS_ITS | Encounter Summary ---
Author Organization [facility] Address [address] [place] [address] Care Team Providers Care Endless Belt Finisher Name Role Phone MaribellRyanne desai Janis SOLOMON Primary Care Provider [phone] Juan Hensley MD Unavailable Encounter Details Date Type Department Care Team (Latest Contact Info) Description 06/12/2025 Travel Social History Tobacco Use Types Packs/Day Years [...] on file documented as of this encounter Plan of Treatment Upcoming Encounters Date Type Department Care Team (Late st Contact Info) Description 08/16/2025 12:30 PM EDT [facility] [address] [place] [address] HaynesMarilee B, AuD [address] [place] [address] 10/23/2025 8:00 AM EST Office Visit [facility] [address] [place] [address] Kevin Vargas MD [address] [address] documented as of this encounter Visit Diagnoses Not on filedocumented in this encounter Additional Health Concerns Assessment Noted Time A fall risk assessment has been complete d for the patient 02/14/2025 2:11 PM EDT A Body Mass Index follow-up plan has been documented for the patient 02/14/2025 3:02 PM EDT documented as of this encounter Care Teams Endless Belt Finisher Relationship Specialty Start Date End Date Ryanne Reyna APRN [address] [place] [id number] PCP - General 03/01/21 Juan Hensley MD [address] [facility] [address] [place] [phone] Referring Physician Cardiology 05/18/23 documented as of this encounter
--- OUTSIDE RECORDS SUMMARY | 2025-06-20 07:40 | XMS_ITS | Clinical Summary ---
Author Organization Healthcare Address [address] [place] [address] Care Team Providers Care Trailer Park Manager Name Role Phone Ryanne Reyna APRN Primary Care Provider [phone] Juan Hensley MD Unavailable [phone] Allergies No known active allergies Medications loratadine (Claritin) 10 MG tablet 7 Active ASPIRIN 81 MG chewable tablet Chew 1 tablet (81 mg) 1 (one) time each day. Active nitroglycerin (Nitrostat) 0.[address] 1 tablet (0.4 mg) under the tongue every 5 (five) minutes if needed for chest pain. Active ascorbic acid (Vitamin C) 500 MG tablet Take 1 tablet (500 mg) by mouth 1 (one) time each day. Active cholecalciferol (Vitamin D3) 25 MCG (1000 UT) tablet Take 1 tablet (1,000 Units) by mouth 1 (one) time each day. Active Probiotic Product (acidophilus probiotic blend) capsule Take 1 capsule by mouth 1 (one) time each day. Active acetaminophen (Tylenol) 325 MG tablet Take 2 tablets (650 mg) by mouth every 4 (four) hours if needed for pain, headaches or fever. 100 tablet 3 Active metoprolol tartrate (Lopressor) 25 MG tablet Take 1 tablet (25 mg) by mouth 2 (two) times a day. 180 tablet 3 3 Active lisinopril 5 MG tablet 3 Active loteprednol (Lotemax) 0.5 % ophthalmic suspension Administer 1 drop into the left eye 2 (two) times a day. 10 mL 2 3 Active Fosamax 70 MG tablet Take 1 tablet (70 mg) by mouth every 7 (seven) days. 4 Active dorzolamide-ramonita olol (Cosopt) 2-0.5 % ophthalmic solution Administer 1 drop into both eyes in the morning and 1 drop before bedtime. 30 mL 3 5 Active latanoprost (Xalatan) 0.005 % ophthalmic solution Administer 1 drop into both eyes nightly. 7.5 mL 3 5 Active Red Yeast Rice Extract 600 MG capsule 1 (one) time each day at the same time. Active Vitamin A 7.5 MG (05494 UT) capsule 1 (one) time each day at the same time. Active Turmeric 500 MG capsule Take 1 capsule by mouth Daily. 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 Mild cognitive impairment 05/23/2023 Primary hypertension 05/22/2023 Hyperlipidemia 05/22/2023 Acute postoperative anemia due to expected blood loss 2023 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 [address] 04/19/2020 Sensorineural hearing loss (SNHL), bilateral 03/2020 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 Resolved Problems Problem Noted Date Diagnosed Date Resolved Date TIA (transient ischemic attack) 05/29/2023 05/30/2023 Atherosclerosis of both carotid arteries 05/29/2023 05/30/2023 Atherosclerosis of vertebral artery 05/29/2023 05/30/2023 Intracranial atherosclerosis 05/29/2023 05/30/2023 Pleural effusion 05/23/2023 05/24/2023 Hypokalemia 05/23/2023 05/24/2023 Hypocalcemia 05/23/2023 05/27/2023 Atrioventricular block, first degree 05/23/2023 05/24/2023 Sinus bradycardia 05/23/2023 05/24/2023 History of pulmonary embolus (PE) 05/23/2023 05/24/2023 History of TIA (transient ischemic attack) 05/23/2023 05/24/2023 H/O cancer of uterus 05/23/2023 023 Thrombocytopenia 05/23/2023 05/24/2023 Transient hyperglycemia post procedure 05/23/2023 05/24/2023 Hyponatremia 05/23/2023 05/24/2023 Hypophosphatemia 05/23/2023 05/24/2023 Hypermagnesemia 05/23/2023 05/24/2023 Hyperkalemia 05/23/2023 05/24/2023 Hypomagnesemia 05/23/2023 05/27/2023 NSTEMI (non-ST elevated myoc ardial infarction) 05/22/2023 05/27/2023 H/O deep venous thrombosis 05/22/2023 0 05/24/2023 Leukocytosis 05/20/2023 05/24/2023 Acute postoperative respiratory failure 2023 05/22/2023 Overview (2023): Pt arrived to ICU intubated and sedated. Will extubate as appropriate and wean FiO2 requirements. Fluid overload 2023 05/24/2023 Postoperative pain 2023 Overview (05/21/2023): Will manage with IV medications with transition to PO as appropriate. Discontinued morphine. Transitioning PO oxy to norco 5 Unstable angina 05/14/2023 05/22/2023 Stroke-like symptoms 023 Encounters Date Type Department Care Team Description 06/12/2025 12:05 PM EDT - 06/12/2025 11:59 PM EDT Hospital Encounter Cardiac Imaging [address] [place] [address] Encounter for loop recorder check Discharge Disposition: Home or Self Care 06/12/2025 Travel 05/12/2025 3:39 PM EDT - 05/12/2025 11:59 PM EDT Hospital Encounter Cardiac Imaging [address] [place] [address] Encounter for loop recorder check Discharge Disposition: Home or Self Care 05/12/2025 Travel 04/12/2025 1:40 PM EDT - 04/12/2025 11:59 PM EDT Hospital Encounter Cardiac Imaging [address] [place] [address] Encounter for loop recorder check Discharge Disposition: Home or Self Care 04/12/2025 Travel from Last 3 Months Immunizations Immunization Administration Dates Next Due Pneumococcal Conjugate PCV 13 05/17/2020 Family History Medical History Relation Name Comments Cardiac disorder Mother Cardiac disorder Other 1 Stroke Other 2 Glaucoma Other 3 Hypertension Other 4 Relation Name Status Comments Mother Other 1 Other 2 Other 3 Other 4 Social History Tobacco Use Types Packs/Day Years Used Date Smoking Tobacco: Never Passive Smoke Exposure: Never Smokeless Tobacco: Never Tobacco Cessation:Counseling Given: Not Answered Alcohol Use Standard Drinks/Week Comments No 0 [...] file Not on file Not on file Last Filed Vital Signs Vital Sign Reading Time Taken Comments Blood Pressure 122/70 02/14/2025 2:09 PM EDT Pulse 66 02/14/2025 2:09 PM EDT Temperature 36.7 C (98 F) 05/05/2024 2:01 PM EDT Respiratory Rate 14 05/05/2024 3:43 PM EDT Oxygen Saturation 96% 02/14/2025 2:09 PM EDT Inhaled Oxygen Concentration - - Weight 65.5 kg (144 lb 6.4 oz) 02/14/2025 2:09 P M EDT Height 165.1 cm (5' 5 ) 02/14/2025 2:09 PM EDT Body Mass Index 24.03 02/14/2025 2:09 PM EDT Plan of Treatment Upcoming Encounters Date Type Department Care Team (Late st Contact Info) Description 08/16/2025 12:30 PM EDT Office Visit [facility] Audiology [address] [place] [address] Marilee Haynes B, AuD [address] [place] [address] 10/23/2025 8:00 AM EST Office Visit [facility] [address], [address] [place] [address] Kevin Vargas MD [address] [place] [address] Health Maintenance Due Date Last Done Comments [facility]-Depression Screening 1960 [facility]-Infant/Child/Adol SDOH Screenings 1960 [id number] Vaccine (#1) 1966 [facility]- SDOH Screenings 1979 [facility]-Adult SDOH Screenings 1979 [facility]-DTaP,Tdap,and Td Vaccine s (1 - Tdap) 1980 CT Colonography 2006 Colonoscopy 2006 FIT-DNA 2006 FIT 2006 FOBT 2006 Sigmoidoscopy 2006 [facility]-Colorectal Cancer Screening 2006 [facility]-Breast Cancer Screening 2011 [facility]-Zoster Vaccines (1 of 2) 2011 [facility]-Pneumococcal Vaccine: 50 + Years (2 of 2 - PPSV23) 07/12/2020 05/17/2020 [facility]-RSV Vaccine: 60+ Years o r (1 - Risk 60-74 years 1-dose series) 2021 [facility]-Influenza Vaccine (#1) 2025 [facility]-HIV Screening Completed 05/29/2023 [facility]-Hepatitis C Screening Completed 05/29/2023 HPV Vaccines Aged Out No longer eligi ble based on patient's age to complete this topic [facility]-HIB Vaccines Aged Out No longer e ligible based on patient's age to complete this topic [facility]-Hepatitis A Vaccines Aged Out No longer eligible based on patient's age to complete this topic [facility]-IPV Vaccines Aged Out No longer e ligible based on patient's age to complete this topic [facility]-Rotavirus Vaccines Aged Out No lo nger eligible based on patient's age to complete this topic Medical Devices Implanted Type Area Clinical Statistics Manager Device Identifier Shelf Expiration Date Model / Serial / Lot Cochlear-2019 Implanted:03/20 by Roxanne Vasquez MD (Quantity not on file) Cochlear Left: Ear [id number] / [id number] / Cochlear- 021 Implanted:05/2021 by Roxanne Vasquez MD (Quantity not on file) Cochlear Right: Ear [id number] / [id number] / System Reveal Linq Ii Insertable Machine Castings Plasterer - [id number] Implanted:Qty: 1 on 05/05/2024 at [facility] [id number] 10/09/2025 [id number] / [id number] / [id number] Procedures Procedure Name Priority Date/Time Associated Diagnosis Comments CARDIAC DEVICE CHECK - REMOTE - LOOP RECORDER (ILR) Routine 06/12/2025 12:20 PM EDT Encounter for loop recorder check CARDIAC DEVICE CHECK - REMOTE - LOOP RECORDER (ILR) Routine 05/12/2025 3:53 PM EDT Encounter for loop recorder check CARDIAC DEVICE CHECK - REMOTE - LOOP RECORDER (ILR) Routine 04/12/2025 2:49 PM EDT Encounter for loop recorder check HEPATITIS C ANTIBODY - ED W/REFLEX TO HCV QUANT PCR STAT 05/29/2023 7:47 AM EDT ED HIV 1/2 ANTIBODY/ANTIGEN SCREEN WITH REFLEX TO HIV I/II DIFFERENTIATION STAT 05/29/2023 7:47 AM EDT from Last 3 Months or Most Recently Relevant to Health Maintenance Results * CARDIAC DEVICE CHECK - REMOTE - LOOP RECORDER (ILR) (06/12/2025 12:20 PM EDT) Only the most recent of3 resultswithin the time period is included. Anatomical Region Laterality Modality Other Narrative 06/12/2025 12:34 PM EDT Implantable loop recorder (ILR) interrogation. Battery remaining in service adequate. EGM's reviewed against indication for implant and diagnosis, found to be unremarkable. No new events since last interrogation and reset. Presenting rhythm is sinus Provider Note: Sound Effects Technician Tree Adames notified to schedule patient for routine follow up as one is not currently scheduled. Zuri Velasquez PA-C Electrophysiology us Analy Cummings APRN CV IMPLANTABLE CARDIAC DEV ICE PROCEDURES Final Result * ED HIV 1/2 Antibody/Antigen Screen w/Reflex to HIV 1/2 Differentiation (05/29/2023 7:47 AM EDT) Pathologist [facility] HIV 1 & 2 Antibody/Antigen Screen Non Reactive Non Reactive 06/10/2023 6:46 PM EDT [facility] Comment:Screening for HIV 1 & 2 antibodies, and P24 antigen is NONREACTIVE. No confirmatory testing is required. Blood Venous blood specimen / Unknown Venipuncture / Unknown 05/29/2023 7:47 AM EDT 05/29/2023 7:59 AM EDT us Con Lock MD LAB BLOOD ORDERABLES Edited Re sult - Final [facility] [address] [place] [address] * Hepatitis C Antibody - ED (05/29/2023 7:47 AM EDT) Hepatitis C Antibody Negative Negative 05/29/2023 8:54 AM EDT [facility] Blood Venous blood specimen / Unknown Venipuncture / Unknown 05/29/2023 7:47 AM EDT 05/29/2023 7:59 AM EDT us Con oLck MD LAB BLOOD ORDERABLES Final Res ult [facility] [address] [place] [address] from Last 3 Months or Most Recently Relevant to Health Maintenance Insurance ANTHEM Advance Directives * Full Code (Latest Code Status on File) Date Activated Date Inactivated Comments 05/29/2023 8:30 AM 05/30/2023 8:38 PM Question Answer Comments Patient has decision-making capacity? Yes * Full Code Date Activated Date Inactivated Comments 2023 3:00 PM 05/24/2023 4:04 PM Question Answer Comments Patient has decision-making capacity? Yes * Full Code Date Activated Date Inactivated Comments 05/14/2023 9:55 PM 2023 2:56 PM Question Answer Comments Patient has decision-making capacity? Yes Care Teams Trailer Park Manager Relationship Specialty Start Date End Date Ryanne Reyna APRN [address] [address] PCP - General 03/01/21 Juan Hensley MD [address] [facility] [address] [place] [address] Referring Physician Cardiology 05/18/23
--- OUTSIDE RECORDS SUMMARY | 2025-06-20 07:40 | XMS_ITS | Referral Summary ---
Author Organization [employer] ([place], [place], [place], [place]) Address [address] [place] [address] Care Team Providers Care Educational Speech Language Clinician Name Role Phone Unavailable Primary Care Provider [...]
--- OUTSIDE RECORDS SUMMARY | 2025-06-20 07:40 | XMS_ITS | Encounter Summary ---
Author Organization [facility] Address [address] [place] [address] Care Team Providers Care Director Physical Name Role Phone MaribellRyanne desai Janis SOLOMON Primary Care Provider [phone] Juan Hensley MD Unavailable [phone] Encounter Details Date Type Department Care Team (Latest Contact Info) Description 05/12/2025 Travel Social History Tobacco Use Types Packs/Day [...] Description 08/16/2025 12:30 PM EDT Office Visit [facility] Audiology [address], [address] [place] [address] HaynesMarilee B, AuD [address] [place] [address] 10/23/2025 8:00 AM EST Office Visit [facility] [address] [place] [address] Kevin Vargas MD [address] [address] documented as of this encounter Visit Diagnoses Not on filedocumented in this encounter Additional Health Concerns Assessment Noted Time A fall risk assessment has been complete d for the patient 02/14/2025 2:11 PM EDT A Body Mass Index follow-up plan has been documented for the patient 02/14/2025 3:02 PM EDT documented as of this encounter Care Teams Director Physical Relationship Specialty Start Date End Date Ryanne Reyna APRN [address] [place] [id number] PCP - General 03/01/21 Juan Hensley MD [address] [facility] [address] [place] [id number] Referring Physician Cardiology 05/18/23 documented as of this encounter
--- OUTSIDE RECORDS SUMMARY | 2025-06-20 07:40 | XMS_ITS | Clinical Summary ---
Author Organization [facility] Address [address] [place] [address] Care Team Providers Care Straight Pin Making Machine Operator Name Role Phone Ryanne Reyna APRN Primary Care Provid er Allergies No known active allergies Medications pravastatin (PRAVACHOL) 80 MG tablet Take 1 tablet by mouth Daily. Active brimonidine-hussein lol (COMBIGAN) 0.2-0.5 % ophthalmic solution Every 12 (Twelve) Hours. Active dorzolamide-hussein lol (COSOPT) 22.3-6.8 MG/ML ophthalmic solution 10/06/2022 Active latanoprost (XALATAN) 0.005 % ophthalmic solution 10/06/2022 Active loteprednol (LOTEMAX) 0.5 % ophthalmic suspension 10/06/2022 Active lisinopril (PRINIVIL,ZESTRI L) 5 MG tablet Take 1 tablet by mouth Daily. 12/09/2022 Active pantoprazole (PROTONIX) 40 MG EC tablet Take 1 tablet by mouth Daily. 12/06/2022 Active atorvastatin (LIPITOR) 40 MG tablet 12/30/2022 Active aspirin 81 MG EC tablet Take 1 tablet by mouth Daily. Active Active Problems Problem Noted Date Diagnosed Date Closed 3-part fracture of proximal end of left h umerus 11/25/2022 Left shoulder pain 11/25/2022 Family History Medical History Relation Name Comments No Known Problems Daughter Heart disease Mother Obesity Mother Obesity Sister No Known Problems Son Relation Name Status Comments Daughter Alive Father Mother Alive Sister Alive Son Alive Social History Tobacco Use Types Packs/Day Years Used Date Smoking Tobacco: Never Smokeless Tobacco: Never Tobacco Cessation:Counseling Given: Not Answered Alcohol Use Standard Drinks/Week Comments Yes 0 (1 standard drink = 0.6 oz pur e alcohol) occasionally Abuse Screen Answer Date Recorded Unsafe at Home or Work/School Not on file Feels Threatened by Someone? Not on file 06/2024 Does Anyone Keep You from Co ntacting Others or Doint Things Outside the Home? Not on file 11/27/2023 Physical Sign of Abuse Present Not on file 0 11/27/2023 Housing Stability Answer Date Recorded Current Living Arrangements Not on file 07/19 Potentially Unsafe Housing Conditions Not on josef e 07/29/2023 Family and Community Support Answer Carlos e Recorded Help with Day-to-Day Activities Not on file 07/29/2023 Lonely or Isolated Not on file 07/29/2023 Employment Answer Date Recorded Do you want help finding or keeping work or a chapis b? Not on file 07/29/2023 Disabilities Answer Date Recorded Concentrating, Remembering, or Making Decisions Difficulty Not on file 07/29/2023 Doing Errands Independently Difficulty Not on fi le 07/29/2023 Education Answer Date Recorded Help with school or training? Not on file Preferred Language Not on file 07/29/2023 Comments No Sex and Gender Information Value Date Recorded Sex Assigned at Not on file Legal Sex Female 10:00 AM EST Gender Identity Not on file Sexual Orientation Not on file Last Filed Vital Signs Vital Sign Reading Time Taken Comments Blood Pressure 122/80 03/12/2023 9:07 AM EDT Pulse 91 11/19/2022 9:38 PM EST Temperature 36.8 C (98.3 F) 11/19/2022 7:45 PM EST Respiratory Rate 16 11/19/2022 7:45 PM EST Oxygen Saturation 97% 11/19/2022 9:38 PM EST Inhaled Oxygen Concentration - - Weight 65.8 kg (145 lb) 03/12/2023 9:07 AM EDT Height 165.1 cm (5' 5 ) 03/12/2023 9:07 AM EDT Body Mass Index 24.13 03/12/2023 9:07 AM EDT Plan of Treatment Health Maintenance Due Date Last Done Comments Annual Gynecologic Pelvic and Breast Exam 1960 TDAP/TD VACCINES (1 - Tdap) 1980 MAMMOGRAM 2001 COLOGUARD 2006 COLON CANCER SCREENING 5 YEAR SIGMOIDOSCOPY 2006 COLONOSCOPY [address] CANCER SCREENING [address] COLONOGRAPHY 2006 FECAL OCCULT BLOOD TEST 2006 FIT Testing (1 year) 2006 ZOSTER VACCINE (1 of 2) 2011 ANNUAL PHYSICAL 12/02/2019 HEPATITIS C SCREENING 12/02/2019 Pneumococcal Vaccine 50+ (2 of 2 - PPSV23) 05/17/2021 05/17/2020 COVID-19 Vaccine (1 - season) 2024 INFLUENZA VACCINE 07/19/2025 Insurance PPO Care Teams Straight Pin Making Machine Operator Relationship Specialty Start Date End Date Ryanne Reyna APRN [address] [place] [facility] [address] [place] [address] PCP - General Family Medicine 11/14/16
--- OUTSIDE RECORDS SUMMARY | 2025-06-20 07:41 | XMS_ITS | Encounter Summary ---
Author Organization [employer] ([place], [place], [place], [place]) Address [address] [place] [address] Care Team Providers Care Offset Press Operator Apprentice Name Role Phone Unavailable Primary Care Provider Unavailabl e Encounter Details Date Type Department Care Team (Late st Contact Info) Description 11/23/2018 Transcribed Document [facility] [place] [facility] [address] [place] [address] ProviderJanie MD [address] [place] [address] Social History Tobacco Use Types Packs/Day Years Used Date Smoking Tobacco: Never Assessed Comments Unknown Sex and Gender Information Value Date Recorded Sex Assigned at Not on file Legal Sex Female 5:20 PM CDT Gender Identity Not on file Sexual Orientation Not on file documented as of this encounter Miscellaneous Notes * [employer] Conversion Note - Historical ProviderMD - 11/23/2018 8:36 AM RIGGER SUPERVISOR [facility] PACU Summary Primary Physician: KAILEY PIERRE MD-GAE Finalized Date/Time: 11/23/18 09:35:54 Pt. Name: GIOVANA IGLESIAS D.O.B./Sex: 1960 Female Med Rec #: [id number] Physician: KAILEY PIERRE MD-GAE Financial #: [id number] Pt. Type: O Room/Bed: [facility]/ Admit/Disch: 11/23/18 07:41:00 - Institution: [facility] PACU Case Times Entry 1 In PACU I 11/23/18 09:02:00 Ready for PACU 11/23/18 09:35:00 Discharge Discharge from PACU 11/23/18 09:35:00 I [facility] PACU Case Times Audit 11/23/18 09:35:49 Video Presentation Operator: JUDAH Modifier: [email or web address] <+> 1 Ready for PACU Discharge <+> 1 Discharge from PACU I Finalized By: JOSEPH JUAREZ RN Document Signatures Signed By: JOSEPH JUAREZ RN 11/23/18 09:35 Electronically signed by Karol [facility] Conversion Epidemiology Intern Cerner at 02/02/2023 9:36 AM CDT documented in this encounter Plan of Treatment Not on file documented as of this encounter Visit Diagnoses Not on filedocumented in this encounter
--- OUTSIDE RECORDS SUMMARY | 2025-06-20 07:41 | XMS_ITS | Encounter Summary ---
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 Name Role Phone Unavailable Primary Care Provider Unavailabl e Encounter Details Date Type Department Care Team (Late st Contact Info) Description 11/23/2018 Transcribed Document [facility] [place] [address] ProviderJanie MD [address] [place] [address] Social History Tobacco Use Types Packs/Day Years Used Date Smoking Tobacco: Never Assessed Comments Unknown Sex and Gender Information Value Date Recorded Sex Assigned at Not on file Legal Sex Female 5:20 PM CDT Gender Identity Not on file Sexual Orientation Not on file documented as of this encounter Miscellaneous Notes * Cerner Conversion Note - Janie Quinones MD - 11/23/2018 7:43 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 Referral source: KAILEY PAYTON MD-GAE. Chief Complaint History of colon polyps History of Present Illness Patient presents today for a colonoscopy for history of colon polyps. Patient with history of Uterine cancer age 55. She is currently being worked up for abnormal mamaography. Denies any gastrointestinal complaints. Specifically denies rectal bleeding, weight loss, or change in bowel habits. Pt is on daily ASA 81mg. She takes NSAID's occasionally. No family history of colon cancer. Last colonoscopy 05/07/18 for personal history of colon polyps. It revealed a residual polyp from previous polypectomy site approximately 1 cm, removed in piecemeal fashion, Injected with Endoview with heat polypectomy. The base was treated with APC, A single sessile polyp in the ascending polyp measuring 6mm, ( Fragments of tubullovillous adenoma) A flat polyp in the transverse colonmeasuring 5mm, Fragnments of tubular adenoma), A single sessile polyp in the sigmoid colon measuring 6mm, ( Fragments of tubular adenoma) Histories Past Medical History: Active Bursitis (463725213) Joint pain (02003983) Uterine cancer ([id number]) Procedure history: hysterectomy. multile eye surgeries. appendectomy. Cornea Transplant. Jaw Surgery. Social History Social & Psychosocial Habits Alcohol 05/28/2017 Alcohol Use History, Social Habits No Nutrition/Health 11/23/2018 Caffeine intake amount: 3 cups a day Substance Abuse 05/28/2017 Recreational Drug Use History No Recreational Drug Use Last 12 Months No Tobacco 05/28/2017 Smoking Status Never smoker . Family History: Maternal cousin with history of breast cancer in her 40's. Health Status Allergies: Allergic Reactions (All) No Known Allergies, No qualifying data available Current medications: (Selected) Inpatient Medications Ordered Normal Saline 1,000 mL: 100 mL/Hr, IntraVENous lidocaine 1% injectable solution: 0.5 mL, IntraDermal, 1-Time, PRN: Other (See Comment) Documented Medications Documented Caltrate 600 + D oral tablet: 1 Tab, Oral, BID, 60 Tab, 0 Refill(s) Claritin-D 12 Hour: 1 Tab, Oral, Daily, 0 Refill(s) Flonase: 1 Strawberry, Nostrils Both, Daily, 0 Refill(s) Lotemax 0.5% ophthalmic ointment: 1 Application, Eye Left, BID, 4 Gram, 0 Refill(s) Metamucil Fibre Therapy: 0 Refill(s) Non Formulary med: Oral, Daily, tumeric, 0 Refill(s) Probiotic Formula oral capsule: Cap, Oral, Daily, 0 Refill(s) aspirin 81 mg oral tablet: Tab, Oral, Daily, 0 Refill(s) atorvastatin 40 mg oral tablet: Tab, Oral, Daily, 0 Refill(s) dorzolamide-timolol 2%-0.5% preservative-free ophthalmic solution: 1 Drop, Eye Left, Daily, 60 Each, 0 Refill(s) dorzolamide-timolol 2%-0.5% preservative-free ophthalmic solution: 1 Drop, Eyes Both, BID, 60 Each, 0 Refill(s) latanoprost 0.005% ophthalmic solution: Drop, QPM, 0 Refill(s) multivitamin: 1 Tab, Oral, Daily, 0 Refill(s), Medications (2) Active Scheduled: (0) Continuous: (1) NaCl 0.9% 1,000 mL 1,000 mL, IntraVENous, 100 mL/Hr PRN: (1) lidocaine 1% *PF* inj 2 mL 0.5 mL, IntraDermal, 1-Time Problem list: All Problems Bursitis / SNOMED CT 986503821 / Confirmed Glaucoma / SNOMED CT 60890100 / Confirmed H/O seasonal allergies / SNOMED CT 4843755036 / Confirmed Hearing loss / SNOMED CT 73963114 / Confirmed Hyperlipidemia / SNOMED CT 71789204 / Confirmed Joint pain / SNOMED CT 42166886 / Confirmed Uterine cancer / SNOMED CT 0725566656 / Confirmed, Active Problems (7) Bursitis Glaucoma H/O seasonal allergies Hearing loss Hyperlipidemia Joint pain Uterine cancer Review of Systems Constitutional: No fever, No chills, No weight gain, No weight loss. Eye: No recent visual problem, No blurring. Ear/Nose/Mouth/Throat: No dysphagia, No epistaxis, No hoarse voice, No sore throat. Respiratory: No shortness of breath, No cough, No hemoptysis. Cardiovascular: No chest pain, No palpitations, No claudication. Gastrointestinal Negative other than HPI. Genitourinary: No dysuria, No hematuria. Hematology/Lymphatics: No bruising tendency, No bleeding tendency. Endocrine: No excessive thirst, No cold intolerance, No heat intolerance. Musculoskeletal: No joint pain, No muscle pain, No gait disturbance, No joint redness. Integumentary: No rash, No pruritus. Neurologic: No confusion, No dizziness, No headache, No seizure. Psychiatric: No anxiety, No depression. the rest of the 10 system review is negative Physical Examination VS/Measurements Vitals Signs (last 24 hrs) Last Charted Minimum Maximum Temp 98.2 (NOV 23 08:09) 98.2 (NOV 23 08:09) 98.2 (NOV 23 08:09) Mon HR 71 (NOV 23 08:09) 71 (NOV 23 08:09) 71 (NOV 23 08:09) Resp Rate 18 (NOV 23 08:09) 18 (NOV 23 08:09) 18 (NOV 23 08:09) SBP 133 (NOV 23 08:09) 133 (NOV 23 08:09) 133 (NOV 23 08:09) DBP 78 (NOV 23 08:09) 78 (NOV 23 08:09) 78 (NOV 23 08:09) SpO2 98 (NOV 23 08:) 98 (NOV 23 08:09) 98 (NOV 23:) General: No acute distress. Appearance: Well nourished. Eye: Pupils are equal, round and reactive to light, Extraocular movements are intact, Normal conjunctiva. Sclera: Both eyes, Within normal limits. HENT: Normocephalic, Normal hearing, Oral mucosa is moist. Nose: Both nostrils, Within normal limits, Patent. Mouth: pink. Neck: Supple, Non-tender, No carotid bruit, No jugular venous distention. Respiratory: Lungs are clear to auscultation, Respirations are non-labored, Breath sounds are equal. Pattern: Regular. Cardiovascular: Normal rate, Regular rhythm, No murmur, No gallop, No edema. Arterial pulses: Bilateral, Dorsalis pedis, Within normal limits. Gastrointestinal: Soft, Non-tender, Non-distended, Normal bowel sounds, No organomegaly. Abdomen: Liver ( Within normal limits ). Lymphatics: Lymphatic exam: Bilateral, Cervical chain, Inguinal, Within normal limits. Musculoskeletal: Normal range of motion, Normal strength, No tenderness, No deformity, Normal gait. Integumentary: Warm, Dry, [place], No rash. Integumentary exam: Face, Chest, Arm, Abdomen, Leg. Neurologic: Alert, Oriented, No focal deficits. Orientation: To person, To place, To time. Psychiatric: Cooperative, Appropriate mood & affect, Normal judgment. Review / Management Results review: No qualifying data available. Impression and Plan Proceed with colonoscopy due to personal h/o colon polyps: Risks including that of bleeding, perforation, splenic injury, and missed lesion have been discussed with patient who verbalizes understanding and agrees to proceed. Further recommendations travis be based on the above findings. Pt has had genetic testing. It was negative per patient. Scribed by Javy Wall for Dr. Kailey Payton. Professional Services I Hazel Payton M.D. have personally interviewed the patient, reviewed the chart, performed the physical exam, and formulated the treatment plan. The patient presents for colonoscopy due to personal h/o colon polyps. documented in this encounter Plan of Treatment Not on file documented as of this encounter Visit Diagnoses Not on filedocumented in this encounter
--- OUTSIDE RECORDS SUMMARY | 2025-06-20 07:41 | XMS_ITS | Encounter Summary ---
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 Name Role Phone Unavailable Primary Care Provider Unavailabl e Encounter Details Date Type Department Care Team (Late st Contact Info) Description 11/23/2018 Transcribed Document [facility] [place] [address] [place] [address] ProviderJanie MD [address] [place] [address] Social History Tobacco Use Types Packs/Day Years Used Date Smoking Tobacco: Never Assessed Comments Unknown Sex and Gender Information Value Date Recorded Sex Assigned at Not on file Legal Sex Female 5:20 PM CDT Gender Identity Not on file Sexual Orientation Not on file documented as of this encounter Miscellaneous Notes * Cerner Conversion Note - aJnie ProviderMD - 11/23/2018 9: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 Colitis may last a short time (acute) or it may last a long time (chronic). What are the causes? This condition may be caused by:??? Viruses. ??? Bacteria. ??? Reactions to medicine. ??? Certain autoimmune diseases, such as Crohn disease or ulcerative colitis. What are the signs or symptoms? Symptoms of this condition include:??? Diarrhea. ??? Passing bloody or tarry stool. ??? Pain. ??? Fever. ??? Vomiting. ??? Tiredness (fatigue). ??? Weight loss. ??? Bloating. ??? Sudden increase in abdominal pain. ??? Having fewer bowel movements than usual. How is this diagnosed? This condition is diagnosed with a stool test or a blood test. You may also have other tests, including X-rays, a CT scan, or a colonoscopy.How is this treated? Treatment may include: ??? Resting the bowel. This involves not eating or drinking for a period of time. ??? Fluids that are given through an IV tube. ??? Medicine for pain and diarrhea. ??? Antibiotic medicines. ??? Cortisone medicines. ??? Surgery. Follow these instructions at home: Eating and drinking??? Follow instructions from your health care provider about eating or drinking restrictions. ??? Drink enough fluid to keep your urine clear or pale yellow. ??? Work with a dietitian to determine which foods cause your condition to flare up. ??? Avoid foods that cause flare-ups. ??? Eat a well-balanced diet. Medicines??? Take qeup-erl-lxqhphb and prescription medicines only as told by your health care provider. ??? If you were prescribed an antibiotic medicine, take it as told by your health care provider. Do not stop taking the antibiotic even if you start to feel better. General instructions??? Keep all follow-up visits as told by your health care provider. This is important. Contact a health care provider if: ??? Your symptoms do not go away. ??? You develop new symptoms. Get help right away if: ??? You have a fever that does not go away with treatment. ??? You develop chills. ??? You have extreme weakness, fainting, or dehydration. ??? You have repeated vomiting. ??? You develop severe pain in your abdomen. ??? You pass bloody or tarry stool. This information is not intended to replace advice given to you by your health care provider. Make sure you discuss any questions you have with your health care provider. Document Released: 11/12/2005 Document Revised: 03/12/2017 Document Reviewed: 01/28/2016 ? 2017 Elsevier Oncology Colon Polyps Introduction Polyps are tissue growths inside the body. Polyps can grow in many places, including the large intestine (colon). A polyp may be a round bump or a mushroom-shaped growth. You could have one polyp or several. Most colon polyps are noncancerous (benign). However, some colon polyps can become cancerous over time. What are the causes? The exact cause of colon polyps is not known. What increases the risk? This condition is more likely to develop in people who:??? Have a family history of colon cancer or colon polyps. ??? Are older than 50 or older than 45 if they are . ??? Have inflammatory bowel disease, such as ulcerative colitis or Crohn disease. ??? Are overweight. ??? Smoke cigarettes. ??? Do not get enough exercise. ??? Drink too much alcohol. ??? Eat a diet that is:? High in fat and red meat. ? Low in fiber. ??? Had childhood cancer that was treated with abdominal radiation. What are the signs or symptoms? Most polyps do not cause symptoms. If you have symptoms, they may include: ??? Blood coming from your rectum when having a bowel movement. ??? Blood in your stool.?The stool may look dark red or black. ??? A change in bowel habits, such as constipation or diarrhea. How is this diagnosed? This condition is diagnosed with a colonoscopy. This is a procedure that uses a lighted, flexible scope to look at the inside of your colon.How is this treated? Treatment for this condition involves removing any polyps that are found. Those polyps will then be tested for cancer. If cancer is found, your health care provider will talk to you about options for colon cancer treatment. Follow these instructions at home: Diet??? Eat plenty of fiber, such as fruits, vegetables, and whole grains. ??? Eat foods that are high in calcium and vitamin D, such as milk, cheese, yogurt, eggs, liver, fish, and broccoli. ??? Limit foods high in fat, red meats, and processed meats, such as hot dogs, sausage, bernal, and lunch meats. ??? Maintain a healthy weight, or lose weight if recommended by your health care provider. General instructions??? Do notsmoke cigarettes. ??? Do notdrink alcohol excessively. ??? Keep all follow-up visits as told by your health care provider. This is important. This includes keeping regularly scheduled colonoscopies. Talk to your health care provider about when you need a colonoscopy. ??? Exercise every day or as told by your health care provider. Contact a health care provider if: ??? You have new or worsening bleeding during a bowel movement. ??? You have new or increased blood in your stool. ??? You have a change in bowel habits. ??? You unexpectedly lose weight. This information is not intended to replace advice given to you by your health care provider. Make sure you discuss any questions you have with your health care provider. Document Released: 07/01/2005 Document Revised: 03/12/2017 Document Reviewed: 08/25/2016 ? 2017 Elsevier Radiology Colonoscopy, Adult, Care After This sheet gives you information about how to care for yourself after your procedure. Your doctor may also give you more specific instructions. If you have problems or questions, call your doctor. Follow these instructions at home: General instructions ??? For the first 24 hours after the procedure: ? Do notdrive or use machinery. ? Do notsign important documents. ? Do notdrink alcohol. ? Do your daily activities more slowly than normal. ? Eat foods that are soft and easy to digest. ? Rest often. ??? Take wukm-syr-jgfygge or prescription medicines only as told by your doctor. ??? It is up to you to get the results of your procedure. Ask your doctor, or the department performing the procedure, when your results will be ready. To help cramping and bloating:??? Try walking around. ??? Put heat on your belly (abdomen) as told by your doctor. Use a heat source that your doctor recommends, such as a moist heat pack or a heating pad. ? Put a towel between your skin and the heat source. ? Leave the heat on for 20?30 minutes. ? Remove the heat if your skin turns bright red. This is especially important if you cannot feel pain, heat, or cold. You can get burned. Eating and drinking ??? Drink enough fluid to keep your pee (urine) clear or pale yellow. ??? Return to your normal diet as told by your doctor. Avoid heavy or fried foods that are hard to digest. ??? Avoid drinking alcohol for as long as told by your doctor. Contact a doctor if: ??? You have blood in your poop (stool) 2?3 days after the procedure. Get help right away if: ??? You have more than a small amount of blood in your poop. ??? You see large clumps of tissue (blood clots) in your poop. ??? Your belly is swollen. ??? You feel sick to your stomach (nauseous). ??? You throw up (vomit). ??? You have a fever. ??? You have belly pain that gets worse, and medicine does not help your pain. This information is not intended to replace advice given to you by your health care provider. Make sure you discuss any questions you have with your health care provider. Document Released: 11/07/2011 Document Revised: 06/29/2017 Document Reviewed: 06/29/2017 [employer] Interactive Patient Education ? 2017 [employer] documented in this encounter Plan of Treatment Not on file documented as of this encounter Visit Diagnoses Not on filedocumented in this encounter
--- OUTSIDE RECORDS SUMMARY | 2025-06-20 07:41 | XMS_ITS | Encounter Summary ---
Author Organization [email or web address] ([place], [place], [place], [place]) Address [address] [place] [address] Care Team Providers Care Director Business Systems Name Role Phone Unavailable Primary Care Provider Unavailabl e Encounter Details Date Type Department Care Team (Late st Contact Info) Description 11/23/2018 Transcribed Document [facility] [place] Family Medicine [address] [place] [address] ProviderJanie MD [address] [place], [place] [id number] Social History Tobacco Use Types Packs/Day Years Used Date Smoking Tobacco: Never Assessed Comments Unknown Sex and Gender Information Value Date Recorded Sex Assigned at Not on file Legal Sex Female 5:20 PM CDT Gender Identity Not on file Sexual Orientation Not on file documented as of this encounter Miscellaneous Notes * Cerner Conversion Note - Historical ProviderMD - 11/23/2018 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 Instructions Entered On: 11/23/2018 8:30 EST Performed On: 11/23/2018 8:29 EST by JOSEPH JUAREZ RN DC Instructions HWD Stroke/TIA Discharge Ins : N/A Heart Failure Discharge Ins : N/A Warfarin Discharge Ins : N/A Diet After Discharge : Resume usual diet as tolerated Activity After Discharge : Rest and relax today, No strenuous activities, No heavy lifting over 10 pounds Driving After Discharge : Do not drive May Return To Work/School : am Showering/Bathing : May shower Notify Provider of : problems or concerns JOSEPH JUAREZ RN - 11/23/2018 8:29 EST documented in this encounter Plan of Treatment Not on file documented as of this encounter Visit Diagnoses Not on filedocumented in this encounter
--- OUTSIDE RECORDS SUMMARY | 2025-06-20 07:41 | XMS_ITS | Encounter Summary ---
Author Organization [employer] [facility] [facility] ([place], [place], [place], [place]) Address [address] [place] [address] Care Team Providers Care Finishing Range Supervisor Name Role Phone Unavailable Primary Care Provider Unavailabl e Encounter Details Date Type Department Care Team (Late st Contact Info) Description 11/23/2018 Transcribed Document [facility] [place] [facility] Family Medicine [facility] [address] 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 Name: GIOVANA IGLESIASO.B./Sex: 1960 Female Med Rec #: [id number] Physician: KAILEY PIERRE MD-GAE Financial #: [id number] Pt. Type: O Room/Bed: [facility] Admit/Disch: 11/23/18 07:41:00 - Institution: [facility] - Case Attendance Entry 1 Entry 2 Entry 3 Case Attendee Brady PIERRE Rachel G, RN DUNHAM, JEANNIE KAREN, MD-GAE Role Performed Surgeon/Proceduralist, Risk Engineer, First Scrub, First First Time In 11/23/18 08:29:00 11/23/18 08:25:00 11/23/18 08:25:00 Time Out 11/23/18 09:00:00 11/23/18 09:00:00 11/23/18 09:00:00 Procedure Colonoscopy, Colon Colonoscopy, Colon Colonoscopy, Colon Biopsy, Colon Biopsy, Colon Biopsy, Colon Polypectomy Polypectomy Polypectomy Other Attendee Superficial Wound Closed By: Last Modified By: Ada Abreu RN Devore, Rachel G, RN Devore, Rachel G, MARYURI 11/23/18 08:59:40 11/23/18 08:59:40 11/23/18 08:59:40 Entry 4 Entry 5 Case Attendee GARCIA, Joshua ENCISO MD-ORLANDO HANNA MD Role Performed Anesthesiologist Observer Time In 11/23/18 08:25:00 11/23/18 08:29:00 Time Out 11/23/18 09:00:00 11/23/18 09:00:00 Procedure Colonoscopy, Colon Colonoscopy, Colon Biopsy, Colon Biopsy, Colon Polypectomy Polypectomy Other Attendee Superficial Wound Closed By: Last Modified By: Ada Abreu RN Devore, Rachel G, MARYURI 11/23/18 08:59:40 11/23/18 08:59:40 [facility] - Case Attendance Audit 11/23/18 08:59:40 Fish And Wildlife Biologist: [email or web address] Modifier: [email or web address] 1 <+> Time Out 1 <*> Procedure Colonoscopy, Colon Biopsy, Colon Polypectomy 2 <+> Time Out 2 <*> Procedure Colonoscopy, Colon Biopsy, Colon Polypectomy 3 <+> Time Out 3 <*> Procedure Colonoscopy, Colon Biopsy, Colon Polypectomy 4 <+> Time Out 4 <*> Procedure Colonoscopy, Colon Biopsy, Colon Polypectomy 5 <+> Time Out 5 <*> Procedure Colonoscopy, Colon Biopsy, Colon Polypectomy 11/23/18 08:56:10 Fish And Wildlife Biologist: [email or web address] Modifier: [email or web address] 1 <*> Procedure Colonoscopy, Colon Biopsy 2 <*> Procedure Colonoscopy, Colon Biopsy 3 <*> Procedure Colonoscopy, Colon Biopsy 4 <*> Procedure Colonoscopy, Colon Biopsy 5 <*> Procedure Colonoscopy, Colon Biopsy 11/23/18 08:51:04 Fish And Wildlife Biologist: [email or web address] Modifier: [email or web address] 1 <*> Procedure Colonoscopy 2 <*> Procedure Colonoscopy 3 <*> Procedure Colonoscopy 4 <*> Procedure Colonoscopy 5 <*> Procedure Colonoscopy 11/23/18 08:29:31 Fish And Wildlife Biologist: [email or web address] Modifier: [email or web address] 1 <*> Time In 11/23/18 08:25:00 1 <+> Procedure <+> 5 Case Attendee <+> 5 Role Performed <+> 5 Time In <+> 5 Procedure 11/23/18 08:28:06 Fish And Wildlife Biologist: [email or web address] Modifier: [email or web address] 2 <+> Time In 2 <*> Procedure Colonoscopy 3 <+> Time In 3 <*> Procedure Colonoscopy 4 <+> Time In 4 <*> Procedure Colonoscopy 11/23/18 08:28:04 Fish And Wildlife Biologist: [email or web address] Modifier: [email or web address] <+> 1 Time In <+> 2 Case Attendee <+> 2 Role Performed <+> 2 Procedure <+> 3 Case Attendee <+> 3 Role Performed <+> 3 Procedure <+> 4 Case Attendee <+> 4 Role Performed <+> 4 Procedure [facility] - Case Times Entry 1 Patient In Room Time 11/23/18 08:25:00 Out Room Time 11/23/18 09:00:00 Anesthesia Start Time 11/23/18 08:25:00 Stop Time 11/23/18 09:00:00 Anesthesia Ready 11/23/18 08:25:00 Surgery / Procedure Times Start Time 11/23/18 08:36:00 Stop Time 11/23/18 08:58:00 Last Modified By: Ada Abreu RN 11/23/18 08:58:45 [facility] - Case Times Audit 11/23/18 08:58:45 Fish And Wildlife Biologist: [email or web address] Modifier: [email or web address] <+> 1 Out Room Time <+> 1 Stop Time <+> 1 Stop Time 11/23/18 08:36:45 Fish And Wildlife Biologist: [email or web address] Modifier: [email or web address] <+> 1 Start Time [facility] - Cultures and Spec Summary Entry 1 Cultrures and Specimens Specimen Ordered: Yes Specimens Types Pathology Specimen(s) Labeled Lab and Sent to Last Modified By: Ada Abreu RN 11/23/18 08:53:47 General Comments: sigmoid colon colitis bx, rectosigmoid colon polyp [facility] - Delays Entry 1 Delay Reason Other Duration 0 Minute(s) Comment NO DELAY Last Modified By: Ada Abreu RN 11/23/18 08:28:17 [facility] - Departure from OR Entry 1 Integumentary Assessment Integumentary WDL Assessment WDL Transfer/Handoff Transfer to PACU Phase I Post-op Transport Stretcher/Gurney Via Patient Transport Ada Abreu RN Accompanied by Last Modified By: Ada Abreu RN 11/23/18 08:28:46 [facility] - Endoscopy Details Entry 1 Abdomen Procedure Soft, Non-Tender Assessment Procedure Abdomen 11/23/18 08:25:00 Assessment D/T Radio Frequency Ablation Last Modified By: Ada Abreu RN 11/23/18 08:29:59 [facility] - Fire Risk Assessment Entry 1 Fire Info Surgical Site or 0- No Incision Above the Xyphoid Open O2 Source 1- Yes (Mask or Cannula) Available Ignition 1- Yes (ESU, Laser, Light Source) Fire Risk 2 Assessment Score Fire Score Fire Risk Yes Assessment Complete Fire Risk Ada Abreu RN Assessment Verified By Fire Risk 11/23/18 08:25:00 Assessment Verified Date/Time Fire Risk High Risk Protocol Yes Implemented Standard Fire Yes Safety Precautions Followed Last Modified By: Ada Abreu RN 11/23/18 08:30:08 [facility] End[facility] - General Case Bed Machine Operator 1 Case Information OR Endo 03 [facility] Case Level 1 Room Verified Yes Wound Class III - Contaminated Specialty SN Gastroenterology Anesthesia Type MAC ASA Class 2 Diagnosis Preop Diagnosis history of colon polyps Postop Diagnosis sigmoid colon colitis, polyp Last Modified By: Ada Abreu RN 11/23/18 08:59:47 [facility] - General Case Data Audit 11/23/18 08:59:47 Fish And Wildlife Biologist: [email or web address] Modifier: [email or web address] 1 <*> Postop Diagnosis sigmoid colon colitis 11/23/18 08:54:20 Fish And Wildlife Biologist: [email or web address] Modifier: [email or web address] <+> 1 Postop Diagnosis [facility] - Intraoperative Assessment Entry 1 Valid History / Yes Physical in Chart Preoperative Yes Checklist Reviewed/Evaluated Allergies Reviewed Yes Patient is Latex No Sensitive Level of WDL Consciousness (WDL = Alert, Oriented to Person, Place, and Time) Present Upon IVs, ECG monitored Arrival to OR Last Modified By: Ada Abreu RN 11/23/18 08:30:55 [facility] - Intraoperative Equipment Entry 1 Type Scope Equipment Intraop Monitoring Blood Pressure Arm, left upper Location Pulse Oximeter Hand, right Probe Site Antiembolic Devices Scopes Flexible Endoscopes Colonoscope, Peds Used Scope Serial [id number] Number/Identificatio n Number Photo/Video Documentation Photo Yes Video No Last Modified By: Ada Abreu RN 11/23/18 08:31:24 [facility] - Intraoperative Equipment Audit 11/23/18 08:31:24 Fish And Wildlife Biologist: [email or web address] Modifier: [email or web address] <+> 1 Photo <+> 1 Video <+> 1 Blood Pressure Location <+> 1 Pulse Oximeter Probe Site <+> 1 Flexible Endoscopes Used <+> 1 Scope Serial Number/Identification Number [facility] - Patient Positioning Entry 1 Procedure Colonoscopy, Colon Biopsy, Colon Polypectomy Body Position Lateral, right side up Left Arm Position Resting at side Right Arm Position Resting at side Left Leg Position Other Right Leg Position Other Position Comments Right leg over Left leg uncrossed Feet Uncrossed Yes Pressure Points Yes Checked Positioned By RINA HART Position Verified Positioning Yes Verified by Anesthesia Positioning Yes Verified by Surgeon Last Modified By: Ada Abreu RN 11/23/18 08:56:11 [facility] - Patient Positioning Audit 11/23/18 08:56:11 Fish And Wildlife Biologist: [email or web address] Modifier: [email or web address] 1 <*> Procedure Colonoscopy, Colon Biopsy 11/23/18 08:51:05 Fish And Wildlife Biologist: [email or web address] Modifier: [email or web address] 1 <*> Procedure Colonoscopy [facility] - Sign In Entry 1 Patient, Site, Yes Procedure Identified Surgical Consent Yes Confirmed Surgical Site N/A Marked by person performing procedure Allergies No Airway Hypothermia Risk No Warming Measures No Taken Last Modified By: Ada Abreu RN 11/23/18 08:32:08 [facility] - Sign Out Entry 1 RN Confirmation Surgical Yes Procedure(s) Identified Instrument, Sponge N/A and Sharps Counts Correct/Documented Equipment Problems N/A Documented Specimen Labeled Yes Correctly Urinary Catheter N/A Documented in IView Safety Checklist Yes Elements Complete? RN Sign Out Ada Abreu RN Signature RN Sign Out 11/23/18 08:59:00 Signature Date/Time Plan of Care Outcome - Fire Risk OUTCOME STATEMENT: Goal met Patient is free from injury related to surgical fire Plan of Care Outcome - Pt Positioning OUTCOME STATEMENT: Goal met Absence of signs and symptoms of positioning injury. Plan of Care Outcome - Skin Prep OUTCOME STATEMENT: Goal met Intraoperative care is consistent with measures to prevent infection Plan of Care Outcome - Xray/Images OUTCOME STATEMENT: N/A Absence of observable signs or symptoms of radiation injury Plan of Care Outcome - Counts OUTCOME STATEMENT: N/A Absence of signs and symptoms of injury related to extraneous objects Last Modified By: Ada Abreu RN 11/23/18 08:59:15 [facility] Endo - Surgical Procedures Entry 1 Entry 2 Entry 3 Procedure Colonoscopy Colon Biopsy Colon Polypectomy Modifiers Additional Procedure Description Primary Procedure Yes No No Primary Surgeon GABBY PIERRE, KAILEY PIERRE MD-GAE KAREN, MARIO KIM Start 11/23/18 08:36:00 11/23/18 08:36:00 11/23/18 08:36:00 Stop 11/23/18 08:58:00 11/23/18 08:58:00 11/23/18 08:58:00 Physician States 11/23/18 08:41:00 11/23/18 08:41:00 11/23/18 08:41:00 Cecum Reached Anesthesia Type MAC MAC MAC Specialty SN Gastroenterology SN Gastroenterology SN Gastroenterology Wound Class III - Contaminated III - Contaminated III - Contaminated Last Modified By: Ada Abreu RN Devore, Rachel G, RN Devore, Rachel G, RN 11/23/18 08:59:06 11/23/18 08:59:06 11/23/18 08:59:06 [facility] End[facility] - Surgical Procedures Audit 11/23/18 08:59:06 Fish And Wildlife Biologist: [email or web address] Modifier: [email or web address] <+> 1 Stop <+> 2 Stop <+> 3 Stop 11/23/18 08:56:07 Fish And Wildlife Biologist: [email or web address] Modifier: [email or web address] <+> 3 Procedure <+> 3 Primary Procedure <+> 3 Primary Surgeon <+> 3 Specialty <+> 3 Start <+> 3 Wound Class <+> 3 Anesthesia Type <+> 3 Physician States Cecum Reached 11/23/18 08:51:01 Fish And Wildlife Biologist: [email or web address] Modifier: [email or web address] 1 <*> Procedure Colonoscopy 1 <+> Start 1 <+> Physician States Cecum Reached <+> 2 Procedure <+> 2 Primary Procedure <+> 2 Primary Surgeon <+> 2 Specialty <+> 2 Start <+> 2 Wound Class <+> 2 Anesthesia Type <+> 2 Physician States Cecum Reached [facility] End[facility] - Time Out Entry 1 Procedure to be Colonoscopy, Colon Performed Biopsy, Colon Polypectomy Time Out Time Out Pause Time 11/23/18 08:31:00 All activity Yes suspended (unless life threatening emergency) Team Verbally Correct patient Confirms Information identity, Correct side and site are marked, Consent form is present and accurate, Agreement on the procedure to be done, Correct patient position, Relevant images/results properly labeled/appropriately displayed Antibiotic N/A Prophylaxis Administered Or In Progress Within the Last 60 Minutes Beta Bill N/A Administered Venous N/A Thromboembolism Prophylaxis Required Anticipated Critical Events Surgeon None expected Last Modified By: Ada Abreu RN 11/23/18 08:56:12 [facility] Endo - Time Out Audit 11/23/18 08:56:12 Fish And Wildlife Biologist: [email or web address] Modifier: [email or web address] 1 <*> Procedure to be Performed Colonoscopy, Colon Biopsy 11/23/18 08:51:05 Fish And Wildlife Biologist: [email or web address] Modifier: [email or web address] 1 <*> Procedure to be Performed Colonoscopy Case Comments <None> Finalized By: Ada Abreu, RN Document Signatures Signed By: Ada Abreu RN 11/23/18 09:00 documented in this encounter Plan of Treatment Not on file documented as of this encounter Visit Diagnoses Not on filedocumented in this encounter
--- OUTSIDE RECORDS SUMMARY | 2025-06-20 07:41 | XMS_ITS | Encounter Summary ---
Author Organization [employer] ([place], [place], [place], [place]) Address [address] [place] [address] Care Team Providers Care Electric Switch Tester Name Role Phone Unavailable Primary Care Provider Unavailabl e Encounter Details Date Type Department Care Team (Late st Contact Info) Description 11/23/2018 Transcribed Document [facility] [place] Family Medicine [address] [place] [address] ProviderJanie MD [address] [place] [address] Social History Tobacco Use Types Packs/Day Years Used Date Smoking Tobacco: Never Assessed Comments Unknown Sex and Gender Information Value Date Recorded Sex Assigned at Not on file Legal Sex Female 5:20 PM CDT Gender Identity Not on file Sexual Orientation Not on file documented as of this encounter Miscellaneous Notes * Cerner Conversion Note - Janie ProviderMD - 11/23/2018 9:15 AM 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 [facility] [address] , [place] [address] Patient Copy Patient Information: Name: THAIS IGLESIASAlber Cano Current Date: 11/23/2018 09:15:11 : 1960 Patient Address: [address] [facility] [address] Patient Attending Physician: KAILEY PIERRE MD-RODO Primary Care Provider: Primary Care Provider Phone: Discharge Diagnosis: Weight on Admission: 157 lb, 0 oz Comment: Follow-up Instructions: With: Address: When: KAILEY PIERRE [address] [place], [place] [address]T[place], [address] [place] [id number] Business (1) Within As needed Comments: see gi report Discharge Instructions: Diet after Discharge: Resume usual diet as tolerated Activity after Discharge: Rest and relax today, No strenuous activities, No heavy lifting over 10 pounds Driving after Discharge: Do not drive May Return to Work/School: am Showering/Bathing: May shower Notify Provider of: problems or concerns Immunizations Documented During Stay: No Immunizations Found Heart Failure Discharge Instructions (if any): Stroke Related Discharge Instructions (if any): Warfarin Related Discharge Instructions (if any): Final Medication List: Other Medications aspirin (aspirin 81 mg oral tablet) Oral Every Day. atorvastatin (atorvastatin 40 mg oral tablet) Oral Every Day. bifidobacterium-lactobacillus (Probiotic Formula oral capsule) Oral Every Day. calcium-vitamin D (Caltrate 600 + D oral tablet) 1 Tablet(s) Oral Two Times A Day. dorzolamide-timolol ophthalmic (dorzolamide-timolol 2%-0.5% preservative-free ophthalmic solution) 1 Drop(s) Eye Left Every Day. dorzolamide-timolol ophthalmic (dorzolamide-timolol 2%-0.5% preservative-free ophthalmic solution) 1 Drop(s) Eyes Both Two Times A Day. fluticasone nasal (Flonase) 1 Randall(s) Nostrils Both Every Day. latanoprost ophthalmic (latanoprost 0.005% ophthalmic solution) Every Evening. loratadine-pseudoephedrine (Claritin-D 12 Hour) 1 Tablet(s) Oral Every Day. loteprednol ophthalmic (Lotemax 0.5% ophthalmic ointment) 1 Application(s) Eye Left Two Times A Day. multivitamin 1 Tablet(s) Oral Every Day. Non Formulary (Non Formulary med) Oral Every Day. tumeric. psyllium (Metamucil Fibre Therapy) Patient Allergies: No Known Allergies Medication Instructions: Take your medications faithfully. Do NOT skip medication. Do NOT stop taking medications without the direction of a physician. Carry a list of your medications with you at all times, and take this medication list with you to your first follow up visit. Report any side effects. Avoid herbal remedies unless discussed with your physician. As part of your treatment plan, your physician may have prescribed a limited course of a controlled substance. This medication may be given to help people with moderate or severe pain or for other medical conditions, but there are risks involved with treatment. Common side effects may include nausea, constipation, drowsiness, sweating, itching, dry mouth, and rash. More serious side effects may include cognitive and motor impairment, like problems with thinking, concentrating, alertness, and movement (e.g. slowed reflexes), and driving and operating heavy machinery can be dangerous. It is important for you to talk to your physician if you have these side effects or questions. These controlled substances can produce physical dependence and be habit-forming if taken for an extended period of time, which means that the body has gotten used to them and may experience withdrawal symptoms if they are abruptly stopped. Withdrawal symptoms can include runny nose, sweating, goose bumps, diarrhea, abdominal cramping, rapid heartbeat, difficulty sleeping, and nervousness. Patient education materials: Colitis Introduction Colitis is inflammation of the [...] ??? Eat a well-balanced diet. Medicines??? Take kcgc-qib-[id number] and prescription medicines only as told by [...] 03/12/2017 Document Reviewed: 01/28/2016 ? 2017 Elsevier Colon Polyps Introduction Polyps are tissue growths [...] Revised: 03/12/2017 Document Reviewed: 08/25/2016 ? 2017 [facility] Colonoscopy, Adult, Care After This sheet gives [...] to digest. ? Rest often. ??? Take rrmq-aif-qweyuhs or prescription medicines only as told by [...] 11/07/2011 Document Revised: 06/29/2017 Document Reviewed: 06/29/2017 Elsevier Interactive Patient Education ? 2017 Elsevier Inc. CIGARETTE SMOKING: The facts are clear, cigarette smoking will shorten your life. Smoking can cause many illnesses along the way. As a healthcare provider, we recommend that you stop smoking. Assistance with quitting is available by contacting 0-905-ELOC-NOW. This is a free resource providing counseling, support, and referral. Or you may contact your personal physician. 4 WAYS TO GET AHEAD OF SEPSIS SEPSIS is a MEDICAL EMERGENCY. Time matters! Infections put you and your family at risk for a life-threatening condition called sepsis. Sepsis is the body???s extreme response to an infection. It is life-threatening, and without timely treatment, sepsis can rapidly lead to tissue damage, organ failure, and . Sepsis happens when an infection you already have???in your skin, lungs, urinary tract or somewhere else???triggers a chain reaction throughout your body. 1 PREVENT INFECTIONS Take good care of chronic conditions. Talk to your doctor about getting the recommended vaccines. 2 PRACTICE GOOD HYGIENE Wash your hands frequently. Keep cuts or open sores clean and covered until they are healed. 3 KNOW THE SYMPTOMS Confusion or disorientation Shortness of breath High heart rate Fever, shivering, or feeling very cold Extreme pain or discomfort Clammy or sweaty skin 4 ACT FAST Get medical care IMMEDIATELY if you suspect sepsis or if you have an infection that???s not getting better or is getting worse. To learn more about sepsis and how to prevent infections, visit www.cdc.gov/sepsis. STROKE is an EMERGENCY Every Minute Counts ACT F.A.S.T! FACE ?? Facial droop ?? Uneven smile ARM ?? Arm numbness ?? Arm weakness SPEECH ?? Slurred speech ?? Difficulty speaking or understanding TIME ?? Call 911 and get to the hospital immediately Have the ambulance go to the nearest stroke center. STROKE Risk Factors High blood pressure High cholesterol Heart Disease Diabetes Smoking Heavy alcohol use Physical inactivity and obesity Atrial Fibrillation (irregular heartbeat) Family history of stroke Reminder: Be sure to sign up for the [employer] patient portal, which gives you 11/05 access to your medical information ??? including these discharge instructions ??? using your computer, smartphone, or tablet. Just go to [employer] S[employer] to get started. Questions? Call . [facility] would like to thank you for allowing us to assist you with your healthcare needs. MEGHANA Campo SHARI R, (or sales utility representative) have received the above patient education materials/instructions and have verbalized understanding: Patient Signature _ Date/Time Patient Torch Cutter Signature (if needed) Date/Time Clinician/Hospital Torch Cutter Signature (if needed) Date/Time Electronically signed by Orlando Roberson Conversion Post Secondary Professional Michaelner at 02/02/2023 9:26 AM CDT documented in this encounter Plan of Treatment Not on file documented as of this encounter Visit Diagnoses Not on filedocumented in this encounter
--- OUTSIDE RECORDS SUMMARY | 2025-06-20 07:41 | XMS_ITS | Encounter Summary ---
Author Organization [facility] Address [address] [place] [address] Care Team Providers Care Brass Molder Helper Name Role Phone MaribellRyanne desai Janis SOLOMON Primary Care Provider [phone] Juan Hensley MD Unavailable [phone] Reason for Visit * Reason Comments Med Refill Encounter Details Date Type Department Care Team (Late Contact Info) Description 09/11/2021 Refill [facility] [address], [address] [place] [address] Kevin Vargas MD [address] [facility] [address] [place] [address] Social History Tobacco Use Types Packs/Day Years Used Date Smoking Tobacco: Never Alcohol Use Standard Drinks/Week Comments No 0 (1 standard drink = 0.6 oz pur e alcohol) Comments Unknown Sex and Gender Information Value Date Recorded Sex Assigned at Not on file Legal Sex Female 8:07 PM EDT Gender Identity Not on file Sexual Orientation Not on file documented as of this encounter Plan of Treatment Upcoming Encounters Date Type Department Care Team (Late Contact Info) Description 08/16/2025 12:30 PM EDT Office Visit [facility] Audiology [address] [place] [address] HaynesMarilee B, AuD [address] [place] [address] 10/23/2025 8:00 AM EST Office Visit [facility] [place] [address], [address] [place] [address] Kevin Vargas MD [address] [place] [address] documented as of this encounter Visit Diagnoses Not on filedocumented in this encounter Care Teams Brass Molder Helper Relationship Specialty Start Date End Date Ryanne Reyna APRN Pending sale to [facility] [address] [address] PCP - General 03/01/21 Juan Hensley MD [address] [facility] [address] [place], [place] [id number] Referring Physician Cardiology 05/18/23 documented as of this encounter
--- OUTSIDE RECORDS SUMMARY | 2025-06-20 07:41 | XMS_ITS | Encounter Summary ---
Author Organization [employer] ([place], [place], [place], [place]) Address [address] [place] [address] Care Team Providers Care Regional Psychiatric Director Name Role Phone Unavailable Primary Care Provider Unavailabl e Encounter Details Date Type Department Care Team (Late st Contact Info) Description 11/23/2018 Transcribed Document [facility] [place] Family Medicine [address] [place] [address] ProviderJanie MD [address] [place], [place] [id number] Social History Tobacco Use Types Packs/Day Years Used Date Smoking Tobacco: Never Assessed Comments Unknown Sex and Gender Information Value Date Recorded Sex Assigned at Not on file Legal Sex Female 5:20 PM CDT Gender Identity Not on file Sexual Orientation Not on file documented as of this encounter Miscellaneous Notes * Cerner Conversion Note - Historical ProviderMD - 11/23/2018 9:09 AM CONGRESSIONAL DISTRICT AIDE Nursing Discharge Summary Entered On: 11/23/2018 9:10 EST Performed On: 11/23/2018 9:09 EST by JOSEPH JUAREZ RN Discharge Documentation Discharge Date/Time : 11/23/2018 9:09 EST Patient Disposition, General : Discharge Discharge To : Home without planned follow-up Mode Of Departure, General Discharge : Private vehicle, Wheelchair with adult Accompanied By, Discharge : Spouse Personal Belongings With Patient : Yes Discharge Instructions Reviewed With, Opportunity For Questions Given : Patient, Spouse Teaching Method : Explanation, Printed materials Teaching Evaluation : Verbalizes understanding JOSEPH JUAREZ RN - 11/23/2018 9:09 EST documented in this encounter Plan of Treatment Not on file documented as of this encounter Visit Diagnoses Not on filedocumented in this encounter
--- OUTSIDE RECORDS SUMMARY | 2025-06-20 07:41 | XMS_ITS | Encounter Summary ---
Author Organization [employer] ([place], [place], [place], [place]) Address [address] [place] [address] Care Team Providers Care Devulcanizer Charger Name Role Phone Unavailable Primary Care Provider Unavailabl e Encounter Details Date Type Department Care Team (Late st Contact Info) Description 11/23/2018 Transcribed Document [facility] [place] [address] [place] [address] ProviderJanie MD [address] [place] [address] Social History Tobacco Use Types Packs/Day Years Used Date Smoking Tobacco: Never Assessed Comments Unknown Sex and Gender Information Value Date Recorded Sex Assigned at Not on file Legal Sex Female 5:20 PM CDT Gender Identity Not on file Sexual Orientation Not on file documented as of this encounter Miscellaneous Notes * Cerner Conversion Note - Historical ProviderMD - 11/23/2018 8:04 AM REGULATORY AUDITOR Pre Procedure Adult Entered On: 11/23/2018 8:09 EST Performed On: 11/23/2018 8:04 EST by KAILEY CAMACHO RN Height and Weight, Clinical Dosing Height Source : Stated Height Entry Format : Glenn Height, Feet : 5 ft(Converted to: 152 cm, 60 Inch) Height, Inches : 5 Inch(Converted to: 0 ft 5 Inch, 12.70 cm) Clinical Height : 165.1 cm Weight Source : Standing scale Weight Entry Format : Glenn Clinical Dosing Weight : 71.36 kg Weight, Pounds : 157 lb Body Surface Area (BSA) : 1.79 m2 Body Mass Index : 26.2 kg/m2 (HI) [place] Body Weight : 57 kg KAILEY CAMACHO RN - 11/23/2018 8:04 EST Health Histories Smoking Status : Never (less than 100 in lifetime; none in last 30 days) Smokeless Tobacco Status : Never KAILEY CAMACHO RN - 11/23/2018 8:04 EST Social History (As Of: 11/23/2018 08:09:44 EST) Tobacco: Smoking Status Never smoker. (Last Updated: 05/28/2017 12:14:20 EDT by Laverne Junior, RN) Alcohol: Alcohol Use History No. (Last Updated: 05/28/2017 12:14:31 EDT by Laverne Junior, RN) Substance Abuse: Drug Use Hx: No. Use in Last 12 Months: No. (Last Updated: 05/28/2017 12:14:40 EDT by Laverne Junior, MARYURI) Nutrition/Health: Caffeine intake amount: 3 cups a day. (Last Updated: 11/23/2018 08:05:05 EST by KAILEY CAMACHO, RN) Infectious Disease History Infectious Disease History : Chicken pox/Shingles, Influenza Fever/Chills Last 48 Hours : No Travel To Regions with Travel Advisories : No Travel Outside [place] Within Last 30 Days : No Contact With Traveler to Advisory Region : No Tuberculosis Symptoms : None KAILEY CAMACHO RN - 11/23/2018 8:04 EST Anesthesia/Transfusion History Family History of Anesthesia Reaction : No prior transfusion(s) Transfusion History : Prior anesthesia without reaction Family History of Anesthesia Reaction : None KAILEY CAMACHO RN - 11/23/2018 8:04 EST Functional Assessment Living Situation : Home Patient Lives With : Spouse Current Home Treatments : None KAILEY CAMACHO RN - 11/23/2018 8:04 EST Psychosocial History Currently in Unsafe Situation : No Tried to Harm Yourself in the Past? : No Thoughts of Harming/Killing Yourself : No KAILEY CAMACHO RN - 11/23/2018 8:04 EST Advance Directive Patient has Advance Directive *Q : No, patient refuses Advance Directive information KAILEY CAMACHO RN - 11/23/2018 8:04 EST Teaching/Learning Assessment Barriers To Learning : Hearing deficit Individuals Taught : Patient Readiness to Learn : Cooperative Highest Level of Education : High school Baseline Knowledge of Topic : Good Readiness to Learn : Explanation Learning Style Preferences Patient : Verbal explanation Learning Style Preferences Family : Verbal explanation KAILEY CAMACHO RN - 11/23/2018 8:04 EST General Info Want Family/Rep/Phys Notified of Admit : Yes Name/Contact Info Fam/Rep Notified Adm : amaya Name/Contact Info Physician Notified Adm : shawna hunt Emergency Contact #1 : amaya Emergency Contact #1 Emergency Contact #1 Relationship : spouse Emergency Contact #2 : na Emergency Contact #2 Phone Number : sridhar Emergency Contact #2 Relationship : na Primary Language : Sinhala Communication Barrier : None KAILEY CAMACHO RN - 11/23/2018 8:04 EST Sleep Apnea Risk Assmt Hx of Obstructive Sleep Apnea Diagnosis : No Snore Loudly : Yes Tired, Fatigued, or Sleepy During Day : No Observed Stopping Breathing During Sleep : No Have/Are Being Treated for Hypertension : No STOP Sleep Apnea Risk Level Score : 1 STOP Sleep Apnea Risk Level : Low BMI Greater Than 35 kg/m2 : No Age over 50 Years Old : Yes Gender Male : No Neck Circumference Measured (cms) : 39 cm STOP-BANG Sleep Apnea Risk Level Score : 1 Neck Circumference Greater Than 40 cm : No KAILEY CAMACHO RN - 11/23/2018 8:04 EST Felix Scale Felix Sensory Perception : No impairment Felix Moisture : Rarely moist Felix Activity : Walks frequently Felix Mobility : No limitation Felix Nutrition : Excellent Felix Friction and Shear : No apparent problem Felix Score : 23 KAILEY CAMACHO RN - 11/23/2018 8:04 EST Pain Assessment Pain Assessment : Initial assessment Pain Scale Goal : 0 Pain Scale Used : 0-10 Scale KAILEY CAMACHO RN - 11/23/2018 8:04 EST Fall Risk Scales ABCs Fall Injury Risk Identification : None MOSQUERA Hx Falls Immediate/Within 3 Months : No [place] Secondary Diagnosis : No MOSQUERA Use of Ambulatory Aid : None MOSQUERA IV Therapy or IV Access : Yes [place] Gait/Transferring : Normal, bedrest, immobile [place]era Mental Status : Oriented to own ability [place] Fall Risk Score : 20 MOSQUERA Fall Scale Risk Level : 0-24 Low Risk [place] Fall Interventions : Adequate lighting, Assistive devices within reach, Bed in low position, Call device within reach, Fall prevention handout/education per facility policy, Frequent orientation to call device, Frequent orientation to surroundings, Hourly comfort/safety rounds, Personal items within reach, Reinforced to call for assistance before getting out of bed, Room free of clutter/spills, Upper side-rails up, Wheels locked, Wires/Cords secured KAILEY CAMACHO RN - 11/23/2018 8:04 EST Valuables and Belongings Valuables and Belongings : Clothing Clothing : Common streetwear Clothing Disposition : Bedside KAILEY CAMACHO RN - 11/23/2018 8:04 EST Pain Scale Intensity : 0 KAILEY CAMACHO RN - 11/23/2018 8:04 EST Image 4 - Images currently included in the form version of this document have not been included in the text rendition version of the form. documented in this encounter Plan of Treatment Not on file documented as of this encounter Visit Diagnoses Not on filedocumented in this encounter
--- OUTSIDE RECORDS SUMMARY | 2025-06-20 07:41 | XMS_ITS | Encounter Summary ---
Author Organization [employer] ([place], [place], [place], [place]) Address [address] [place] [address] Care Team Providers Care Lead Maintenance Technician Name Role Phone Unavailable Primary Care Provider Unavailabl e Encounter Details Date Type Department Care Team (Late st Contact Info) Description 11/23/2018 Transcribed Document [facility] [place] Family Medicine [address] [place] [address] ProviderJanie MD [address] [place] [address] Social History Tobacco Use Types Packs/Day Years Used Date Smoking Tobacco: Never Assessed Comments Unknown Sex and Gender Information Value Date Recorded Sex Assigned at Not on file Legal Sex Female 5:20 PM CDT Gender Identity Not on file Sexual Orientation Not on file documented as of this encounter Miscellaneous Notes * Cerner Conversion Note - Janie ProviderMD - 11/23/2018 9:10 AM AADC PLANS STAFF OFFICER [facility] [address] , [place] [address] Patient Copy Patient Information: Name: THAIS IGLESIASAlber Cano Current Date: 11/23/2018 09:10:25 : 1960 Patient Address: [address] [facility] [address] Patient Attending Physician: KAILEY PIERRE MD-RODO Primary Care Provider: Primary Care Provider Phone: Discharge Diagnosis: Weight on Admission: 157 lb, 0 oz Comment: Follow-up Instructions: With: Address: When: KAILEY PIERRE [address] [place], [place] [address]TOM[address] CHUN, [address] [place] [phone] Business (1) Within As needed Comments: see [...] Times A Day. fluticasone nasal (Flonase) 1 Bent(s) Nostrils Both Every Day. latanoprost ophthalmic (latanoprost [...] ??? Eat a well-balanced diet. Medicines??? Take fnec-wsk-cqfoxzm and prescription medicines only as told by [...] to digest. ? Rest often. ??? Take iemu-cwc-huovlms or prescription medicines only as told by [...] Assistance with quitting is available by contacting 9-479-XBHM-NOW. This is a free resource providing counseling, [...] Be sure to sign up for the [employer] patient portal, which gives you 11/05 access to your medical information ??? including these discharge instructions ??? using your computer, smartphone, or tablet. Just go to ROKT to get started. Questions? Call . [facility] would like to thank you for allowing us to assist you with your healthcare needs. MEGHANA Campo SHARI R, (or instruments sales representative) have received the above patient education materials/instructions and have verbalized understanding: Patient Signature _ Date/Time Patient Mobile Patrol Officer Signature (if needed) Date/Time Clinician/Hospital Mobile Patrol Officer Signature (if needed) Date/Time documented in this encounter Plan of Treatment Not on file documented as of this encounter Visit Diagnoses Not on filedocumented in this encounter
--- OUTSIDE RECORDS SUMMARY | 2025-06-20 07:41 | XMS_ITS | Encounter Summary ---
Author Organization [employer] ([place], [place], [place], [place]) Address [address] [place] [address] Care Team Providers Care Engine Installer Name Role Phone Unavailable Primary Care Provider Unavailabl e Encounter Details Date Type Department Care Team (Late st Contact Info) Description 11/23/2018 Transcribed Document [facility] [place] Family Medicine [address] [place] [address] ProviderJanie MD [address] [place] [address] Social History Tobacco Use Types Packs/Day Years Used Date Smoking Tobacco: Never Assessed Comments Unknown Sex and Gender Information Value Date Recorded Sex Assigned at Not on file Legal Sex Female 5:20 PM CDT Gender Identity Not on file Sexual Orientation Not on file documented as of this encounter Miscellaneous Notes * Cerner Conversion Note - Janie ProviderMD - 11/23/2018 8:30 AM LABEL REMOVER [facility] [address] , [place] [address] Patient Copy Patient Information: Name: THAIS IGLESIASAlber Cano Current Date: 11/23/2018 08:30:10 : 1960 Patient Address: [address] [facility] [address] Patient Attending Physician: KAILEY PIERRE MD-RODO Primary Care Provider: Primary Care Provider Phone: Discharge Diagnosis: Weight on Admission: 157 lb, 0 oz Comment: Follow-up Instructions: With: Address: When: KAILEY PIERRE [address] [place], [place] [address]TOM[address] CHUN, [address] [place] [phone] Business (1) Within As needed Comments: see [...] Times A Day. fluticasone nasal (Flonase) 1 Chase(s) Nostrils Both Every Day. latanoprost ophthalmic (latanoprost [...] difficulty sleeping, and nervousness. Patient education materials: Colonoscopy, Adult, Care After This sheet gives [...] to digest. ? Rest often. ??? Take vlaf-kfu-vgwmtth or prescription medicines only as told by [...] 11/07/2011 Document Revised: 06/29/2017 Document Reviewed: 06/29/[address] Interactive Patient Education ? 2017 [employer]. CIGARETTE SMOKING: The facts are clear, cigarette smoking will shorten your life. Smoking can cause many illnesses along the way. As a healthcare provider, we recommend that you stop smoking. Assistance with quitting is available by contacting 5-718-JOZNFirstmonieNOW. This is a free resource providing counseling, [...] Be sure to sign up for the [employer] patient portal, which gives you 11/05 access to your medical information ??? including these discharge instructions ??? using your computer, smartphone, or tablet. Just go to Jogg to get started. Questions? Call . [facility] would like to thank you for allowing us to assist you with your healthcare needs. MEGHANA Campo SHARI R, (or service liaison representative) have received the above patient education materials/instructions and have verbalized understanding: Patient Signature _ Date/Time Patient Civil Engineering Project Manager Signature (if needed) Date/Time Clinician/Hospital Civil Engineering Project Manager Signature (if needed) Date/Time documented in this encounter Plan of Treatment Not on file documented as of this encounter Visit Diagnoses Not on filedocumented in this encounter
--- OUTSIDE RECORDS SUMMARY | 2025-06-20 07:41 | XMS_ITS | Encounter Summary ---
Author Organization [employer] ([place], [place], [place], [place]) Address [address] [place] [address] Care Team Providers Care Colored Leather Setter Name Role Phone Unavailable Primary Care Provider Unavailabl e Encounter Details Date Type Department Care Team (Late st Contact Info) Description 11/23/2018 Transcribed Document [facility] [place] Family Medicine [address] [place] [address] ProviderJanie MD [address] [place] [address] Social History Tobacco Use Types Packs/Day Years Used Date Smoking Tobacco: Never Assessed Comments Unknown Sex and Gender Information Value Date Recorded Sex Assigned at Not on file Legal Sex Female 5:20 PM CDT Gender Identity Not on file Sexual Orientation Not on file documented as of this encounter Miscellaneous Notes * Cerner Conversion Note - Historical ProviderMD - 11/23/2018 8:30 AM MERCERIZER [facility] PreOp Summary Primary Physician: KAILEY PIERRE MD-GAE Finalized Date/Time: 11/23/18 08:17:05 Pt. Name: GIOVANA IGLESIAS D.O.B./Sex: 1960 Female Med Rec #: [id number] Physician: KAILEY PIERRE MD-GAE Financial #: [id number] Pt. Type: O Room/Bed: [facility]/ Admit/Disch: 11/23/18 07:41:00 - Institution: [facility] PreOp Case Times Entry 1 In Preop 11/23/18 07:50:00 Ready for Holding n/a Room Patient Ready for 11/23/18 08:16:00 Surgery Patient Out of Preop 11/23/18 08:16:00 Patient Out of n/a Holding Room [facility] PreOp Case Times Audit 11/23/18 08:17:02 White Kid Buffer: JOSE Modifier: JOSE <+> 1 Patient Out of Preop <+> 1 Patient Ready for Surgery Finalized By: KAILEY CAMACHO RN Document Signatures Signed By: KAILEY CAMACHO RN 11/23/18 08:17 documented in this encounter Plan of Treatment Not on file documented as of this encounter Visit Diagnoses Not on filedocumented in this encounter
--- OUTSIDE RECORDS SUMMARY | 2025-06-20 07:41 | XMS_ITS | Encounter Summary ---
Author Organization [email or web address] ([place], [place], [place], [place]) Address [address] [place] [address] Care Team Providers Care Moss Gatherer Name Role Phone Unavailable Primary Care Provider Unavailabl e Encounter Details Date Type Department Care Team (Late st Contact Info) Description 11/23/2018 Transcribed Document [facility] [place] Family Medicine [address] [place] [address] ProviderJanie MD [address] [place] [address] Social History Tobacco Use Types Packs/Day Years Used Date Smoking Tobacco: Never Assessed Comments Unknown Sex and Gender Information Value Date Recorded Sex Assigned at Not on file Legal Sex Female 5:20 PM CDT Gender Identity Not on file Sexual Orientation Not on file documented as of this encounter Miscellaneous Notes * Cerner Conversion Note - Janie ProviderMD - 11/23/2018 9:19 AM COLORING ROOM MAN [facility] [address] , [place] [address] Patient Copy Patient Information: Name: THAIS IGLESIASAlber Cano Current Date: 11/23/2018 09:19:02 : 1960 Patient Address: [address] [facility] [address] Patient Attending Physician: KAILEY PIERRE MD-RODO Primary Care Provider: Primary Care Provider Phone: Discharge Diagnosis: Weight on Admission: 157 lb, 0 oz Comment: Follow-up Instructions: With: Address: When: KAILEY PIERRE [address] [place], [place] [address]T[address] CHUN, [address] [place] [phone] Business (1) Within As needed Comments: see gi report followup with lab results in 1 week Discharge Instructions: Diet after Discharge: Resume usual [...] Times A Day. fluticasone nasal (Flonase) 1 [place](s) Nostrils Both Every Day. latanoprost ophthalmic (latanoprost [...] ??? Eat a well-balanced diet. Medicines??? Take vqss-xrw-ctrbwbx and prescription medicines only as told by [...] Revised: 03/12/2017 Document Reviewed: 01/28/2016 ? 2017 [employer] Colon Polyps Introduction Polyps are tissue growths [...] 03/12/2017 Document Reviewed: 08/25/2016 ? 2017 [employer]vier Colonoscopy, Adult, Care After This sheet gives [...] to digest. ? Rest often. ??? Take iwge-xqo-sondfwu or prescription medicines only as told by [...] 11/07/2011 Document Revised: 06/29/2017 Document Reviewed: 06/29/2017 [employer] Interactive Patient Education ? 2017 [employer] CIGARETTE SMOKING: The facts are clear, cigarette smoking will shorten your life. Smoking can cause many illnesses along the way. As a healthcare provider, we recommend that you stop smoking. Assistance with quitting is available by contacting 5-727-VTWF-NOW. This is a free resource providing counseling, [...] Be sure to sign up for the [employer] patient portal, which gives you 11/05 access to your medical information ??? including these discharge instructions ??? using your computer, smartphone, or tablet. Just go to Teikon to get started. Questions? Call . [facility] would like to thank you for allowing us to assist you with your healthcare needs. MEGHANA Campo SHARI R, (or sales service representative) have received the above patient education materials/instructions and have verbalized understanding: Patient Signature _ Date/Time Patient Softball Core Molder Signature (if needed) Date/Time Clinician/Hospital Softball Core Molder Signature (if needed) Date/Time documented in this encounter Plan of Treatment Not on file documented as of this encounter Visit Diagnoses Not on filedocumented in this encounter
--- OUTSIDE RECORDS SUMMARY | 2025-06-20 07:41 | XMS_ITS | Encounter Summary ---
Author Organization [email or web address] ([place], [place], [place], [place]) Address [address] [place] [address] Care Team Providers Care Manager Recovery Name Role Phone Unavailable Primary Care Provider Unavailabl e Encounter Details Date Type Department Care Team (Late st Contact Info) Description 11/23/2018 Transcribed Document [facility] [place] [address] [place] [address] ProviderJanie MD [address] [place] [address] Social History Tobacco Use Types Packs/Day Years Used Date Smoking Tobacco: Never Assessed Comments Unknown Sex and Gender Information Value Date Recorded Sex Assigned at Not on file Legal Sex Female 5:20 PM CDT Gender Identity Not on file Sexual Orientation Not on file documented as of this encounter Miscellaneous Notes * Cerner Conversion Note - Historical ProviderMD - 11/23/2018 8:03 AM PARTS COUNTERPERSON Height and Weight, Clinical Dosing Entered On: 11/23/2018 8:04 EST Performed On: 11/23/2018 8:03 EST by KAILEY CAMACHO RN Height and Weight, Clinical Dosing Height Source : Stated Height Entry Format : [place] Height, Feet : 5 ft(Converted to: 152 cm, 60 Inch) Height, Inches : 5 Inch(Converted to: 0 ft 5 Inch, 12.70 cm) Clinical Height : 165.1 cm Weight Source : Standing scale Weight Entry Format : Howell Clinical Dosing Weight : 71.36 kg Weight, Pounds : 157 lb Body Surface Area (BSA) : 1.79 m2 Body Mass Index : 26.2 kg/m2 (HI) [place] Body Weight : 57 kg KAILEY CAMACHO RN - 11/23/2018 8:03 EST documented in this encounter Plan of Treatment Not on file documented as of this encounter Visit Diagnoses Not on filedocumented in this encounter
[2025-06-20] MEDS: SODIUM CHLORIDE 0.9% 10ML SYR (RAD ONLY) 10 ML IV ×2 (07:45→09:30)
--- NOTE | 2025-06-20 08:00 | NM_ITS ---
APPROVED REPORT Exam: Nuclear Stress Test Indication: cad, h/o mi, cabg, htn, hyperlipidemia, fm hx, sob, fatigue, abn ekg Patient Location: Outpatient Stress Tech: Milana Beavers [place] Tech:Cira LeonYURI RT (R)(N)(M) Ht: 5 ft 5 in Wt: 146 lbs Bra Size: c HR: 57 bpm BP: 156/62 mmHg BSA: 1.73 m2 TID: 1.01 BMI: 24.2 History: cad, h/o mi, cabg, htn, hyperlipidemia, fm hx, sob, fatigue, abn ekg Procedure: Patient received 0.4 mg of intravenous Lexiscan, resting heart rate 57 bpm, resting blood pressure 156/62 mmHg, with Lexiscan maximum heart rate achieved was 101 bpm which is % of the maximum predicted heart rate and blood pressure was 160/133 mmHg. With Lexiscan, patient denied any complaint of chest pain. Cardiac Stress and Resting SPECT Images: Cardiac Stress and Resting SPECT images were obtained using technetium 99m Myoview 30.3 mCi stress and 10.14 mCi at rest. Resting and stress imaging in supine and prone positions demonstrate small sized, moderate, partially reversible perfusion defect in the mid inferior LV wall. Gated imaging demonstrates normal global LV systolic function. LVEF is calculated at 56%. Conclusion: Small sized, moderate, partially reversible perfusion defect in the mid inferior LV wall. Findings are suggestive of partial reversible ischemia. Gated imaging demonstrates normal global LV systolic function. LVEF is calculated at 56%. Electronically signed by : Soraida Bellamy MD 06/20/2025 14:06:53
[2025-06-20] MEDS: ISOTOPE MYOVIEW (PER STUDY) 1 DOSE IV (09:58)
--- NOTE | 2025-06-20 10:15 | CA_ITS ---
APPROVED REPORT EXAM: Comprehensive 2D, Doppler, and color-flow Echocardiogram Cellophane Bag Machine Operator: [place] Ross RVT Ht: 5 ft 5 in Wt: 141lbs BSA: 1.71 BP: 129/73 mmHg Indications: CORONARY ARTERY DISEASE,FATIGUE 2D Dimensions LA Volume 32.50 mL LA Volume Index 19.01 mL/m2 (M/F) 16-34 EF AP4 47.00 % GL Strain -25.4 % M-Mode Dimensions RVDd 2.23 cm (0.9-2.6) LA Diam 2.99 cm (1.9-4.0) LVDd 2.78 cm (3.5-5.7) LVDs 2.00 cm (3.5-5.7) IVSd 0.91 cm (0.6-1.1) PWd 0.55 cm (0.6-1.1) EF (Teich) 56.20% FS 28.10% EDV (Teich) 29.00 mL TAPSE 1.82 (<1.7) ESV (Teich) 12.70 mL LV Diastology E Decel Time 133 (160-240 msec) E/A Ratio 1.3 Aortic Valve ANIL Index 1.65 cm2/m2 AoV Peak Gary. 137.0 (50-130 cm/s) AI PHT 989.00 ms AO Peak GR. 7.50 mmHg AO Mean GR. 4.10 (<5 mmHg) AO VTI 28.6 (18-25 cm) ANIL (VTI) 2.89 (2.5-4.5 cm2) Mitral Valve MV E Max Gary. 69.0 (40-130 cm/s) MV A Velocity 52.0 (40-130 cm/s) E/A Ratio 1.32 MV PHT 39.0 ms Pulmonary Valve PV Peak Velocity 129.0 (50-150 cm/s) Tricuspid Valve TR P. Velocity 251.00 cm/s RAP Estimate 8.00 mmHg RVSP 33.20 mmHg Left Ventricle The left ventricle is normal size. Left ventricular systolic function is normal. The left ventricular ejection fraction is within the normal range. There is increased left ventricular wall thickness. There is normal LV segmental wall motion. The left ventricular diastolic function is indeterminate. LVEF is 55%. Right Ventricle The right ventricle is not well-visualized, but grossly appears mildly dilated with normal RV function. Atria The left atrium is mildly dilated.. The right atrium size is normal. The interatrial septum is not well-visualized. Aortic Valve The aortic valve is mildly thickened. There is no hemodynamically significant aortic valvular stenosis. Mild aortic regurgitation is present. Mitral Valve The mitral valve is normal in structure. No evidence of mitral valve stenosis. Mild mitral regurgitation is present. Tricuspid Valve The tricuspid valve leaflets are thin and pliable. Mild tricuspid regurgitation. RVSP is 20-25 mmHg. Pulmonic Valve The pulmonary valve is grossly normal in structure. Trace pulmonic valve regurgitation is present. Great Vessels The aortic root is normal in size. IVC is normal in size and collapses >50% with inspiration. Pericardium There is no pericardial effusion. Other Information Study Quality: Technically Difficult Conclusion Technically difficult study. Normal LV systolic function. The right ventricle is not well-visualized, but grossly appears mildly dilated with normal RV function. Mild LA dilation. Mild MR, mild AI, mild TR. Electronically signed by : Soraida Bellamy MD 06/20/2025 12:49:01
== END 2025-06-20 23:59 | disposition home or self-care (01) ==
LOC: RAD 07:36
PROVIDERS: PCP Internal Medicine Adolescent Medicine; Visit Provider Physician Assistant
DX: I08.3 Combined rheumatic disorders of mitral, aortic and tricuspid valves (principal); I11.9 Hypertensive heart disease without heart failure; I49.3 Ventricular premature depolarization; I25.10 Atherosclerotic heart disease of native coronary artery without angina pectoris; I25.2 Old myocardial infarction; E78.5 Hyperlipidemia, unspecified; R94.31 Abnormal electrocardiogram [ECG] [EKG]; R94.39 Abnormal result of other cardiovascular function study; Z95.1 Presence of aortocoronary bypass graft
CPT/HCPCS: 78452; 93017; 93018; 93306; A9502; J2785

== ENCOUNTER 2025-09-21 07:38 | Outpatient (CLI) | payer BC, SELFPAY ==
--- OUTSIDE RECORDS SUMMARY | 2025-01-21 16:30 | XMS_ITS ---
Author Organization [facility] JACKIE Baker [facility] Address [address] [facility] [address] [place] [address] Care Team Providers Care Nuclear Engineering Technician Name Role Phone Emanuel Purvis Primary Care Provider Ryanne Reyna [phone] Emanuel Purvis Unavailable Unavailable Migration, Provider Unavailable Unavailable REASON FOR VISIT [facility] To [facility] Conversion Encounter Medications Medication SIG (Take, [...] orally once a day Active Vitamin A 55458 INTL UNITS DIRECTED ORALLY ONCE A DAY *Please review and pick correct strength-formulati on from Medispan options. If intended option is not shown, discontinue and re-order from Quick Search* Active Red Yeast Rice 600 MG 1 cap orally once a day Active Encounters Encounter Location Date Provider Diagnosis [facility] [address] [place] [address] 01/21/2025 Provider Migration Boil L02.92 Assessments Encounter [...] Notes * Praful IGLESIASiDOB:1960 (65 yo F)Acc No.[id number]:01/21/2025 Patient: Giovana MALDONADO Provider: Joshua shore Migration :1960 A ge:64 Y S ex:Female Date:01/21/2025 Address:[address] [place] [id number] Pcp:Emanuel Purvis Subjective: * Chief Complaints: * 1 . [facility] Encounter. * Medical History: * Medications: T aking Red Yeast Rice 600 MG Capsule 1 cap orally once a day , Taking Vitamin A 07642 INTL UNITS CAPSULE DIRECTED ORALLY ONCE A DAY , Notes to Pharmacist: *Please review and pick correct strength-formulation from [employer] options. If intended option is not shown, [...] *Please review and pick correct strength-formulation from [employer] options. If intended option is not shown, [...] Electronic signature of Prov nenar Migration on 09/21/2025 at 07:41 AM EST Sign off status: Pending * Provider: Joshua shore Migration Date: 0 01/21/2025 Generated for Gusatvo christianson/Clau/Marla on: 1 11/22/2024 07:41 AM EST
--- OUTSIDE RECORDS SUMMARY | 2025-08-10 14:50 | XMS_ITS | Encounter Summary ---
Author Organization Healthcare Address [address] [place] [address] Care Team Providers Care Community Health Advocate Name Role Phone Ryanne Reyna APRN Primary Care Provider [phone]- [phone] Juan Hensley MD Unavailable [phone] Encounter Details Date Type Department Care Team (Latest Contact Info) Description 08/10/2025 3:50 PM EDT - 08/10/2025 11:59 PM EDT Hospital Encounter Cardiac Imaging [address] [place] [address] History of loop recorder Discharge Disposition: Home [...] by mouth Daily. Vitamin A 7.5 MG (68270 UT) capsule 1 (one) time each day at the same time. documented as of this encounter Plan of Treatment Upcoming Encounters Date Type Department Care Team (Late st Contact Info) Description 10/23/2025 8:00 AM EST Office Visit [facility] [place] [address], [address] [place] [address] Kevin Vargas MD 110 [facility] [address] [place] [address] documented as of this encounter Procedures Procedure Name Priority Date/Time Associated Diagnosis Comments CARDIAC DEVICE CHECK - REMOTE - LOOP RECORDER (ILR) Routine 08/10/2025 4:58 PM EDT History of loop recorder documented in this encounter Results * CARDIAC DEVICE CHECK - REMOTE - LOOP RECORDER (ILR) (08/10/2025 4:58 PM EDT) Anatomical Region Laterality Modality Other Narrative 08/11/2025 7:13 AM EDT [facility] EP - Device Clinic Remote CIED Report Name: Giovana Iglesias Date: 08/11/2025 : 1960 Age: 65 y.o. Reporting period: Reporting period is the last 31 days, with at least 10 days of remote monitoring. Interim reports, if any, reviewed and addressed previously; see remote alert entries for more details. Device: Medtronic LNQ22 implantable electronic device monitor (ICM) Battery: Status: Good Evaluation: Presenting [...] documented as of this encounter Care Teams Community Health Advocate Relationship Specialty Start Date End Date Ryanne Reyna APRN [address] [place] [address] PCP - General 03/01/21 Juan Hensley MD 201 [facility] [address] [place] [address] Referring Physician Cardiology 05/18/23 documented as of this encounter
--- OUTSIDE RECORDS SUMMARY | 2025-08-16 11:30 | XMS_ITS | Encounter Summary ---
Author Organization Healthcare Address [address] [place] [address] Care Team Providers Care Forex Trader Name Role Phone MaribellRyanne desai Janis SOLOMON Primary Care Provider [phone]- [phone] Juan Hensley MD Unavailable [phone] Encounter Details Date Type Department Care Team (Latest Contact Info) Description 08/16/2025 12:30 PM EDT Office Visit [facility] Audiology [address] [place] [address] Marilee Haynes, AuD [address] [place] [address] Sensorineural hearing loss (SNHL) of both ears (Primary Dx) Social History Tobacco Use Types Packs/Day Years [...] as of this encounter Miscellaneous Notes * Progress Notes - Marilee Haynes AuD - 08/16/2025 12:30 PM EDT Images from the original note were not included. COCHLEAR IMPLANT MAPPING Referring Provider: Roxanne Vasquez MD Giovana Iglesias was seen today for bilateral Cochlear remapping. She was accompanied to the appointment by her , Feliberto. She overall has been hearing really well with her cochlear implants. Today she reported that her left processor is intermittent throughout the day. She is worried it will eventually stop working. The device is no longer under warranty. Condition of Implant Site: no sign of redness, edema, or sensitivity Equipment Information: RIGHT: Internal Device: [id number]- [id number] Surgery Date: 11/26/20 Surgeon: Roxanne Vasquez N7: [id number] N7 #2: [id number] Magnet strength: 2 Cord length: 3 in LEFT: Internal Device: CI622- [id number] Surgery Date: 04/12/2020 Surgeon: Roxanne Vasquez N7: [id number] N7 #2: [id number] Magnet strength: 2 Cord length: 3 in External Equipment Check: Mrs. Iglesias reported her left processor is no longer working properly. SN: [id number] The device is intermittent throughout the day. Her left processor is no longer under warranty. It is recommended shereceive a new device from [employer] before the device stops working completely. Upgrade Order: ORDER: Processor: Nucleus 8 Color: black Magnet: 2(I) Cable: 2 Batteries: power extend Accessories: 1 power extend Rodríguez Assessment: Aided soundfield thresholds were present from 25-30 dB for the composite ear. Aided speech perception testing was completed using recorded material at a calibrated presentation level of 60 dB. BILATERAL CIs: CNC (List 7): 88% words/ 96% phonemes AzBio Sentences (List 4): 99% AzBio Sentences at +10 shquhm-au-cgnoj ratio (List 2): 84% Total Rodríguez Time: 20 minutes Electrode Impedances: In the normal range bilaterally. Stable from previous measurements. Mapping Results: No mapping was completed today as the patient is doing very well with her devices. Dataloggin.6 hours/day for the right device and 1 hour/day for the left device Discussion: An upgrade order form was completed due to intermittency with the left processor. I sent her information to [employer] at [employer]. I instructed the patient to be mindful of emails from [employer] as theymay need additional information from her. Assessment/Plan: Return in 1 year for remapping Chrissie Owusu, CCC-A Time Piece Repairer documented in this encounter Plan of Treatment Upcoming Encounters Date Type Department Care Team (Late st Contact Info) Description 10/23/2025 8:00 AM EST Office Visit [facility] [address] [facility], [address] [place] [address] Kevin Vargas MD 110 [facility] [address] [place] [address] documented as of this encounter Visit Diagnoses Diagnosis Sensorineural hearing loss (SNHL) of both ears- Primary documented in this encounter Additional Health Concerns Assessment Noted Time A fall risk assessment has been complete d for the patient 02/14/2025 2:11 PM EDT A Body Mass Index follow-up plan has been documented for the patient 08/18/2025 9:09 AM EDT documented as of this encounter Care Teams Forex Trader Relationship Specialty Start Date End Date Ryanne Reyna APRN [address] [address] PCP - General 03/01/21 Juan Hensley MD 201 [facility] [address] [place] [address] Referring Physician Cardiology 05/18/23 documented as of this encounter
--- OUTSIDE RECORDS SUMMARY | 2025-09-11 13:30 | XMS_ITS | Encounter Summary ---
Author Organization Healthcare Address [address] [place] [address] Care Team Providers Care Patient Service Representative Name Role Phone Ryanne Reyna APRN Primary Care Provider [phone]- [phone] Juan Hensley MD Unavailable [phone] Encounter Details Date Type Department Care Team (Latest Contact Info) Description 09/11/2025 1:30 PM EST - 09/11/2025 11:59 PM [facility] Hospital Encounter Cardiac Imaging [address] [place] [address] Implantable loop recorder present Discharge Disposition: Home [...] by mouth Daily. Vitamin A 7.5 MG (68396 UT) capsule 1 (one) time each day at the same time. documented as of this encounter Plan of Treatment Upcoming Encounters Date Type Department Care Team (Late st Contact Info) Description 10/23/2025 8:00 AM EST Office Visit [facility] [place] [address] [place] [address] Kevin Vargas MD [address] [address] documented as of this encounter [...] documented as of this encounter Care Teams Patient Service Representative Relationship Specialty Start Date End Date Ryanne Reyna APRN [address] [place], [place] [id number] PCP - General 03/01/21 Juan Hensley MD [address] [place] [address] [address] [place] [address] Referring Physician Cardiology 05/18/23 documented as of this encounter
--- OUTSIDE RECORDS SUMMARY | 2025-09-21 07:40 | XMS_ITS | Clinical Summary ---
Author Organization [facility] ([place], [place], [place], [place], [place]) Address [address] [place] [address] Care Team Providers Care Compounder Flavorings Name Role Phone Unavailable Primary Care Provider [...]
--- OUTSIDE RECORDS SUMMARY | 2025-09-21 07:41 | XMS_ITS | Encounter Summary ---
Author Organization [facility] Address [address] [place] [address] Care Team Providers Care Form Builder Helper Name Role Phone MaribellRyanne Janis SOLOMON Primary Care Provider [phone]- [phone] Juan Hensley MD Unavailable [phone] Encounter Details Date Type Department Care Team (Latest Contact Info) Description 09/11/2025 Travel Social History Tobacco Use Types Packs/Day [...] Description 10/23/2025 8:00 AM EST Office Visit [facility] [address] [place] [address] Kevin Vargas MD 110 [facility] [address] [place] [address] documented as of this encounter Visit Diagnoses Not on filedocumented in this encounter Additional Health Concerns Assessment Noted Time A fall risk assessment has been complete d for the patient 02/14/2025 2:11 PM EDT A Body Mass Index follow-up plan has been documented for the patient 08/18/2025 9:09 AM EDT documented as of this encounter Care Teams Form Builder Helper Relationship Specialty Start Date End Date Ryanne Reyna APRN [facility] [address] [address] PCP - General 03/01/21 Juan Hensley MD [address] [place] [address] [address] [place] [id number] Referring Physician Cardiology 05/18/23 documented as of this encounter
--- OUTSIDE RECORDS SUMMARY | 2025-09-21 07:41 | XMS_ITS | Encounter Summary ---
Author Organization [employer] ([place], [place], [place], [place], [place]) Address [address] [place] [address] Care Team Providers Care Glue Mounter Operator Name Role Phone Unavailable Primary Care Provider Unavailabl e Encounter Details Date Type Department Care Team (Late st Contact Info) Description 11/23/2018 Transcribed Document [facility] Family Medicine [address] [place] [address] ProviderJanie MD [address] [place], [place] [address] Social History Tobacco Use Types Packs/Day Years Used Date Smoking Tobacco: Never Assessed Comments Unknown Sex and Gender Information Value Date Recorded Sex Assigned at Not on file Legal Sex Female 5:20 PM CDT Gender Identity Not on file Sexual Orientation Not on file documented as of this encounter Miscellaneous Notes * Cerner Conversion Note - Historical ProviderMD - 11/23/2018 9:09 AM RFID SYSTEMS ENGINEER Nursing Discharge Summary Entered On: 11/23/2018 9:10 [...]
--- OUTSIDE RECORDS SUMMARY | 2025-09-21 07:41 | XMS_ITS | Clinical Summary ---
Author Organization Healthcare Address [address] [place] [address] Care Team Providers Care Olive Packer Name Role Phone Ryanne Reyna APRN Primary Care Provider [phone] Juan Hensley MD Unavailable [phone] Allergies No known active allergies Medications loratadine [...] same time. Active Vitamin A 7.5 MG (06732 UT) capsule 1 (one) time each day [...] Encounters Date Type Department Care Team Description 09/11/2025 1:30 PM EST - 09/11/2025 11:59 PM EST Hospital Encounter Cardiac Imaging [address] [place] [address] Implantable loop recorder present Discharge Disposition: Home or Self Care 09/11/2025 Travel 08/16/2025 12:30 PM EDT Office Visit [facility] Audiology [address] [place] [address] Marilee Haynes, Sindhu Sensorineural hearing loss (SNHL) of both ears (Primary Dx) 08/16/2025 Travel 08/10/2025 3:50 PM EDT - 08/10/2025 11:59 PM EDT Hospital Encounter Cardiac Imaging [address] [place] [address] History of loop recorder Discharge Disposition: Home or Self Care 08/10/2025 Travel 07/11/2025 1:05 PM EDT - 07/11/2025 11:59 PM EDT Hospital Encounter Cardiac Imaging [address] [place] [address] Implantable loop recorder present Discharge Disposition: Home or Self Care 07/11/2025 Travel from Last 3 Months Immunizations Immunization [...] Description 10/23/2025 8:00 AM EST Office Visit [facility] [address] [place] [address] Kevin Vargas MD [address] [place] [address] Health Maintenance Due Date Last Done Comments [facility]-Depression Screening 1961 [facility]-Infant/Child/Adol SDOH Screenings 1961 [facility]-JCEOY-48 Vaccine (#1) 1966 [facility]- SDOH Screenings 1979 [facility]-Adult SDOH Screenings 1979 [facility]-DTaP,Tdap,and Td Vaccine s (1 - Tdap) 1980 CT Colonography 2006 Colonoscopy 2006 FIT-DNA 2006 FIT 2006 FOBT 2006 Sigmoidoscopy 2006 [facility]-Colorectal Cancer Screening 2006 [facility]-Breast Cancer Screening 2011 [facility]-Zoster Vaccines (1 of 2) 2011 [facility]-Pneumococcal Vaccine: 50 + Years (2 of 2 - PPSV23, PCV20, or PCV21) 07/12/2020 05/17/2020 [facility]-RSV Vaccine: 60+ Years o [...] this topic Medical Devices Implanted Type Area Shovel Handle Assembler Device Identifier Shelf Expiration Date Model / Serial / Lot Cochlear-2019 Implanted:03/20 by Roxanne Vasquez MD (Quantity not on file) Cochlear Left: Ear [id number] / [id number] / Cochlear- 021 Implanted:05/2021 by Roxanne Vasquez MD (Quantity not on file) Cochlear Right: Ear [id number] / [id number] / System Reveal Linq Ii Insertable Cargo Router - [id number] Implanted:Qty: 1 on 05/05/2024 at [facility] [employer]-[id number] 10/09/2025 [id number] / [id number] / [id number] Procedures Procedure Name Priority Date/Time Associated Diagnosis Comments CARDIAC DEVICE CHECK - REMOTE - LOOP RECORDER (ILR) Routine 09/11/2025 1:47 PM EST Implantable loop recorder present CARDIAC DEVICE CHECK - REMOTE - LOOP RECORDER (ILR) Routine 08/10/2025 4:58 PM EDT History of loop recorder CARDIAC DEVICE CHECK - REMOTE - LOOP RECORDER (ILR) Routine 07/11/2025 3:20 PM EDT Implantable loop recorder present HEPATITIS C ANTIBODY - ED W/REFLEX TO HCV QUANT PCR STAT 05/29/2023 7:47 AM EDT ED HIV 1/2 ANTIBODY/ANTIGEN SCREEN WITH REFLEX TO HIV I/II DIFFERENTIATION STAT 05/29/2023 7:47 AM EDT from Last 3 Months or Most Recently Relevant to Health Maintenance Results * CARDIAC DEVICE CHECK - REMOTE - LOOP RECORDER (ILR) (09/11/2025 1:47 PM EST) Only the most recent of3 resultswithin the time period is included. Anatomical Region Laterality Modality Other Narrative 09/11/2025 3:36 PM EST Implantable loop recorder (ILR) interrogation. Battery remaining in service adequate. EGM's reviewed against indication for implant and diagnosis, found to be unremarkable. No new events since last interrogation and reset. Presenting rhythm is sinus. Analy Cummings APRN CV IMPLANTABLE CARDIAC DEV ICE PROCEDURES Final Result * ED HIV 1/2 Antibody/Antigen Screen w/Reflex to HIV 1/2 Differentiation (05/29/2023 7:47 AM EDT) HIV 1 & 2 Antibody/Antigen Screen Non Reactive Non Reactive 06/10/2023 6:46 PM EDT [facility] Comment:Screening for HIV 1 & 2 antibodies, and P24 antigen is NONREACTIVE. No confirmatory testing is required. Blood Venous blood specimen / Unknown Venipuncture / Unknown 05/29/2023 7:47 AM EDT 05/29/2023 7:59 AM EDT Result [facility] Con Lock MD LAB BLOOD ORDERABLES Edited Re sult - Final Performing Organization Address City/State/[facility] Co de Phone Number [facility] [address] [place] [phone] * Hepatitis C Antibody - ED (05/29/2023 7:47 AM EDT) Hepatitis C Antibody Negative Negative 05/29/2023 8:54 AM EDT HEALTHCARE LAB Blood Venous blood specimen / Unknown Venipuncture / Unknown 05/29/2023 7:47 AM EDT 05/29/2023 7:59 AM EDT Con Lock MD LAB BLOOD ORDERABLES Final Res ult [facility] [address] [place] [address] from Last 3 Months or Most Recently [...] Patient has decision-making capacity? Yes Care Teams Olive Packer Relationship Specialty Start Date End Date Ryanne Reyna APRN [address] [place] [address] PCP - General 03/01/21 Juan Hensley MD [address] [facility] [address] [place] [address] Referring Physician Cardiology 05/18/23
--- OUTSIDE RECORDS SUMMARY | 2025-09-21 07:41 | XMS_ITS | Clinical Summary ---
Author Organization [facility] Address [address] [place] [address] Care Team Providers Care Outreach Rep Name Role Phone Ryanne Reyna APRN Primary [...] Pneumococcal Vaccine 50+ (2 of 2 - PCV20 or PCV21) 05/17/2020 INFLUENZA VACCINE 2025 Insurance CR[employer]UE [employer] PPO Care Teams Outreach Rep Relationship Specialty Start Date End Date Ryanne Reyna APRN [address] [place] [address] [place] [address] PCP - General Family Medicine 11/14/16
--- OUTSIDE RECORDS SUMMARY | 2025-09-21 07:41 | XMS_ITS | Referral Summary ---
Author Organization [facility] [facility] ([place], [place], [place], [place], [place]) Address [address] [place] [address] Care Team Providers Care Tooler Name Role Phone Unavailable Primary Care Provider [...]
--- OUTSIDE RECORDS SUMMARY | 2025-09-21 07:41 | XMS_ITS | Patient Health Record ---
Author Organization [facility] Address [address] [place] [address] [place] [address] Care Team Providers Care Solar Panel Installation Supervisor Name Role Phone Emanuel Purvis Primary Care Provider Ryanne Reyna Unavailable [phone] Emanuel Purvis Unavailable Unavailable Migration, Provider Unavailable Unavailable Allergies No Known Allergies Results Component Value Reference Range Notes LIPID PANEL, STANDARD (7600) Reviewed date:06/20/2025 08:47:08 AM Interpretation: Performing Lab:KARLEY, Karissa Marquis-Jb Wahle1355 [facility] CenterJb Gaston[address] [place] Notes/Report: NON-FASTING; NON-FASTING; NON-FASTING; NON-FASTING; NON-FAST FASTING:YES FASTING: YES CHOLESTEROL, TOTAL 277 <200 mg/dL HDL CHOLESTEROL 49 > OR = 50 mg/dL TRIGLYCERIDES 194 <150 mg/dL LDL-CHOLESTEROL 191 be identified early and provided appropriate these extremely high LDL-C levels can result in <70 mg/dL for patients with CHD or diabetic patients with an FH diagnosis. LDL Cholesterol (LDL-C) management. Heart Journal, 35(32), better accuracy than the Friedewald equation in the Management of Dyslipidemia: Part 1 Journal of hypercholesterolemia, please call Karissa BARKER et al. KALUS. 2013;310(19): 7259-2870 hypercholesterolemia (FH). Clinical assessment and Delia Frazier al. (2014). Homozygous familial familial hypercholesterolemia (HoFH). Untreated, Reference range: <100 For questions about testing for familial burden from . calculation, which is a validated novel method providing premature CV events and mortality. Patients should Desirable range <100 mg/dL for primary prevention; for clinicians to improve detection and clinical considered for all first degree relatives of patients Recommendations for Patient-Centered levels > or = 300 mg/dL may indicate homozygous LDL-C levels > or = 190 mg/dL may indicate familial 0797-0363. Clinical Lipidology 2015;9(2), 129-169. with > or = 2 CHD risk factors. LDL-C is now calculated using the [facility] [employer] Client Services at 1.866.GENE.INFO. estimation of LDL-C. interventions to reduce the cumulative LDL-C Kecia Willett, et al. J National Lipid Association (http://education.Aceable.com/faq/SXQ865) measurement of blood lipid levels should be hypercholesterolaemia: new insights and guidance CHOL/HDLC RATIO 5.7 <5.0 (calc) NON HDL CHOLESTEROL 228 <130 mg/dL (calc) For patients with diabetes plus 1 major ASCVD risk genetic familial hypercholesterolemia (FH). Clinical should be considered for all first-degree relatives (LDL-C of <70 mg/dL) is considered a therapeutic Non-HDL level > or = 220 is very high and may indicate factor, treating to a non-HDL-C goal of <100 mg/dL assessment and measurement of blood lipid levels option. of patients with an FH diagnosis. COMPREHENSIVE METABOLIC PANE Janis (27603) Reviewed date:06/20/2025 08:47:08 AM Interpretation: Performing Lab:KARLEY, Quest Kandis-Jb [id number] [facility] CenterjenniferH[facility], Jb AndradeCjwnVG[address] [place] Notes/Report: NON-FASTING; NON-FASTING; NON-FASTING; NON-FASTING; NON-FAST FASTING:YES FASTING: YES GLUCOSE 100 65-99 mg/dL Fasting reference interval follow-up test. For someone without known diabetes, a glucose value prediabetes and should be confirmed with a between 100 and 125 mg/dL is consistent with UREA NITROGEN (BUN) 16 7-25 mg/dL CREATININE [...] 6-29 U/L CBC (INCLUDES DIFF/PLT) (639 9) Reviewed date:06/20/2025 08:47:08 AM Interpretation: Performing Lab:KARLEY, [place] [id number] [facility], [facility] CenterPofySV[address] [place] Notes/Report: NON-FASTING; NON-FASTING; NON-FASTING; NON-FASTING; NON-FAST FASTING:YES FASTING: YES WHITE BLOOD CELL COUNT 7.0 3.8-10.8 Thousand/ uL RED BLOOD CELL COUNT 5.10 3.80-5.10 Million/uL HEMOGLOBIN 15.2 11.7-15.5 g/dL HEMATOCRIT 47.0 35.0-45.0 % MCV 92.2 80.0-100.0 fL MCH 29.8 27.0-33.0 pg MCHC 32.3 32.0-36.0 g/dL condition. For adults, a slight decrease in the calculated MCHC not clinically significant; however, it should be red cell parameters and the patient's clinical value (in the range of 30 to 32 g/dL) is most likely interpreted with caution in correlation with other RDW 13.3 11.0-15.0 % PLATELET COUNT 251 140-400 Thousand/uL MPV 9.8 7.5-12.5 fL ABSOLUTE NEUTROPHILS 4200 3003-2953 cells/uL ABSOLUTE LYMPHOCYTES 2072 850-3900 cells/uL ABSOLUTE MONOCYTES 448 200-950 cells/uL ABSOLUTE EOSINOPHILS 217 15-500 cells/uL ABSOLUTE BASOPHILS 63 0-200 cells/uL NEUTROPHILS 60 LYMPHOCYTES 29.6 MONOCYTES 6.4 EOSINOPHILS 3.1 BASOPHILS 0.9 HEMOGLOBIN A1c (496) Reviewed date:06/20/2025 08:47:08 AM Interpretation: Performing Lab:KARLEY [place] Kefn4079 [employer], eReplicantCpybXG[address] [place] Notes/Report: NON-FASTING; NON-FASTING; NON-FASTING; NON-FASTING; NON-FAST FASTING:YES FASTING: YES HEMOGLOBIN A1c 5.3 <5.7 % control in non- diabetic patients. Different hemoglobin A1c for diagnosis of diabetes in children. (prediabetes) diabetes: 5.7-6.4% Consistent with increased risk for diabetes of diabetes. > or =6.5% Consistent with diabetes This assay result is consistent with a decreased risk guidelines, hemoglobin A1c <7.0% represents optimal Currently, no consensus exists regarding use of Standards of Medical Care in Diabetes(ADA). According to [place] Diabetes Association (ADA) metrics may apply to specific patient populations. <5.7% Consistent with the absence of diabetes For the purpose of screening for the presence of VITAMIN B12 (927) Reviewed date:06/20/2025 08:47:08 AM Interpretation: Performing Lab:KARLEY [place] Qkop8475 [employer], eReplicantAfukCN[address] [place] Notes/Report: NON-FASTING; NON-FASTING; NON-FASTING; NON-FASTING; NON-FAST FASTING:YES FASTING: YES VITAMIN B12 728 362-5887 pg/mL pg/mL may experience neuropsychiatric and hematologic Please Note: Although the reference range for vitamin of patients with values above 400 pg/mL will have symptoms. 5 and 10% of patients with values between 200 and 400 abnormalities due to occult B12 deficiency; less than 1% B12 is 200-1100 pg/mL, it has been reported that between FERRITIN (457) Reviewed date:06/20/2025 08:47:08 AM Interpretation: Performing Lab:KARLEY [place]-Predictus Bio[employer]iencese1355 [employer], eReplicantPlniCQ[address] [place] Notes/Report: NON-FASTING; NON-FASTING; NON-FASTING; NON-FASTING; NON-FAST FASTING:YES FASTING: YES FERRITIN 19 16-288 ng/mL TSH W/REFLEX TO FT4 (58571) Reviewed date:06/20/2025 08:47:08 AM Interpretation: Performing Lab:CB, [facility] [address], [facility] HospitalFcjuWF[address] [place] Notes/Report: NON-FASTING; NON-FASTING; NON-FASTING; NON-FASTING; NON-FAST FASTING:YES FASTING: YES TSH W/REFLEX TO FT4 2.52 0.40-4.50 mIU/L VITAMIN D,25-OH,TOTAL,IA (17 306) Reviewed date:06/20/2025 08:47:08 AM Interpretation: Performing Lab:KARLEY, [facility] [address], [place] NxhrUM[address] [place] Notes/Report: NON-FASTING; NON-FASTING; NON-FASTING; NON-FASTING; NON-FAST FASTING:YES FASTING: YES VITAMIN D,25-OH,TOTAL,IA 57 30-100 ng/mL http://education.Company.com/faq/YIX081 For 25-OH Vitamin D testing on patients on code 33413 (patients >2yrs). Insufficiency: 20 - 29 ng/mL 25-OH VIT D, (D2,D3), LC/MS/MS is recommended: order See Note 1 Vitamin D Status 25-OH Vitamin D: Note 1 D2-supplementation and patients for whom quantitation Deficiency: <20 ng/mL For additional information, please refer to educational purposes only.) Optimal: > or = 30 ng/mL (This link is being provided for informational/ of D2 and D3 fractions is required, the QuestAssureD(TM) Reason For Referral Reason Mamm and DEXA at [facility] Diagnosis 1 Routine medical exam (Z00.00) Referral Organization [facility] Referring Provider First Name Ryanne Referring Provider Last Name Maribell Referring Provider Speciality [facility] Referred Organization [facility] Referred Address [address] [place] [facility] [address] [facility], [place], [place],[address], Referred Provider Specialty Diagnostic R adiology General Notes Edel Kiser 2024 10:37:27 AM >sent to [facility] Referral Priority Routine Medications Medication SIG (Take, Route, Frequency, Duration) Notes Start Date End Date Status Fiber Choice 1.5 GM 1 tab(s) chewed once daily at bedtime Active Probiotic Formula 1-250 BILLION-MG 1 gummie orally once a day Active Zetia 10 MG 1 tablet Orally Once a day; Duration: 90 days 06/20/2025 Active Zinc 50 MG 1 tablet Orally [...] Duration: 30 days 04/28/2023 Active Vitamin A 02760 INTL UNITS DIRECTED ORALLY ONCE A DAY *Please review and pick correct strength-formulati on from Just around Us options. If intended option is not shown, [...] review and pick correct strength-formulati on from Just around Us options. If intended option is not shown, discontinue and re-order from Quick Search* Active Immunizations Vaccine Route Administration Date Status Comme nts Prevnar PCV-13 (Pneumococcal conjugate 13) IM Intramuscular 05/17/2020 Administered Problems Problem Type SNOMED Code ICD Code Onset Dates Problem Status W/U Status Risk Notes Problem Chronic pain (37873104) Other chronic pain (G89.29) Active confirmed Problem Pain of right knee region (finding) (262954565728056) Pain in right knee (M25.561) Active confirmed Problem Pain of left knee joint (finding) (944087749165091) Pain in left knee (M25.562) Active confirmed Problem Hyperlipidaemia (61401071) HLD (hyperlipidemia) (E78.5) Active confirmed Problem Visual impairment (274258512) Visual impairment (H54.7) Active confirmed Problem Iron deficiency anemia (39140329) Iron deficiency anemia (D50.9) Active confirmed Problem Hyperlipidemia (76152518) Hyperlipidemia, unspecified (E78.5) Active confirmed Problem Urge incontinence of urine (49643254) Urge incontinence of urine (N39.41) Active confirmed Problem Benign essential hypertension (7615298) Benign essential hypertension (I10) Active confirmed Problem Arthropathy (661939736) Arthritis involving multiple sites (M12.9) Active confirmed Problem Atherosclerosis of coronary artery without angina pectoris (295314782206626) Atherosclerosis of [place] coronary artery of [place] heart without angina pectoris (I25.10) Active confirmed Problem Atherosclerotic hear t disease of [place] coronary artery without angina pectoris (444379230949312) Coronary artery disease involving [place] coronary artery of [place] heart without angina pectoris (I25.10) Active confirmed Problem Recurrent falls (887696211) Frequent falls (R29.6) Active confirmed Problem Abnormal mammogram (195323072) Abnormal mammogram (R92.8) Active confirmed Problem Ataxia (68156530) Ataxia (R27.0) Active confirm ed Problem Unstable angina co-occurrent and due to coronary arteriosclerosis (86097944953191756) Coronary artery disease involving [place] coronary artery of [place] heart with unstable angina pectoris (I25.110) Active confirmed Problem Body mass index 25-2 9 - overweight (092176949) BMI 26.0-26.9,adult (Z68.26) Active confirmed Problem Transient ischemic attack (342615437) TIA (transient ischemic attack) (G45.9) Active confirmed Problem Chronic constipation (736355745) Chronic constipation (K59.09) Active confirmed Problem STEMI - ST elevation myocardial infarction (249614150) ST elevation (STEMI) myocardial infarction (I21.3) Active confirmed Problem Arthritis of acromioclavicular joint (487803468) Acromioclavicular joint arthritis (M19.90) Active confirmed Problem Right anterior k nee pain (M25.561) Active confirmed Problem Stable angina (disorder) (595825927) Stable angina pectoris (I20.8) Active confirmed Problem History of iron deficiency anemia (518837076) History of iron deficiency anemia (Z86.2) Active confirmed Problem Postmenopausal osteoporosis (964175806) Postmenopausal osteoporosis (M81.0) Active confirmed Problem Sensorineural hearin g loss, bilateral (181849705) Sensorineural hearing loss (SNHL) of both ears (H90.3) Active confirmed Problem Multiple subsegm ental pulmonary emboli without acute cor pulmonale (I26.94) Active confirmed Problem Hyperlipoproteinemia (0319680) Acquired hyperlipoproteinemia (E78.5) Active confirmed Vital Signs Heart Rate 74 /min 06/14/2025 Temperature 97.9 degrees Fahrenheit 06/14/2025 Blood pressure diastolic 72 mm Hg 06/14/2025 Height 5 ft 5 in in 06/14/2025 Blood pressure systolic 122 mm Hg 06/14/2025 Weight 144 lbs 06/14/2025 BMI 23.96 kg/m2 06/14/2025 Encounters Encounter Location Date Provider Diagnosis [facility] [address] [place] [address] [facility] [address] [place], [place] [address] 01/21/2025 Provider Migration Boil L02.92 [facility] [address] [address] 01/04/2025 Ryanne Reyna Boil L02.[address] [address] 06/14/2025 Ryanne Reyna Routine medical exam Z00.00 ; Sensorineural hearing loss (SNHL) of both ears H90.3 ; Visual impairment H54.7 ; History of iron deficiency anemia Z86.2 ; Benign essential hypertension I10 ; Hyperlipidemia, unspecified E78.5 ; Coronary artery disease involving [place] coronary artery of [place] heart without angina pectoris I25.10 ; Arthritis involving multiple sites M12.9 ; Abscess L02.91 ; Postmenopausal osteoporosis M81.0 and BMI 23.0-23.9, adult Z68.23 [facility] [address] [facility] [address] [place] [address] 06/15/2025 Emanuel Purvis Visit for screening mammogram Z12.31 and Asymptomatic menopausal state Z78.0 [facility] [address] [address] 06/20/2025 Emanuel Purvis [facility] [address] [address] 06/29/2025 Emanuel Purvis Assessments Encounter Date Diagnosis (ICD Code) Assessment Notes Treatment Notes Treatment Clinical Notes Section Notes 01/04/2025 Boil (ICD-10 - L02.92) The etiology [...] possible need for I&D for complete resolution 01/21/2025 Boil (ICD-10 - L02.92) 06/14/2025 Routine medical exam (ICD-10 - Z00.00) Update mamm and obtain baseline DEXA as noted, encouraged vaccinations but declines 06/14/2025 Sensorineural hearing loss (SNHL) of both ears (ICD-10 - H90.3) cochlear implants as noted 06/15/2025 Visit for screening mammogram (ICD-10 - [...] bypass surgery. 06/14/2025 Coronary artery disease involving [place] coronary artery of [place] heart without angina pectoris (ICD-10 - I25.10) [...] 04/13/2017 H-CBC with AUTO DIFF 07/22/2010 H-CMP 07/22/2010 H-CMP 04/13/2017 H-CMP 03/21/2011 H-LIPID PANEL 04/13/2017 H-LIPID PANEL 07/22/2010 H-LIPID PANEL 03/21/2011 H-TSH 07/22/2010 H-SED RATE 03/21/2011 Lexiscan Stress Test 04/28/2023 Insurance Providers Payer Name Payer Address Payer Phone Subscriber Number Group Number Insured Name Patient Relationship to Insured Coverage Start Date Coverage End Date [facility] [address] [place] [address] [id number] Jesus ManuelPraful mendozai Self - patient is the insured Medical [...] Reason Date(Month/Year) CVA 05/2023 Triple bypass 05/2023 H 11/2022 hysterectomy @ [facility] 06/2015 Vertigo 10/2011
--- OUTSIDE RECORDS SUMMARY | 2025-09-21 07:42 | XMS_ITS | Encounter Summary ---
Author Organization [employer] ([place], [place], [place], [place], [place]) Address [address] [place] [address] Care Team Providers Care Methods Analyst Data Processing Name Role Phone Unavailable Primary Care Provider Unavailabl e Encounter Details Date Type Department Care Team (Late st Contact Info) Description 11/23/2018 Transcribed Document [facility] [place] Family Medicine [address] [place] [address] ProviderJanie MD [address] [place] [address] Social History Tobacco Use Types [...] - Janie ProviderMD - 11/23/2018 9:15 AM B[facility]CH[facility] [address], [place] [address] Patient Copy Patient Information: Name: GIOVANA IGLESIAS Jerome Current Date: 11/23/2018 09:15:11 : 1960 Patient Address: [address] [facility] [address] Patient Attending Physician: KAILEY PIERRE MD-RODO Primary Care Provider: Primary Care Provider Phone: Discharge Diagnosis: Weight on Admission: 157 lb, 0 oz Comment: Follow-up Instructions: With: Address: When: KAILEY PIERRE [address] [place] [address] [address], [address] [place] [phone] Business (1) Within As needed Comments: see [...] Times A Day. fluticasone nasal (Flonase) 1 [place](s) Nostrils Both Every Day. latanoprost ophthalmic (latanoprost [...] ??? Eat a well-balanced diet. Medicines??? Take hfyv-uja-qbrjqej and prescription medicines only as told by [...] Revised: 03/12/2017 Document Reviewed: 08/25/2016 ? 2017 [employer] Colonoscopy, Adult, Care After This sheet gives [...] to digest. ? Rest often. ??? Take sbck-nvt-yvcqsph or prescription medicines only as told by [...] Assistance with quitting is available by contacting 3-450-WTNK-NOW. This is a free resource providing counseling, [...] Be sure to sign up for the [employer] patient portal, which gives you 24/ access to your medical information ??? including these discharge instructions ??? using your computer, smartphone, or tablet. Just go to [employer] to get started. Questions? Call . [facility] would like to thank you for allowing us to assist you with your healthcare needs. MEGHANA Campo SHARI R, (or rental representative) have received the above patient education materials/instructions and have verbalized understanding: Patient Signature _ Date/Time Patient Burglar Alarm Mechanic Signature (if needed) Date/Time Clinician/Hospital Burglar Alarm Mechanic Signature (if needed) Date/Time documented in this encounter Plan of Treatment Not on file documented as of this encounter Visit Diagnoses Not on filedocumented in this encounter
--- OUTSIDE RECORDS SUMMARY | 2025-09-21 07:42 | XMS_ITS | Encounter Summary ---
Author Organization [employer] ([place], [place], [place], [place], [place]) Address [address] [place] [address] Care Team Providers Care Senior Asic Engineer Name Role Phone Unavailable Primary Care Provider Unavailabl e Encounter Details Date Type Department Care Team (Late st Contact Info) Description 11/23/2018 Transcribed Document [facility] [place] [address] [place] [address] ProviderJanie MD [address] [place] [address] Social History Tobacco Use Types [...] - Janie ProviderMD - 11/23/2018 8:30 AM AIR DRIER MACHINE OPERATOR [facility] [address], [place] [address] Patient Copy Patient Information: Name: GIOVANA IGLESIAS Jerome Current Date: 11/23/2018 08:30:10 : 1960 Patient Address: [address] [facility] [address] Patient Attending Physician: KAILEY PIERRE MD-RODO Primary Care Provider: Primary Care Provider Phone: Discharge Diagnosis: Weight on Admission: 157 lb, 0 oz Comment: Follow-up Instructions: With: Address: When: KAILEY PIERRE [address] [place] [address] [address], [address] [place] [phone] Business (1) Within As needed Comments: see [...] Times A Day. fluticasone nasal (Flonase) 1 Sinclair(s) Nostrils Both Every Day. latanoprost ophthalmic (latanoprost [...] to digest. ? Rest often. ??? Take tnla-pkg-shakdqr or prescription medicines only as told by [...] 11/07/2011 Document Revised: 06/29/2017 Document Reviewed: 06/29/2017 [employer] Interactive Patient Education ? 2017 [employer]. CIGARETTE SMOKING: The facts are clear, cigarette smoking will shorten your life. Smoking can cause many illnesses along the way. As a healthcare provider, we recommend that you stop smoking. Assistance with quitting is available by contacting 5-127-VPKISharalikeNOW. This is a free resource providing counseling, [...] Be sure to sign up for the [employer] patient portal, which gives you 11/05 access to your medical information ??? including these discharge instructions ??? using your computer, smartphone, or tablet. Just go to [employer] to get started. Questions? Call . [facility] would like to thank you for allowing us to assist you with your healthcare needs. MEGHANA Campo SHARI R, (or telephone claims representative) have received the above patient education materials/instructions and have verbalized understanding: Patient Signature _ Date/Time Patient Hiv Prevention Specialist Signature (if needed) Date/Time Clinician/Hospital Hiv Prevention Specialist Signature (if needed) Date/Time documented in this encounter Plan of Treatment Not on file documented as of this encounter Visit Diagnoses Not on filedocumented in this encounter
--- OUTSIDE RECORDS SUMMARY | 2025-09-21 07:42 | XMS_ITS | Encounter Summary ---
Author Organization [employer] ([place], [place], [place], [place], [place]) Address [address] [place] [address] Care Team Providers Care Mail List Librarian Name Role Phone Unavailable Primary Care Provider Unavailabl e Encounter Details Date Type Department Care Team (Late st Contact Info) Description 11/23/2018 Transcribed Document [facility] [place] [address] [place] [address] ProviderJanie MD [address] [place] [address] Social History Tobacco Use Types [...] - Historical ProviderMD - 11/23/2018 8:04 AM DYED YARN OPERATOR Pre Procedure Adult Entered On: 11/23/2018 8:09 EST Performed On: 11/23/2018 8:04 EST by KAILEY CAMACHO RN Height and Weight, Clinical Dosing Height Source : Stated Height Entry Format : [facility] Height, Feet : 5 ft(Converted to: 152 cm, 60 Inch) Height, Inches : 5 Inch(Converted to: 0 ft 5 Inch, 12.70 cm) Clinical Height : 165.1 cm Weight Source : Standing scale Weight Entry Format : [facility] Clinical Dosing Weight : 71.36 kg Weight, Pounds : 157 lb Body Surface Area (BSA) : 1.79 m2 Body Mass Index : 26.2 kg/m2 (HI) [place] Body Weight : 57 kg KAILEY CAMACHO [...] Relationship : spouse Emergency Contact #2 : sridhar Emergency Contact #2 Phone Number : sridhar Emergency Contact #2 Relationship : na Primary Language : Sammarinese Communication Barrier : None KAILEY CAMACHO RN [...] Scale Risk Level : 0-24 Low Risk [place] Fall Interventions : Adequate lighting, Assistive devices within reach, Bed in low position, Call device within reach, Fall prevention handout/education per facility policy, Frequent orientation to call device, Frequent orientation to surroundings, Hourly comfort/safety rounds, Personal items within reach, Reinforced to call for assistance before getting out of bed, Room free of clutter/spills, Upper side-rails up, Wheels locked, Wires/Cords secured KAILEY CAMACHO, RN - 11/23/2018 8:04 EST Valuables and Belongings Valuables and Belongings : Clothing Clothing : Common streetwear Clothing Disposition : Bedside KAILEY CAMACHO, MARYURI - 11/23/2018 8:04 EST Pain Scale Intensity [...]
--- OUTSIDE RECORDS SUMMARY | 2025-09-21 07:42 | XMS_ITS | Encounter Summary ---
Author Organization [facility] Address [address] [place] [address] Care Team Providers Care Top Precipitator Operator Name Role Phone MaribellRyanne desai Janis SOLOMON Primary Care Provider [phone] Juan Hensley MD Unavailable [phone] Reason for Visit * Reason Comments Med Refill Encounter Details Date Type Department Care Team (Late st Contact Info) Description 09/11/2021 Refill [facility] [place] [address] [facility] [address], [address] [place] [address] Kevin Vargas MD [address] [place] [address] Social History Tobacco Use Types [...] Description 10/23/2025 8:00 AM EST Office Visit [facility] [address] [facility] [facility], [address] [place] [address] Kevin Vargas MD [address] [place] [address] documented as of this encounter Visit Diagnoses Not on filedocumented in this encounter Care Teams Top Precipitator Operator Relationship Specialty Start Date End Date Ryanne Reyna APRN [facility] [address] [address] PCP - General 03/01/21 Juan Hensley MD [address] [place] [address] [address] [place] [address] Referring Physician Cardiology 05/18/23 documented as of this encounter
--- OUTSIDE RECORDS SUMMARY | 2025-09-21 07:42 | XMS_ITS | Encounter Summary ---
Author Organization [employer] ([place], [place], [place], [place], [place]) Address [address] [place] [address] Care Team Providers Care French Instructor Name Role Phone Unavailable Primary Care Provider Unavailabl e Encounter Details Date Type Department Care Team (Late st Contact Info) Description 11/23/2018 Transcribed Document [facility] [place] Family Medicine [address] [place] [address] ProviderJanie MD [address] [place] [address] Social History Tobacco Use Types [...] - Historical ProviderMD - 11/23/2018 8:30 AM PEBBLE MILL OPERATOR [facility] PreOp Summary Primary Physician: KAILEY PIERRE MD-GAE Finalized Date/Time: 11/23/18 08:17:05 Pt. Name: GIOVANA IGLESIAS D.O.B./Sex: 1960 Female Med Rec #: [id number] Physician: KAILEY PIERRE MD-GAE Financial #: [id number] Pt. Type: O Room/Bed: [facility] [place]/ Admit/Disch: 11/23/18 07:41:00 - Institution: [facility] PreOp Case Times Entry 1 In Preop 11/23/18 07:50:00 Ready for Holding n/a Room Patient Ready for 11/23/18 08:16:00 Surgery Patient Out of Preop 11/23/18 08:16:00 Patient Out of n/a Holding Room [facility] PreOp Case Times Audit 11/23/18 08:17:02 Tar Pot Man: JOSE Modifier: JOSE <+> 1 Patient Out of Preop <+> 1 Patient Ready for Surgery Finalized By: KAILEY CAMACHO RN Document Signatures Signed By: KAILEY CAMACHO RN 11/23/18 08:17 Electronically signed by Karol [facility] Conversion Keyboard Action Assembler Cerner at 02/02/2023 9:20 AM CDT documented in this encounter Plan of Treatment Not on file documented as of this encounter Visit Diagnoses Not on filedocumented in this encounter
--- OUTSIDE RECORDS SUMMARY | 2025-09-21 07:42 | XMS_ITS | Encounter Summary ---
Author Organization [employer] ([place], [place], [place], [place], [place]) Address [address] [place] [address] Care Team Providers Care Cook Roast Name Role Phone Unavailable Primary Care Provider Unavailabl e Encounter Details Date Type Department Care Team (Late st Contact Info) Description 11/23/2018 Transcribed Document [facility] [place] Family Medicine [address] [place] [address] ProviderJanie MD [address] [place] [address] Social History Tobacco Use Types Packs/Day Years Used Date Smoking Tobacco: Never Assessed Comments Unknown Sex and Gender Information Value Date Recorded Sex Assigned at Not on file Legal Sex Female 5:20 PM CDT Gender Identity Not on file Sexual Orientation Not on file documented as of this encounter Miscellaneous Notes * [employer]ner Conversion Note - Historical ProviderMD - 11/23/2018 8:29 AM ADULT EDUCATOR Discharge Instructions Entered On: 11/23/2018 8:30 EST [...] JOSEPH JUAREZ RN - 11/23/2018 8:29 EST Electronically signed by Orlando Roberson Conversion Configuration Management Manager Cerner at 02/02/2023 9:17 AM CDT documented in this encounter Plan of Treatment Not on file documented as of this encounter Visit Diagnoses Not on filedocumented in this encounter
--- OUTSIDE RECORDS SUMMARY | 2025-09-21 07:42 | XMS_ITS | Encounter Summary ---
Author Organization [employer] ([place], [place], [place], [place], [place]) Address [address] [place] [address] Care Team Providers Care Decaler Name Role Phone Unavailable Primary Care Provider Unavailabl e Encounter Details Date Type Department Care Team (Late st Contact Info) Description 11/23/2018 Transcribed Document [facility] [place] Family Medicine [address] [place] [address] ProviderJanie MD [address] [place] [address] Social History Tobacco Use Types [...] - Historical ProviderMD - 11/23/2018 8:03 AM COILED COIL INSPECTOR Height and Weight, Clinical Dosing Entered On: 11/23/2018 8:04 EST Performed On: 11/23/2018 8:03 EST by KAILEY CAMACHO RN Height and Weight, Clinical Dosing Height Source : Stated Height Entry Format : [facility] Height, Feet : 5 ft(Converted to: 152 cm, 60 Inch) Height, Inches : 5 Inch(Converted to: 0 ft 5 Inch, 12.70 cm) Clinical Height : 165.1 cm Weight Source : Standing scale Weight Entry Format : [facility] Clinical Dosing Weight : 71.36 kg Weight, Pounds : 157 lb Body Surface Area (BSA) : 1.79 m2 Body Mass Index : 26.2 kg/m2 (HI) [place] Body Weight : 57 kg KAILEY CAMACHO RN - 11/23/2018 8:03 EST Electronically signed by Karol [facility] Conversion Commercial Property Administrator Sarah at 02/02/2023 9:13 AM CDT documented in this encounter Plan of Treatment Not on file documented as of this encounter Visit Diagnoses Not on filedocumented in this encounter
--- OUTSIDE RECORDS SUMMARY | 2025-09-21 07:42 | XMS_ITS | Encounter Summary ---
Author Organization [employer] ([place], [place], [place], [place], [place]) Address [address] [place] [address] Care Team Providers Care Tar Heater Name Role Phone Unavailable Primary Care Provider Unavailabl e Encounter Details Date Type Department Care Team (Late st Contact Info) Description 11/23/2018 Transcribed Document [facility] [place] Family Medicine Count [facility] [address] ProviderJanie MD [address] [place] [id number] Social History Tobacco Use Types Packs/Day Years Used Date Smoking Tobacco: Never Assessed Comments Unknown Sex and Gender Information Value Date Recorded Sex Assigned at Not on file Legal Sex Female 5:20 PM CDT Gender Identity Not on file Sexual Orientation Not on file documented as of this encounter Miscellaneous Notes * Cerner Conversion Note - Janie ProviderMD - 11/23/2018 7:43 AM ATTIC FANS MECHANIC Patient: GIOVANA IGLESIAS Age: 58 years Sex: [...] adenoma) Histories Past Medical History: Active Bursitis (508479167) Joint pain (78266932) Uterine cancer ([id number]) Procedure history: hysterectomy. multile eye surgeries. appendectomy. [...] Tab, Oral, Daily, 0 Refill(s) Flonase: 1 [place], Nostrils Both, Daily, 0 Refill(s) Lotemax 0.5% [...] list: All Problems Bursitis / SNOMED CT 380578730 / Confirmed Glaucoma / SNOMED CT 52991787 / Confirmed H/O seasonal allergies / SNOMED CT 7101253345 / Confirmed Hearing loss / SNOMED CT 02141924 / Confirmed Hyperlipidemia / SNOMED CT 75373432 / Confirmed Joint pain / SNOMED CT 03515690 / Confirmed Uterine cancer / SNOMED CT 8680423583 / Confirmed, Active Problems (7) Bursitis Glaucoma [...] No deformity, Normal gait. Integumentary: Warm, Dry, [place], No rash. Integumentary exam: Face, Chest, Arm, [...]
--- OUTSIDE RECORDS SUMMARY | 2025-09-21 07:42 | XMS_ITS | Encounter Summary ---
Author Organization [employer] ([place], [place], [place], [place], [place]) Address [address] [place] [address] Care Team Providers Care Talent Management Manager Name Role Phone Unavailable Primary Care Provider Unavailabl e Encounter Details Date Type Department Care Team (Late st Contact Info) Description 11/23/2018 Transcribed Document [facility] [place] [facility] [place] [address] ProviderJanie MD [place] [address] Social History Tobacco Use Types [...] - Historical ProviderMD - 11/23/2018 8:36 AM TACK DRILLER [facility] IntraOp Summary Primary Physician: KAILEY PIERRE MD-GAE Finalized Date/Time: 11/23/18 09:00:05 Pt. Name: GIOVANA IGLESIASO.B./Sex: 1960 Female Med Rec #: [id number] Physician: KAILEY PIERRE MD-GAE Financial #: [id number] Pt. Type: O Room/Bed: [facility] Admit/Disch: 11/23/18 07:41:00 - Institution: [facility] - Case Attendance Entry 1 Entry 2 Entry 3 Case Attendee Brady PIERRE Rachel G, RN DUNHAM, MARIO PIMENTEL Role Performed Surgeon/Proceduralist, Nut And Bolt Assembler, First Scrub, First First Time In 11/23/18 08:29:00 11/23/18 08:25:00 11/23/18 08:25:00 Time Out 11/23/18 09:00:00 11/23/18 09:00:00 11/23/18 09:00:00 Procedure Colonoscopy, Colon Colonoscopy, Colon Colonoscopy, Colon Biopsy, Colon Biopsy, Colon Biopsy, Colon Polypectomy Polypectomy Polypectomy Other Attendee Superficial Wound Closed By: Last Modified By: Ada Abreu RN Devore, Rachel G, Ada Vargas, RN 11/23/18 08:59:40 11/23/18 08:59:40 11/23/18 08:59:40 Entry 4 Entry 5 Case Attendee GARCIAJoshua MD-ORLANDO HANNA MD Role Performed Anesthesiologist Observer Time In 11/23/18 08:25:00 11/23/18 08:29:00 Time Out 11/23/18 09:00:00 11/23/18 09:00:00 Procedure Colonoscopy, Colon Colonoscopy, Colon Biopsy, Colon Biopsy, Colon Polypectomy Polypectomy Other Attendee Superficial Wound Closed By: Last Modified By: Ada Abreu RN Devore, Rachel G, MARYURI 11/23/18 08:59:40 11/23/18 08:59:40 [facility] - Case Attendance Audit 11/23/18 08:59:40 Purse Seining Hand: [email or web address] Modifier: [email or web address] 1 <+> Time Out [...] Colonoscopy, Colon Biopsy, Colon Polypectomy 11/23/18 08:56:10 Purse Seining Hand: [email or web address] Modifier: [email or web address] 1 <*> Procedure Colonoscopy, Colon Biopsy 2 <*> Procedure Colonoscopy, Colon Biopsy 3 <*> Procedure Colonoscopy, Colon Biopsy 4 <*> Procedure Colonoscopy, Colon Biopsy 5 <*> Procedure Colonoscopy, Colon Biopsy 11/23/18 08:51:04 Purse Seining Hand: [email or web address] Modifier: [email or web address] 1 <*> Procedure Colonoscopy 2 <*> Procedure Colonoscopy 3 <*> Procedure Colonoscopy 4 <*> Procedure Colonoscopy 5 <*> Procedure Colonoscopy 11/23/18 08:29:31 Purse Seining Hand: [email or web address] Modifier: [email or web address] 1 <*> Time In 11/23/18 08:25:00 1 <+> Procedure <+> 5 Case Attendee <+> 5 Role Performed <+> 5 Time In <+> 5 Procedure 11/23/18 08:28:06 Purse Seining Hand: [email or web address] Modifier: [email or web address] 2 <+> Time In 2 <*> Procedure Colonoscopy 3 <+> Time In 3 <*> Procedure Colonoscopy 4 <+> Time In 4 <*> Procedure Colonoscopy 11/23/18 08:28:04 Purse Seining Hand: [email or web address] Modifier: [email or web address] <+> 1 Time In <+> [...] Endo - Case Times Audit 11/23/18 08:58:45 Purse Seining Hand: [email or web address] Modifier: [email or web address] <+> 1 Out Room Time <+> 1 Stop Time <+> 1 Stop Time 11/23/18 08:36:45 Purse Seining Hand: [email or web address] Modifier: [email or web address] <+> 1 Start Time [facility] [...] Modified By: Ada Abreu RN 11/23/18 08:29:59 [facility] Endo - Fire Risk Assessment Entry 1 [...] Modified By: Ada Abreu RN 11/23/18 08:30:08 [facility] Endo - General Case Accounts Payable Clerk 1 Case Information OR Endo 03 E Case Level 1 Room Verified Yes Wound Class III - Contaminated Specialty SN Gastroenterology Anesthesia Type MAC ASA Class 2 Diagnosis Preop Diagnosis history of colon polyps Postop Diagnosis sigmoid colon colitis, polyp Last Modified By: Ada Abreu RN 11/23/18 08:59:47 [facility] Endo - General Case Data Audit 11/23/18 08:59:47 Purse Seining Hand: [email or web address] Modifier: [email or web address] 1 <*> Postop Diagnosis sigmoid colon colitis 11/23/18 08:54:20 Purse Seining Hand: [email or web address] Modifier: [email or web address] <+> 1 Postop Diagnosis E Endo - Intraoperative Assessment Entry 1 Valid History / Yes Physical in Chart Preoperative Yes Checklist Reviewed/Evaluated Allergies Reviewed Yes Patient is Latex No Sensitive Level of WDL Consciousness (WDL = Alert, Oriented to Person, Place, and Time) Present Upon IVs, ECG monitored Arrival to OR Last Modified By: Ada Abreu RN 11/23/18 08:30:55 [facility] - Intraoperative Equipment Entry 1 Type Scope Equipment Intraop Monitoring Blood Pressure Arm, left upper Location Pulse Oximeter Hand, right Probe Site Antiembolic Devices Scopes Flexible Endoscopes Colonoscope, Peds Used Scope Serial 7300 Number/Identificatio n Number Photo/Video Documentation Photo Yes Video No Last Modified By: Ada Abreu RN 11/23/18 08:31:24 [facility] - Intraoperative Equipment Audit 11/23/18 08:31:24 Purse Seining Hand: [email or web address] Modifier: [email or web address] <+> 1 Photo <+> [...] Endo - Patient Positioning Audit 11/23/18 08:56:11 Purse Seining Hand: [email or web address] Modifier: [email or web address] 1 <*> Procedure Colonoscopy, Colon Biopsy 11/23/18 08:51:05 Purse Seining Hand: [email or web address] Modifier: [email or web address] 1 <*> Procedure Colonoscopy [...] Modified By: Ada Abreu RN 11/23/18 08:59:15 [facility] Endo - Surgical Procedures Entry 1 Entry [...] RN 11/23/18 08:59:06 11/23/18 08:59:06 11/23/18 08:59:06 [facility] Endo - Surgical Procedures Audit 11/23/18 08:59:06 Purse Seining Hand: [email or web address] Modifier: [email or web address] <+> 1 Stop <+> 2 Stop <+> 3 Stop 11/23/18 08:56:07 Purse Seining Hand: [email or web address] Modifier: [email or web address] <+> 3 Procedure <+> 3 Primary Procedure <+> 3 Primary Surgeon <+> 3 Specialty <+> 3 Start <+> 3 Wound Class <+> 3 Anesthesia Type <+> 3 Physician States Cecum Reached 11/23/18 08:51:01 Purse Seining Hand: [email or web address] Modifier: [email or web address] 1 <*> Procedure Colonoscopy 1 <+> Start 1 <+> Physician States Cecum Reached <+> 2 Procedure <+> 2 Primary Procedure <+> 2 Primary Surgeon <+> 2 Specialty <+> 2 Start <+> 2 Wound Class <+> 2 Anesthesia Type <+> 2 Physician States Cecum Reached [facility] Endo - Time Out Entry 1 Procedure [...] Modified By: Ada Abreu RN 11/23/18 08:56:12 [facility] Endo - Time Out Audit 11/23/18 08:56:12 Purse Seining Hand: [email or web address] Modifier: [email or web address] 1 <*> Procedure to be Performed Colonoscopy, Colon Biopsy 11/23/18 08:51:05 Purse Seining Hand: [email or web address] Modifier: [email or web address] 1 <*> Procedure to be Performed Colonoscopy Case Comments <None> Finalized By: Ada Abreu, RN Document Signatures Signed By: Ada Abreu RN 11/23/18 09:00 Electronically signed by Karol [facility] Conversion Pharmacometrician Cerner at 02/02/2023 9:23 AM CDT documented in this encounter Plan of Treatment Not on file documented as of this encounter Visit Diagnoses Not on filedocumented in this encounter
--- OUTSIDE RECORDS SUMMARY | 2025-09-21 07:42 | XMS_ITS | Encounter Summary ---
Author Organization [employer] ([place], [place], [place], [place], [place]) Address [address] [place] [address] Care Team Providers Care Research Worker Encyclopedia Name Role Phone Unavailable Primary Care Provider Unavailabl e Encounter Details Date Type Department Care Team (Late st Contact Info) Description 11/23/2018 Transcribed Document [facility] [place] Family Medicine [address] [place] [address] ProviderJanie MD [address] [place] [address] Social History Tobacco Use Types [...] - Janie ProviderMD - 11/23/2018 9:19 AM HEALTH SPECIALIST [facility] [address], [place] [address] Patient Copy Patient Information: Name: GIOVANA IGLESIAS Jerome Current Date: 11/23/2018 09:19:02 : 1960 Patient Address: [address] [facility] [address] Patient Attending Physician: KAILEY PIERRE MD-RODO Primary Care Provider: Primary Care Provider Phone: Discharge Diagnosis: Weight on Admission: 157 lb, 0 oz Comment: Follow-up Instructions: With: Address: When: KAILEY PIERRE [address] [place] [address] [address], [address] [place] [phone] Business (1) Within As needed Comments: see [...] Times A Day. fluticasone nasal (Flonase) 1 [place](s) Nostrils Both Every Day. latanoprost ophthalmic (latanoprost [...] ??? Eat a well-balanced diet. Medicines??? Take erao-hbg-ilpjfeb and prescription medicines only as told by [...] to digest. ? Rest often. ??? Take gpxe-bgt-ebzlcvn or prescription medicines only as told by [...] 11/07/2011 Document Revised: 06/29/2017 Document Reviewed: 06/29/2017 [employer] Interactive Patient Education ? 2017 [employer] CIGARETTE SMOKING: The facts are clear, cigarette smoking will shorten your life. Smoking can cause many illnesses along the way. As a healthcare provider, we recommend that you stop smoking. Assistance with quitting is available by contacting 7-913-SMRA-NOW. This is a free resource providing counseling, [...] Be sure to sign up for the [employer] patient portal, which gives you 11/05 access to your medical information ??? including these discharge instructions ??? using your computer, smartphone, or tablet. Just go to [email or web address] to get started. Questions? Call . [facility] would like to thank you for allowing us to assist you with your healthcare needs. MEGHANA Campo SHARI R, (or billing representative) have received the above patient education materials/instructions and have verbalized understanding: Patient Signature _ Date/Time Patient Commercial Reporter Signature (if needed) Date/Time Clinician/Hospital Commercial Reporter Signature (if needed) Date/Time documented in this encounter Plan of Treatment Not on file documented as of this encounter Visit Diagnoses Not on filedocumented in this encounter
--- OUTSIDE RECORDS SUMMARY | 2025-09-21 07:42 | XMS_ITS | Encounter Summary ---
Author Organization [employer] ([place], [place], [place], [place], [place]) Address [address] [place] [address] Care Team Providers Care Extractive Metallurgist Name Role Phone Unavailable Primary Care Provider Unavailabl e Encounter Details Date Type Department Care Team (Late st Contact Info) Description 11/23/2018 Transcribed Document [facility] [place] Family Medicine [address] [place] [address] ProviderJanie MD [address] [place] [address] Social History Tobacco Use Types Packs/Day Years Used Date Smoking Tobacco: Never Assessed Comments Unknown Sex and Gender Information Value Date Recorded Sex Assigned at Not on file Legal Sex Female 5:20 PM CDT Gender Identity Not on file Sexual Orientation Not on file documented as of this encounter Miscellaneous Notes * Cerner Conversion Note - Janie ProviderMD - 11/23/2018 9:18 AM DIRECTOR OF PRIMARY Patient Education Materials Follows:Disease Colitis Introduction Colitis [...] ??? Eat a well-balanced diet. Medicines??? Take anqv-pyb-omrgzch and prescription medicines only as told by [...] to digest. ? Rest often. ??? Take cdsq-nnu-cfwzthd or prescription medicines only as told by [...] 11/07/2011 Document Revised: 06/29/2017 Document Reviewed: 06/29/2017 [employer] Interactive Patient Education ? 2017 [employer] Electronically signed by Orlando Roberson Conversion Music Rehabilitation Therapist Cerner at 02/02/2023 9:22 AM CDT documented in this encounter Plan of Treatment Not on file documented as of this encounter Visit Diagnoses Not on filedocumented in this encounter
--- OUTSIDE RECORDS SUMMARY | 2025-09-21 07:42 | XMS_ITS | Encounter Summary ---
Author Organization [employer] ([place], [place], [place], [place], [place]) Address [address] [place] [address] Care Team Providers Care Design Engineering Intern Name Role Phone Unavailable Primary Care Provider Unavailabl e Encounter Details Date Type Department Care Team (Late st Contact Info) Description 11/23/2018 Transcribed Document [facility] [place] Medicine [address] [place] [address] ProviderJanie MD [address] [place] [address] Social History Tobacco Use Types [...] - Janie ProviderMD - 11/23/2018 9:10 AM COUNT TEAM CLERK [facility] [address], [place] [address] Patient Copy Patient Information: Name: GIOVANA IGLESIAS Jerome Current Date: 11/23/2018 09:10:25 : 1960 Patient Address: [address] [facility] [address] Patient Attending Physician: KAILEY PIERER MD-RODO Primary Care Provider: Primary Care Provider Phone: Discharge Diagnosis: Weight on Admission: 157 lb, 0 oz Comment: Follow-up Instructions: With: Address: When: KAILEY PIERRE [address] [place] [address] [address], [address] [place] [phone] Business (1) Within As needed Comments: see [...] Times A Day. fluticasone nasal (Flonase) 1 [place](s) Nostrils Both Every Day. latanoprost ophthalmic (latanoprost [...] ??? Eat a well-balanced diet. Medicines??? Take vzns-nuk-mmrjsrh and prescription medicines only as told by [...] to digest. ? Rest often. ??? Take fkxr-iqx-xuyywle or prescription medicines only as told by [...] Assistance with quitting is available by contacting 5-954-UHSO-NOW. This is a free resource providing counseling, [...] Be sure to sign up for the [employer] patient portal, which gives you 24/ access to your medical information ??? including these discharge instructions ??? using your computer, smartphone, or tablet. Just go to [employer] to get started. Questions? Call . [facility] would like to thank you for allowing us to assist you with your healthcare needs. MEGHANA Campo SHARI R, (or medical center representative) have received the above patient education materials/instructions and have verbalized understanding: Patient Signature _ Date/Time Patient Kiln Cleaner Signature (if needed) Date/Time Clinician/Hospital Kiln Cleaner Signature (if needed) Date/Time documented in this encounter Plan of Treatment Not on file documented as of this encounter Visit Diagnoses Not on filedocumented in this encounter
--- OUTSIDE RECORDS SUMMARY | 2025-09-21 07:42 | XMS_ITS | Encounter Summary ---
Author Organization [employer] ([place], [place], [place], [place], [place]) Address [address] [place] [address] Care Team Providers Care Machine Operator Assistant Name Role Phone Unavailable Primary Care Provider Unavailabl e Encounter Details Date Type Department Care Team (Late st Contact Info) Description 11/23/2018 Transcribed Document [facility] [place] [address] [place] [address] ProviderJanie MD [address] [place] [address] Social History Tobacco Use Types [...] - Historical ProviderMD - 11/23/2018 8:36 AM RECREATION ACTIVITIES COORDINATOR [facility] Summary Primary Physician: KAILEY PIERRE MD-GAE Finalized Date/Time: 11/23/18 09:35:54 Pt. Name: GIOVANA IGLESIAS D.O.B./Sex: 1960 Female Med Rec #: [id number] Physician: KAILEY PIERRE MD-GAE Financial #: [id number] Pt. Type: O Room/Bed: [facility] Admit/Disch: 11/23/18 07:41:00 - Institution: [facility] PACU Case Times Entry 1 In PACU I 11/23/18 09:02:00 Ready for PACU 11/23/18 09:35:00 Discharge Discharge from PACU 11/23/18 09:35:00 I [facility] PACU Case Times Audit 11/23/18 09:35:49 Pull Over Machine Operator: JUDAH Modifier: VANNESSATRU <+> 1 Ready for PACU Discharge <+> 1 Discharge from PACU I Finalized By: JOSEPH JUAREZ RN Document Signatures Signed By: JOSEPH JUAREZ RN 11/23/18 09:35 Electronically signed by Karol [facility] Conversion Steward/Stewardess Club Car Cerner at 02/02/2023 9:36 AM CDT documented in this encounter Plan of Treatment Not on file documented as of this encounter Visit Diagnoses Not on filedocumented in this encounter
--- OUTSIDE RECORDS SUMMARY | 2025-09-21 07:44 | XMS_ITS | Encounter Summary ---
Author Organization [facility] Address [address] [place] [address] Care Team Providers Care Conservation Officer Name Role Phone MaribellRyanne Janis SOLOMON Primary Care Provider [phone] Juan Hensley MD Unavailable [phone] Encounter Details Date Type Department Care Team (Latest Contact Info) Description 08/10/2025 Travel Social History Tobacco Use Types Packs/Day [...] Description 10/23/2025 8:00 AM EST Office Visit [facility] [address], [address] [place] [address] Kevin Vargas MD [address] [facility] [address] [place] [address] documented as of this encounter Visit Diagnoses Not on filedocumented in this encounter Additional Health Concerns Assessment Noted Time A fall risk assessment has been complete d for the patient 02/14/2025 2:11 PM EDT A Body Mass Index follow-up plan has been documented for the patient 02/14/2025 3:02 PM EDT documented as of this encounter Care Teams Conservation Officer Relationship Specialty Start Date End Date Ryanne Reyna APRN [facility] [address] PCP - General 03/01/21 Juan Hensley MD [address] [place] [address] [address] [place] [phone] Referring Physician Cardiology 05/18/23 documented as of this encounter
--- OUTSIDE RECORDS SUMMARY | 2025-09-21 07:44 | XMS_ITS | Encounter Summary ---
Author Organization [facility] Address [address] [place] [address] Care Team Providers Care Tool Maker Bench Name Role Phone MaribellRyanne Janis SOLOMON Primary Care Provider [phone] Juan Hensley MD Unavailable [phone] Encounter Details Date Type Department Care Team (Latest Contact Info) Description 08/16/2025 Travel Social History Tobacco Use Types Packs/Day [...] Description 10/23/2025 8:00 AM EST Office Visit [facility] [address] [place] [address] Kevin Vargas MD [address] [facility] [address] [place] [address] documented as of this encounter Visit Diagnoses Not on filedocumented in this encounter Additional Health Concerns Assessment Noted Time A fall risk assessment has been complete d for the patient 02/14/2025 2:11 PM EDT A Body Mass Index follow-up plan has been documented for the patient 08/18/2025 9:09 AM EDT documented as of this encounter Care Teams Tool Maker Bench Relationship Specialty Start Date End Date Ryanne Reyna APRN [facility] [address] [address] PCP - General 03/01/21 Juan Hensley MD [address] [place] [address] [address] [place] [phone] Referring Physician Cardiology 05/18/23 documented as of this encounter
[2025-09-21] MEDS: ALBUTEROL 0.083% 2.5 MG/3 ML NEB IH (09:27)
--- NOTE | 2025-09-21 10:00 | CT_ITS ---
FINAL REPORT TECHNIQUE: Axial images were obtained through the chest without contrast. Coronal and sagittal images were obtained and reviewed. This study was performed with techniques to keep radiation doses as low as reasonably achievable, (ALARA). Individualized dose reduction techniques using automated exposure control or adjustment of mA and/or kV according to the patient's size were employed. CLINICAL HISTORY: Shortness of breath and cough COMPARISON: 12/07/2022 FINDINGS: There are multiple median sternotomy wires. Dense coronary artery calcifications are noted. There is no mediastinal mass or adenopathy. The heart size is normal. There is no pericardial or pleural effusion. There is a small 5 mm noncalcified nodule in the posterior left lower lobe on image 53 of series 2. Imaging of the upper abdomen demonstrates a large cystic structure in the left flank measuring up to 9 cm in greatest dimension, likely representing a partially visualized left renal cyst. IMPRESSION: Left lower lobe pulmonary nodule. Per Fleischner criteria, follow-up in 1 year recommended. Large cyst left flank. Reviewed, Interpreted and Dictated by Jovanny Darnell MD Transcribed by Ailyn Che Authenticated and . [facility]
== END 2025-09-21 23:59 | disposition home or self-care (01) ==
LOC: RT 07:39
PROVIDERS: PCP Internal Medicine Adolescent Medicine; Visit Provider Physician Assistant
DX: R94.2 Abnormal results of pulmonary function studies (principal); R91.1 Solitary pulmonary nodule; R93.5 Abnormal findings on diagnostic imaging of other abdominal regions, including retroperitoneum; R05.9 Cough, unspecified; R06.00 Dyspnea, unspecified
CPT/HCPCS: 71250; 94060; 94726; 94729

== ENCOUNTER 2025-10-09 07:15 | Outpatient (CLI) | payer BC, SELFPAY ==
--- OUTSIDE RECORDS SUMMARY | 2025-01-21 16:30 | XMS_ITS ---
Author Organization [facility] JACKIE Baker [facility] Address [address] [facility] [address] [place] [address] Care Team Providers Care Dispatcher Bus And Trolley Name Role Phone Emanuel Purvis Primary Care Provider [phone] Ryanne Reyna [phone] Emanuel Purvis Unavailable Unavailable Migration, Provider Unavailable Unavailable REASON FOR VISIT [facility] To [facility] Conversion Encounter Medications Medication SIG (Take, Route, Frequency, Duration) Notes Start Date End Date Status Bactrim DS 800-160 MG 1 tab(s) orally every 12 hours; Duration: 10 days 01/04/2025 Active Fosamax 70 MG 1 tab(s) orally once a week; Duration: 90 days 04/13/2024 Active Nitroglycerin 0.4 MG 1 tab(s) sublingually every 5 minutes; Duration: 30 days 04/28/2023 Active Aspirin 81 MG 1 tab(s) orally once a day; Duration: 90 days Active Lisinopril 5 MG 1 tab(s) orally once a day; Duration: 90 days 12/09/2022 Active Claritin 10 MG 1 tab(s) orally once a day; Duration: 90 days prn Active Probiotic Formula 1-250 BILLION-MG 1 gummie orally once a day Active Fiber Choice 1.5 GM 1 tab(s) chewed once daily at bedtime Active Dorzolamide HCl-Timolol Mal 2%-0.5% PRESERVATIVE-FREE 1 GTT IN EACH EYE EVERY MORNING *Please review and pick correct strength-formulati on from [employer]pan options. If intended option is not shown, discontinue and re-order from Quick Search* Active Latanoprost 0.005 % 1 gtt in each eye once a day (at bedtime) Active Mupirocin 2 % 1 cathy applied topically 3 times a day; Duration: 5 days 01/04/2025 Active Metoprolol Tartrate 25 MG 1 tab(s) orally 2 times a day Active Turmeric 500 MG 1 cap(s) orally once a day Active Vitamin A 14666 INTL UNITS DIRECTED ORALLY ONCE A DAY *Please review and pick correct strength-formulati on from Medispan options. If intended option is not shown, discontinue and re-order from Quick Search* Active Red Yeast Rice 600 MG 1 cap orally once a day Active Encounters Encounter Location Date Provider Diagnosis [facility] [address] [place] [address] 01/21/2025 Provider Migration Boil L02.92 Assessments Encounter Date Diagnosis (ICD Code) Assessment Notes Treatment Notes Treatment Clinical Notes Section Notes 01/21/2025 Boil (ICD-10 - L02.92) Plan Of Treatment Medication Medication Name Sig Start Date Stop Date Notes Bactrim DS 800-160 MG 1 tab(s) orally ev cathleen 12 hours; Duration: 10 days 01/04/2025 Mupirocin 2 % 1 cathy applied topica lly 3 times a day; Duration: 5 days 01/04/2025 Progress Notes * Praful IGLESIASiDOB:1960 (65 yo F)Acc No.[id number]:01/21/2025 Patient: Giovana MALDONADO Provider: Joshua shore Migration :1960 A ge:64 Y S ex:Female Date:01/21/2025 Address:[address] [place] [id number] Pcp:Emanuel Purvis Subjective: * Chief Complaints: * [facility] * Medical History: * Medications: T aking Red Yeast Rice 600 MG Capsule 1 cap orally once a day , Taking Vitamin A 84528 INTL UNITS CAPSULE DIRECTED ORALLY ONCE A DAY , Notes to Pharmacist: *Please review and pick correct strength-formulation from [employer] options. If intended option is not shown, discontinue and re-order from Quick Search*, Taking Turmeric 500 MG Capsule 1 cap(s) orally once a day , Taking Metoprolol Tartrate 25 MG Tablet 1 tab(s) orally 2 times a day , Taking Latanoprost 0.005 % Solution 1 gtt in each eye once a day (at bedtime) , Taking Dorzolamide HCl-Timolol Mal 2%-0.5% PRESERVATIVE-FREE SOLUTION 1 GTT IN EACH EYE EVERY MORNING , Notes to Pharmacist: *Please review and pick correct strength-formulation from [employer] options. If intended option is not shown, discontinue and re-order from Quick Search*, Taking Fiber Choice 1.5 GM Tablet Chewable 1 tab(s) chewed once daily at bedtime , Taking Probiotic Formula 1-250 BILLION-MG Capsule 1 gummie orally once a day , Taking Claritin 10 MG Tablet 1 tab(s) orally once a day , Notes to Pharmacist: prn, Taking Lisinopril 5 MG Tablet 1 tab(s) orally once a day , Taking Aspirin 81 MG Tablet Chewable 1 tab(s) orally once a day , Taking Nitroglycerin 0.4 MG Tablet Sublingual 1 tab(s) sublingually every 5 minutes , Taking Fosamax 70 MG Tablet 1 tab(s) orally once a week Objective: * Vitals: Assessment: * Assessment: 1. B oil - L02.92 (Primary) Plan: * Treatment: * * Electronic signature of Prov nenar Migration on 10/09/2025 at 07:18 AM EST Sign off status: Pending * Provider: Joshua shore Migration Date: 0 01/21/2025 Generated for Gustavo christianson/Clau/Marla on: 1 12/10/2024 07:18 AM EST
--- OUTSIDE RECORDS SUMMARY | 2025-08-10 14:50 | XMS_ITS | Encounter Summary ---
Author Organization Healthcare Address [address] [place] [address] Care Team Providers Care Health Promotion Coordinator Name Role Phone Ryanne Reyna APRN Primary Care Provider [phone]- [phone] Juan Hensley MD Unavailable [phone] Encounter Details Date Type Department Care Team (Latest Contact Info) Description 08/10/2025 3:50 PM EDT - 08/10/2025 11:59 PM EDT Hospital Encounter Cardiac Imaging [address] [place] [address] History of loop recorder Discharge Disposition: Home or Self Care Social [...] by mouth Daily. Vitamin A 7.5 MG (22844 UT) capsule 1 (one) time each day at the same time. documented as of this encounter Plan of Treatment Upcoming Encounters Date Type Department Care Team (Late st Contact Info) Description 10/23/2025 8:00 AM EST [facility] Visit [facility] [place] [address], [address] [place] [address] Kevin Vargas MD 110 [facility] [address] [place] [address] documented as of this encounter Procedures Procedure Name Priority Date/Time Associated Diagnosis Comments CARDIAC DEVICE CHECK - REMOTE - LOOP RECORDER (ILR) Routine 08/10/2025 4:58 PM EDT History of loop recorder documented in this encounter Results * CARDIAC DEVICE CHECK - REMOTE - LOOP RECORDER (ILR) (08/10/2025 4:58 PM EDT) Anatomical Region Laterality Modality Other Narrative 08/11/2025 7:13 AM EDT [facility] EP - Device [facility] Remote CIED Report Name: Giovana Iglesias Date: 08/11/2025 : 1960 Age: 65 y.o. Reporting period: Reporting period is the last 31 days, with at least 10 days of remote monitoring. Interim reports, if any, reviewed and addressed previously; see remote alert entries for more details. Device: Medtronic LNQ22 implantable satellite project site monitor (ICM) Battery: Status: Good Evaluation: Presenting rhythm: sinus with 1:1 intrinsic conduction to the ventricle. Trends Rate Histograms : demonstrate good rate distribution. Demonstrates appropriate sensing: Yes Arrhythmias: No new arrhythmia of significance since last CIED evaluation. Summary CIED functioning as expected, with given programming and data. Analy Gonzalez Emiliano SOLOMON CV IMPLANTABLE CARDIAC DEV ICE PROCEDURES Final Result documented in this encounter Visit Diagnoses Diagnosis History of loop recorder documented in this encounter Additional Health Concerns Assessment Noted Time A fall risk assessment has been complete d for the patient 02/14/2025 2:11 PM EDT A Body Mass Index follow-up plan has been documented for the patient 02/14/2025 3:02 PM EDT documented as of this encounter Care Teams Health Promotion Coordinator Relationship Specialty Start Date End Date Ryanne Reyna APRN [address] [place] [address] PCP - General 03/01/21 Juan Hensley MD 201 [facility] [address] [place] [address] Referring Physician Cardiology 05/18/23 documented as of this encounter
--- OUTSIDE RECORDS SUMMARY | 2025-08-16 11:30 | XMS_ITS | Encounter Summary ---
Author Organization Healthcare Address [address] [place] [address] Care Team Providers Care Cardiac Nurse Name Role Phone MaribellRyanne desai Janis SOLOMON Primary Care Provider [phone]- [phone] Juan Hensley MD Unavailable [phone] Encounter Details Date Type Department Care Team (Latest Contact Info) Description 08/16/2025 12:30 PM EDT Office Visit [facility] Audiology [address] [place] [address] Marilee Haynes, AuD [address] [place] [address] Sensorineural hearing loss (SNHL) of [...] sensitivity Equipment Information: RIGHT: Internal Device: [id number]- [id number] Surgery Date: 11/26/20 Surgeon: Roxanne Vasquez N7: [id number] N7 #2: [id number] Magnet strength: 2 Cord length: 3 in LEFT: Internal Device: CI622- [id number] Surgery Date: 04/12/2020 Surgeon: Roxanne Vasquez N7: [id number] N7 #2: [id number] Magnet strength: 2 Cord length: 3 in External Equipment Check: Mrs. Iglesias reported her left processor is no longer working properly. SN: [id number] The device is intermittent throughout the day. [...] (List 4): 99% AzBio Sentences at +10 bkanzx-zv-gnjpk ratio (List 2): 84% Total Rodríguez Time: [...] left processor. I sent her information to [employer] at [employer]. I instructed the patient to be mindful of emails from [employer] as theymay need additional information from her. Assessment/Plan: Return in 1 year for remapping Chrissie Owusu, CCC-A Corporate Secretary documented in this encounter Plan of Treatment Upcoming Encounters Date Type Department Care Team (Late st Contact Info) Description 10/23/2025 8:00 AM EST Office Visit [facility] [address] [facility], [address] [place] [address] Kevin Vargas MD 110 [facility] [address] [place] [address] documented as of this encounter [...] documented as of this encounter Care Teams Cardiac Nurse Relationship Specialty Start Date End Date Ryanne Reyna APRN [address] [address] PCP - General 03/01/21 Juan Hensley MD 201 [facility] [address] [place] [address] Referring Physician Cardiology 05/18/23 documented as of this encounter
--- OUTSIDE RECORDS SUMMARY | 2025-09-11 13:30 | XMS_ITS | Encounter Summary ---
Author Organization Healthcare Address [address] [place] [address] Care Team Providers Care Customer Acquisition Specialist Name Role Phone Ryanne Reyna APRN Primary Care Provider [phone] Juan Hensley MD Unavailable Encounter Details Date Type Department Care Team (Latest Contact Info) Description 09/11/2025 1:30 PM EST - 09/11/2025 11:59 PM [facility] Encounter Cardiac Imaging [address] [place] [address] Implantable loop recorder present Discharge Disposition: Home or Self Care Social [...] by mouth Daily. Vitamin A 7.5 MG (39612 UT) capsule 1 (one) time each day at the same time. documented as of this encounter Plan of Treatment Upcoming Encounters Date Type Department Care Team (Late st Contact Info) Description 10/23/2025 8:00 AM EST Office Visit [facility] [place] [address] [place] [address] Kevin Vargas MD [address] [address] documented as of this encounter Procedures Procedure Name Priority Date/Time Associated Diagnosis Comments CARDIAC DEVICE CHECK - REMOTE - LOOP RECORDER (ILR) Routine 09/11/2025 1:47 PM EST Implantable loop recorder present documented in this encounter Results * CARDIAC DEVICE CHECK - REMOTE - LOOP RECORDER (ILR) (09/11/2025 1:47 PM EST) Anatomical Region Laterality Modality Other Narrative 09/11/2025 3:36 PM EST Implantable loop recorder (ILR) interrogation. Battery remaining in service adequate. EGM's reviewed against indication for implant and diagnosis, found to be unremarkable. No new events since last interrogation and reset. Presenting rhythm is sinus. Analy Gonzalez Emiliano SOLOMON CV IMPLANTABLE CARDIAC DEV ICE PROCEDURES Final Result documented in this encounter Visit Diagnoses Diagnosis Implantable loop recorder present documented in this encounter Additional Health Concerns Assessment Noted Time A fall risk assessment has been complete d for the patient 02/14/2025 2:11 PM EDT A Body Mass Index follow-up plan has been documented for the patient 08/18/2025 9:09 AM EDT documented as of this encounter Care Teams Customer Acquisition Specialist Relationship Specialty Start Date End Date Ryanne Reyna APRN [address] [place], [place] [id number] PCP - General 03/01/21 Juan Hensley MD [address] [place] [address] [address] [place] [address] Referring Physician Cardiology 05/18/23 documented as of this encounter
--- OUTSIDE RECORDS SUMMARY | 2025-09-27 04:00 | XMS_ITS ---
Author Organization [facility] Address [address] [place] [address] Care Team Providers Care Benefits Specialist Recruiter Name Role Phone Emanuel Purvis Primary Care Provider [phone] Ryanne Reyna Unavailable [phone] Emanuel Purvis Unavailable Unavailable Allergies No Known Allergies Results Component Value Reference Range Notes Urinalysis Reviewed date:09/27/2025 09:19:28 AM Interpretation: Performing Lab: Notes/Report: Leuk small Nitrite neg Urobili 0.2 Protein 30 mg/dL pH 5.0 Blood small Sp. Gr. 1.030 Ketone neg Bili neg Glucose neg URINALYSIS, COMPLETE (5077) Reviewed date:09/30/2025 07:03:19 AM Interpretation: Performing Lab:CB, [facility] [id number] [facility], [facility] [id number] [place] [facility] Notes/Report: NON-FASTING; NON-FASTING COLOR DARK YELLOW YELLOW APPEARANCE TURBID CLEAR SPECIFIC GRAVITY 1.020 1.001-1.035 PH < OR = 5.0 5.0-8.0 GLUCOSE NEGATIVE NEGATIVE BILIRUBIN NEGATIVE NEGATIVE KETONES TRACE NEGATIVE OCCULT BLOOD TRACE NEGATIVE PROTEIN TRACE NEGATIVE NITRITE NEGATIVE NEGATIVE LEUKOCYTE ESTERASE 2+ NEGATIVE WBC 10-20 < OR = 5 /HPF RBC 0-2 < OR = 2 /HPF SQUAMOUS EPITHELIAL CELLS 20-40 < OR = 5 /HPF BACTERIA MANY NONE SEEN /HPF CALCIUM OXALATE CRYSTALS MODERATE NONE OR FEW /HPF HYALINE CAST NONE SEEN NONE SEEN /LPF NOTE This urine was analyzed for the presence of WBC, RBC, bacteria, casts, and other formed elements. Only those elements seen were reported. CULTURE, URINE, ROUTINE (395 ) Reviewed date:10/02/2025 09:31:07 AM Interpretation: Performing Lab:[facility], [facility] [id number], [place] [id number] [place] [facility] Notes/Report: NON-FASTING; NON-FASTING CULTURE, URINE, ROUTINE SEE NOTE CULTURE, URINE, ROUTINE Micro Number: [id number] Test Status: Final Specimen Source: Urine Specimen Quality: Adequate Result: Greater than 100,000 CFU/mL of Enterococcus faecalis COMMENT: Additional non-predominating organism(s) isolated. These organisms, commonly found on external and internal genitalia, are considered colonizers. No further testing performed. E.faecalis INT ROBERT AMPICILLIN S <=2 NITROFURANTOIN S <=16 VANCOMYCIN S 1 S = Susceptible I = Intermediate R = Resistant NS = Not susceptible SDD = Susceptible Dose Dependent * = Not Tested NR = Not Reported NN = See Therapy Comments Reason For Referral Reason Complete abdominal U S of the abdomen - see CT chest report Diagnosis 1 Left upper quadrant abdominal mass (R19.02) Referral Organization [facility] Referring Provider First Name Ryanne Referring Provider Last Name Maribell Referring Provider Speciality [facility] Referred Organization [facility] Referred Address [address] [place] [phone], Referred Provider Specialty Diagnostic R adiology General Notes Edel Kiser 2024 09:52:27 AM >sent Referral Priority Routine REASON FOR VISIT f/u ct scan results Medications Medication SIG (Take, Route, Frequency, Duration) Notes Start Date End Date Status Fosamax 70 MG 1 tab(s) orally once a week; Duration: 90 days 04/13/2024 Active Metoprolol Tartrate 25 MG 1/2 tab orally 2 times a day Active Nitroglycerin 0.4 MG 1 tab(s) sublingually every 5 minutes; Duration: 30 days 04/28/2023 Active Turmeric 500 MG 1 cap(s) orally once a day Active Fiber Choice 1.5 GM 1 tab(s) chewed once daily at bedtime Active Aspirin 81 MG 1 tab(s) orally once a day; Duration: 90 days Active Zetia 10 MG 1 tablet Orally Once a day; Duration: 90 days 06/20/2025 Active Zinc 50 MG 1 tablet Orally Once a day Active Vitamin D3 50 MCG (2000 UT) 1 tablet Orally Once a day Active Vitamin A 32257 INTL UNITS DIRECTED ORALLY ONCE A DAY *Please review and pick correct strength-formulati on from T[employer] Society options. If intended option is not shown, discontinue and re-order from Quick Search* Active Valsartan 40 MG 1 tablet Orally Twice a day Active Dorzolamide HCl-Timolol Mal 2%-0.5% PRESERVATIVE-FREE 1 GTT IN EACH EYE EVERY MORNING *Please review and pick correct strength-formulati on from T[employer] Society options. 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) Kidney cysts (N28.1) Active confirmed Problem Liver cyst (94840681) Liver cyst (K76.89) Active confirmed Vital Signs Temperature 98 degrees Fahrenheit 09/27/2025 Blood pressure systolic 118 mm Hg 09/27/20 25 Blood pressure diastolic 70 mm Hg 025 Heart Rate 70 /min 09/27/2025 Height 5 ft 5 in in 09/27/2025 Weight 141 lbs 09/27/2025 BMI 23.46 kg/m2 09/27/2025 Encounters Encounter Location Date Provider Diagnosis [address] [address] 09/27/2025 Ryanne Reyna Left upper quadrant abdominal mass R19.02 ; Left lower lobe pulmonary nodule R91.1 ; Kidney cysts N28.1 and Liver cyst K76.89 Assessments Encounter Date Diagnosis (ICD Code) Assessment Notes Treatment Notes Treatment Clinical Notes Section Notes 09/27/2025 Left upper quadrant abdominal mass (ICD-10 - R19.02) radiologist suggests likely renal cyst, recommend US for additional evaluation Chart review does reveal a CT of the abdomen pelvis done in 2022 during an emergency department visit that indicated both renal and hepatic cysts which were benign appearing her. The largest at that time was 8.3 cm on the left side. Recommend complete abdominal ultrasound for further evaluation. Minor abnormalities noted on her urinalysis today, that will be sent to the lab for additional testing as well. We will follow-up after results are received and proceed accordingly. 09/27/2025 Left lower lobe pulmonary nodule (ICD-10 - R91.1) plan to repeat imaging in 1 year for comparison 09/27/2025 Kidney cysts (ICD-10 - N28.1) 09/27/2025 Liver cyst (ICD-10 - K76.89) Plan Of Treatment Pending Test Test Name Order Date Ultrasound : Abdomen 09/27/2025 Referrals Referral Date Details 09/27/2025 09/27/2025, Complete abdominal US of the abdomen - see CT chest report, [address] [facility] [address] [place], [address], Next Appt Details Follow Up: prn, Reason: Progress Notes * NEELIMAPraful LUGOiDOB:1960 (65 yo F)Acc No.[id number]:09/27/2025 Progress Notes Patient: Giovana MALDONADO Provider: JORDYN Dwyer :1960 A ge:65 Y S ex:Female Date:09/27/2025 Address:[address] [place], [place] [id number] Pcp:Emanuel Purvis Subjective: * Chief Complaints: * 1 . F/u ct scan results. * HPI: g en: Presents today to FU regarding recent CT chest done at [facility] and ordered by cardiology secondary to complaints of shortness of breath and cough. They also changed her ACEI to an ARB and she has FU with them again tomorrow. She otherwise feels well. The cough and SOA do not limit her actiivty level. CT of the chest reports a 5 mm noncalcified left lower lobe lung nodule, otherwise lungs are clear. It also notes a cystic structure in the abdomen, on the left side that measures up to 9 cm and is suspected to be a renal cyst but with incomplete imaging is difficult to say. She does not recall anyone ever reporting to her that she has renal cysts or other pathology. She has had a complete hysterectomy. * ROS: R ESPIRATORY: See HPI Y es. C ARDIOLOGY: no C hest pain. n o P alpitations. C ONSTITUTIONAL: no L oss of appetite. n o F ever. G ASTROENTEROLOGY: no V omiting. n o A bdominal pain. n o D iarrhea. C onstipation y es, u sing fiber supplement. U ROLOGY: Dysuria n o. D ifficulty urinating yes, a t times, since having hysterectomy. n o B lood in urine. F requent urination yes.? * Medical History: H yperlipidemia, Glaucoma, Hearing Impaired since teenage years, Arthritis, Colonoscopy and polypectomy 2016 with significant polyps, [...] stic Procedure: V ertigo 10/2011, hysterectomy @ [facility] 06/2015, H 11/2022, Triple bypass 05/2023, CVA 05/2023. * [...] no. 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 * Medications: T aking Fosamax 70 MG Tablet 1 tab(s) orally once a week , Taking Metoprolol Tartrate 25 MG Tablet 1/2 tab orally 2 times a day , Taking Valsartan 40 MG Tablet 1 tablet Orally Twice a day , Taking Dorzolamide HCl-Timolol Mal 2%-0.5% PRESERVATIVE- FREE SOLUTION 1 GTT IN EACH EYE EVERY MORNING , Notes to Pharmacist: *Please review and pick correct strength-formulation from Le[employer]an options. If intended option is not shown, discontinue and re-order from Quick Search*, Taking Latanoprost 0.005 % Solution 1 gtt in each eye once a day (at bedtime) , Taking Zetia 10 MG Tablet 1 tablet Orally Once a day , Taking Zinc 50 MG Tablet 1 tablet Orally Once a day , Taking Vitamin D3 50 MCG (2000 UT) Tablet 1 tablet Orally Once a day , Taking Vitamin A 80242 INTL UNITS CAPSULE DIRECTED ORALLY ONCE A DAY , Notes to Pharmacist: *Please review and pick correct strength-formulation from LeTVan options. If intended option is not shown, discontinue and re-order from Quick Search*, Taking Turmeric 500 MG Capsule 1 cap(s) orally once a day , Taking Fiber Choice 1.5 GM Tablet Chewable 1 tab(s) chewed once daily at bedtime , Taking Aspirin 81 MG Tablet Chewable 1 tab(s) orally once a day , Taking Nitroglycerin 0.4 MG Tablet Sublingual 1 tab(s) sublingually every 5 minutes , Discontinued Red Yeast Rice 600 MG Capsule 1 cap orally once a day , Discontinued Probiotic Formula 1-250 BILLION-MG Capsule 1 gummie orally once a day , Discontinued Lisinopril 5 MG Tablet 1 tab(s) orally once a day , Discontinued Mupirocin 2 % Ointment 1 cathy applied topically 3 times a day , Discontinued Bactrim DS 800-160 MG Tablet 1 tab(s) orally every 12 hours , Medication List reviewed and reconciled with the patient * Allergies: N .K.D.A. Objective: * Vitals: N urse: dw, Pain: 0, Temp: 98, RR: 18, HR: 70, BP: 118/70, Ht: 5 ft 5 in, Wt: 141, BMI:23.46. * Examination: G eneral Examination: General P leasant and Cooperative, NAD on RA,. Heart: R egular Rate and Rhythm, no murmur, rubs or gallops. Lungs: c lear to auscultation,. Abdomen: s oft, NT/ND, BS present. Psych N ormal Mood/Affect. Assessment: * Assessment: 1. L eft upper quadrant abdominal mass - R19.02 (Primary) 2 . L eft lower lobe pulmonary nodule - R91.1 3 . K idney cysts - N28.1 4 . L iver cyst - K76.89 Plan: * Treatment: Value Reference Range C OLOR DARK YELLOW YELLOW - * A PPEARANCE TURBID A CLEAR - * B ILIRUBIN NEGATIVE NEGATIVE - * K ETONES TRACE A NEGATIVE - * S PECIFIC GRAVITY 1.020 1.001-1.035 - * O CCULT BLOOD TRACE A NEGATIVE - * P H < OR = 5.0 A 5.0-8.0 - * P ROTEIN TRACE A NEGATIVE - * N ITRITE NEGATIVE NEGATIVE - * L EUKOCYTE ESTERASE 2+ A NEGATIVE - * W BC 10-20 A < OR = 5 - /HPF * R BC 0-2 < OR = 2 - /HPF * S QUAMOUS EPITHELIAL CELLS 20-40 A < OR = 5 - /HPF * B ACTERIA MANY A NONE SEEN - /HPF * C ALCIUM OXALATE CRYSTALS MODERATE A NONE OR FEW - /H PF * H YALINE CAST NONE SEEN NONE SEEN - /LPF * G LUCOSE NEGATIVE NEGATIVE - * This lab was reviewed by Lainey Reyna on 09/30/2025 at 07:03 AM EST ?LAB: CULTURE, URINE, ROUTINE (395)* Value Reference Range C ULTURE SEE NOTE A - * This lab was reviewed by Osbaldo Landeros on 10/02/2025 at 09:31 AM EST ?LAB: Urinalysis (Collection Date & Time - 09/27/2025)* Value Reference Range L euk small * N itrite neg * U robili 0.2 * P rotein 30 mg/dL * p H 5.0 * B lood small * S p. Gr. 1.030 * K etone neg * B john neg * G lucose neg ?Imaging: Ultrasound : Abdomen* Clinical Notes: radiologist suggests likely renal cyst, recommend US for additional evaluation Chart review does reveal a CT of the abdomen pelvis done in 2022 during an emergency department visit that indicated both renal and hepatic cysts which were benign appearing her. The largest at that time was 8.3 cm on the left side. Recommend complete abdominal ultrasound for further evaluation. Minor abnormalities noted on her urinalysis today, that will be sent to the lab for additional testing as well. We will follow-up after results are received and proceed accordingly.? Referral To: ?Reason:Completeabdominal US of the abdomen - see CT chest report 2.?Left lower lobe pulmonary nodule? Clinical Notes: plan to repeat imaging in 1 year for comparison?? * Procedure Codes: 8 1002 URINALYSIS, Modifiers: QW * Follow Up: p rn * * Sign off status: Completed true * Provider: JORDYN Dwyer Date: 11/28/2024 Generated for Gustavo christianson/Clau/Galloitting on: 12/10/2024 07:17 AM EST History and Physical Notes * HPI (History of Present Illness) Category Sub-Category Detail Notes Category Not es gen Presents today to FU regarding recent CT chest done at [facility] and ordered by cardiology secondary to complaints of shortness of breath and cough. They also changed her ACEI to an ARB and she has FU with them again tomorrow. She otherwise feels well. The cough and SOA do not limit her actiivty level. CT of the chest reports a 5 mm noncalcified left lower lobe lung nodule, otherwise lungs are clear. It also notes a cystic structure in the abdomen, on the left side that measures up to 9 cm and is suspected to be a renal cyst but with incomplete imaging is difficult to say. She does not recall anyone ever reporting to her that she has renal cysts or other pathology. She has had a complete hysterectomy. Examination Category Sub-Category Detail Notes Category Not es General Examination Heart: Regular Rate and Rhythm, no murmur, rubs or gallops Lungs: clear to auscultatio n, Abdomen: soft, NT/ND, BS pres ent General Pleasant and Coopera tive, NAD on RA, Psych Normal Mood/Affect Consultation Request Notes Referral Date Referring Provider Referred Provider Not es 09/27/2025 Ryanne Reyna , Complete abd ominal US of the abdomen - see CT chest report
--- OUTSIDE RECORDS SUMMARY | 2025-10-09 07:18 | XMS_ITS | Encounter Summary ---
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 Pre Procedure Adult Entered On: 11/23/2018 8:09 EST Performed On: 11/23/2018 8:04 EST by KAILEY CAMACHO RN Height and Weight, Clinical Dosing Height Source : Stated Height Entry Format : [place] Height, Feet : 5 ft(Converted to: 152 cm, 60 Inch) Height, Inches : 5 Inch(Converted to: 0 ft 5 Inch, 12.70 cm) Clinical Height : 165.1 cm Weight Source : Standing scale Weight Entry Format : [place] Clinical Dosing Weight : 71.36 kg Weight, Pounds : 157 lb Body Surface Area (BSA) : 1.79 m2 Body Mass Index : 26.2 kg/m2 (HI) [place] Body Weight : 57 kg KAILEY CAMACHO [...] #2 Relationship : na Primary Language : Tanzanian Communication Barrier : None KAILEY CAMACHO RN [...] Scale Risk Level : 0-24 Low Risk [place] Fall Interventions : Adequate lighting, Assistive devices [...]
--- OUTSIDE RECORDS SUMMARY | 2025-10-09 07:18 | XMS_ITS | Encounter Summary ---
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 [address] [place] [place] [address] Patient Copy Patient Information: Name: GIOVANA IGLESIAS Jerome Current Date: 11/23/2018 09:10:25 : 1960 Patient Address: [address] [place] [facility] [address] Patient Attending Physician: KAILEY PIERRE MD-RODO Primary Care Provider: Primary Care Provider Phone: Discharge Diagnosis: Weight on Admission: 157 lb, 0 oz Comment: Follow-up Instructions: With: Address: When: KAILEY PIERRE [address] [place] [address] [place] [place], [address] [place] [phone] Business (1) Within As needed Comments: see [...] Times A Day. fluticasone nasal (Flonase) 1 Corning(s) Nostrils Both Every Day. latanoprost ophthalmic (latanoprost [...] ??? Eat a well-balanced diet. Medicines??? Take kapx-pdi-tqngnsz and prescription medicines only as told by [...] to digest. ? Rest often. ??? Take mqjh-pia-chwrysq or prescription medicines only as told by [...] Assistance with quitting is available by contacting 3-821-BRFC-NOW. This is a free resource providing counseling, [...] Be sure to sign up for the [employer] patient portal, which gives you 24/ access to your medical information ??? including these discharge instructions ??? using your computer, smartphone, or tablet. Just go to Clickpass to get started. Questions? Call . [facility] would like to thank you for allowing us to assist you with your healthcare needs. MEGHANA Campo SHARI R, (or security systems sales representative) have received the above patient education materials/instructions and have verbalized understanding: Patient Signature _ Date/Time Patient Printed Circuit Board Preassembler Signature (if needed) Date/Time Clinician/Hospital Printed Circuit Board Preassembler Signature (if needed) Date/Time documented in this encounter Plan of Treatment Not on file documented as of this encounter Visit Diagnoses Not on filedocumented in this encounter
--- OUTSIDE RECORDS SUMMARY | 2025-10-09 07:18 | XMS_ITS | Encounter Summary ---
Author Organization [employer] ([place], [place], [place], [place], [place]) Address [address] [place] [address] Care Team Providers Care Bath Steward Name Role Phone Unavailable Primary Care Provider Unavailabl e Encounter Details Date Type Department Care Team (Late st Contact Info) Description 11/23/2018 Transcribed Document [facility] Family Medicine [facility] [place] [address] ProviderJanie MD [address] [place], [place] [id number] Social History Tobacco Use Types Packs/Day Years Used Date Smoking Tobacco: Never Assessed Comments Unknown Sex and Gender Information Value Date Recorded Sex Assigned at Not on file Legal Sex Female 5:20 PM CDT Gender Identity Not on file Sexual Orientation Not on file documented as of this encounter Miscellaneous Notes * Cerner Conversion Note - Janie ProviderMD - 11/23/2018 7:43 AM 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 multile eye surgeries. appendectomy. [...] Tab, Oral, Daily, 0 Refill(s) Flonase: 1 Faber, Nostrils Both, Daily, 0 Refill(s) Lotemax 0.5% [...] list: All Problems Bursitis / SNOMED CT 702036707 / Confirmed Glaucoma / SNOMED CT 36795920 / Confirmed H/O seasonal allergies / SNOMED CT 5270676805 / Confirmed Hearing loss / SNOMED CT 11913883 / Confirmed Hyperlipidemia / SNOMED CT 36919792 / Confirmed Joint pain / SNOMED CT 27034715 / Confirmed Uterine cancer / SNOMED CT 2597273727 / Confirmed, Active Problems (7) Bursitis Glaucoma [...] No deformity, Normal gait. Integumentary: Warm, Dry, [place], No rash. Integumentary exam: Face, Chest, Arm, [...]
--- OUTSIDE RECORDS SUMMARY | 2025-10-09 07:18 | XMS_ITS | Encounter Summary ---
Author Organization [employer] ([place], [place], [place], [place], [place]) Address [address] [place] [address] Care Team Providers Care Flyer Maker Name Role Phone Unavailable Primary Care Provider Unavailabl e Encounter Details Date Type Department Care Team (Late st Contact Info) Description 11/23/2018 Transcribed Document [facility] [place] Family Medicine [address] [place] [address] ProviderJanie MD [address] [place], [place] [...] - Historical ProviderMD - 11/23/2018 8:30 AM TITLE CLERK [employer] [facility] PreOp Summary Primary Physician: KAILEY PIERRE MD-GAE Finalized Date/Time: 11/23/18 08:17:05 Pt. Name: GIOVANA IGLESIAS D.O.B./Sex: 1960 Female Med Rec #: [id number] Physician: KAILEY PIERRE MD-GAE Financial #: [id number] Pt. Type: O Room/Bed: [facility]/ Admit/Disch: 11/23/18 07:41:00 - Institution: [facility] PreOp Case Times Entry 1 In Preop 11/23/18 07:50:00 Ready for Holding n/a Room Patient Ready for 11/23/18 08:16:00 Surgery Patient Out of Preop 11/23/18 08:16:00 Patient Out of n/a Holding Room [facility] PreOp Case Times Audit 11/23/18 08:17:02 Hand Compositor: JOSE Modifier: JOSE <+> 1 Patient Out of Preop <+> 1 Patient Ready for Surgery Finalized By: KAILEY CAMACHO RN Document Signatures Signed By: KAILEY CAMACHO RN 11/23/18 08:17 Electronically signed by Karol [facility] Conversion Package Pick Up Cerner at 02/02/2023 9:20 AM CDT documented in this encounter Plan of Treatment Not on file documented as of this encounter Visit Diagnoses Not on filedocumented in this encounter
--- OUTSIDE RECORDS SUMMARY | 2025-10-09 07:18 | XMS_ITS | Encounter Summary ---
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 Name Role Phone Unavailable Primary Care Provider Unavailabl e Encounter Details Date Type Department Care Team (Late st Contact Info) Description 11/23/2018 Transcribed Document [facility] Family Medicine [address] [place] [address] ProviderJanie MD [address], [place] [id number] Social History Tobacco Use Types Packs/Day Years Used Date Smoking Tobacco: Never Assessed Comments Unknown Sex and Gender Information Value Date Recorded Sex Assigned at Not on file Legal Sex Female 5:20 PM CDT Gender Identity Not on file Sexual Orientation Not on file documented as of this encounter Miscellaneous Notes * Cerner Conversion Note - Historical ProviderMD - 11/23/2018 9:09 AM 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
--- OUTSIDE RECORDS SUMMARY | 2025-10-09 07:18 | XMS_ITS | Encounter Summary ---
Author Organization [employer] ([place], [place], [place], [place], [place]) Address [address] [place] [address] Care Team Providers Care Road Driver Name Role Phone Unavailable Primary Care Provider Unavailabl e Encounter Details Date Type Department Care Team (Late st Contact Info) Description 11/23/2018 Transcribed Document [facility] [place] [address] ProviderJanie MD [facility] [place] [address] Social History Tobacco Use Types [...] - Historical ProviderMD - 11/23/2018 8:36 AM ADMISSIONS REPRESENTATIVE [facility] IntraOp Summary Primary Physician: KAILEY PIERRE MD-GAE Finalized Date/Time: 11/23/18 09:00:05 Pt. Name: GIOVANA IGLESIASO.B./Sex: 1960 Female Med Rec #: [id number] Physician: KAILEY PIERRE MD-GAE Financial #: [id number] Pt. Type: O Room/Bed: [facility] Admit/Disch: 11/23/18 07:41:00 - Institution: [facility] - Case Attendance Entry 1 Entry 2 Entry 3 Case Attendee Brady PIERRE Rachel G, RN DUNHAM, MARIO PIMENTEL Role Performed Surgeon/Proceduralist, Electronic Drafter, First Scrub, First First Time In 11/23/18 [...] Endo - Case Attendance Audit 11/23/18 08:59:40 Arts Administrator: [email or web address] Modifier: [email or web address] 1 <+> Time Out [...] Colonoscopy, Colon Biopsy, Colon Polypectomy 11/23/18 08:56:10 Arts Administrator: [email or web address] Modifier: [email or web address] 1 <*> Procedure Colonoscopy, Colon Biopsy 2 <*> Procedure Colonoscopy, Colon Biopsy 3 <*> Procedure Colonoscopy, Colon Biopsy 4 <*> Procedure Colonoscopy, Colon Biopsy 5 <*> Procedure Colonoscopy, Colon Biopsy 11/23/18 08:51:04 Arts Administrator: [email or web address] Modifier: [email or web address] 1 <*> Procedure Colonoscopy 2 <*> Procedure Colonoscopy 3 <*> Procedure Colonoscopy 4 <*> Procedure Colonoscopy 5 <*> Procedure Colonoscopy 11/23/18 08:29:31 Arts Administrator: [email or web address] Modifier: [email or web address] 1 <*> Time In 11/23/18 08:25:00 1 <+> Procedure <+> 5 Case Attendee <+> 5 Role Performed <+> 5 Time In <+> 5 Procedure 11/23/18 08:28:06 Arts Administrator: [email or web address] Modifier: [email or web address] 2 <+> Time In 2 <*> Procedure Colonoscopy 3 <+> Time In 3 <*> Procedure Colonoscopy 4 <+> Time In 4 <*> Procedure Colonoscopy 11/23/18 08:28:04 Arts Administrator: [email or web address] Modifier: [email or web address] <+> 1 Time In [...] Endo - Case Times Audit 11/23/18 08:58:45 Arts Administrator: [email or web address] Modifier: [email or web address] <+> 1 Out Room Time <+> 1 Stop Time <+> 1 Stop Time 11/23/18 08:36:45 Arts Administrator: [email or web address] Modifier: [email or web address] <+> 1 Start Time [...] Modified By: Ada Abreu RN 11/23/18 08:29:59 [facility] Endo - Fire Risk Assessment Entry 1 [...] Modified By: Ada Abreu RN 11/23/18 08:30:08 [facility] Endo - General Case Tree Doctor 1 Case Information OR Endo 03 E Case Level 1 Room Verified Yes Wound Class III - Contaminated Specialty SN Gastroenterology Anesthesia Type MAC ASA Class 2 Diagnosis Preop Diagnosis history of colon polyps Postop Diagnosis sigmoid colon colitis, polyp Last Modified By: Ada Abreu RN 11/23/18 08:59:47 [facility] Endo - General Case Data Audit 11/23/18 08:59:47 Arts Administrator: [email or web address] Modifier: [email or web address] 1 <*> Postop Diagnosis sigmoid colon colitis 11/23/18 08:54:20 Arts Administrator: NATALIIA Modifier: [email or web address] <+> 1 Postop Diagnosis [...] Endo - Intraoperative Equipment Audit 11/23/18 08:31:24 Arts Administrator: [email or web address] Modifier: [email or web address] <+> 1 Photo <+> [...] Endo - Patient Positioning Audit 11/23/18 08:56:11 Arts Administrator: [email or web address] Modifier: [email or web address] 1 <*> Procedure Colonoscopy, Colon Biopsy 11/23/18 08:51:05 Arts Administrator: [email or web address] Modifier: [email or web address] 1 <*> Procedure Colonoscopy [...] Modified By: Ada Abreu RN 11/23/18 08:59:15 [facility] Endo - Surgical Procedures Entry 1 Entry [...] RN 11/23/18 08:59:06 11/23/18 08:59:06 11/23/18 08:59:06 [facility] Endo - Surgical Procedures Audit 11/23/18 08:59:06 Arts Administrator: [email or web address] Modifier: [email or web address] <+> 1 Stop <+> 2 Stop <+> 3 Stop 11/23/18 08:56:07 Arts Administrator: [email or web address] Modifier: [email or web address] <+> 3 Procedure <+> 3 Primary Procedure <+> 3 Primary Surgeon <+> 3 Specialty <+> 3 Start <+> 3 Wound Class <+> 3 Anesthesia Type <+> 3 Physician States Cecum Reached 11/23/18 08:51:01 Arts Administrator: [email or web address] Modifier: [email or web address] 1 <*> Procedure Colonoscopy 1 <+> Start 1 <+> Physician States Cecum Reached <+> 2 Procedure <+> 2 Primary Procedure <+> 2 Primary Surgeon <+> 2 Specialty <+> 2 Start <+> 2 Wound Class <+> 2 Anesthesia Type <+> 2 Physician States Cecum Reached [facility] Endo - Time Out Entry 1 Procedure [...] Modified By: Ada Abreu RN 11/23/18 08:56:12 [facility] Endo - Time Out Audit 11/23/18 08:56:12 Arts Administrator: NATALIIA Modifier: NATALIIA 1 <*> Procedure to be Performed Colonoscopy, Colon Biopsy 11/23/18 08:51:05 Arts Administrator: NATALIIA Modifier: NATALIIA 1 <*> Procedure to be Performed Colonoscopy Case Comments <None> Finalized By: Ada Abreu, RN Document Signatures Signed By: Ada Abreu RN 11/23/18 09:00 Electronically signed by Karol [facility] Conversion Roll Former Cerner at 02/02/2023 9:23 AM CDT documented in this encounter Plan of Treatment Not on file documented as of this encounter Visit Diagnoses Not on filedocumented in this encounter
--- OUTSIDE RECORDS SUMMARY | 2025-10-09 07:18 | XMS_ITS | Encounter Summary ---
Author Organization [employer] ([place], [place], [place], [place], [place]) Address [address] [place] [address] Care Team Providers Care Bear Keeper Name Role Phone Unavailable Primary Care Provider Unavailabl e Encounter Details Date Type Department Care Team (Late st Contact Info) Description 11/23/2018 Transcribed Document [facility] [address] [place] [address] ProviderJanie MD [address] [place] [address] Social History Tobacco Use Types [...] - Janie ProviderMD - 11/23/2018 9:18 AM JACQUARD LOOM FIXER Patient Education Materials Follows:Disease Colitis Introduction Colitis [...] ??? Eat a well-balanced diet. Medicines??? Take lvhb-yvz-qpfwidh and prescription medicines only as told by [...] to digest. ? Rest often. ??? Take aqas-eej-bvbifwx or prescription medicines only as told by [...] 11/07/2011 Document Revised: 06/29/2017 Document Reviewed: 06/29/2017 [employer] Interactive Patient Education ? 2017 [employer] documented in this encounter Plan of Treatment Not on file documented as of this encounter Visit Diagnoses Not on filedocumented in this encounter
--- OUTSIDE RECORDS SUMMARY | 2025-10-09 07:18 | XMS_ITS | Referral Summary ---
Author Organization [facility] ([place], [place], [place], [place], [place]) Address [address] [place] [address] Care Team Providers Care Retail Support Associate Name Role Phone Unavailable Primary Care Provider [...]
--- OUTSIDE RECORDS SUMMARY | 2025-10-09 07:18 | XMS_ITS | Clinical Summary ---
Author Organization [facility] Address [address] [place] [address] Care Team Providers Care Craps Manager Name Role Phone Ryanne Reyna APRN [...] Insurance [employer] PPO Care Teams Craps Manager Relationship Specialty Start Date End Date Ryanne Reyna APRN [address] [place] [address] [place] [id number] PCP - General Family Medicine 11/14/16
--- OUTSIDE RECORDS SUMMARY | 2025-10-09 07:18 | XMS_ITS | Encounter Summary ---
Author Organization [employer] ([place], [place], [place], [place], [place]) Address [address] [place] [address] Care Team Providers Care Farm Crew Leader Name Role Phone Unavailable Primary Care Provider Unavailabl e Encounter Details Date Type Department Care Team (Late st Contact Info) Description 11/23/2018 Transcribed Document [facility] Family Medicine [address] [place] [address] ProviderJanie MD [address] [place] [address] Social History Tobacco Use Types [...] - Historical ProviderMD - 11/23/2018 8:36 AM SPECIAL PROCEDURES TECH [facility] PACU Summary Primary Physician: KAILEY PIERRE MD-GAE Finalized Date/Time: 11/23/18 09:35:54 Pt. Name: GIOVANA IGLESIAS D.O.B./Sex: 1960 Female Med Rec #: [id number] Physician: KAILEY PIERRE MD-GAE Financial #: [id number] Pt. Type: O Room/Bed: [facility] Admit/Disch: 11/23/18 07:41:00 - Institution: [facility] PACU Case Times Entry 1 In PACU I 11/23/18 09:02:00 Ready for PACU 11/23/18 09:35:00 Discharge Discharge from PACU 11/23/18 09:35:00 I [facility] PACU Case Times Audit 11/23/18 09:35:49 Classroom Paraprofessional: [email or web address] Modifier: [email or web address] <+> 1 Ready for PACU Discharge <+> 1 Discharge from PACU I Finalized By: JOSEPH JUAREZ RN Document Signatures Signed By: JOSEPH JUAREZ RN 11/23/18 09:35 Electronically signed by Karol [facility] Conversion Circle Cutting Saw Operator Cerner at 02/02/2023 9:36 AM CDT documented in this encounter Plan of Treatment Not on file documented as of this encounter Visit Diagnoses Not on filedocumented in this encounter
--- OUTSIDE RECORDS SUMMARY | 2025-10-09 07:18 | XMS_ITS | Encounter Summary ---
Author Organization [employer] ([place], [place], [place], [place], [place]) Address [address] [place] [address] Care Team Providers Care Video Surveillance Technician Name Role Phone Unavailable Primary Care Provider Unavailabl e Encounter Details Date Type Department Care Team (Late st Contact Info) Description 11/23/2018 Transcribed Document [facility] [place] [facility] [address] [place] [address] ProviderJanie MD [address] [place] [address] Social History Tobacco Use Types [...] - Janie ProviderMD - 11/23/2018 9:15 AM MORTGAGE FUNDER [facility] [address], [place] [address] Patient Copy Patient Information: Name: GIOVANA IGLESIAS Jerome Current Date: 11/23/2018 09:15:11 : 1960 Patient Address: [address] [address] Patient Attending Physician: KAILEY PIERRE MD-RODO Primary Care Provider: Primary Care Provider Phone: Discharge Diagnosis: Weight on Admission: 157 lb, 0 oz Comment: Follow-up Instructions: With: Address: When: KAILEY PIERRE [address] [place] [address] [address], [address] [place] [phone] Business (1) Within As needed Comments: see [...] Times A Day. fluticasone nasal (Flonase) 1 [place](s) Nostrils Both Every Day. latanoprost ophthalmic (latanoprost [...] ??? Eat a well-balanced diet. Medicines??? Take rjyn-alh-spvaevs and prescription medicines only as told by [...] to digest. ? Rest often. ??? Take bcvl-hll-lrzlcso or prescription medicines only as told by [...] Assistance with quitting is available by contacting 0-411-EUSU-NOW. This is a free resource providing counseling, [...] Be sure to sign up for the [employer] patient portal, which gives you 24/ access to your medical information ??? including these discharge instructions ??? using your computer, smartphone, or tablet. Just go to [employer] to get started. Questions? Call . [facility] would like to thank you for allowing us to assist you with your healthcare needs. MEGHANA Campo SHARI R, (or medical representative) have received the above patient education materials/instructions and have verbalized understanding: Patient Signature _ Date/Time Patient General Worker Signature (if needed) Date/Time Clinician/Hospital General Worker Signature (if needed) Date/Time documented in this encounter Plan of Treatment Not on file documented as of this encounter Visit Diagnoses Not on filedocumented in this encounter
--- OUTSIDE RECORDS SUMMARY | 2025-10-09 07:18 | XMS_ITS | Encounter Summary ---
Author Organization [employer] ([place], [place], [place], [place], [place]) Address [address] [place] [address] Care Team Providers Care Transit Police Officer Name Role Phone Unavailable Primary Care Provider Unavailabl e Encounter Details Date Type Department Care Team (Late st Contact Info) Description 11/23/2018 Transcribed Document [facility] [place] Family Medicine [address] [place] [address] ProviderJanie MD [address] [place] [address] Social History Tobacco Use Types [...] - Janie ProviderMD - 11/23/2018 9:19 AM MACHINE MAINTENANCE MECHANIC [facility] [address], [place] [address] Patient Copy Patient Information: Name: GIOVANA IGLESIAS Jerome Current Date: 11/23/2018 09:19:02 : 1960 Patient Address: [address] [address] Patient Attending Physician: KAILEY PIERRE MD-RODO Primary Care Provider: Primary Care Provider Phone: Discharge Diagnosis: Weight on Admission: 157 lb, 0 oz Comment: Follow-up Instructions: With: Address: When: KIALEY PIERRE [address] [place] [address] [address], [address] [place] [phone] Business (1) Within As needed Comments: see [...] Times A Day. fluticasone nasal (Flonase) 1 [place](s) Nostrils Both Every Day. latanoprost ophthalmic (latanoprost [...] ??? Eat a well-balanced diet. Medicines??? Take pmod-eli-zzmojzi and prescription medicines only as told by [...] to digest. ? Rest often. ??? Take cedm-jpx-bfrlzij or prescription medicines only as told by [...] 11/07/2011 Document Revised: 06/29/2017 Document Reviewed: 06/29/2017 [employer] Interactive Patient Education ? 2017 [employer] CIGARETTE SMOKING: The facts are clear, cigarette smoking will shorten your life. Smoking can cause many illnesses along the way. As a healthcare provider, we recommend that you stop smoking. Assistance with quitting is available by contacting 8-957-XAHT-NOW. This is a free resource providing counseling, [...] Be sure to sign up for the [employer] patient portal, which gives you 11/05 access to your medical information ??? including these discharge instructions ??? using your computer, smartphone, or tablet. Just go to [employer] to get started. Questions? Call . [facility] would like to thank you for allowing us to assist you with your healthcare needs. MEGHANA Campo SHARI R, (or high school admissions representative) have received the above patient education materials/instructions and have verbalized understanding: Patient Signature _ Date/Time Patient Leather Goods Assembler Signature (if needed) Date/Time Clinician/Hospital Leather Goods Assembler Signature (if needed) Date/Time documented in this encounter Plan of Treatment Not on file documented as of this encounter Visit Diagnoses Not on filedocumented in this encounter
--- OUTSIDE RECORDS SUMMARY | 2025-10-09 07:18 | XMS_ITS | Clinical Summary ---
Author Organization [employer] [facility] ([place], [place], [place], [place], [place]) Address [address] [place] [address] Care Team Providers Care Physician Vice President Name Role Phone Unavailable Primary Care Provider [...]
--- OUTSIDE RECORDS SUMMARY | 2025-10-09 07:18 | XMS_ITS | Encounter Summary ---
Author Organization [employer] ([place], [place], [place], [place], [place]) Address [address] [place] [address] Care Team Providers Care Television Maintenance Worker Name Role Phone Unavailable Primary Care Provider Unavailabl e Encounter Details Date Type Department Care Team (Late st Contact Info) Description 11/23/2018 Transcribed Document [facility] [place] [place] [address] [place] [address] ProviderJanie MD [address] [place] [address] Social History Tobacco Use Types [...] - Historical ProviderMD - 11/23/2018 8:03 AM MOTOR COACH TOUR OPERATOR Height and Weight, Clinical Dosing Entered On: 11/23/2018 8:04 EST Performed On: 11/23/2018 8:03 EST by KAILEY CAMACHO RN Height and Weight, Clinical Dosing Height Source : Stated Height Entry Format : [place] Height, Feet : 5 ft(Converted to: 152 cm, 60 Inch) Height, Inches : 5 Inch(Converted to: 0 ft 5 Inch, 12.70 cm) Clinical Height : 165.1 cm Weight Source : Standing scale Weight Entry Format : [place] Clinical Dosing Weight : 71.36 kg Weight, Pounds : 157 lb Body Surface Area (BSA) : 1.79 m2 Body Mass Index : 26.2 kg/m2 (HI) Salters Body Weight : 57 kg KAILEY CAMACHO RN - 11/23/2018 8:03 EST documented in this encounter Plan of Treatment Not on file documented as of this encounter Visit Diagnoses Not on filedocumented in this encounter
--- OUTSIDE RECORDS SUMMARY | 2025-10-09 07:18 | XMS_ITS | Patient Health Record ---
Author Organization [facility] Address [address] [place] [address] Care Team Providers Care Broadcast Supervisor Name Role Phone Emanuel Purvis Primary Care Provider [phone] Ryanne Reyna Unavailable [phone] Emanuel Purvis Unavailable Unavailable Migration, Provider Unavailable Unavailable Allergies No Known Allergies Results Component Value Reference Range Notes LIPID PANEL, STANDARD (7600) Reviewed date:06/20/2025 08:47:08 AM Interpretation: Performing Lab:KARLEY, Karissa Marquis-Jb Wahle1355 [facility] ServicesJb Gaston[address] [place] Notes/Report: NON-FASTING; NON-FASTING; NON-FASTING; [...] hypercholesterolemia, please call Karissa BARKER et al. KLAUS. 2013;310(19): 5570-5792 hypercholesterolemia (FH). Clinical assessment and Delia Frazier [...] or = 190 mg/dL may indicate familial 1089-6615. Clinical Lipidology 2015;9(2), 129-169. with > or = 2 CHD risk factors. LDL-C is now calculated using the [facility] [employer] Client Services at 1.866.GENE.INFO. estimation of LDL-C. interventions to reduce the cumulative LDL-C Kecia Willett, et al. J National Lipid Association (http://education.Monitise.com/faq/TJV480) measurement of blood lipid levels should be [...] patients with an FH diagnosis. COMPREHENSIVE METABOLIC PANRegine Bruce ([address]3316) Reviewed date:06/20/2025 08:47:08 AM Interpretation: Performing Lab:KARLEY, Quest Kandis-Jb Vnnu3038 [facility] HospitalJbIgdbMS[address] [place] Notes/Report: NON-FASTING; NON-FASTING; NON-FASTING; NON-FASTING; [...] Reviewed date:06/20/2025 08:47:08 AM Interpretation: Performing Lab:KARLEY, agencyQ Diagnostics-[facility]1355 [facility] ServicesteSt. [facility], [facility] HospitalZfmbUH[address] [place] Notes/Report: NON-FASTING; NON-FASTING; NON-FASTING; NON-FASTING; NON-FAST FASTING:YES FASTING: YES WHITE BLOOD CELL COUNT 7.0 3.8-10.8 Thousand/uL RED BLOOD CELL COUNT 5.10 3.80-5.10 Million/uL [...] MPV 9.8 7.5-12.5 fL ABSOLUTE NEUTROPHILS 4200 5832-8059 cells/uL ABSOLUTE LYMPHOCYTES 2072 850-3900 cells/uL ABSOLUTE MONOCYTES 448 200-950 cells/uL ABSOLUTE EOSINOPHILS 217 15-500 cells/uL ABSOLUTE BASOPHILS 63 0-200 cells/uL NEUTROPHILS 60 LYMPHOCYTES 29.6 MONOCYTES 6.4 EOSINOPHILS 3.1 BASOPHILS 0.9 HEMOGLOBIN A1c (496) Reviewed date:06/20/2025 08:47:08 AM Interpretation: Performing Lab:KARLEY Wize-TwentyPeoplee13[address] [place], LoraxAgXdpwKR[address] [place] Notes/Report: NON-FASTING; NON-FASTING; NON-FASTING; NON-FASTING; [...] of Medical Care in Diabetes(ADA). According to [place] Diabetes Association (ADA) metrics may apply to specific patient populations. <5.7% Consistent with the absence of diabetes For the purpose of screening for the presence of VITAMIN B12 (927) Reviewed date:06/20/2025 08:47:08 AM Interpretation: Performing Lab:KARLEY Wize-TwentyPeoplee[address] [place], LoraxAgCejzPC[address] [place] Notes/Report: NON-FASTING; NON-FASTING; NON-FASTING; NON-FASTING; NON-FAST FASTING:YES FASTING: YES VITAMIN B12 384 224-1993 pg/mL pg/mL may experience neuropsychiatric and hematologic [...] Reviewed date:06/20/2025 08:47:08 AM Interpretation: Performing Lab:KARLEY Wize-TwentyPeoplee1355 Eventmag.[employer], LoraxAgUswkBP[address] [place] Notes/Report: NON-FASTING; NON-FASTING; NON-FASTING; NON-FASTING; NON-FAST FASTING:YES FASTING: YES FERRITIN 19 16-288 ng/mL TSH W/REFLEX TO FT4 (00764) Reviewed date:06/20/2025 08:47:08 AM Interpretation: Performing Lab:KARLEY, Wize-Teliportme [address], [place] RuocGX[address] [place] Notes/Report: NON-FASTING; NON-FASTING; NON-FASTING; NON-FASTING; NON-FAST FASTING:YES FASTING: YES TSH W/REFLEX TO FT4 2.52 0.40-4.50 mIU/L VITAMIN D,25-OH,TOTAL,IA (17 306) Reviewed date:06/20/2025 08:47:08 AM Interpretation: Performing Lab:KARLEY, Wize-[address], TwentyPeoplePtpeOV[address] [place] Notes/Report: NON-FASTING; NON-FASTING; NON-FASTING; NON-FASTING; NON-FAST FASTING:YES FASTING: YES VITAMIN D,25-OH,TOTAL,IA 57 30-100 ng/mL http://education.Corceuticals.Sopsy.com/faq/RPG628 For 25-OH Vitamin D testing on patients on code 35962 (patients >2yrs). Insufficiency: 20 - 29 ng/mL [...] and D3 fractions is required, the QuestAssureD(TM) Urinalysis Reviewed date:09/27/2025 09:19:28 AM Interpretation: Performing Lab: Notes/Report: Leuk small Nitrite neg Urobili 0.2 Protein 30 mg/dL pH 5.0 Blood small Sp. Gr. 1.030 Ketone neg Bili neg Glucose neg URINALYSIS, COMPLETE (3545) Reviewed date:09/30/2025 07:03:19 AM Interpretation: Performing Lab:KARLEY Wize-Tel[address]ortme [address], [place] BxkzCS[address] [place] Notes/Report: NON-FASTING; NON-FASTING COLOR DARK [...] CAST NONE SEEN NONE SEEN /LPF NOTE RBC, bacteria, casts, and other formed elements. Only those elements seen were reported. This urine was analyzed for the presence of WBC, CULTURE, URINE, ROUTINE (395 ) Reviewed date:10/02/2025 09:31:07 AM Interpretation: Performing Lab:KARLEY, agencyQ Diagnostics-Jb Ophw[address], [place] WxmgXL[address] [place] Notes/Report: NON-FASTING; NON-FASTING CULTURE, URINE, ROUTINE SEE NOTE These organisms, commonly found on external and INT ROBERT VANCOMYCIN S 1 Specimen Source: Urine SDD = Susceptible Dose Dependent * = Not Tested NR = Not Reported further testing performed. S = Susceptible I = Intermediate R = Resistant NS = Not susceptible E.faecalis NITROFURANTOIN S <=16 CULTURE, URINE, ROUTINE Test Status: Final Result: Greater than 100,000 CFU/mL of Enterococcus faecalis AMPICILLIN S <=2 NN = See Therapy Comments COMMENT: Additional non-predominating organism(s) isolated. internal genitalia, are considered colonizers. No Specimen Quality: Adequate Micro Number: [id number] Reason For Referral Reason Mamm and DEXA at [facility] Diagnosis 1 Routine medical exam (Z00.00) Referral Organization [facility] FANTA CALLES Referring Provider First Name Ryanne Referring Provider Last Name Maribell Referring Provider [facility] ctice Referred Organization [facility] Referred Address [address], [place], [place],[address], Referred Provider Specialty Diagnostic R adiology General Notes Edel Kiser 2024 10:37:27 AM >sent to [facility] Referral Priority Routine Reason Complete abdominal U S of the abdomen - see CT chest report Diagnosis 1 Left upper quadrant abdominal mass (R19.02) Referral Organization [facility] FANTA CALLES Referring Provider First Name Ryanne Referring Provider Last Name Maribell Referring Provider Speciality Family Pra ctice Referred Organization [facility] Referred Address [address] [facility] [address] [facility], [place],[address],[place] Referred Provider Specialty Diagnostic R adiology General Notes Edel Kiser 2024 09:52:27 AM >sent Referral Priority Routine Medications Medication SIG (Take, Route, Frequency, Duration) Notes Start Date End Date Status Zetia 10 MG 1 tablet Orally Once a day; Duration: 90 days 06/20/2025 Active Zinc 50 MG 1 tablet Orally Once a day Active Vitamin D3 50 MCG (2000 UT) 1 tablet Orally Once a day Active Vitamin A 31024 INTL UNITS DIRECTED ORALLY ONCE A DAY *Please review and pick correct strength-formulati on from Burpple options. If intended option is not shown, discontinue and re-order from Quick Search* Active Turmeric 500 MG 1 cap(s) orally once a day Active Fosamax 70 MG 1 tab(s) orally once a week; Duration: 90 days 04/13/2024 Active Fiber Choice 1.5 GM 1 tab(s) chewed once daily at bedtime Active Metoprolol Tartrate 25 MG 1/2 tab orally 2 times a day Active Macrobid 100 MG 1 capsule with food Orally every 12 hrs; Duration: 7 days 10/02/2025 Active Aspirin 81 MG 1 tab(s) orally once a day; Duration: 90 days Active Latanoprost 0.005 % 1 gtt in each eye once a day (at bedtime) Active Nitroglycerin 0.4 MG 1 tab(s) sublingually every 5 minutes; Duration: 30 days 04/28/2023 Active Valsartan 40 MG 1 tablet Orally Twice a day Active Dorzolamide HCl-Timolol Mal 2%-0.5% PRESERVATIVE-FREE 1 GTT IN EACH EYE EVERY MORNING *Please review and pick correct strength-formulati on from Burpple options. If intended option is not shown, discontinue and re-order from Quick Search* Active Immunizations Vaccine Route Administration Date Status Comme nts Prevnar PCV-13 (Pneumococcal conjugate 13) IM Intramuscular 05/17/2020 Administered Problems Problem Type SNOMED Code ICD Code Onset Dates Problem Status W/U Status Risk Notes Problem Chronic pain (54725305) Other chronic pain (G89.29) Active confirmed Problem Pain of right knee region (finding) (789843447695603) Pain in right knee (M25.561) Active confirmed Problem Pain of left knee joint (finding) (613751545415934) Pain in left knee (M25.562) Active confirmed Problem Hyperlipidaemia (33649808) HLD (hyperlipidemia) (E78.5) Active confirmed Problem Visual impairment (586408678) Visual impairment (H54.7) Active confirmed Problem Iron deficiency anemia (83870401) Iron deficiency anemia (D50.9) Active confirmed Problem Hyperlipidemia (39572081) Hyperlipidemia, unspecified (E78.5) Active confirmed Problem Urge incontinence of urine (51084095) Urge incontinence of urine (N39.41) Active confirmed Problem Benign essential hypertension (1788908) Benign essential hypertension (I10) Active confirmed Problem Arthropathy (248938842) Arthritis involving multiple sites (M12.9) Active confirmed Problem Atherosclerosis of coronary artery without angina pectoris (141127092956942) Atherosclerosis of [place] coronary artery of [place] heart without angina pectoris (I25.10) Active confirmed Problem Atherosclerotic hear t disease of [place] coronary artery without angina pectoris (521642115812554) Coronary artery disease involving [place] coronary artery of [place] heart without angina pectoris (I25.10) Active confirmed Problem Recurrent falls (256115388) Frequent falls (R29.6) Active confirmed Problem Abnormal mammogram (844467452) Abnormal mammogram (R92.8) Active confirmed Problem Ataxia (10544503) Ataxia (R27.0) Active confirm ed Problem Liver cyst (94372598) Liver cyst (K76.89) Active confirmed Problem Unstable angina co-occurrent and due to coronary arteriosclerosis (20511360190074846) Coronary artery disease involving [place] coronary artery of [place] heart with unstable angina pectoris (I25.110) Active confirmed Problem Body mass index 25-2 9 - overweight (110910833) BMI 26.0-26.9,adult (Z68.26) Active confirmed Problem Transient ischemic attack (352618196) TIA (transient ischemic attack) (G45.9) Active confirmed Problem Chronic constipation (737282400) Chronic constipation (K59.09) Active confirmed Problem STEMI - ST elevation myocardial infarction (851085276) ST elevation (STEMI) myocardial infarction (I21.3) Active confirmed Problem Arthritis of acromioclavicular joint (917883845) Acromioclavicular joint arthritis (M19.90) Active confirmed Problem Right anterior k nee pain (M25.561) Active confirmed Problem Stable angina (disorder) (182369872) Stable angina pectoris (I20.8) Active confirmed Problem History of iron deficiency anemia (427341296) History of iron deficiency anemia (Z86.2) Active confirmed Problem Postmenopausal osteoporosis (885789404) Postmenopausal osteoporosis (M81.0) Active confirmed Problem Sensorineural hearin g loss, bilateral (075897516) Sensorineural hearing loss (SNHL) of both ears (H90.3) Active confirmed Problem Multiple subsegm ental pulmonary emboli without acute cor pulmonale (I26.94) Active confirmed Problem Hyperlipoproteinemia (2512784) Acquired hyperlipoproteinemia (E78.5) Active confirmed Problem Acquired renal cysti c disease (860337953) Kidney cysts (N28.1) Active confirmed Problem Solitary pulmonary nodule (518882635) Left lower lobe pulmonary nodule (R91.1) Active confirmed Vital Signs Heart Rate 70 /min 09/27/2025 Temperature 98 degrees Fahrenheit 09/27/2025 Blood pressure diastolic 70 mm Hg 09/27/2025 Height 5 ft 5 in in 09/27/2025 Blood pressure systolic 118 mm Hg 09/27/2025 Weight 141 lbs 09/27/2025 BMI 23.46 kg/m2 09/27/2025 Encounters Encounter Location Date Provider Diagnosis [facility] [address] [place], [place] [address] 01/21/2025 Provider Migration [facility]il L02.92 [facility] [address] [address] 01/04/2025 Ryanne Reyna Boil L02.92 [facility] [address] [address] 06/14/2025 Ryanne Reyna Routine medical exam Z00.00 ; Sensorineural hearing loss (SNHL) of both ears H90.3 ; Visual impairment H54.7 ; History of iron deficiency anemia Z86.2 ; Benign essential hypertension I10 ; Hyperlipidemia, unspecified E78.5 ; Coronary artery disease involving [place] coronary artery of [place] heart without angina pectoris I25.10 ; Arthritis involving multiple sites M12.9 ; Abscess L02.91 ; Postmenopausal osteoporosis M81.0 and BMI 23.0-23.9, adult Z68.[address] [address] 09/27/2025 Ryanne Reyna Left upper quadrant abdominal mass R19.02 ; Left lower lobe pulmonary nodule R91.1 ; Kidney cysts N28.1 and Liver cyst K76.89 [facility]I [address] [place] [address] 06/15/2025 Emanuel Purvis Visit for screening mammogram Z12.31 and Asymptomatic menopausal state Z78.0 [facility] [address] [address] [facility] [address] [address] 06/29/2025 Emanuel Vladson [facility] [address] [address] 10/02/2025 Emanuel Purvis Assessments Encounter Date Diagnosis (ICD [...] Visit for screening mammogram (ICD-10 - Z12.31) 09/27/2025 Left lower lobe pulmonary nodule (ICD-10 - R91.1) plan to repeat imaging in 1 year for comparison 09/27/2025 Left upper quadrant abdominal mass (ICD-10 [...] after results are received and proceed accordingly. 06/15/2025 Asymptomatic menopausal state (ICD-10 - Z78.0) 09/27/2025 Kidney cysts (ICD-10 - N28.1) 06/14/2025 Visual impairment (ICD-10 - H54.7) following with specialty services 06/14/2025 History of iron deficiency anemia (ICD-10 - Z86.2) repeat labs today 09/27/2025 Liver cyst (ICD-10 - K76.89) 06/14/2025 Benign essential hypertension (ICD-10 - I10) well controlled on current regimen 06/14/2025 Hyperlipidemia, unspecified (ICD-10 - E78.5) Discussed importance of management in the setting of bypass surgery. 06/14/2025 Coronary artery disease involving [place] coronary artery of [place] heart without angina pectoris (ICD-10 - I25.10) [...] Name Order Date Ultrasound : Abdomen 09/27/2025 X ray : Hip, Left 03/21/2011 DEXA Hip and Spine - Screening 08/28/202 5 MRI : Head, Without Contrast 12/09/2022 Speech Therapy Eval and Treatment 2017 Mammogram : Bilateral 06/15/2025 Mammogram : Bilateral 05/13/2018 H-CBC with AUTO DIFF 04/13/2017 H-CBC with AUTO DIFF 07/22/2010 H-CMP 03/21/2011 H-CMP 04/13/2017 H-CMP 07/22/2010 H-LIPID PANEL 07/22/2010 H-LIPID PANEL 03/21/2011 H-LIPID PANEL 04/13/2017 H-TSH 07/22/2010 H-SED RATE 03/21/2011 Lexiscan Stress Test 04/28/2023 Insurance Providers Payer Name Payer Address Payer Phone Subscriber Number Group Number Insured Name Patient Relationship to Insured Coverage Start Date Coverage End Date [facility] [employer] [address] [place] [address] [id number] Giovana Iglesias Self - patient is the [...] Triple bypass 05/2023 Hospitalization History Reason Date(Month/Year) hysterectomy @ [facility] 06/2015 Vertigo 10/2011 CVA 05/2023 Triple bypass 05/2023 [facility] 11/2022
--- OUTSIDE RECORDS SUMMARY | 2025-10-09 07:18 | XMS_ITS | Clinical Summary ---
Author Organization Healthcare Address [address] [place] [address] Care Team Providers Care High School Professional Name Role Phone Ryanne Reyan APRN Primary Care Provider [phone] Juan Hensley MD Unavailable [phone] Allergies No known active allergies Medications loratadine [...] same time. Active Vitamin A 7.5 MG (86366 UT) capsule 1 (one) time each day [...] EST Hospital Encounter Cardiac Imaging [address] [place] [address] Implantable loop recorder present Discharge Disposition: Home or Self Care 09/11/2025 Travel 08/16/2025 12:30 PM EDT Office Visit [facility] Audiology [address] [place] [address] Marilee Haynes, Sindhu Sensorineural hearing loss (SNHL) of both ears (Primary Dx) 08/16/2025 Travel 08/10/2025 3:50 PM EDT - 08/10/2025 11:59 PM EDT Hospital Encounter Cardiac Imaging [address] [place] [address] History of loop recorder Discharge Disposition: Home or Self Care 08/10/2025 Travel 07/11/2025 1:05 PM EDT - 07/11/2025 11:59 PM EDT Hospital Encounter Cardiac Imaging [address] [place] [address] Implantable loop recorder present Discharge Disposition: Home [...] Description 10/23/2025 8:00 AM EST Office Visit [facility] [place] [address] [place] [address] Kevin Vargas MD [address] [place] [address] Health Maintenance Due Date Last Done Comments [facility]-Depression Screening 1960 [facility]-/Child/Adol SDOH Screenings 1960 [facility]-CDFSH-99 Vaccine (#1) 1960 [facility]- SDOH Screenings 1979 [facility]-Adult SDOH Screenings 1979 [facility]-DTaP,Tdap,and Td Vaccine s (1 - Tdap) 1980 CT Colonography 2006 Colonoscopy 2006 FIT-DNA 2006 FIT 2006 FOBT 2006 Sigmoidoscopy 2006 [facility]-Colorectal Cancer Screening 2006 [facility]-Breast Cancer Screening 2011 [facility]-RSV Vaccine: 60+ Years o r (1 - Risk 50-74 years 1-dose series) 2011 [facility]-Zoster Vaccines (1 of 2) 2011 [facility]-Pneumococcal Vaccine: 50 + Years (2 of 2 - PPSV23, PCV20, or PCV21) 07/12/2020 05/17/2020 [facility]-Influenza Vaccine (#1) 2025 [facility]-HIV Screening Completed 05/29/2023 [facility]-Hepatitis C Screening Completed 05/29/2023 HPV Vaccines (No Doses Required) Completed [facility]-HIB Vaccines Aged Out No longer e [...] this topic Medical Devices Implanted Type Area Sort Line Worker Device Identifier Shelf Expiration Date Model / Serial / Lot Cochlear-2019 Implanted:03/20 by Roxanne Vasquez MD (Quantity not on file) Cochlear Left: Ear [id number] / [id number] / Cochlear- 021 Implanted:05/2021 by Roxanne Vasquez MD (Quantity not on file) Cochlear Right: Ear [id number] / [id number] / System Reveal Linq Ii Insertable Sap Analyst - [id number] Implanted:Qty: 1 on 05/05/[address] [facility] [employer]-[id number] 10/09/2025 [id number] / [id number] / [id number] Procedures Procedure Name Priority Date/Time Associated Diagnosis [...] (05/29/2023 7:47 AM EDT) Pathologist [facility] HIV 1 & 2 Antibody/Antigen Screen Non Reactive Non Reactive 06/10/2023 6:46 PM EDT [facility] Comment:Screening for HIV 1 & 2 antibodies, and P24 antigen is NONREACTIVE. No confirmatory testing is required. Blood Venous blood specimen / Unknown Venipuncture / Unknown 05/29/2023 7:47 AM EDT 05/29/2023 7:59 AM EDT Con Lock MD LAB BLOOD ORDERABLES Edited Re sult - Final Performing Organization Address City/[facility]/ZIP Co de Phone Number [facility] [address] [place] [address] * Hepatitis C Antibody - ED (05/29/2023 7:47 AM EDT) Hepatitis C Antibody Negative Negative 05/29/2023 8:54 AM EDT [facility] Blood Venous blood specimen / Unknown Venipuncture / Unknown 05/29/2023 7:47 AM EDT 05/29/2023 7:59 AM EDT Con Lock MD LAB BLOOD ORDERABLES Final [facility] [address] [place] [address] from Last 3 Months or Most Recently [...] Patient has decision-making capacity? Yes Care Teams High School Professional Relationship Specialty Start Date End Date Ryanne Reyna APRN [address] [facility] [address] [place] [address] PCP - General 03/01/21 Juan Hensley MD [address] [place] [address] [address] [place] [address] Referring Physician Cardiology 05/18/23
--- OUTSIDE RECORDS SUMMARY | 2025-10-09 07:18 | XMS_ITS | Encounter Summary ---
Author Organization [facility] ([place], [place], [place], [place], [place]) Address [address] [place] [address] Care Team Providers Care Health Professor Name Role Phone Unavailable Primary Care Provider Unavailabl e Encounter Details Date Type Department Care Team (Late st Contact Info) Description 11/23/2018 Transcribed Document [facility] [place] [facility] [address] [place] [address] ProviderJanie MD [address] [place] [address] Social History Tobacco Use Types [...] - Janie ProviderMD - 11/23/2018 8:30 AM AQUARIUM TANK ATTENDANT [facility] [address] [facility], [place] [address] Patient Copy Patient Information: Name: GIOVANA IGLESIAS Jerome Current Date: 11/23/2018 08:30:10 : 1960 Patient Address: [address] [facility] [address] Patient Attending Physician: KAILEY PIERRE MD-RODO Primary Care Provider: Primary Care Provider Phone: Discharge Diagnosis: Weight on Admission: 157 lb, 0 oz Comment: Follow-up Instructions: With: Address: When: KAILEY PIERRE [address] [place] [address] [address], [address] [place] [phone] Business (1) Within As needed Comments: see [...] Times A Day. fluticasone nasal (Flonase) 1 [place](s) Nostrils Both Every Day. latanoprost ophthalmic (latanoprost [...] to digest. ? Rest often. ??? Take qecr-quc-rnhclji or prescription medicines only as told by [...] 11/07/2011 Document Revised: 06/29/2017 Document Reviewed: 06/29/2017 Kidblog Interactive Patient Education ? 2017 [employer]. CIGARETTE SMOKING: The facts are clear, cigarette smoking will shorten your life. Smoking can cause many illnesses along the way. As a healthcare provider, we recommend that you stop smoking. Assistance with quitting is available by contacting 6-935-PRCPInstaJobNOW. This is a free resource providing counseling, [...] Be sure to sign up for the NetVision patient portal, which gives you 11/05 access to your medical information ??? including these discharge instructions ??? using your computer, smartphone, or tablet. Just go to mSilica to get started. Questions? Call . [facility] would like to thank you for allowing us to assist you with your healthcare needs. MEGHANA Campo SHARI R, (or customer retention representative) have received the above patient education materials/instructions and have verbalized understanding: Patient Signature _ Date/Time Patient Tnt Line Supervisor Signature (if needed) Date/Time Clinician/Hospital Tnt Line Supervisor Signature (if needed) Date/Time Electronically signed by Karol, [place] Conversion Light Armored Vehicle Officer Cerner at 02/02/2023 9:34 AM CDT documented in this encounter Plan of Treatment Not on file documented as of this encounter Visit Diagnoses Not on filedocumented in this encounter
--- OUTSIDE RECORDS SUMMARY | 2025-10-09 07:18 | XMS_ITS | Encounter Summary ---
Author Organization [facility] Address [address] [place] [address] Care Team Providers Care Batt Packer Name Role Phone MaribellRyanne Janis SOLOMON Primary Care Provider [phone] Juan Hensley MD Unavailable [phone] Encounter Details Date Type Department Care Team [...] Description 10/23/2025 8:00 AM EST Office Visit [facility] [address], [address] [place] [address] Kevin Vargas MD [address] [facility] [address] [place] [address] documented as of this encounter Visit Diagnoses Not on filedocumented in this encounter Additional Health Concerns Assessment Noted Time A fall risk assessment has been complete d for the patient 02/14/2025 2:11 PM EDT A Body Mass Index follow-up plan has been documented for the patient 08/18/2025 9:09 AM EDT documented as of this encounter Care Teams Batt Packer Relationship Specialty Start Date End Date Ryanne Reyna APRN formerly [facility] [address] [address] PCP - General 03/01/21 Juan Hensley MD [address] [place] [address] [address] [place] [phone] Referring Physician Cardiology 05/18/23 documented as of this encounter
--- OUTSIDE RECORDS SUMMARY | 2025-10-09 07:18 | XMS_ITS | Encounter Summary ---
Author Organization [employer] ([place], [place], [place], [place], [place]) Address [address] [place] [address] Care Team Providers Care Shipyard Supervisor Name Role Phone Unavailable Primary Care Provider Unavailabl e Encounter Details Date Type Department Care Team (Late st Contact Info) Description 11/23/2018 Transcribed Document [facility] [address] [place] [address] ProviderJanie MD [address] [place] [address] Social History Tobacco Use Types Packs/Day Years Used Date Smoking Tobacco: Never Assessed Comments Unknown Sex and Gender Information Value Date Recorded Sex Assigned at Not on file Legal Sex Female 5:20 PM CDT Gender Identity Not on file Sexual Orientation Not on file documented as of this encounter Miscellaneous Notes * Cerner Conversion Note - Historical ProviderMD - 11/23/2018 8:29 AM BAIL BONDING AGENT Discharge Instructions Entered On: 11/23/2018 8:30 EST [...]
--- NOTE | 2025-10-09 07:19 | US_ITS ---
FINAL REPORT TECHNIQUE: Multiple transverse and longitudinal images were obtained of the left upper quadrant CLINICAL HISTORY: LUQ ABD MASS COMPARISON: CT chest 09/21/2025 FINDINGS: The spleen is unremarkable. There is a large cystic mass superior to the left kidney measuring 9.7 cm with features of a benign simple cyst. This is probably exophytic, arising from the left kidney. There is also a 1.5 cm left renal cyst. IMPRESSION: Benign exophytic cyst left kidney accounting for CT abnormality. Reviewed, Interpreted and Dictated by Archie Bynum MD Transcribed by Ailyn Che Authenticated and [facility]
--- OUTSIDE RECORDS SUMMARY | 2025-10-09 07:19 | XMS_ITS | Encounter Summary ---
Author Organization [facility] Address [address] [place] [address] Care Team Providers Care Washing Machine Loader And Puller Name Role Phone MaribellRyanne Janis SOLOMON Primary Care Provider [phone] Juan Hensley MD Unavailable [phone] Encounter Details Date Type Department Care Team [...] Description 10/23/2025 8:00 AM EST Office Visit [facility] [address], [address] [place] [address] Kevin Vargas MD [address] [facility] [address] [place] [address] documented as of this encounter Visit Diagnoses Not on filedocumented in this encounter Additional Health Concerns Assessment Noted Time A fall risk assessment has been complete d for the patient 02/14/2025 2:11 PM EDT A Body Mass Index follow-up plan has been documented for the patient 08/18/2025 9:09 AM EDT documented as of this encounter Care Teams Washing Machine Loader And Puller Relationship Specialty Start Date End Date Ryanne Reyna APRN [facility] [address] [address] PCP - General 03/01/21 Juan Hensley MD [address] [place] [address] [address] [place] [phone] Referring Physician Cardiology 05/18/23 documented as of this encounter
--- OUTSIDE RECORDS SUMMARY | 2025-10-09 07:19 | XMS_ITS | Encounter Summary ---
Author Organization [facility] [place] [facility] Address [address] [place] [address] Care Team Providers Care Evaluation Analyst Name Role Phone MaribellRyanne Janis SOLOMON Primary Care Provider [phone] Juan Hensley MD Unavailable [phone] Encounter Details Date Type Department Care Team [...] Description 10/23/2025 8:00 AM EST Office Visit [facility] [address] [place] [address] Kevin Vargas MD [address] [facility] [address] [place] [address] documented as of this encounter Visit Diagnoses Not on filedocumented in this encounter Additional Health Concerns Assessment Noted Time A fall risk assessment has been complete d for the patient 02/14/2025 2:11 PM EDT A Body Mass Index follow-up plan has been documented for the patient 02/14/2025 3:02 PM EDT documented as of this encounter Care Teams Evaluation Analyst Relationship Specialty Start Date End Date Ryanne Reyna APRN [facility] [address] [address] PCP - General 03/01/21 Juan Hensley MD [address] [place] [address] [address] [place] [phone] Referring Physician Cardiology 05/18/23 documented as of this encounter
--- OUTSIDE RECORDS SUMMARY | 2025-10-09 07:19 | XMS_ITS | Encounter Summary ---
Author Organization [facility] Address [address] [place] [address] Care Team Providers Care Electrician Chief Name Role Phone MaribellRyanne desai Janis SOLOOMN Primary Care Provider [phone] Juan Hensley MD Unavailable Reason for Visit * Reason Comments Med Refill Encounter Details Date Type Department Care Team (Late st Contact Info) Description 09/11/2021 Refill [facility] [place] [address], [address] [place] [address] Kevin Vargas MD [address] [place] [address] Social History Tobacco Use Types [...] Description 10/23/2025 8:00 AM EST Office Visit [facility] [address], [address] [place] [address] Kevin Vargas MD [address] [place] [address] documented as of this encounter Visit Diagnoses Not on filedocumented in this encounter Care Teams Electrician Chief Relationship Specialty Start Date End Date Ryanne Reyna APRN [facility] [address] [address] PCP - General 03/01/21 Juan Hensley MD [address] [place] [address] [address] [place] [address] Referring Physician Cardiology 05/18/23 documented as of this encounter
== END 2025-10-09 23:59 | disposition home or self-care (01) ==
LOC: RAD 07:16
PROVIDERS: PCP Internal Medicine Adolescent Medicine; Visit Provider Nurse Practitioner Family
DX: N28.1 Cyst of kidney, acquired
CPT/HCPCS: 76705